=== PATIENT | male | born 1950 | race Caucasian/White ===

== ENCOUNTER 2016-09-18 15:32 | Inpatient (IN) | payer MEDICARE, OTHER ==
[~2016-09-18] VITALS: Ht 177.8 cm; Wt 87.3 kg
[~2016-09-18 15:32] MED LIST: CELE200C PO; CIPR500T94 PO; CRESTOR20 MG PO; FISH12002 PO; GABA-585 PO; HYDR-2666 PO; HYDR1TAB10 PO; IBUP800T PO; METO50TA10 PO; OMEP40CA5 PO; ONDA8TAB12 PO; PSYL0.5215 PO; TAMS0.4C97 PO; TELM1TAB PO; celebrex PO; crestor PO; ibuprofen PO; metoprolol PO; micardis
[2016-09-18 16:12] VITALS: BP 120/77
[2016-09-18] MEDS ORDERED: VANCOMYCIN PER PHARMACY MC PRN (16:30)
[2016-09-18] MEDS ORDERED: VANCOMYCIN 2 GM in IV NORMAL SALINE 500ML 500 ML IV ONE (16:45)
[2016-09-18] MEDS ORDERED: IOHEXOL 300 MG/ML 75 ML VIAL. IV ONE (17:00)
[2016-09-18] MEDS ORDERED: PIPERACILLIN/TAZOBACTAM 4.5 GM in IV NORMAL SALINE 50ML 50 ML IV SCH (17:00)
[2016-09-18] MEDS ORDERED: IOHEXOL 240 MG/ML 50ML VIAL. PO ONE (17:00)
[2016-09-18] MEDS ORDERED: CONTRAST GIVEN MC PRN (17:15)
[2016-09-18 17:21] LABS: BASO % 0 % (0-3); EOS # 0.3 x10^3/uL (0.0-0.7); EOS % 2 % (0-3); HEMOGLOBIN 12.4 g/dL (13.0-17.5); LYMPH # 1.7 x10^3/uL (1.0-4.8); LYMPH % 12 % (24-48); MEAN CORPUSCULAR HEMOGLOBIN 30 pg (25-35); MEAN CORPUSCULAR HGB CONC 34 g/dL (31-37); MEAN CORPUSCULAR VOLUME 88 fL (79-100); MONO # 1.2 x10^3/uL (0.0-1.1); MONO % 9 % (0-9); NEUT # 10.8 x10^3uL (1.8-7.7); NEUT % 77 % (31-73); PLATELET COUNT 185 x10^3/uL (140-400); RED BLOOD COUNT 4.18 x10^6/uL (4.30-5.70); RED CELL DISTRIBUTION WIDTH 14.2 % (11.5-14.5); WHITE BLOOD COUNT 13.9 x10^3/uL (4.0-11.0)
[2016-09-18 17:23] LABS: ALBUMIN 2.9 g/dL (3.4-5.0); ALBUMIN/GLOBULIN RATIO 0.8 (1.0-1.7); CALCIUM 8.9 mg/dL (8.5-10.1); CREATININE 0.9 mg/dL (0.7-1.3); GFR 84.4; POTASSIUM 3.5 mmol/L (3.5-5.1); TOTAL BILIRUBIN 1.8 mg/dL (0.2-1.0); TOTAL PROTEIN 6.5 g/dL (6.4-8.2)
[2016-09-18 17:24] LABS: AMYLASE 50 U/L (25-115); CREATINE KINASE 55 U/L (39-308); LIPASE 174 U/L (73-393)
[2016-09-18] MEDS: MORPHINE SULFATE 4 MG/ML DISP.SYRIN. IV PRN (17:56)
[2016-09-18] MEDS: IV NORMAL SALINE 1,000ML 1,000 ML IV SCH (18:00)
--- NOTE | 2016-09-18 18:45 | RAD ---
PROCEDURE Two-view chest. HISTORY Chest pain today. COMPARISON AP chest May 10, 2016. FINDINGS Cardiomediastinal silhouette is normal. There is mild medial right lower lobe airspace disease. No pleural effusion or pneumothorax. Bones unremarkable. IMPRESSION Mild right lower lobe atelectasis or scarring or infiltrate. Electronically signed by: Frantz Thompson MD (Sep 18, 2016 18:43:56)
--- NOTE | 2016-09-18 19:01 | EKG ---
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
--- NOTE | 2016-09-18 20:04 | RAD ---
PROCEDURE CT chest abdomen and pelvis with contrast. HISTORY Chest pain, cough, congestion, abdominal pain. History of kidney stones and pancreatitis. TECHNIQUE Helical CT imaging of the chest abdomen and pelvis is performed after oral contrast and 75 cc Omnipaque 300 IV contrast. PQRS: One or more the following individualized dose reduction techniques were utilized for the study: 1. Automated exposure control. 2. Adjustment of the mA and/or kV according to patient size. 3. Use of iterative reconstruction technique. COMPARISON CT abdomen pelvis with contrast May 10, 2016. FINDINGS There is no adenopathy in the chest. The great vessels are normal caliber. There is 3 vessel coronary artery disease. Cardiac size normal, no pericardial effusion. The central airways are patent. There is moderate dependent atelectasis bilaterally. No pleural effusion. Calcified granuloma left lower lobe. There is moderate inflammation surrounding the entire pancreas. No air in the pancreas bed is seen to suggest necrosis. Pancreas head is heterogeneous. An organized peripancreatic fluid collection is not identified. Minimal intrahepatic duct prominence. Extrahepatic duct is not dilated. Tiny cyst or hemangioma in segment 6 is stable. Liver otherwise homogeneous. Gallbladder, spleen, adrenal glands, and abdominal aortic caliber normal. There are bilateral nonobstructing renal calculi. Small left renal cyst. Bilateral perinephric stranding. Kidneys enhance symmetrically. No hydronephrosis. Stomach unremarkable. No dilated small bowel. Descending colon diverticulosis. The appendix is normal scattered stool in the colon. No colon wall thickening is identified. There is moderate pelvic free fluid. There is no abdominal adenopathy. Urinary bladder is normal. There are multiple coarse calcifications in the prostate. Prostate size upper limits of normal. Prostate mildly protrudes into the base of the bladder. Small fat containing left inguinal hernia. The no compression fracture in the thoracolumbar spine. IMPRESSION 1. Moderate acute pancreatitis. No obvious pancreas necrosis. No pancreatic pseudocyst. 2. Moderate pelvic free fluid. 3. Moderate dependent atelectasis in the lungs bilaterally. 4. Distal colon diverticulosis without evidence of diverticulitis. 5. Prostate size upper limits of normal. Electronically signed by: Frantz Thompson MD (Sep 18, 2016 20:02:20)
[2016-09-18 20:39] VITALS: BP 109/71
[2016-09-18] MEDS ORDERED: GABAPENTIN 100 MG CAPSULE. PO SCH (21:00)
[2016-09-18 21:29] LABS: BILIRUBIN,URINE NEG (NEG); CLARITY,URINE HAZY; COLOR,URINE AMBER; GLUCOSE,URINE NEG (NEG); NITRITE,URINE NEG (NEG); UROBILINOGEN,URINE 4 mg/dL (0.2 mg/dL)
[2016-09-18 21:30] LABS: BACTERIA,URINE 0 /HPF (0-FEW); RBC,URINE 0 /HPF (0-2); SQUAMOUS EPITHELIAL CELL,UR FEW /LPF
[2016-09-18] MEDS: CEFTRIAXONE SODIUM 1 GM in IV NORMAL SALINE 50ML 50 ML IV SCH (22:05)
[2016-09-19 04:19] LABS: BASO # 0.1 x10^3/uL (0.0-0.2); BASO % 1 % (0-3); EOS # 0.3 x10^3/uL (0.0-0.7); EOS % 3 % (0-3); HEMATOCRIT 34.6 % (39.0-53.0); HEMOGLOBIN 11.5 g/dL (13.0-17.5); LYMPH # 1.4 x10^3/uL (1.0-4.8); LYMPH % 10 % (24-48); MEAN CORPUSCULAR HEMOGLOBIN 29 pg (25-35); MEAN CORPUSCULAR HGB CONC 33 g/dL (31-37); MEAN CORPUSCULAR VOLUME 88 fL (79-100); MONO # 1.2 x10^3/uL (0.0-1.1); MONO % 9 % (0-9); NEUT # 10.8 x10^3uL (1.8-7.7); NEUT % 78 % (31-73); PLATELET COUNT 177 x10^3/uL (140-400); RED BLOOD COUNT 3.94 x10^6/uL (4.30-5.70); RED CELL DISTRIBUTION WIDTH 14.1 % (11.5-14.5); WHITE BLOOD COUNT 13.8 x10^3/uL (4.0-11.0)
[2016-09-19 04:22] LABS: CALCIUM 8.5 mg/dL (8.5-10.1); CREATININE 0.9 mg/dL (0.7-1.3); GFR 84.4; POTASSIUM 3.5 mmol/L (3.5-5.1)
[2016-09-19] MEDS: IV NORMAL SALINE 1,000ML 1,000 ML IV SCH (05:00)
[2016-09-19 05:27] VITALS: BP 117/74
[2016-09-19] MEDS ORDERED: VANCOMYCIN 1.5 GM in IV NORMAL SALINE 500ML 500 ML IV SCH (06:00)
[2016-09-19] MEDS: MORPHINE SULFATE 4 MG/ML DISP.SYRIN. IV PRN ×2 (07:51→15:15)
[2016-09-19] MEDS ORDERED: CELECOXIB 200 MG CAPSULE PO SCH (09:00)
[2016-09-19] MEDS ORDERED: [UNRECOGNIZED DRUG - OTHER] PO SCH (09:00)
[2016-09-19] MEDS: PANTOPRAZOLE 40 MG TABLET. PO SCH (09:13)
[2016-09-19] MEDS: METOPROLOL SUCC 24HR ER 50 MG TAB.ER.24H. PO SCH (09:13)
[2016-09-19] MEDS: LOSARTAN 50 MG TABLET. PO SCH (09:13)
[2016-09-19] MEDS: HYDROCHLOROTHIAZIDE 25 MG TABLET PO SCH (09:13)
[2016-09-19] MEDS: HYDROCODONE/APAP 5/325MG TABLET. PO PRN ×2 (09:15→22:48)
[2016-09-19] MEDS: AA 3%/ELECTROLYTE-TPN SOLN/GLY 1,000 ML IV SCH (11:33)
[2016-09-19 11:42] VITALS: BP 103/65
--- NOTE | 2016-09-19 13:07 | RAD ---
Ultrasound bilateral lower extremity Indication: Positive d-dimer. Technique: Multiple real-time grayscale images were obtained over the bilateral lower extremities with use of color Doppler imaging and spectral analysis. Static images were submitted for interpretation. Findings: There is no evidence for deep venous thrombosis. There is normal color fill-in on Doppler images. There is also normal response to compression and augmentation of the deep venous system. Impression: No evidence for deep venous thrombosis.
[2016-09-19 15:51] VITALS: BP 129/77
[2016-09-19 19:13] VITALS: BP 104/65
--- NOTE | 2016-09-19 19:57 | PN ---
DATE: 09/19/2016 SUBJECTIVE: The patient is a gentleman who suffered acute pancreatitis when he was on [place] about a week ago. He came back to the [facility]. His lipase was over 50,000 when he was in ____ within range. However, the patient is still in quite a bit of pain. A CT scan still shows quite a bit of swelling around the pancreas as well as an elevated white count, hemoglobin dropping. The patient is unable to eat for at least a week we put a PICC line and give him some TPN. Running low-grade temperature of 100 degrees, pulse 90-100, respiratory rate 20. PHYSICAL EXAMINATION: VITAL SIGNS: Blood pressure 120/70, respiratory rate 20, otherwise. LUNGS: Clear. CARDIOVASCULAR: Stable. ABDOMEN: Soft, diffuse tenderness, but no rebounding, slight guarding. Positive bowel sounds, no hepatosplenomegaly. NEUROLOGIC: Intact. Patient is alert and oriented in baseline mental status perfect. LABORATORY DATA: Positive D-dimer, but CTA was negative for clot. We will use SCD on his legs. Continue to monitor his white count, electrolytes, and ____ nutritional supplementation. IMPRESSION: Pancreatitis anemia of chronic disease, leukocytosis secondary to pancreatitis, pneumonia of unspecified etiology. JOSE R LEWIS MD DR: SHOLA/phyllis JOB#: [id number] / [id number]
[2016-09-19] MEDS: CEFTRIAXONE SODIUM 1 GM in IV NORMAL SALINE 50ML 50 ML IV SCH (21:55)
[2016-09-20] MEDS: AA 3%/ELECTROLYTE-TPN SOLN/GLY 1,000 ML IV SCH ×3 (01:58→20:23)
[2016-09-20 05:13] VITALS: BP 106/65
[2016-09-20 06:52] LABS: BASO # 0.1 x10^3/uL (0.0-0.2); BASO % 1 % (0-3); EOS # 0.2 x10^3/uL (0.0-0.7); EOS % 2 % (0-3); HEMATOCRIT 35.3 % (39.0-53.0); HEMOGLOBIN 11.6 g/dL (13.0-17.5); LYMPH # 1.3 x10^3/uL (1.0-4.8); LYMPH % 10 % (24-48); MEAN CORPUSCULAR HEMOGLOBIN 29 pg (25-35); MEAN CORPUSCULAR HGB CONC 33 g/dL (31-37); MEAN CORPUSCULAR VOLUME 89 fL (79-100); MONO # 1.1 x10^3/uL (0.0-1.1); MONO % 8 % (0-9); NEUT # 11.1 x10^3uL (1.8-7.7); NEUT % 80 % (31-73); PLATELET COUNT 186 x10^3/uL (140-400); RED BLOOD COUNT 3.96 x10^6/uL (4.30-5.70); RED CELL DISTRIBUTION WIDTH 14.5 % (11.5-14.5); WHITE BLOOD COUNT 13.9 x10^3/uL (4.0-11.0)
[2016-09-20 06:59] LABS: CREATININE 0.9 mg/dL (0.7-1.3); GFR 84.2; POTASSIUM 4.1 mmol/L (3.5-5.1)
[2016-09-20 07:09] LABS: VANC TR 1.9 mcg/mL (10.0-20.0)
[2016-09-20] MEDS: LOSARTAN 50 MG TABLET. PO SCH (08:52)
[2016-09-20] MEDS: HYDROCODONE/APAP 5/325MG TABLET. PO PRN ×3 (08:52→20:22)
[2016-09-20] MEDS: HYDROCHLOROTHIAZIDE 25 MG TABLET PO SCH (08:52)
[2016-09-20] MEDS: METOPROLOL SUCC 24HR ER 50 MG TAB.ER.24H. PO SCH (08:52)
[2016-09-20] MEDS: PANTOPRAZOLE 40 MG TABLET. PO SCH (08:53)
[2016-09-20] MEDS ORDERED: TPN PER PHARMACY MC PRN (09:45)
[2016-09-20 11:13] VITALS: BP 109/74
[2016-09-20] MEDS: ENOXAPARIN 40 MG/0.4 ML DISP.SYRIN. SQ SCH (11:57)
[2016-09-20 16:06] VITALS: BP 115/70
[2016-09-20 19:50] VITALS: BP 111/67
[2016-09-20] MEDS ORDERED: TOTAL PARENTERAL NUTRITION IV SCH ×10 (20:00)
[2016-09-20] MEDS ORDERED: AMINO ACIDS IV SCH ×10 (20:00)
[2016-09-20] MEDS ORDERED: [UNRECOGNIZED DRUG - OTHER] IV SCH ×10 (20:00)
[2016-09-20] MEDS: CEFTRIAXONE SODIUM 1 GM in IV NORMAL SALINE 50ML 50 ML IV SCH (20:22)
--- NOTE | 2016-09-20 22:26 | PN ---
DATE: SUBJECTIVE: The patient in with pancreatitis that has been going on for a week now, trying to get PICC line and TPN started on him. The patient's CT scan shows a significant amount of fluid around the pancreas, moderate inflammation surrounding the entire pancreas, no free air noted, no evidences of necrosis at this time ____ not identified and some atelectases in the lungs were noted. He has bilateral kidney stones. Otherwise, he is feeling a little better today. OBJECTIVE: VITAL SIGNS: Blood pressure 110/70, respiratory rate 20, pulse 80, temperature is still elevated at 100 degrees and pulse ox at 94. GENERAL: He continues on Rocephin and Levaquin, may switch him over, however. Otherwise, alert and oriented, birthday today. LUNGS: Diminished, but clear throughout. CARDIOVASCULAR: Regular sinus rhythm. ABDOMEN: Soft, diffuse tenderness in the epigastric area, slight guarding but no rebounding, positive bowel sounds, had a bowel movement. EXTREMITIES: No clubbing, cyanosis or edema. NEUROLOGIC: The patient was alert and oriented x 3. Speech fluent, spontaneous, appropriate, very pleasant gentleman in any case. IMPRESSION: Pancreatitis, unknown etiology at this time, has a sister with the same problem; pneumonia of unspecified etiology, anemia of chronic disease. We will start him on TPN and make further adjustment there. PLAN: Hopefully, get him transferred for ERCP. JOSE R LEWIS MD DR: SHOLA/phyllis JOB#: [id number] / [id number]
[2016-09-20 22:40] VITALS: BP 104/67
[2016-09-21 05:34] VITALS: BP 117/68
[2016-09-21 06:33] LABS: BASO % 0 % (0-3); EOS # 0.3 x10^3/uL (0.0-0.7); EOS % 2 % (0-3); HEMATOCRIT 33.1 % (39.0-53.0); HEMOGLOBIN 11.1 g/dL (13.0-17.5); LYMPH # 1.2 x10^3/uL (1.0-4.8); LYMPH % 9 % (24-48); MEAN CORPUSCULAR HEMOGLOBIN 29 pg (25-35); MEAN CORPUSCULAR HGB CONC 34 g/dL (31-37); MEAN CORPUSCULAR VOLUME 88 fL (79-100); MONO # 1.2 x10^3/uL (0.0-1.1); MONO % 9 % (0-9); NEUT # 10.8 x10^3uL (1.8-7.7); NEUT % 80 % (31-73); PLATELET COUNT 184 x10^3/uL (140-400); RED BLOOD COUNT 3.78 x10^6/uL (4.30-5.70); RED CELL DISTRIBUTION WIDTH 13.9 % (11.5-14.5); WHITE BLOOD COUNT 13.5 x10^3/uL (4.0-11.0)
[2016-09-21] MEDS: HYDROCHLOROTHIAZIDE 25 MG TABLET PO SCH (07:48)
[2016-09-21] MEDS: HYDROCODONE/APAP 5/325MG TABLET. PO PRN ×4 (07:48→22:01)
[2016-09-21] MEDS: LOSARTAN 50 MG TABLET. PO SCH (07:49)
[2016-09-21] MEDS: PANTOPRAZOLE 40 MG TABLET. PO SCH (07:49)
[2016-09-21] MEDS: METOPROLOL SUCC 24HR ER 50 MG TAB.ER.24H. PO SCH (07:49)
[2016-09-21] MEDS: ENOXAPARIN 40 MG/0.4 ML DISP.SYRIN. SQ SCH (07:50)
[2016-09-21] MEDS: LIPASE/PROTEAS/AMYLAS 10/34/55 CAPSULE.DR. PO SCH ×2 (11:49→17:17)
[2016-09-21 16:26] VITALS: BP 106/70
[2016-09-21 20:14] VITALS: BP 104/67
[2016-09-21] MEDS: CEFTRIAXONE SODIUM 1 GM in IV NORMAL SALINE 50ML 50 ML IV SCH (21:55)
[2016-09-21 22:26] VITALS: BP 102/64
[2016-09-22 05:08] VITALS: BP 110/70
[2016-09-22] MEDS: PANTOPRAZOLE 40 MG TABLET. PO SCH (07:50)
[2016-09-22] MEDS: HYDROCODONE/APAP 5/325MG TABLET. PO PRN (07:52)
[2016-09-22] MEDS: LIPASE/PROTEAS/AMYLAS 10/34/55 CAPSULE.DR. PO SCH (08:18)
[2016-09-22] MEDS: METOPROLOL SUCC 24HR ER 50 MG TAB.ER.24H. PO SCH (08:18)
[2016-09-22 08:19] VITALS: BP 110/70
[2016-09-22] MEDS: HYDROCHLOROTHIAZIDE 25 MG TABLET PO SCH (08:19)
[2016-09-22] MEDS: LOSARTAN 50 MG TABLET. PO SCH (08:19)
[2016-09-22] MEDS: ENOXAPARIN 40 MG/0.4 ML DISP.SYRIN. SQ SCH (08:21)
[2016-09-22] MEDS ORDERED: LEVO500T38 PO (10:40)
[2016-09-22] MEDS ORDERED: LIPA1CAP12 PO (10:40)
--- NOTE | 2016-09-22 11:22 | DS ---
DATE OF DISCHARGE: 09/18/2016 HOSPITAL COURSE: The patient came in diagnosed with pancreatitis came in here. He still had CT scan performed showed massive fluid collection around the pancreas, but no signs of necrosis. His hemoglobin remained on the low side and as a result his hemoglobin remained ____ white count 13,000. His chemistries are basically unremarkable. He did have a low prealbumin because he has not been eating. He was placed on TPN treatments as well. D-dimer was elevated with negative for clot. He did have a pneumonic process. He was treated for pneumonia as well. He made excellent progress and will be transferred down to as an outpatient for GI clinic ERCP. IMPRESSION: Therefore, acute pancreatitis, pneumonia of unspecified etiology, severe protein malnutrition, anemia of chronic disease, and leukocytosis secondary to the pancreatitis. The patient was given special diet. See MRAD and have him return to clinic for followup as indicated and then also . JOSE R LEWIS MD DR: SHOLA/phyllis JOB#: [id number] / [id number]
[2016-09-22] MEDS ORDERED: LEVOFLOXACIN 750 MG TABLET PO SCH (17:00)
== END 2016-09-22 11:34 | disposition home or self-care (01) | DRG 871 ==
LOC: CT 15:32 → 1 SOUTH 15:59
PROVIDERS: ADMIT Family Medicine; ATTEND Family Medicine
DX: A41.9 Sepsis, unspecified organism (principal); K85.90 Acute pancreatitis without necrosis or infection, unspecified; J18.9 Pneumonia, unspecified organism; E43 Unspecified severe protein-calorie malnutrition; D72.829 Elevated white blood cell count, unspecified; R31.0 Gross hematuria; D63.8 Anemia in other chronic diseases classified elsewhere; Z87.442 Personal history of urinary calculi; Z68.27 Body mass index [BMI] 27.0-27.9, adult
CPT/HCPCS: 36415; 36569; 71020; 71260; 74177; 80048; 80053; 80061; 80202; 81001; 82150; 82550; 82977; 83605; 83690; 84134; 84484; 85027; 85379; 93005; 93970; J0610; J0696; J1650; J1956; J2270; J3370; J3475; J3490; J7040; Q9966; Q9967; J7030

== ENCOUNTER 2016-11-11 22:52 | Emergency (ER) | payer MEDICARE, OTHER ==
[~2016-11-11] VITALS: Ht 177.8 cm; Wt 90.0 kg
[~2016-11-11 22:52] MED LIST changes: -HYDR-2666 PO; +HYDR-2758 PO; -IBUP800T PO; +IBUP800T19 PO; +LEVO500T59 PO; +LIPA1CAP12 PO
[2016-11-11] MEDS ORDERED: IV NORMAL SALINE 1,000ML 1,000 ML IV SCH (23:07)
[2016-11-11] MEDS ORDERED: 0.9 % SODIUM CHLORIDE 10 ML DISP.SYRIN. IV PRN (23:15)
[2016-11-11] MEDS ORDERED: HYDROmorphone PF 1 MG/ML DISP.SYRIN IV/SQ PRN (23:15)
--- NOTE | 2016-11-11 23:18 | PHYS DOC ---
Past History Past Medical History: GERD, High Cholesterol, Hypertension, Kidney Stones Past Surgical History: Other Smoking: Non-smoker Alcohol Use: Occasionally Drug Use: None Adult General Chief Complaint Chief Complaint: , abdominal pain and nausea and vomiting [facility] HPI This is a pleasant 66-year-old male with a history of pancreatitis from unknown etiology, hypertension, hyperlipidemia who presents with sudden onset of abdominal pain about 2 hours prior to arrival with nausea and vomiting nonbilious nonbloody in nature and he says the abdominal pain began at acutely after eating some ice cream described as sharp and stabbing in the right upper quadrant with radiation to the right flank. This is not changed with position vomiting and nausea do not improve with vomiting. He has been diaphoretic with waves of pain. He denies any shortness of breath, fevers, chills, sick contacts or recent raw food consumption. He does not handle poultry or amphetamines. Denies any recent travel outside the country denies recent trauma. This feels very reminiscent of his prior pancreatic attacks. He's been hospitalized twice since September when these to contacts began. He is no longer blood pressure medications or hyperlipidemia agents. Review of Systems Review of Systems Constitutional: Denies fever or chills [] Eyes: Denies change in visual acuity, redness, or eye pain [] HENT: Denies nasal congestion or sore throat [] Respiratory: Denies cough or shortness of breath [] Cardiovascular: No additional information not addressed in HPI [] GI: This patient does complain of abdominal pain with nausea and vomiting nonbilious nonbloody no diarrhea : Denies dysuria or hematuria [] Musculoskeletal: Complains of a back pain radiating from the abdomen epigastric region across the flank. Integument: Denies rash or skin lesions [] Neurologic: Denies headache, focal weakness or sensory changes [] Endocrine: Denies polyuria or polydipsia [] Allergies Allergies Allergies Coded Allergies Type Severity Reaction Last Updated Verified No Known Drug Allergies 08/08/14 No Physical Exam Physical Exam Constitutional: Well developed, well nourished, no acute distress, non-toxic appearance. [] HENT: Normocephalic, atraumatic, bilateral external ears normal, dry mucous membranes, no oral exudates, nose normal. [] Eyes: PERRLA, EOMI, conjunctiva normal, no discharge. [] Neck: Normal range of motion, no tenderness, supple, no stridor. [] Cardiovascular:Heart rate regular rhythm, no murmur [] Lungs & Thorax: Bilateral breath sounds clear to auscultation [] Abdomen patient has increased bowel sounds although the abdomen is soft there is tenderness to the right upper quadrant no obvious rash no obvious trauma no rebound guarding or organomegaly. Skin: Warm, dry, no erythema, no rash. [] Back: No tenderness, no CVA tenderness. [] Extremities: No tenderness, no cyanosis, no clubbing, ROM intact, no edema. [] Neurologic: Alert and oriented X 3, normal motor function, normal sensory function, no focal deficits noted. [] Psychologic: Affect normal, judgement normal, mood normal. [] EKG EKG EKG timed 11:07 PM 11/11/[address] Em demonstrates normal sinus rhythm with a heart rate of 70 normal MO interval 142 QRS normal 84 QTc normal 426. Demonstrates no ST segment or T-wave inversion T-wave hyperacuteness or elevation consistent with an acute coronary syndrome. Otherwise normal-looking EKG [] Radiology/Procedures Radiology/Procedures [] [address] [address] IMAGING REPORT Signed PATIENT: KIRSTEN LEVY ACCOUNT: [id number] : 1950 LOCATION: ER AGE: 66 SEX: M EXAM STATUS: REG ER ORD. PHYSICIAN: KYLE EM MD REASON: diffuse epigastric ab pain PROCEDURE: CT ABD PELV W/ IV CONTRST ONLY CT abdomen and pelvis with contrast: Reason for examination: Diffuse epigastric abdominal pain with nausea and vomiting tonight. History of kidney stones and pancreatitis. Comparison is made to previous study dated 05/10/2016. Helical images were obtained through the abdomen and pelvis with intravenous administration of 75 cc Omnipaque 300. Reconstruction was performed in sagittal and coronal planes. Exposure: One or more of the following individualized dose reduction techniques were utilized for this examination: 1. Automated exposure control 2. Adjustment of the mA and/or kV according to patient size 3. Use of iterative reconstruction technique. The lung bases are clear. The heart size is normal with no pericardial effusion evident. The liver shows no focal lesions but there is suggestion of some very mild intrahepatic biliary dilatation. The gallbladder is distended at 11 cm and there is some calcification in the posterior wall which may reflect a developing porcelain gallbladder. However this could represent layering of multiple small gallstones. There is no apparent dilatation of the common bile duct. No abnormality seen at the pancreas, adrenal glands or spleen. The abdominal aorta and inferior vena cava show no abnormalities. No abnormalities seen at the appendix. The intestinal tract shows no abnormally dilated loops of bowel or thickened bowel duncan. There is no evidence of diverticulosis or diverticulitis. The kidneys bilaterally show presence of small hypodense lesions consistent with small cysts. There are also nonobstructing renal calculi present. There is no evidence of hydronephrosis or obstructive uropathy. No abnormality seen at the bladder. The prostate gland is enlarged and contains calcifications. Seminal vesicles are symmetric. IMPRESSION: Distended gallbladder measuring 11 cm in greatest dimension with some calcification posteriorly which appears to be in the gallbladder wall. Cannot exclude developing porcelain gallbladder. This could reflect small gallstones. Mild intrahepatic biliary dilatation. Small renal cysts bilaterally. Bilateral nonobstructing renal calculi. Enlarged prostate gland with calcifications. Electronically signed by: Kelley Truong MD (11/12/2016 12:32 AM) DICTATED AND SIGNED BY: KELLEY TRUONG MD DATE: 11/12/16 0014 CC: KYLE EM MD; JOSE R LEWIS MD ~ Course & Med Decision Making Course & Med Decision Making Pertinent Labs and Imaging studies reviewed. (See chart for details) Patient's history was reviewed again with at the bedside it was discovered that patient recently eaten out at [employer] with their grandchild today prior to this event of nausea and vomiting occurring. At this point vital signs, nursing notes, history, physical laboratory work and CAT scan reviewed. Patient tells me that their symptoms given during CC are improved. We reviewed labs and radiology reports with patient and any family at bedside. Time is now 12:02 AM pending CAT scan at this time patient's nausea and vomiting have improved with IV fluids and Zofran. Discussed negative lipase family bedside. Patient tells me that their symptoms given during CC are improved. We reviewed labs and radiology reports with patient and any family at bedside. Is now 1:[address] scan reveals distended gallbladder with beginnings of calcifications of the gall bladder wall consistent with the development of a early portion gallbladder patient orally has follow-up with a general surgeon and GI this week. This point there is no evidence of cholelithiasis or cholecystitis. Patient's urine is clear patient is negative troponin doubt acute coronary event causing his abdominal pain and nausea and vomiting. Patient is not dehydrated. I will provide pain medications, antinausea medications, GI and general surgery follow- up for continued evaluation of patient's issue with pancreatitis. 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 [] Dragon Disclaimer Dragon Disclaimer This chart was dictated in whole or in part using Voice Recognition software in a busy, high-work load, and often noisy Emergency Department environment. It may contain unintended and wholly unrecognized errors or omissions. Departure Departure: Impression: Primary Impression: Upper abdominal pain Additional Impressions: Cholelithiasis Porcelain gallbladder Nausea and vomiting Referrals: JOSE R LEWIS MD (PCP) Patient Instructions: Abdominal Pain, Cholelithiasis, Nausea and Vomiting Additional Instructions: With symptomatic cholelithiasis or a porcelain gallbladder I would recommend early GI/general surgery referral for elective cholecystectomy. Please return for any new or increasing symptoms like increasing abdominal pain, fever greater than 102.2 yellowing of your skin or if you have any questions or concerns. I would also avoid fatty foods and only advance her diet as you can tolerate when she would tolerate oral fluids. Please return for any new or increasing symptoms or if you have any questions or concerns. Scripts Ondansetron (ZOFRAN ODT) 8 Mg Tab.rapdis 4 MG PO PRN 3-4XDAILY Y for NAUSEA for 7 Days Prov: KYLE EM MD 11/12/16 Hydrocodone Bit/Acetaminophen (HYDROCODONE-APAP 5-325 ) 1 Each Tablet 1 TAB PO PRN Q6HRS Y for PAIN for 7 Days, #10 TAB 0 Refills Prov: KYLE EM MD 11/12/16 Problem Qualifiers KYLE EM MD Nov 11, 2016 23:18
[2016-11-11 23:22] LABS: BASO # 0.1 x10^3/uL (0.0-0.2); BASO % 1 % (0-3); EOS # 0.4 x10^3/uL (0.0-0.7); EOS % 6 % (0-3); HEMATOCRIT 41.8 % (39.0-53.0); HEMOGLOBIN 14.1 g/dL (13.0-17.5); LYMPH # 2.5 x10^3/uL (1.0-4.8); LYMPH % 34 % (24-48); MEAN CORPUSCULAR HEMOGLOBIN 30 pg (25-35); MEAN CORPUSCULAR HGB CONC 34 g/dL (31-37); MEAN CORPUSCULAR VOLUME 89 fL (79-100); MONO # 0.6 x10^3/uL (0.0-1.1); MONO % 9 % (0-9); NEUT # 3.6 x10^3uL (1.8-7.7); NEUT % 50 % (31-73); PLATELET COUNT 199 x10^3/uL (140-400); RED BLOOD COUNT 4.71 x10^6/uL (4.30-5.70); RED CELL DISTRIBUTION WIDTH 15.3 % (11.5-14.5); WHITE BLOOD COUNT 7.3 x10^3/uL (4.0-11.0)
[2016-11-11] MEDS ORDERED: ONDANSETRON PF 4 MG/2 ML VIAL. IV ONE (23:30)
[2016-11-11] MEDS ORDERED: PANTOPRAZOLE IV PUSH 40 MG VIAL. IVP ONE (23:30)
[2016-11-11 23:40] LABS: ALBUMIN 3.5 g/dL (3.4-5.0); ALBUMIN/GLOBULIN RATIO 1.1 (1.0-1.7); CALCIUM 8.8 mg/dL (8.5-10.1); GFR 74.5; POTASSIUM 3.9 mmol/L (3.5-5.1); TOTAL BILIRUBIN 1.2 mg/dL (0.2-1.0); TOTAL PROTEIN 6.6 g/dL (6.4-8.2)
[2016-11-11] MEDS ORDERED: CONTRAST GIVEN MC PRN (23:45)
[2016-11-12] MEDS ORDERED: IOHEXOL 300 MG/ML 75 ML VIAL. IV ONE
[2016-11-12 00:22] LABS: BILIRUBIN,URINE NEG (NEG); CLARITY,URINE CLEAR; COLOR,URINE YELLOW; GLUCOSE,URINE NEG (NEG); NITRITE,URINE NEG (NEG); UROBILINOGEN,URINE 1 mg/dL (0.2 mg/dL)
[2016-11-12 00:23] LABS: BACTERIA,URINE 0 /HPF (0-FEW); RBC,URINE OCC /HPF (0-2); WBC,URINE OCC /HPF (0-4)
--- NOTE | 2016-11-12 00:26 | EKG ---
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
--- NOTE | 2016-11-12 00:36 | RAD ---
CT abdomen and pelvis with contrast: Reason for examination: Diffuse epigastric abdominal pain with nausea and vomiting tonight. History of kidney stones and pancreatitis. Comparison is made to previous study dated 05/10/2016. Helical images were obtained through the abdomen and pelvis with intravenous administration of 75 cc Omnipaque 300. Reconstruction was performed in sagittal and coronal planes. Exposure: One or more of the following individualized dose reduction techniques were utilized for this examination: 1. Automated exposure control 2. Adjustment of the mA and/or kV according to patient size 3. Use of iterative reconstruction technique. The lung bases are clear. The heart size is normal with no pericardial effusion evident. The liver shows no focal lesions but there is suggestion of some very mild intrahepatic biliary dilatation. The gallbladder is distended at 11 cm and there is some calcification in the posterior wall which may reflect a developing porcelain gallbladder. However this could represent layering of multiple small gallstones. There is no apparent dilatation of the common bile duct. No abnormality seen at the pancreas, adrenal glands or spleen. The abdominal aorta and inferior vena cava show no abnormalities. No abnormalities seen at the appendix. The intestinal tract shows no abnormally dilated loops of bowel or thickened bowel duncan. There is no evidence of diverticulosis or diverticulitis. The kidneys bilaterally show presence of small hypodense lesions consistent with small cysts. There are also nonobstructing renal calculi present. There is no evidence of hydronephrosis or obstructive uropathy. No abnormality seen at the bladder. The prostate gland is enlarged and contains calcifications. Seminal vesicles are symmetric. IMPRESSION: Distended gallbladder measuring 11 cm in greatest dimension with some calcification posteriorly which appears to be in the gallbladder wall. Cannot exclude developing porcelain gallbladder. This could reflect small gallstones. Mild intrahepatic biliary dilatation. Small renal cysts bilaterally. Bilateral nonobstructing renal calculi. Enlarged prostate gland with calcifications. Electronically signed by: Zari Hall MD (11/12/2016 12:32 AM)
[2016-11-12 01:04] VITALS: BP 133/87
[2016-11-12] MEDS ORDERED: HYDR-2758 PO (01:10)
[2016-11-12] MEDS ORDERED: ONDA8TAB12 PO (01:10)
== END 2016-11-12 01:20 | disposition home or self-care (01) ==
LOC: ER 22:52
DX: K80.20 Calculus of gallbladder without cholecystitis without obstruction (principal); K82.8 Other specified diseases of gallbladder; K21.9 Gastro-esophageal reflux disease without esophagitis; E78.00 Pure hypercholesterolemia, unspecified; I10 Essential (primary) hypertension; Z87.442 Personal history of urinary calculi
CPT/HCPCS: 36415; 74177; 80053; 81001; 82553; 83690; 84484; 85027; 93005; 96361; 96374; 96375; 99285; C9113; J1170; J2405; Q9967; J7030

== ENCOUNTER → 2017-07-10 | Outpatient (CLI) | payer MEDICARE, OTHER ==
[~2017-07-10] MED LIST changes: -METO50TA10 PO; +METO50TA29 PO
[2017-07-10 13:57] LABS: BASO # 0.1 x10^3/uL (0.0-0.2); BASO % 1 % (0-3); EOS # 0.4 x10^3/uL (0.0-0.7); EOS % 2 % (0-3); HEMATOCRIT 39.4 % (39.0-53.0); LYMPH # 1.6 x10^3/uL (1.0-4.8); LYMPH % 10 % (24-48); MEAN CORPUSCULAR HEMOGLOBIN 29 pg (25-35); MEAN CORPUSCULAR HGB CONC 33 g/dL (31-37); MEAN CORPUSCULAR VOLUME 89 fL (79-100); MONO # 0.9 x10^3/uL (0.0-1.1); MONO % 6 % (0-9); NEUT # 12.8 x10^3uL (1.8-7.7); NEUT % 81 % (31-73); PLATELET COUNT 353 x10^3/uL (140-400); RED BLOOD COUNT 4.41 x10^6/uL (4.30-5.70); RED CELL DISTRIBUTION WIDTH 14.1 % (11.5-14.5); WHITE BLOOD COUNT 15.7 x10^3/uL (4.0-11.0)
[2017-07-10 14:01] LABS: C REACTIVE PROTEIN 106.2 mg/L (0-3.3); CALCIUM 8.2 mg/dL (8.5-10.1); CREATININE 0.9 mg/dL (0.7-1.3); GFR 84.2; POTASSIUM 3.6 mmol/L (3.5-5.1)
[2017-07-10 14:24] LABS: % BANDS 2 % (0-9); % BASOS 2 % (0-3); % EOS 1 % (0-5); % LYMPHS 5 % (24-48); % MONOS 3 % (0-10); % SEGS 87 % (35-66); PLATELET CLUMP PRESENT; PLT ESTIMATE INCREASED (ADEQUATE)
[2017-07-10 14:25] LABS: POLYCHROMASIA SLIGHT
--- NOTE | 2017-07-10 14:35 | RAD ---
Indication: Drainage from Whipple procedure incision site. No erythema. Technique: Grayscale and color Doppler ultrasound images of the incision site in the intra-abdominal wall. Comparison: None Findings: In the region of drainage there is a small hypoechoic area without significant vascularity with a linear tract extending in to the inner abdomen. The hypoechoic area approximately measures 1.3 x 1.8 x 0.9 cm. Impression: Small hypoechoic area in the region of the incision as described above. This likely represents postsurgical seroma. No significant vascularity in this region to suggest abscess. Alternatively, pancreatic leak not ruled out. Correlate with chemistry of the draining fluid. If needed, CT abdomen with IV contrast may be obtained for better evaluation.
[2017-07-10 14:43] LABS: SEDIMENTATION RATE 39 (0-15)
== END | disposition home or self-care (01) ==
LOC: RAD 12:24
PROVIDERS: ATTEND Family Medicine
DX: L03.311 Cellulitis of abdominal wall (principal)
CPT/HCPCS: 36415; 76705; 80048; 85007; 85025; 85651; 86140

== ENCOUNTER 2017-08-01 16:01 | Emergency (ER) | payer MEDICARE, OTHER ==
[~2017-08-01] VITALS: Ht 177.8 cm; Wt 90.0 kg
[2017-08-01 16:48] LABS: BASO # 0.2 x10^3/uL (0.0-0.2); BASO % 1 % (0-3); EOS # 0.1 x10^3/uL (0.0-0.7); EOS % 1 % (0-3); HEMATOCRIT 40.4 % (39.0-53.0); HEMOGLOBIN 13.5 g/dL (13.0-17.5); LYMPH # 1.5 x10^3/uL (1.0-4.8); LYMPH % 9 % (24-48); MEAN CORPUSCULAR HEMOGLOBIN 29 pg (25-35); MEAN CORPUSCULAR HGB CONC 34 g/dL (31-37); MEAN CORPUSCULAR VOLUME 86 fL (79-100); MONO % 6 % (0-9); NEUT # 13.9 x10^3uL (1.8-7.7); NEUT % 84 % (31-73); PLATELET COUNT 449 x10^3/uL (140-400); RED BLOOD COUNT 4.72 x10^6/uL (4.30-5.70); RED CELL DISTRIBUTION WIDTH 14.1 % (11.5-14.5); WHITE BLOOD COUNT 16.7 x10^3/uL (4.0-11.0)
[2017-08-01 16:50] LABS: ALBUMIN 2.6 g/dL (3.4-5.0); ALBUMIN/GLOBULIN RATIO 0.7 (1.0-1.7); CALCIUM 9.1 mg/dL (8.5-10.1); CREATININE 0.9 mg/dL (0.7-1.3); GFR 84.2; TOTAL BILIRUBIN 1.1 mg/dL (0.2-1.0); TOTAL PROTEIN 6.2 g/dL (6.4-8.2)
--- NOTE | 2017-08-01 16:56 | PHYS DOC ---
Past History Past Medical History: GERD, High Cholesterol, Hypertension, Kidney Stones, Pancreatitis Past Surgical History: Other Smoking: Non-smoker Alcohol Use: Occasionally Drug Use: None Adult General Chief Complaint Chief Complaint: ABDOMINAL PAIN HPI HPI 66-year-old female patient with history of for Whipple procedure weeks ago at [facility] that he had uneventful post op time and usually takes one pill of oxycodone a day. Patient states he had a bowel movement every day but for the last 2 days he did not have any bowel movement and this morning to try to have a bowel movement with having some blood on toilet paper without having bowel movements. Patient complaining of sudden onset of lower abdominal pain as a constant aching pain without radiation episodes of sharp pain. Patient states he felt nauseous with episodes of sharp pain and rated his pain 10 over 10 with sharp pain and 7/10 at arrival to ER. Patient states he did not have flatus this afternoon. He denies fever and chills, urinary symptom, sick contact, chest pain and shortness of breath. Review of Systems Review of Systems Constitutional: Denies fever or chills [] Eyes: Denies change in visual acuity, redness, or eye pain [] HENT: Denies nasal congestion or sore throat [] Respiratory: Denies cough or shortness of breath [] Cardiovascular: No additional information not addressed in HPI [] GI: Reports abdominal pain, nausea, constipation, denies vomiting, bloody stools or diarrhea [] : Denies dysuria or hematuria [] Musculoskeletal: Denies back pain or joint pain [] Integument: Denies rash or skin lesions [] Neurologic: Denies headache, focal weakness or sensory changes [] Endocrine: Denies polyuria or polydipsia [] All other systems were reviewed and found to be within normal limits, except as documented in this note. Allergies Allergies Allergies Coded Allergies Type Severity Reaction Last Updated Verified No Known Drug Allergies 08/08/14 No Physical Exam Physical Exam Constitutional: Well developed, well nourished, mild distress, non-toxic appearance. [] HENT: Normocephalic, atraumatic, bilateral external ears normal, oropharynx moist, no oral exudates, nose normal. [] Eyes: PERRLA, EOMI, conjunctiva normal, no discharge. [] Neck: Normal range of motion, no tenderness, supple, no stridor. [] Cardiovascular:Heart rate regular rhythm, no murmur [] Lungs & Thorax: Bilateral breath sounds clear to auscultation [] Abdomen: Bowel sounds normal, soft, no tenderness, no masses, no pulsatile masses clean surgical scar, rectal exam in present of senior online marketing manager showed fecal impaction. [] Skin: Warm, dry, no erythema, no rash. [] Back: No tenderness, no CVA tenderness. [] Extremities: No tenderness, no cyanosis, no clubbing, ROM intact, no edema. [] Neurologic: Alert and oriented X 3, normal motor function, normal sensory function, no focal deficits noted. [] Psychologic: Affect normal, judgement normal, mood normal. [] EKG EKG [] Radiology/Procedures Radiology/Procedures [] Course & Med Decision Making Course & Med Decision Making Pertinent Labs and Imaging studies are pending (see chart for details) Evaluation of patient in ER showed 66-year-old male patient with history of Whipple procedure 5 weeks ago and complaining of abdominal pain and constipation. Patient had fecal impaction rectal exam. CT of abdomen and pelvis is pending. Patient care transferred to Dr. Chery at 1800. [] Patient signed out to me at 1800 shift change, current vital signs are stable he 's complaining of mild rectal discomfort status post disimpaction. Patient is status post Whipple procedure June 29 at , states that he's been seeing his heart rate care physician and some wound drainage was positive for MRSA he finished Bactrim course a few days ago. PATIENT: KIRSTEN LEVY ACCOUNT: [id number] : 1950 LOCATION: ER AGE: 66 SEX: M EXAM STATUS: REG ER ORD. PHYSICIAN: JENNIFER JIMENEZ MD REASON: abdominal pain PROCEDURE: CT ABD PELV W/ORAL&IV CONTRAST CT abdomen and pelvis with contrast TECHNIQUE: Helical CT imaging of the abdomen and pelvis with 75 mL Omnipaque 300 intravenous contrast. 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 COMPARISON: CT abdomen and pelvis November 12, 2016 Abdomen findings: 3 mm right middle lobe pulmonary nodule is stable. Recent postoperative changes of Whipple procedure with pancreas head resection, duodenal bulb resection, gastric antrectomy, cholecystectomy with gastroenteric anastomosis and biliary enteric anastomosis. There is pneumobilia suggesting bile duct patency. Anterior of the biliary enteric anastomosis lung the undersurface of the left hepatic lobe and lefty hepatis there is an irregular contained 8 x 3 cm fluid collection with surrounding edema suspicious for abscess leads of towards the abdominal wall skin incision, this appears to be outside the confines of bowel. No extravasation of oral contrast. There is mild edema of the pancreas tail. Nephrolithiasis. Tiny renal hypodensities probably cysts too small to characterize. Subcentimeter liver cyst right hepatic lobe is stable. No bowel obstruction. 15 mm round soft tissue nodule or lymph node adjacent of the descending limb from the biliary enteric anastomosis on axial image 40. Moderate volume of stool. Lung bases and bones are unremarkable. Pelvis findings: Rectal fecal impaction with large rectal stool mass. Bladder, prostate and bones are unremarkable. No fluid or adenopathy. IMPRESSION: 1. Recent postoperative changes of Whipple procedure. There is a 8 x 3 cm contained air and fluid collection with surrounding edema adjacent of the biliary enteric anastomosis at the anterior lefty hepatis leading anteriorly to the abdominal wall incision concerning for abscess. 2. 15 mm soft tissue nodule which could represent adenopathy of the upper abdomen as described above. 3. Edema of the tail the pancreas likely pancreatitis. 4. Nephrolithiasis. 5. Rectal fecal impaction. Exposure: One or more of the following individualized dose reduction techniques were utilized for this examination: 1. Automated exposure control 2. Adjustment of the mA and/or kV according to patient size 3. Use of iterative reconstruction technique Electronically signed by: Romel Seay MD (08/01/2017 6:51 PM) [facility] DICTATED AND SIGNED BY: ROMEL SEAY MD DATE: 08/01/17 1844 CC: JOSE R LEWIS MD; JENNIFER JIMENEZ MD ~ Lactic acid and blood cultures ordered to current studies, normal saline 1 L IV bolus and vancomycin given. 1920: Report given to Jenise with transfer team and she will call back. 2004: Patient was accepted to a Med[facility] bed at Dr. Harris is accepting. Impressions: Postoperative abscess Pancreatitis Fecal impaction Dragon Disclaimer Dragon Disclaimer This electronic medical record was generated, in whole or in part, using a voice recognition dictation system. Departure Time of Disposition: 20:09 Disposition: 02 [facility] Condition: GOOD Referrals: JOSE R LEWIS MD (PCP) Departure Departure: Impression: Primary Impression: Generalized abdominal pain [facility] Condition: GOOD Referrals: JOSE R LEWIS MD (PCP) JNENIFER JIMNEEZ MD Aug 01, 2017 16:56 PARADISE CHERY DO Aug 01, 2017 18:58
[2017-08-01] MEDS ORDERED: IOHEXOL 240 MG/ML 50ML VIAL. PO ONE (17:00)
[2017-08-01] MEDS ORDERED: IOHEXOL 300 MG/ML 75 ML VIAL. IV ONE (17:00)
--- NOTE | 2017-08-01 18:54 | RAD ---
CT abdomen and pelvis with contrast TECHNIQUE: Helical CT imaging of the abdomen and pelvis with 75 mL Omnipaque 300 intravenous contrast. 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 COMPARISON: CT abdomen and pelvis November 12, 2016 Abdomen findings: 3 mm right middle lobe pulmonary nodule is stable. Recent postoperative changes of Whipple procedure with pancreas head resection, duodenal bulb resection, gastric antrectomy, cholecystectomy with gastroenteric anastomosis and biliary enteric anastomosis. There is pneumobilia suggesting bile duct patency. Anterior of the biliary enteric anastomosis lung the undersurface of the left hepatic lobe and lefty hepatis there is an irregular contained 8 x 3 cm fluid collection with surrounding edema suspicious for abscess leads of towards the abdominal wall skin incision, this appears to be outside the confines of bowel. No extravasation of oral contrast. There is mild edema of the pancreas tail. Nephrolithiasis. Tiny renal hypodensities probably cysts too small to characterize. Subcentimeter liver cyst right hepatic lobe is stable. No bowel obstruction. 15 mm round soft tissue nodule or lymph node adjacent of the descending limb from the biliary enteric anastomosis on axial image 40. Moderate volume of stool. Lung bases and bones are unremarkable. Pelvis findings: Rectal fecal impaction with large rectal stool mass. Bladder, prostate and bones are unremarkable. No fluid or adenopathy. IMPRESSION: 1. Recent postoperative changes of Whipple procedure. There is a 8 x 3 cm contained air and fluid collection with surrounding edema adjacent of the biliary enteric anastomosis at the anterior lefty hepatis leading anteriorly to the abdominal wall incision concerning for abscess. 2. 15 mm soft tissue nodule which could represent adenopathy of the upper abdomen as described above. 3. Edema of the tail the pancreas likely pancreatitis. 4. Nephrolithiasis. 5. Rectal fecal impaction. Exposure: One or more of the following individualized dose reduction techniques were utilized for this examination: 1. Automated exposure control 2. Adjustment of the mA and/or kV according to patient size 3. Use of iterative reconstruction technique Electronically signed by: Matthew Seay MD (08/01/2017 6:51 PM) [facility]
[2017-08-01] MEDS ORDERED: IV NORMAL SALINE 1,000ML 1,000 ML IV SCH (19:13)
[2017-08-01] MEDS ORDERED: VANCOMYCIN PER PHARMACY MC PRN (19:15)
[2017-08-01] MEDS ORDERED: VANCOMYCIN 2 GM in IV NORMAL SALINE 500ML 500 ML IV ONE (19:45)
[2017-08-01] MEDS ORDERED: VANCOMYCIN 1 GM VIAL. ONE (19:46)
[2017-08-01] MEDS ORDERED: IV NORMAL SALINE 500ML 500 ML ONE (19:46)
[2017-08-01 20:12] VITALS: BP 123/78
[2017-08-01 20:28] LABS: BACTERIA,URINE 0 /HPF (0-FEW); BILIRUBIN,URINE NEG (NEG); CLARITY,URINE CLEAR; COLOR,URINE AMBER; GLUCOSE,URINE NEG (NEG); NITRITE,URINE NEG (NEG); RBC,URINE OCC /HPF (0-2); SQUAMOUS EPITHELIAL CELL,UR FEW /LPF; UROBILINOGEN,URINE 1 mg/dL (0.2 mg/dL)
[2017-08-01 20:39] LABS: % BANDS 3 % (0-9); % BASOS 1 % (0-3); % LYMPHS 4 % (24-48); % MONOS 5 % (0-10); % SEGS 80 % (35-66)
[2017-08-01 20:45] LABS: PLT ESTIMATE INCREASED (ADEQUATE)
[2017-08-01 20:50] LABS: STOMATOCYTES PRESENT
[2017-08-01 20:51] LABS: % ATYL 7 % (0-0)
== END 2017-08-01 20:47 | disposition short-term general hospital (02) ==
LOC: ER 16:01
DX: T81.4XXA Infection following a procedure, initial encounter (principal); L02.818 Cutaneous abscess of other sites; K56.41 Fecal impaction; K85.90 Acute pancreatitis without necrosis or infection, unspecified; R10.84 Generalized abdominal pain; E78.00 Pure hypercholesterolemia, unspecified; I10 Essential (primary) hypertension; K21.9 Gastro-esophageal reflux disease without esophagitis; Z87.442 Personal history of urinary calculi; Z90.411 Acquired partial absence of pancreas; Z98.890 Other specified postprocedural states
CPT/HCPCS: 36415; 74177; 80053; 81001; 83690; 84484; 85007; 85025; 96365; 99285; J3370; J7040; Q9966; Q9967; J7030

== ENCOUNTER 2017-09-04 16:47 | Inpatient (IN) | payer MEDICARE, OTHER ==
[~2017-09-04] VITALS: Ht 180.3 cm; Wt 76.3 kg
[2017-09-04] MEDS ORDERED: IV NORMAL SALINE 1,000ML 1,000 ML IV SCH (16:57)
[2017-09-04 17:23] LABS: BASO % 1 % (0-3); EOS # 0.4 x10^3/uL (0.0-0.7); EOS % 7 % (0-3); HEMATOCRIT 38.7 % (39.0-53.0); HEMOGLOBIN 12.8 g/dL (13.0-17.5); LYMPH # 0.7 x10^3/uL (1.0-4.8); LYMPH % 12 % (24-48); MEAN CORPUSCULAR HEMOGLOBIN 28 pg (25-35); MEAN CORPUSCULAR HGB CONC 33 g/dL (31-37); MEAN CORPUSCULAR VOLUME 86 fL (79-100); MONO # 0.1 x10^3/uL (0.0-1.1); MONO % 2 % (0-9); NEUT # 4.7 x10^3uL (1.8-7.7); NEUT % 79 % (31-73); PLATELET COUNT 245 x10^3/uL (140-400); RED BLOOD COUNT 4.49 x10^6/uL (4.30-5.70); RED CELL DISTRIBUTION WIDTH 18.2 % (11.5-14.5); WHITE BLOOD COUNT 5.9 x10^3/uL (4.0-11.0)
[2017-09-04 17:36] LABS: ALBUMIN 2.7 g/dL (3.4-5.0); ALBUMIN/GLOBULIN RATIO 0.7 (1.0-1.7); CALCIUM 9.4 mg/dL (8.5-10.1); CREATININE 1.1 mg/dL (0.7-1.3); GFR 66.8; POTASSIUM 3.9 mmol/L (3.5-5.1); TOTAL BILIRUBIN 0.7 mg/dL (0.2-1.0); TOTAL PROTEIN 6.5 g/dL (6.4-8.2)
--- NOTE | 2017-09-04 18:03 | PHYS DOC ---
Past History Past Medical History: GERD, High Cholesterol, Hypertension, Kidney Stones, Pancreatitis Past Surgical History: Other Smoking: Non-smoker Alcohol Use: Occasionally Drug Use: None Adult General Chief Complaint Chief Complaint: FEVER HPI HPI Patient is a 66-year-old male brought from home by EMS with the complaint of not feeling well. The patient had a shaking chill and is weak. The patient states that he had a Whipple procedure in June. This was done at . In July, he had an abdominal drain placed because of infection. He had it for about a month. It was removed he thinks August 01. Patient has had a very dry mouth but no nausea or vomiting. One of the medications they put him on makes his mouth dry. Review of Systems Review of Systems Constitutional: As in history of present illness HENT: Dry mouth Respiratory: Denies cough Cardiovascular: He has had some chest discomfort intermittently GI: States he has been vomiting some sinus drainage mucus about twice a day but not persistent nausea and vomiting Musculoskeletal: Denies back pain or joint pain [] Neurologic: Denies headache Current Medications Current Medications Current Medications Medications (Trade) Dose Ordered Sig/Omega Start Time Stop Time Status Last Admin Dose Admin Sodium Chloride 1,000 ml @ 1,000 mls/hr Q1H 09/04/17 16:57 09/04/17 17:56 09/04/17 17:25 1,000 MLS/HR Allergies Allergies Allergies Coded Allergies Type Severity Reaction Last Updated Verified No Known Drug Allergies 08/08/14 No Physical Exam Physical Exam Constitutional: Well developed, well nourished, alert, mentating normally, warm and dry. Monitor with sinus tachycardia in the 130s. HENT: Normocephalic, atraumatic, bilateral external ears normal, nose normal. [ ] Eyes: conjunctiva normal, no discharge. [] Neck: Normal range of motion, no stridor. [] Cardiovascular:Heart rate regular rhythm, no murmur , tachycardia Lungs & Thorax: Bilateral breath sounds clear to auscultation [] Abdomen: Bowel sounds normal, soft, upper abdominal scar is well-healed except for one small area to the right of the midline where the drain had been which also looks good but is not completely closed. The abdomen is soft and essentially nontender to palpation. No rebound or guarding. Some fullness to palpation just below the scar in the midline, question whether new or old. Skin: Warm, dry, no erythema, no rash. [] Extremities: No tenderness, no cyanosis, no clubbing, ROM intact, no edema. [] Neurologic: Alert and oriented X 3, normal motor function, no focal deficits noted. [] Current Patient Data Lab Results Laboratory Tests Test 09/04/17 17:00 White Blood Count 5.9 x10^3/uL (4.0-11.0) Red Blood Count 4.49 x10^6/uL (4.30-5.70) Hemoglobin 12.8 g/dL (13.0-17.5) L Hematocrit 38.7 % (39.0-53.0) L Mean Corpuscular Volume 86 fL (79-100) Mean Corpuscular Hemoglobin 28 pg (25-35) Mean Corpuscular Hemoglobin Concent 33 g/dL (31-37) Red Cell Distribution Width 18.2 % (11.5-14.5) H Platelet Count 245 x10^3/uL (140-400) Neutrophils (%) (Auto) 79 % (31-73) H Lymphocytes (%) (Auto) 12 % (24-48) L Monocytes (%) (Auto) 2 % (0-9) Eosinophils (%) (Auto) 7 % (0-3) H Basophils (%) (Auto) 1 % (0-3) Neutrophils # (Auto) 4.7 x10^3uL (1.8-7.7) Lymphocytes # (Auto) 0.7 x10^3/uL (1.0-4.8) L Monocytes # (Auto) 0.1 x10^3/uL (0.0-1.1) Eosinophils # (Auto) 0.4 x10^3/uL (0.0-0.7) Basophils # (Auto) 0.0 x10^3/uL (0.0-0.2) Prothrombin Time 12.1 SEC (9.4-11.4) H Prothrombin Time INR 1.2 (0.9-1.1) H PTT 25 SEC (23-33) Sodium Level 144 mmol/L (136-145) Potassium Level 3.9 mmol/L (3.5-5.1) Chloride Level 106 mmol/L (98-107) Carbon Dioxide Level 20 mmol/L (21-32) L Anion Gap 18 (6-14) H Blood Urea Nitrogen 19 mg/dL (8-26) Creatinine 1.1 mg/dL (0.7-1.3) Estimated GFR (Cockcroft-Gault) 66.8 BUN/Creatinine Ratio 17 (6-20) Glucose Level 78 mg/dL (70-99) Calcium Level 9.4 mg/dL (8.5-10.1) Total Bilirubin 0.7 mg/dL (0.2-1.0) Aspartate Amino Transferase (AST) 57 U/L (15-37) H Alanine Aminotransferase (ALT) 67 U/L (16-63) H Alkaline Phosphatase 277 U/L (46-116) H Total Protein 6.5 g/dL (6.4-8.2) Albumin 2.7 g/dL (3.4-5.0) L Albumin/Globulin Ratio 0.7 (1.0-1.7) L EKG EKG 12-lead EKG read by me. Sinus tachycardia. Heart rate 132. There are no acute ST or T wave changes indicative of ischemia or infarction. No STEMI. 1643[] Radiology/Procedures Radiology/Procedures One view portable chest x-ray read by me. Heart size is normal. Lung tovar are clear. No infiltrate. Question possibility of free air versus intestinal air just under the diaphragm.[] Course & Med Decision Making Course & Med Decision Making Pertinent Labs and Imaging studies reviewed. (See chart for details) 66-year-old male who is status post Whipple procedure in June, abdominal infection requiring a drain in July, presents with a shaking chill, then spiked a fever. He is alert and does not appear toxic but I'm very concerned about his history with his fever and chill. No pneumonia on chest x-ray. We will scan his abdomen to look for source, also checking the question of possible although unlikely appearance of free air on his chest x-ray. He has significant sinus tachycardia so we will give him a liter of IV fluids. I''ll check the patient out to Dr. Ricketts at change of shift with his CT scan pending. Recheck of the patient, he is resting comfortably, visiting with his , nontoxic in appearance. He has had 1 L and his heart rate is still 121, we will start some more fluids. I talked to the patient and his about possible need for transfer to if an intra-abdominal source is found for his fever. [] Dragon Disclaimer Dragon Disclaimer This electronic medical record was generated, in whole or in part, using a voice recognition dictation system. Departure Departure: Referrals: OJSE R LEWIS MD (PCP) KYA JIANG MD Sep 04, 2017 18:03
[2017-09-04] MEDS ORDERED: IV NORMAL SALINE 1,000ML 1,000 ML IV ONE ×2 (18:45→20:15)
--- NOTE | 2017-09-04 18:48 | RAD ---
CT scan of the abdomen and pelvis without contrast September 04, 2017 CLINICAL HISTORY: Post Whipple in June of this year. Abdominal pain and fever for 2 days. TECHNIQUE: Unenhanced, contiguous, 3 mm axial sections were obtained through the abdomen and pelvis. One or more of the following individualized dose reduction techniques were utilized for this study: 1. Automated exposure control. 2. Adjustment of the mA and/or kV according to patient size. 3. Use of iterative reconstruction technique. FINDINGS: Comparison study is dated 08/01/2017. The absence of oral and intravenous contrast limits the study for the detection of solid organ and bowel pathology. Images through the lung bases demonstrate minimal dependent subsegmental atelectasis bilaterally. Air is seen within the intrahepatic biliary ducts, unchanged. No focal abnormality of the liver is noted. The spleen, remaining portions of pancreas, and adrenal glands are within normal limits. Bilateral nonobstructing renal calculi are seen. These measure 2 to 5 mm in size. A 1 cm low-attenuation lesion is seen involving the midpole left kidney. This likely represents a cyst. Surgical changes are seen consistent with the patient's history of a Whipple procedure. Surgical clips are seen within the gallbladder fossa consistent with a cholecystectomy. Extraluminal collections of air are seen near the lefty hepatis extending superiorly to the anterior abdominal wall. This was felt to represent an abscess on the previous examination. It has decreased in size significantly on this study measuring 5.6 x 2.7 cm in AP and transverse dimensions. On the previous examination it measured 8.7 x 5.1 cm in size. No new fluid collection is seen. The abdominal aorta tapers normally. Mild atherosclerotic calcification abdominal aorta is seen. Air and stool seen throughout the colon. There is no evidence of bowel obstruction. The appendix is within normal limits. Images through the pelvis demonstrate the urinary bladder distended with urine. The prostate gland is enlarged likely related to BPH. A 3 mm calcification is seen in the posterior aspect of the urinary bladder consistent with a bladder calculus. The osseous structures are unchanged. IMPRESSION: Interval decrease in size of the extraluminal collections of air within the lefty hepatis as outlined above. No acute abnormality is seen. Electronically signed by: Teddy Quesada MD (09/04/2017 6:45 PM) [facility]
--- NOTE | 2017-09-04 19:07 | EKG ---
[address] [address] Test Date: 2017-09-04 Test Time: 16:43:44 Pat Name: KIRSTEN LEVY Department: Room: Gender: M Certified Retinal Angiographer: : 1950 Requested By: KYA JIANG Order Number: [id number] Reading MD: Measurements Intervals [place] Rate: 132 P: -103 AR: 82 QRS: 66 QRSD: 76 T: 66 QT: 344 QTc: 513 Interpretive Statements SUPRAVENTRICULAR TACHYCARDIA QRS(T) CONTOUR ABNORMALITY CONSIDER INFERIOR MYOCARDIAL DAMAGE POSSIBLY ABNORMAL ECG RI6.01 No previous ECG available for comparison
[2017-09-04] MEDS ORDERED: ONDANSETRON PF 4 MG/2 ML VIAL. IV ONE (19:15)
[2017-09-04 19:26] LABS: CLARITY,URINE HAZY; COLOR,URINE AMBER
[2017-09-04 19:27] LABS: BACTERIA,URINE 0 /HPF (0-FEW); BILIRUBIN,URINE NEG (NEG); GLUCOSE,URINE NEG (NEG); HYALINE CASTS, URINE MOD /HPF; NITRITE,URINE NEG (NEG); RBC,URINE 0 /HPF (0-2); SQUAMOUS EPITHELIAL CELL,UR OCC /LPF; UROBILINOGEN,URINE 0.2 mg/dL (0.2 mg/dL)
[2017-09-04] MEDS ORDERED: ACETAMINOPHEN 500 MG TABLET PO ONE (19:45)
[2017-09-04] MEDS ORDERED: PIPERACILLIN/TAZOBACTAM 4.5 GM in IV NORMAL SALINE 50ML 50 ML IV ONE (20:15)
[2017-09-04] MEDS ORDERED: ONDANSETRON PF 4 MG/2 ML VIAL. IV PRN (20:30)
[2017-09-04] MEDS ORDERED: VANCOMYCIN 2 GM in IV NORMAL SALINE 500ML 500 ML IV ONE (20:30)
[2017-09-04] MEDS ORDERED: VANCOMYCIN PER PHARMACY MC PRN (20:30)
[2017-09-04] MEDS ORDERED: MORPHINE SULFATE 2 MG/ML DISP.SYRIN. IV PRN (20:30)
[2017-09-04] MEDS ORDERED: VANCOMYCIN 1 GM VIAL. ONE (21:25)
[2017-09-04 21:30] VITALS: BP 90/67
[2017-09-04] MEDS: IV NORMAL SALINE 1,000ML 1,000 ML IV SCH (21:36)
[2017-09-05 00:16] VITALS: BP 116/67
[2017-09-05 03:08] VITALS: BP 142/76
[2017-09-05] MEDS ORDERED: PIPERACILLIN/TAZOBACTAM 4.5 GM in IV NORMAL SALINE 100ML 100 ML IV SCH (06:00)
[2017-09-05] MEDS: IV NORMAL SALINE 1,000ML 1,000 ML IV SCH ×2 (06:21→12:19)
[2017-09-05 06:30] LABS: ALBUMIN/GLOBULIN RATIO 0.7 (1.0-1.7); CALCIUM 8.1 mg/dL (8.5-10.1); CREATININE 0.8 mg/dL (0.7-1.3); GFR 96.4; POTASSIUM 3.9 mmol/L (3.5-5.1); TOTAL BILIRUBIN 1.1 mg/dL (0.2-1.0)
[2017-09-05 06:31] LABS: BASO % 1 % (0-3); EOS # 0.2 x10^3/uL (0.0-0.7); EOS % 3 % (0-3); HEMATOCRIT 33.2 % (39.0-53.0); HEMOGLOBIN 11.1 g/dL (13.0-17.5); LYMPH # 0.6 x10^3/uL (1.0-4.8); LYMPH % 8 % (24-48); MEAN CORPUSCULAR HEMOGLOBIN 29 pg (25-35); MEAN CORPUSCULAR HGB CONC 34 g/dL (31-37); MEAN CORPUSCULAR VOLUME 86 fL (79-100); MONO # 0.5 x10^3/uL (0.0-1.1); MONO % 7 % (0-9); NEUT # 6.1 x10^3uL (1.8-7.7); NEUT % 82 % (31-73); PLATELET COUNT 191 x10^3/uL (140-400); RED BLOOD COUNT 3.86 x10^6/uL (4.30-5.70); RED CELL DISTRIBUTION WIDTH 17.6 % (11.5-14.5); WHITE BLOOD COUNT 7.5 x10^3/uL (4.0-11.0)
[2017-09-05] MEDS ORDERED: CELE100C PO (07:07)
[2017-09-05] MEDS ORDERED: PIPERACILLIN/TAZOBACTAM 4.5 GM in IV NORMAL SALINE 50ML 50 ML IV SCH (07:15)
[2017-09-05] MEDS ORDERED: GLYC1TAB PO (07:53)
[2017-09-05] MEDS ORDERED: METO5TAB PO (07:53)
[2017-09-05 07:54] VITALS: BP 155/80
[2017-09-05] MEDS: LACTOBACILLUS RHAMNOSUS GG 1 CAPSULE. PO SCH ×2 (08:57→21:03)
[2017-09-05] MEDS: METOCLOPRAMIDE 5 MG TABLET PO SCH (08:57)
[2017-09-05] MEDS: GLYCOPYRROLATE 1 MG TABLET PO SCH ×3 (08:57→16:54)
[2017-09-05] MEDS ORDERED: CELECOXIB 100 MG CAPSULE PO SCH (09:00)
--- NOTE | 2017-09-05 09:20 | RAD ---
AP portable chest radiograph 09/04/2017 Clinical History: Fever with shortness of breath. An AP portable erect digital radiograph of the chest was obtained. Comparison study is dated 09/18/2016. A right arm PICC has been placed. The tip of this catheter extends to overlie the superior vena cava. The cardiac silhouette is normal in size. The thoracic aorta is mildly tortuous. No acute pulmonary infiltrate is seen. No pleural effusion or pneumothorax is noted. Degenerative changes are seen involving the thoracic spine and both shoulders. Impression: No acute pulmonary infiltrate is seen.
[2017-09-05] MEDS: VANCOMYCIN 1 GM in IV NORMAL SALINE 250ML 250 ML IV SCH ×2 (10:02→21:03)
[2017-09-05 11:34] VITALS: BP 124/84
[2017-09-05] MEDS: PIPERACILLIN/TAZOBACTAM 3.375 GM in IV NORMAL SALINE 50ML 50 ML IV SCH ×2 (11:58→17:56)
--- NOTE | 2017-09-05 15:37 | HP ---
ADMIT DATE: 09/04/2017 HISTORY OF PRESENT ILLNESS: The patient had a Whipple procedure done down at . He has been doing reasonably well except for the developed last 24 hours began to have extreme fever, shaking chills. Temperature of 101, pulse over 100 degrees, became septic, came in through the Emergency Room, has a PICC line in place. He did have an abdominal drain that was left in because of infection and had been taken out. There were no signs of problem there. The patient otherwise was admitted for further evaluation of sepsis. He also has problems with gagging and throwing up. He says usually in the middle of the night after he tries to eat certain things, things come right up along with a lot of mucus. As a result of this, admitted for IV fluids, IV antibiotic therapy. Further evaluation as indicated. PAST MEDICAL HISTORY: Tinnitus, peripheral neuropathy, cardiac disorders, hypercholesterolemia, pancreatitis, Whipple procedure for a possible pancreatic cancer, gastroesophageal reflux, genitourinary kidney stones, lithotripsy, severe back pain. IMMUNIZATIONS: Influenza and pneumococcal vaccinations are up-to-date. ALLERGIES: He has no known drug allergies. FAMILY HISTORY: Positive for skin cancer in a sister and father. Cardiovascular disease in the father and sister and cancer in the mother and sister. HOME MEDICATIONS: Include that of Celebrex 200 mg daily, Reglan 5 mg a.c. and at bedtime, Robinul 1 mg t.i.d. with meals. SOCIAL HISTORY: No smoking, alcohol or drug use. REVIEW OF SYSTEMS: The patient denies any recent weight loss, weight gain, change in bowel habits. He says he has a good bowel movement except for his nausea, vomiting. Denies chest pain, shortness of breath. Does have fever and chills. PHYSICAL EXAMINATION: GENERAL: He is a very pleasant gentleman. VITAL SIGNS: Blood pressure 110/70, respiratory rate 20, pulse 110, temperature 100.1, pulse of as high as 120. Blood pressure dropped down to 90/67. The patient is alert and oriented. HEENT: Head was atraumatic, normocephalic. Eyes: PERRLA without jaundice. Mouth and throat were normal. NECK: Supple, with thyromegaly. LUNGS: Diminished throughout, poor movement of air, but clear. CARDIOVASCULAR: Regular sinus rhythm. ABDOMEN: Soft, diffuse tenderness, but no rebound or guarding. Positive bowel sounds. Wounds seem to be healing well. He has a PICC line in his right upper arm. Positive bowel sounds, no hepatosplenomegaly. No clubbing, cyanosis or edema. NEUROLOGIC: The patient was alert and oriented x 3. Speech fluent, spontaneous, appropriate. Cranial nerves 2-12 grossly intact. LABORATORY DATA: His white count was basically unremarkable. Sed rate was 24. The patient's BUN and creatinine normal. Lactic acid 5.4, AST 74, ALT 82, total bilirubin elevated, alkaline phosphatase of 291. The patient's urine and coags were basically unremarkable. The patient's chest x-ray was unremarkable. The CT pelvis demonstrated a possible abscess 5.6 x 2.7 cm along the gallbladder fossa. In any case, the patient was admitted with IV antibiotic: IMPRESSION: Sepsis, possible abscess post-Whipple procedure in June of this year, history of pancreatic cancer. The patient continued to be monitored carefully and make further evaluation, IV vancomycin and piperacillin. He will have a nuclear scan scheduled to rule out any possible abscess as well as some type of an upper GI study to look for any type of blockages causing him to vomit up his food as indicated. JOSE R LEWIS MD DR: SHOLA/phyllis JOB#: [id number] / [id number]
[2017-09-05 18:44] VITALS: BP 137/90
[2017-09-05 22:14] VITALS: BP 132/88
[2017-09-05] MEDS ORDERED: MORPHINE SULFATE 2 MG/ML DISP.SYRIN. IV PRN (22:30)
[2017-09-05] MEDS: MORPHINE SULFATE 4 MG/ML DISP.SYRIN. IV PRN (22:55)
[2017-09-05] MEDS: ONDANSETRON PF 4 MG/2 ML VIAL. IV PRN (22:56)
[2017-09-06] MEDS: PIPERACILLIN/TAZOBACTAM 3.375 GM in IV NORMAL SALINE 50ML 50 ML IV SCH ×4 (00:15→17:06)
[2017-09-06] MEDS ORDERED: PANTOPRAZOLE 40 MG TABLET. PO ONE (07:27)
[2017-09-06] MEDS: METOCLOPRAMIDE 5 MG TABLET PO SCH (07:35)
[2017-09-06] MEDS: GLYCOPYRROLATE 1 MG TABLET PO SCH ×3 (07:36→17:06)
[2017-09-06] MEDS: LACTOBACILLUS RHAMNOSUS GG 1 CAPSULE. PO SCH ×2 (07:36→21:11)
[2017-09-06 08:00] VITALS: BP 134/86
[2017-09-06] MEDS ORDERED: PANTOPRAZOLE 40 MG TABLET. PO SCH (09:00)
[2017-09-06 09:50] LABS: VANC TR 10.3 mcg/mL (10.0-20.0)
[2017-09-06] MEDS: PANTOPRAZOLE 40 MG TABLET. PO SCH (10:00)
[2017-09-06] MEDS: VANCOMYCIN 1 GM in IV NORMAL SALINE 250ML 250 ML IV SCH ×2 (10:12→21:14)
[2017-09-06] MEDS: VANCOMYCIN PER PHARMACY MC PRN (10:25)
--- NOTE | 2017-09-06 14:02 | RAD ---
Upper GI with small bowel follow-through HISTORY: Abdominal pain, previous Whipple in June 2017 COMPARISON: There is no previous similar exam, correlation made September 04, 2017 CT abdomen pelvis exam FINDINGS: Upper GI and small bowel follow-through examination was performed. Caliber of the esophagus is within normal limits, no episodes of reflux demonstrated during exam. No hiatal hernia was identified. There were some tertiary contractions noted of the esophagus although adequate propulsive contractility. There has been gastrojejunostomy, no leak identified in this region. There was some contrast opacification of the common hepatic duct at site of hepaticojejunostomy, some opacification of other biliary ducts. Contrast was seen in the colon at about 145 minutes, no evidence of obstruction. Fluoroscopy time: 2.5 minutes, 68 images IMPRESSION: 1. There is no evidence of obstruction. There was some contrast opacification of the common hepatic duct at site of hepaticojejunostomy. Electronically signed by: Paco Tellez MD (09/06/2017 1:59 PM) [id number]
[2017-09-06 15:00] VITALS: BP 140/73
[2017-09-06] MEDS: MORPHINE SULFATE 4 MG/ML DISP.SYRIN. IV PRN (17:36)
[2017-09-06 21:00] VITALS: BP 147/96
[2017-09-06 23:36] VITALS: BP 125/79
[2017-09-07] MEDS: PIPERACILLIN/TAZOBACTAM 3.375 GM in IV NORMAL SALINE 50ML 50 ML IV SCH ×5 (00:14→23:12)
[2017-09-07 05:43] VITALS: BP 132/81
[2017-09-07 07:06] LABS: ALBUMIN 1.9 g/dL (3.4-5.0); DIRECT BILIRUBIN 0.3 mg/dL (0.0-0.2); TOTAL BILIRUBIN 0.7 mg/dL (0.2-1.0); TOTAL PROTEIN 5.1 g/dL (6.4-8.2)
[2017-09-07] MEDS: PANTOPRAZOLE 40 MG TABLET. PO SCH (07:40)
[2017-09-07] MEDS: GLYCOPYRROLATE 1 MG TABLET PO SCH ×3 (08:00→16:55)
[2017-09-07] MEDS: LACTOBACILLUS RHAMNOSUS GG 1 CAPSULE. PO SCH ×2 (08:19→20:21)
[2017-09-07 08:25] LABS: CALCIUM 8.9 mg/dL (8.5-10.1); CREATININE 0.7 mg/dL (0.7-1.3); GFR 112.5; POTASSIUM 3.6 mmol/L (3.5-5.1)
[2017-09-07] MEDS: METOCLOPRAMIDE 5 MG TABLET PO SCH (09:04)
[2017-09-07] MEDS: SENNOSIDES/DOCUSATE 8.6/50MG TABLET. PO SCH (09:04)
[2017-09-07] MEDS: VANCOMYCIN 1 GM in IV NORMAL SALINE 250ML 250 ML IV SCH ×2 (10:00→21:08)
[2017-09-07 10:34] VITALS: BP 149/96
[2017-09-07 15:00] VITALS: BP 138/71
--- NOTE | 2017-09-07 19:29 | PN ---
DATE: 09/06/2017 LOCATION: ICU bed 1. SUBJECTIVE: A 66-year-old gentleman with sepsis. The patient came in with having fever, chills, rigors, ____ nausea, and vomiting. One positive blood culture came back positive for gram-negative organism. Enterococcus has been found out of a wound that he has had before. PICC line cultures are still pending. His temperature initially had been upwards of 103.1 rectally with a pulse of 130. He is on IV vancomycin and piperacillin. PHYSICAL EXAMINATION: VITAL SIGNS: Blood pressures down to 125/80, respiratory rate 20, pulse 70, he is presently afebrile and room air, doing well. Otherwise, the patient is alert and oriented. LUNGS: Diminished, but clear. CARDIOVASCULAR: Stable. ABDOMEN: Soft, diffuse tenderness primarily in the right mid quadrant area, seems to be some tenderness and swelling. The patient continues to have a nuclear scan to look for possible abscess formation to be performed. The patient has been having bowel movements. He has been having problems with nausea and vomiting. Otherwise, the patient is doing somewhat better, but still need to find source of his infection and will continue to be monitored accordingly here in the ICU. Continue on IV antibiotic therapy. IMPRESSION: Sepsis, nausea, vomiting, possible abscess, gram-negative organism found in the blood cultures. Continue on IV antibiotic therapy and await results of the nuclear white blood cell scan to be performed in the morning. JOSE R LEWIS MD DR: SHOLA/phyllis JOB#: [id number] / [id number]
[2017-09-07 20:24] VITALS: BP 146/93
[2017-09-07] MEDS: IV NORMAL SALINE 1,000ML 1,000 ML IV SCH (21:07)
--- NOTE | 2017-09-07 23:00 | PN ---
DATE: 09/07/2017 LOCATION: ICU bed #1. SUBJECTIVE: A 66-year-old gentleman who had undergone Whipple procedure at in June, came in with sepsis, finally got culture reports from a drainage of an abscess that he had done out at last resulted on 08/06/2017 did show both Carolyn growth as well as enterococcus. He is being covered by vancomycin, may need to put him on fluconazole for the yeast. In any case, the patient is feeling somewhat better. He says he is able to swallow better. Otherwise, seems to be doing a little bit better overall. PHYSICAL EXAMINATION: VITAL SIGNS: Remain basically stable; blood pressure 130/70, respiratory rate 16, pulse 60, afebrile. GENERAL: The patient is alert and oriented. LUNGS: Diminished, but clear. CARDIOVASCULAR: Stable. ABDOMEN: Soft, diffuse tenderness in the epigastric area. The patient had upper GI yesterday, which did not show any evidence of obstruction, some mild tertiary contractions of the esophagus although adequate propulsion and contractibility was noted. In any case, the patient seems to be resting fairly comfortably, making fairly good progress overall. We will continue on IV antibiotic therapy. IMPRESSION: Sepsis, abscess intra-abdominal, enterococcus. PLAN: We will go ahead and continue with IV antibiotic therapy and continue with possible coverage for yeast infection as well. JOSE R LEWIS MD DR: SHOLA/phyllis JOB#: [id number] / [id number]
[2017-09-07] MEDS: ONDANSETRON PF 4 MG/2 ML VIAL. IV PRN (23:12)
[2017-09-07] MEDS: MORPHINE SULFATE 4 MG/ML DISP.SYRIN. IV PRN (23:13)
[2017-09-07 23:28] VITALS: BP 149/96
[2017-09-08] MEDS: PIPERACILLIN/TAZOBACTAM 3.375 GM in IV NORMAL SALINE 50ML 50 ML IV SCH (05:51)
[2017-09-08] MEDS: PANTOPRAZOLE 40 MG TABLET. PO SCH (05:51)
[2017-09-08 06:01] VITALS: BP 153/94
[2017-09-08] MEDS: SENNOSIDES/DOCUSATE 8.6/50MG TABLET. PO SCH (08:01)
[2017-09-08] MEDS: LACTOBACILLUS RHAMNOSUS GG 1 CAPSULE. PO SCH (08:01)
[2017-09-08] MEDS: METOCLOPRAMIDE 5 MG TABLET PO SCH (08:01)
[2017-09-08] MEDS: GLYCOPYRROLATE 1 MG TABLET PO SCH ×3 (08:01→17:31)
[2017-09-08] MEDS: IV NORMAL SALINE 1,000ML 1,000 ML IV SCH (08:04)
[2017-09-08 09:18] LABS: BASO # 0.1 x10^3/uL (0.0-0.2); BASO % 1 % (0-3); EOS # 0.6 x10^3/uL (0.0-0.7); EOS % 7 % (0-3); HEMATOCRIT 35.6 % (39.0-53.0); LYMPH # 1.4 x10^3/uL (1.0-4.8); LYMPH % 17 % (24-48); MEAN CORPUSCULAR HEMOGLOBIN 29 pg (25-35); MEAN CORPUSCULAR HGB CONC 34 g/dL (31-37); MEAN CORPUSCULAR VOLUME 86 fL (79-100); MONO # 0.5 x10^3/uL (0.0-1.1); MONO % 6 % (0-9); NEUT # 5.7 x10^3uL (1.8-7.7); NEUT % 68 % (31-73); PLATELET COUNT 245 x10^3/uL (140-400); RED BLOOD COUNT 4.17 x10^6/uL (4.30-5.70); RED CELL DISTRIBUTION WIDTH 17.9 % (11.5-14.5); WHITE BLOOD COUNT 8.3 x10^3/uL (4.0-11.0)
[2017-09-08 09:27] LABS: ALBUMIN 2.2 g/dL (3.4-5.0); ALBUMIN/GLOBULIN RATIO 0.6 (1.0-1.7); CALCIUM 9.1 mg/dL (8.5-10.1); CREATININE 0.8 mg/dL (0.7-1.3); GFR 96.4; POTASSIUM 3.6 mmol/L (3.5-5.1); TOTAL BILIRUBIN 0.8 mg/dL (0.2-1.0); TOTAL PROTEIN 5.8 g/dL (6.4-8.2)
[2017-09-08 09:28] LABS: VANC TR 12.4 mcg/mL (10.0-20.0)
[2017-09-08] MEDS: VANCOMYCIN 1 GM in IV NORMAL SALINE 250ML 250 ML IV SCH (10:01)
[2017-09-08] MEDS ORDERED: FLUCONAZOLE 200MG/100ML PREMIX 100 ML IV SCH ×2 (10:15→13:00)
[2017-09-08] MEDS: VANCOMYCIN PER PHARMACY MC PRN (10:20)
[2017-09-08 10:39] VITALS: BP 130/92
[2017-09-08 11:33] LABS: CALCIUM 8.9 mg/dL (8.5-10.1); CREATININE 0.7 mg/dL (0.7-1.3); GFR 112.5; POTASSIUM 3.6 mmol/L (3.5-5.1)
--- NOTE | 2017-09-08 11:33 | RAD ---
Indium labeled White blood cell scan, 09/08/2017: History: Sepsis, fever of unknown origin 660 uCi of indium-111 was utilized in White blood cell labeling. Whole-body images were obtained at 24 hours. No abnormal activity is seen in the chest, abdomen or pelvis. There is a small focus of increased activity seen at the left knee. No other abnormality is evident. IMPRESSION: 1. No abnormal chest, abdomen or pelvic activity is seen to suggest abscess. 2. Tiny focus of increased activity at the left knee of uncertain significance. Clinical and possibly radiographic correlation is suggested.
[2017-09-08] MEDS: ONDANSETRON PF 4 MG/2 ML VIAL. IV PRN ×2 (11:58→17:12)
[2017-09-08 15:41] VITALS: BP 139/96
[2017-09-08] MEDS: MORPHINE SULFATE 4 MG/ML DISP.SYRIN. IV PRN (17:12)
--- NOTE | 2017-09-08 18:24 | PN ---
DATE: SUBJECTIVE: The patient resting fairly comfortably, making fairly good progress overall. The patient is still having some chills late at night. OBJECTIVE: VITAL SIGNS: Blood pressure 130/92, respiration 18, pulse 76, afebrile. GENERAL: The patient is alert and oriented. LUNGS: Diminished, but clear. CARDIOVASCULAR: Stable. ABDOMEN: Soft, diffuse tenderness primarily in the right mid quadrant area. The patient's nuclear medicine scan still pending, although blood cultures finally came back and noted he had Klebsiella oxytoca isolated from his blood. The patient has been adjusted on his IV antibiotic therapy, Rocephin 2 grams IV every day, along with fluconazole for possible yeast infection and the vancomycin to cover for enterococcus. Otherwise, please call in to [facility], have ____ back from them along the ID, Dr. Corona, and make further evaluation once those discussions have been made. Otherwise, he seems to be resting fairly comfortably. We will continue with IV antibiotic therapy. IMPRESSION: Sepsis, probable intraabdominal abscess, bacteremia sepsis. PLAN: Continue with IV antibiotic. JOSE R LEWIS MD DR: SHOLA/phyllis JOB#: [id number] / [id number]
== END 2017-09-08 18:52 | disposition short-term general hospital (02) | DRG 871 ==
LOC: ER 16:47 → ICU 20:55 → 1 SOUTH 09-08 17:21
PROVIDERS: ADMIT Family Medicine; ATTEND Family Medicine
DX: A41.9 Sepsis, unspecified organism (principal); K65.1 Peritoneal abscess; B37.89 Other sites of candidiasis; E78.00 Pure hypercholesterolemia, unspecified; K21.9 Gastro-esophageal reflux disease without esophagitis; G62.9 Polyneuropathy, unspecified; B95.2 Enterococcus as the cause of diseases classified elsewhere; I10 Essential (primary) hypertension; Z80.8 Family history of malignant neoplasm of other organs or systems; Z82.49 Family history of ischemic heart disease and other diseases of the circulatory system; Z85.07 Personal history of malignant neoplasm of pancreas; Z87.442 Personal history of urinary calculi; Z79.899 Other long term (current) drug therapy
CPT/HCPCS: 36415; 71045; 74176; 74245; 78806; 80048; 80053; 80076; 80202; 81001; 82150; 82550; 83605; 83690; 84484; 85025; 85610; 85651; 85730; 86140; 87040; 87205; 87641; 93005; 96360; 96361; 96374; A9570; J0696; J1450; J2270; J2405; J2543; J3370; J7040; J7050; J8597; 99285-25; J7030

== ENCOUNTER 2017-10-24 16:45 | Inpatient (IN) | payer MEDICARE, OTHER ==
[~2017-10-24] VITALS: Ht 177.8 cm; Wt 68.5 kg
[~2017-10-24 16:45] MED LIST changes: +CELE100C PO; +GLYC1TAB PO; +METO5TAB PO
--- NOTE | 2017-10-24 17:08 | PHYS DOC ---
Past History Past Medical History: GERD, High Cholesterol, Kidney Stones, Pancreatitis, Other Past Surgical History: Other Additional Past Surgical Histo: Whipple surgery Smoking: Non-smoker Alcohol Use: None Drug Use: None Adult General Chief Complaint Chief Complaint: SHORTNESS OF BREATH [place] [employer] HPI 67-year-old male patient with history of reports surgery in generally 2018 complaining of sudden onset of bilateral rib cage and chest pain since yesterday as a constant pain with episodes of sharp intermittent pain around his rib cage with marked cough and shortness of breath and anorexia. Patient denies fever and chills, abdominal pain, nausea and vomiting, diarrhea and constipation, urinary symptom. Patient states he had infection of incisional area and was on Zosyn and then amoxicillin for 3 months and last dose of amoxicillin was taking last night. Patient had a routine visit with his physician 3 days ago. Review of Systems Review of Systems Constitutional: Denies fever or chills [] Eyes: Denies change in visual acuity, redness, or eye pain [] HENT: Denies nasal congestion or sore throat [] Respiratory: Reports cough and shortness of breath Cardiovascular: No additional information not addressed in HPI [] GI: Denies abdominal pain, nausea, vomiting, bloody stools or diarrhea [] : Denies dysuria or hematuria [] Musculoskeletal: Denies back pain or joint pain [] Integument: Denies rash or skin lesions [] Neurologic: Denies headache, focal weakness or sensory changes [] Endocrine: Denies polyuria or polydipsia [] All other systems were reviewed and found to be within normal limits, except as documented in this note. Family History Family History Noncontributory Current Medications Current Medications See nursing for home meds Allergies Allergies Allergies Coded Allergies Type Severity Reaction Last Updated Verified No Known Drug Allergies 08/08/14 No Physical Exam Physical Exam Constitutional: , mild distress, non-toxic appearance. [] HENT: Normocephalic, atraumatic, oropharynx dry, no oral exudates, nose normal. [] Eyes: PERRLA, EOMI, conjunctiva normal, no discharge. [] Neck: Normal range of motion, no tenderness, supple, no stridor. [] Cardiovascular:Heart rate regular rhythm, no murmur [] Lungs & Thorax: Bilateral breath sounds equal at apexes with a few scattered wheezes on auscultation []some chest wall tenderness with deep cough. Abdomen: Bowel sounds normal, soft, no tenderness, no masses, no pulsatile masses. [] Recent abdomen surgery incision line appears to be stable. Skin: Warm, dry, no erythema, no rash. [] Back: No tenderness, no CVA tenderness. [] Extremities: No tenderness, no cyanosis, no clubbing, ROM intact, no edema. [] No cording appreciated in legs Neurologic: Alert and oriented X 3, normal motor function, normal sensory function, no focal deficits noted. [] Psychologic: Affect normal, judgement normal, mood normal. [] EKG EKG EKG interpreted by me. EKG at 1734 showed normal sinus rhythm at rate of 76, no specific EKG abnormalities[] Radiology/Procedures Radiology/Procedures My interpretation of chest x-ray shows no acute cardiopulmonary findings. Has findings of a old fracture eighth rib area. Angio CT of chest shows no large pulmonary embolism. No significant pulmonary findings. Does have findings of previous Whipple procedure. See formal report when available[] Impressions: 1. Chest pain 2. Elevated d-dimer 3. Nutrition-albumin 3.0 4. Elevated lipase 5. Urinary tract infection 6. Recent pancreatic surgery for pancreatic mass 7. History of GERD and reflux 8. Suspect cough secondary to aspiration and reactive airway Course & Med Decision Making Course & Med Decision Making Pertinent Labs and Imaging studies are pending. Patient care transferred to Dr. Smiley at [address]. See Dr. Jimenez report for details. Discussed presentation, testing and treatment plan with Dr. Lewis- Will admit for observation, further evaluation and ultrasound. Dragon Disclaimer Dragon Disclaimer This electronic medical record was generated, in whole or in part, using a voice recognition dictation system. Departure Departure: Referrals: JOSE R LEWIS MD (PCP) JENNIFER JIMENEZ MD October 24, 2017 17:08 MARIA A SMILEY MD October 24, 2017 18:03
[2017-10-24 17:25] LABS: BASO # 0.1 x10^3/uL (0.0-0.2); BASO % 1 % (0-3); EOS # 0.4 x10^3/uL (0.0-0.7); EOS % 4 % (0-3); HEMATOCRIT 42.5 % (39.0-53.0); LYMPH # 1.6 x10^3/uL (1.0-4.8); LYMPH % 17 % (24-48); MEAN CORPUSCULAR HEMOGLOBIN 28 pg (25-35); MEAN CORPUSCULAR HGB CONC 33 g/dL (31-37); MEAN CORPUSCULAR VOLUME 86 fL (79-100); MONO # 0.7 x10^3/uL (0.0-1.1); MONO % 7 % (0-9); NEUT # 7.1 x10^3uL (1.8-7.7); NEUT % 71 % (31-73); PLATELET COUNT 291 x10^3/uL (140-400); RED BLOOD COUNT 4.94 x10^6/uL (4.30-5.70); RED CELL DISTRIBUTION WIDTH 17.2 % (11.5-14.5)
--- NOTE | 2017-10-24 17:41 | EKG ---
[address] [address] Test Date: 2017-10-24 Test Time: 17:34:36 Pat Name: KIRSTEN LEVY Department: Room: Gender: M [employer]: : 1950 Requested By: JENNIFER JIMENEZ Order Number: [id number] Reading MD: Measurements Intervals [place] Rate: 76 P: 50 CA: 136 QRS: 56 QRSD: 84 T: 48 QT: 384 QTc: 436 Interpretive Statements SINUS RHYTHM NO SPECIFIC ECG ABNORMALITIES RI6.01 Compared to ECG 09/04/2017 16:43:44 Sinus tachycardia no longer present
[2017-10-24] MEDS ORDERED: IV NORMAL SALINE 1,000ML 1,000 ML IV ONE (17:45)
[2017-10-24 17:47] LABS: BILIRUBIN,URINE NEG (NEG); CLARITY,URINE CLEAR; COLOR,URINE YELLOW; GLUCOSE,URINE NEG (NEG); NITRITE,URINE NEG (NEG); UROBILINOGEN,URINE 1 mg/dL (0.2 mg/dL)
[2017-10-24 17:48] LABS: BACTERIA,URINE 0 /HPF (0-FEW); SQUAMOUS EPITHELIAL CELL,UR FEW /LPF
[2017-10-24 17:50] LABS: ALBUMIN/GLOBULIN RATIO 0.8 (1.0-1.7); CALCIUM 9.7 mg/dL (8.5-10.1); CREATININE 0.8 mg/dL (0.7-1.3); GFR 96.1; MAGNESIUM 1.5 mg/dL (1.8-2.4); POTASSIUM 4.1 mmol/L (3.5-5.1); TOTAL BILIRUBIN 0.6 mg/dL (0.2-1.0); TOTAL PROTEIN 6.9 g/dL (6.4-8.2)
[2017-10-24] MEDS ORDERED: IOHEXOL 300 MG/ML 75 ML VIAL. IV ONE (18:15)
[2017-10-24] MEDS ORDERED: CONTRAST GIVEN MC PRN (18:30)
[2017-10-24] MEDS ORDERED: MORPHINE SULFATE 10 MG/ML SYRINGE. SQ ONE (18:45)
--- NOTE | 2017-10-24 18:51 | RAD ---
CT ANGIOGRAPHY CHEST dated 10/24/2017 6:27 PM Indication:painful respiration, shallow breathing only, pain in bilateral pectoral regions of the chest, cough
gave Omni 300 75ml IV - tolerated well
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 Technique: Following injection of 75 mL of Omnipaque 300 IV, images were obtained through the chest. 3-D MIP reconstructed images were performed. One or more of the following individualized dose reduction techniques were utilized for this examination: 1. Automated exposure control 2. Adjustment of the mA and/or kV according to patient size 3. Use of iterative reconstruction technique Findings: There is good opacification of pulmonary arteries. They show no filling defects to suggest pulmonary emboli. There is a coronary artery calcification. No mediastinal or hilar adenopathy is seen. The ascending aorta is at upper limits of normal in size measuring about 3.9 cm AP. The aorta is otherwise unremarkable. There is a 4 mm noncalcified pulmonary nodule in the right middle lobe. This is not considered clinically significant by the most recent Fleischner criteria. The lungs are free of infiltrates. No pneumothorax or pleural effusions are seen. No pericardial effusion is identified. There is air within the bile ducts which is not unusual this patient with previous Whipple procedure. The intrahepatic bile ducts are mildly dilated. Visualized portions of the upper abdomen are otherwise unremarkable. IMPRESSION: Unremarkable CT of the chest embolism protocol. Electronically signed by: Jenise Flores MD (10/24/2017 6:47 PM) [facility]
[2017-10-24] MEDS ORDERED: ALBUTEROL SULFATE 8GM INHALER. INH ONE (19:15)
[2017-10-24] MEDS ORDERED: ENOXAPARIN ** NOTE DOSE ** SYRINGE SQ ONE (19:15)
[2017-10-24] MEDS ORDERED: predniSONE 10 MG TABLET PO ONE (19:15)
[2017-10-24] MEDS ORDERED: IV NORMAL SALINE 50ML 50 ML ONE (19:31)
[2017-10-24] MEDS ORDERED: cefTRIAXone SODIUM 1 GM VIAL IV ONE (19:32)
[2017-10-24] MEDS ORDERED: ONDANSETRON PF 4 MG/2 ML VIAL. IV PRN (20:15)
--- NOTE | 2017-10-24 20:15 | RAD ---
Chest 2 views CLINICAL HISTORY: Chest pain bilateral. Comparison is made to the examination of 09/04/2017. The lungs are clear. Heart size and pulmonary vasculature are normal. No pneumothorax or pleural effusions are seen. There is an old healed fracture of the right eighth rib posteriorly that was seen on the prior study. The mediastinum and german are unremarkable. IMPRESSION: No acute process is identified in the chest. Electronically signed by: Jenise Flores MD (10/24/2017 8:12 PM) [facility]
[2017-10-24] MEDS: IPRATRPIUM/ALBUTEROL 0.5/2.5MG 3 ML NEBU. NEB SCH (21:00)
[2017-10-24] MEDS: FAMOTIDINE 20 MG TABLET PO SCH (21:00)
[2017-10-24] MEDS ORDERED: ZOLPIDEM 5 MG TABLET. PO PRN (22:15)
[2017-10-24 22:47] VITALS: BP 131/84
[2017-10-24] MEDS ORDERED: FLUT9.9S NS (23:28)
[2017-10-24] MEDS ORDERED: CETI10TA22 PO (23:29)
[2017-10-24] MEDS ORDERED: DOCU-109 PO (23:29)
[2017-10-25 03:59] VITALS: BP 132/85
[2017-10-25] MEDS: IPRATRPIUM/ALBUTEROL 0.5/2.5MG 3 ML NEBU. NEB SCH ×3 (05:06→21:00)
[2017-10-25 06:27] VITALS: BP 128/79
[2017-10-25 06:59] LABS: BASO % 0 % (0-3); EOS % 0 % (0-3); HEMATOCRIT 37.5 % (39.0-53.0); HEMOGLOBIN 12.7 g/dL (13.0-17.5); LYMPH # 0.8 x10^3/uL (1.0-4.8); LYMPH % 14 % (24-48); MEAN CORPUSCULAR HEMOGLOBIN 29 pg (25-35); MEAN CORPUSCULAR HGB CONC 34 g/dL (31-37); MEAN CORPUSCULAR VOLUME 85 fL (79-100); MONO # 0.2 x10^3/uL (0.0-1.1); MONO % 4 % (0-9); NEUT # 4.8 x10^3uL (1.8-7.7); NEUT % 82 % (31-73); PLATELET COUNT 238 x10^3/uL (140-400); RED BLOOD COUNT 4.41 x10^6/uL (4.30-5.70); WHITE BLOOD COUNT 5.9 x10^3/uL (4.0-11.0)
[2017-10-25 07:09] LABS: CALCIUM 9.4 mg/dL (8.5-10.1); CREATININE 0.7 mg/dL (0.7-1.3); GFR 112.1; POTASSIUM 4.7 mmol/L (3.5-5.1)
[2017-10-25] MEDS ORDERED: GLYCOPYRROLATE 1 MG TABLET PO SCH (08:00)
[2017-10-25] MEDS: PANTOPRAZOLE 40 MG TABLET. PO SCH (08:03)
[2017-10-25] MEDS ORDERED: HYDROcodone/APAP 5/325MG 1 TAB TABLET PO PRN (08:30)
[2017-10-25] MEDS: METOCLOPRAMIDE 5 MG TABLET PO SCH (09:10)
[2017-10-25] MEDS: FAMOTIDINE 20 MG TABLET PO SCH ×2 (09:10→20:27)
[2017-10-25] MEDS: HYDROcodone/APAP 5/325MG 1 TAB TABLET PO PRN ×2 (09:10→20:28)
[2017-10-25] MEDS: ENOXAPARIN ** NOTE DOSE ** SYRINGE SQ SCH ×2 (09:11→20:25)
[2017-10-25 10:41] VITALS: BP 117/80
--- NOTE | 2017-10-25 14:45 | RAD ---
Bilateral lower extremity venous Doppler ultrasound History: Elevated d-dimer, cough. Comparison: None. Procedure: Color Doppler, spectral Doppler, and grayscale images are obtained with and without compression in the area of the common femoral vein, superficial femoral vein - femoral vein junction, main femoral vein (superficial femoral vein) and popliteal vein. Veins of the proximal calf are also imaged. Findings: One of the right peroneal veins in the mid calf demonstrates occlusive deep venous thrombosis, age indeterminate, possibly acute. Remainder of the right lower extremity is without evidence of deep venous thrombosis. There is no evidence of left lower extremity deep venous thrombosis. Impression: 1. 1 of the right peroneal veins demonstrate small amount of occlusive deep venous thrombosis. 2. No evidence of left lower extremity deep venous thrombosis.
[2017-10-25 15:00] VITALS: BP 119/74
--- NOTE | 2017-10-25 15:12 | RAD ---
Nuclear medicine whole body bone scan History: Rib pain, pancreatic cancer. Comparison: CT angiogram chest 10/24/2017. Technique: Examination performed after intravenous administration of 25 mCi Technetium 99m MDP. Planar images of the whole body were obtained in the anterior and posterior projections. Findings: There are symmetric bilateral foci of increased activity thought to involve the bilateral anterior sixth ribs. Linear foci of activity can be seen involving the posterior right eighth through 10th ribs which correspond to known rib fractures. There is no evidence of osteoblastic metastases. Impression: 1. There are foci of activity involving the right posterior eighth through 10th ribs which have a linear orientation and compatible with fractures occurring within the last year. 2. Bilateral anterior sixth ribs demonstrate symmetric activity at the costochondral junction. Findings could represent changes of bilateral anterior rib fractures versus symmetric bilateral costochondral calcification.
[2017-10-25] MEDS: DOCUSATE SODIUM 100 MG CAPSULE PO SCH ×3 (15:47→20:29)
[2017-10-25] MEDS: LACTOBACILLUS RHAMNOSUS GG 1 CAPSULE. PO SCH ×2 (15:47→20:27)
[2017-10-25 18:57] VITALS: BP 127/89
[2017-10-25] MEDS ORDERED: cefTRIAXone IV Push 1 GM VIAL. IVP SCH (20:00)
--- NOTE | 2017-10-25 21:42 | HP ---
ADMIT DATE: HISTORY OF PRESENT ILLNESS: The patient is a 67-year-old male with history of pancreatic cancer, came in through the Emergency Room with severe pain on either side of his ribcage. The patient also notes a constant pain, sharp, intermittent, marked worse with coughing or taking a deep breath. The patient otherwise denied abdominal pain per se, although his lipase was elevated consistent with a possible pancreatitis as well. He has been on Zosyn and amoxicillin for 3 months for an incisional infection. He was admitted for further evaluation and treatment thereof for his pancreatitis as well as rib fractures. PAST MEDICAL HISTORY: GERD, hypercholesterolemia, kidney stone, pancreatitis, pancreatic cancer, gastroesophageal reflux, kidney stones, lithotripsy, influenza pneumococcal vaccinations are up-to-date. The patient also has neuropathy. PAST SURGICAL HISTORY: He has had a Whipple procedure. FAMILY HISTORY: Neoplasm of the skin in sister. Father with heart disease. Sister with heart disease. Mother with some form of cancer as well as a sister. ALLERGIES: No known allergies. MEDICATIONS: Zyrtec 10, Celebrex 100, Colace and Flonase nasal spray, Prilosec 40 and metoclopramide. REVIEW OF SYSTEMS: The patient otherwise denies any headaches, visual changes. Does have shortness breath, severe chest pain in the ribs. Denies abdominal pain except for some pain in the epigastric area where he has been treated for infection. Denies any problem with his bowels or bladder. Neurologically stable. The patient has no known drug allergies. PHYSICAL EXAMINATION: GENERAL: The patient otherwise on exam pleasant white male, moderate amount of distress. VITAL SIGNS: Blood pressure 130/80, respiratory rate 20, pulse 70, afebrile. HEENT: The patient's head was atraumatic, normocephalic. Eyes: PERRLA without jaundice. The mouth and throat were normal. NECK: Supple, without thyromegaly. LUNGS: Diminished throughout, clear. CARDIOVASCULAR: Regular sinus rhythm, S1, S2, without murmur, rub, thrill, or extra heart sound. ABDOMEN: Definitely tender in the epigastric to right upper quadrant area. The patient also noted marked tenderness to his ribs as noted. The patient continued to be monitored carefully on that. EXTREMITIES: No clubbing, cyanosis, nor edema. NEUROLOGIC: The patient was alert and oriented x 3. Speech fluent. Cranial nerves 2-12 are grossly intact. LABORATORY DATA: Observed. IMPRESSION: Multiple rib fractures, deep vein thrombosis, pancreatitis. RECOMMENDATIONS: Continue with present drug regimen, pain management ____. JOSE R LEWIS MD DR: SHOLA/phyllis JOB#: [id number] / [id number]
[2017-10-25 23:13] VITALS: BP_SYST 111; BP_SYST 117; BP_DIAS 70; BP_DIAS 76
[2017-10-26] MEDS: IPRATRPIUM/ALBUTEROL 0.5/2.5MG 3 ML NEBU. NEB SCH (05:44)
[2017-10-26 06:08] VITALS: BP 120/81
--- NOTE | 2017-10-26 06:56 | PN ---
DATE: A 67-year-old gentleman in with severe rib pain, shortness of breath, and apparently has multiple rib fractures through the ribs, more importantly discovered a clot in his leg, and as a result of this, the patient was placed on high doses of Lovenox. We will switch him over to oral anticoagulants and make further evaluation on him as indicated. JOSE R LEWIS MD DR: SHOLA/phyllis JOB#: [id number] / [id number]
[2017-10-26] MEDS: DOCUSATE SODIUM 100 MG CAPSULE PO SCH ×2 (08:19→08:25)
[2017-10-26] MEDS: ENOXAPARIN ** NOTE DOSE ** SYRINGE SQ SCH (08:24)
[2017-10-26] MEDS: METOCLOPRAMIDE 5 MG TABLET PO SCH (08:25)
[2017-10-26] MEDS: PANTOPRAZOLE 40 MG TABLET. PO SCH (08:25)
[2017-10-26] MEDS: FAMOTIDINE 20 MG TABLET PO SCH (08:25)
[2017-10-26] MEDS: LACTOBACILLUS RHAMNOSUS GG 1 CAPSULE. PO SCH (08:25)
[2017-10-26] MEDS ORDERED: FLUTICASONE 50MCG/NASAL SPRAY 16GM BOTTLE. NS SCH (09:00)
--- NOTE | 2017-10-26 10:02 | DS ---
DATE OF DISCHARGE: 10/26/2017 HOSPITAL COURSE: The patient is a 67-year-old gentleman with a history of pancreatic cancer. He has had a Whipple procedure. The patient was having severe pain to his thoracic area and difficulty in breathing. The patient in turn was found to have a clot in his left lower leg and his lipase was elevated. The patient made good progress during the rest of his hospitalization. The clot was noted in the right peroneal veins, which did have some occlusive nature to it. He was placed immediately on heparin and he will be also placed on Xarelto as an outpatient. He will be following up with his oncologist here in the next few days, told to take all his information with him. Bone scan showed probable rib fractures in the right ____ rib as well as possible activity in the sixth rib as well. In any case, no cancer was noted there. The patient made excellent progress during the rest of his hospitalization. IMPRESSION: Deep venous thromboses of the right leg, dyspnea, pancreatic cancer, multiple rib fractures, pancreatitis. The patient continues to be monitored carefully on that and also he had moderate protein malnutrition. PLAN: The patient will continue to be monitored. See MRAD. Decreased activity. Follow up with his oncologist. JOSE R LEWIS MD DR: SHOLA/phyllis JOB#: [id number] / [id number]
[2017-10-26] MEDS ORDERED: ZOLP5TAB PO (10:19)
[2017-10-26] MEDS ORDERED: RIVA15TA PO (10:19)
[2017-10-26] MEDS ORDERED: HYDR-2758 PO (10:19)
[2017-10-26] MEDS ORDERED: IPRA3AMP NEB (10:19)
[2017-10-26] MEDS ORDERED: RIVAROXABAN 15 MG TABLET. PO SCH (17:00)
== END 2017-10-26 11:10 | disposition home or self-care (01) | DRG 183 ==
LOC: ER 16:45 → 1 SOUTH 20:40
PROVIDERS: ADMIT Family Medicine; ATTEND Family Medicine
DX: S22.41XA Multiple fractures of ribs, right side, initial encounter for closed fracture (principal); K85.90 Acute pancreatitis without necrosis or infection, unspecified; E44.0 Moderate protein-calorie malnutrition; C25.9 Malignant neoplasm of pancreas, unspecified; I82.491 Acute embolism and thrombosis of other specified deep vein of right lower extremity; G62.9 Polyneuropathy, unspecified; K21.9 Gastro-esophageal reflux disease without esophagitis; N39.0 Urinary tract infection, site not specified; E78.00 Pure hypercholesterolemia, unspecified; X58.XXXA Exposure to other specified factors, initial encounter; Y93.89 Activity, other specified; Y92.89 Other specified places as the place of occurrence of the external cause; Y99.8 Other external cause status; Z82.49 Family history of ischemic heart disease and other diseases of the circulatory system; Z87.442 Personal history of urinary calculi; Z79.899 Other long term (current) drug therapy; Z68.21 Body mass index [BMI] 21.0-21.9, adult
CPT/HCPCS: 36415; 71046; 71275; 78306; 80048; 80053; 81001; 82553; 83605; 83690; 83735; 83880; 84484; 85025; 85379; 85610; 87040; 87086; 93005; 93970; 96361; 96365; 96372; 96374; 96375; A9503; J0696; J1650; J2270; J3010; J7512; J7620; J8597; Q9967; 99285-25; J7030

== ENCOUNTER 2017-10-30 17:52 | Inpatient (IN) | payer MEDICARE, OTHER ==
[~2017-10-30] VITALS: Ht 177.8 cm; Wt 66.9 kg
[~2017-10-30 17:52] MED LIST changes: +CETI10TA22 PO; +DOCU-109 PO; +FLUT9.9S NS; +IPRA3AMP NEB; +RIVA15TA PO; +ZOLP5TAB PO
--- NOTE | 2017-10-30 17:59 | ED.ADGEN ---
Past History Past Medical History: DVT, GERD, High Cholesterol, Kidney Stones, Pancreatitis , Other Past Surgical History: Other Additional Past Surgical Histo: Whipple surgery Smoking: Non-smoker Alcohol Use: None Drug Use: None Adult General Chief Complaint Chief Complaint ".. I am vomiting again... I had that pancreatic surgery.. and a DVT.. but I did not handle the food well today..." HPI HPI Patient is a 67 year old male who presents with above hx and complaints of epigastric pain, nausea vomiting and malaise. Patient vomited up his afternoon meal. Patient localizes pain in area of epigastric. Patient has been passing gas and stool. Patient recently admitted for pancreatitis and DVT 10/24. Pt. this under went procedure on 06/29/2017 for pancreatic mass and pancreatitis. A abdomen suture line is healing well except for one small drainage area. Patient normally follows with Dr. Morel. No ill contacts. No recent travel. No history of bad food intake. Review of Systems Review of Systems Constitutional: Denies fever or chills [] Eyes: Denies change in visual acuity, redness, or eye pain [] HENT: Denies nasal congestion or sore throat [] Respiratory: Denies cough or shortness of breath [] Cardiovascular: No additional information not addressed in HPI [] GI: Complaints of abdominal pain, nausea, vomiting,. Denies bloody stools or diarrhea [] : Denies dysuria or hematuria [] Musculoskeletal: Denies back pain or joint pain [] Integument: Denies rash or skin lesions [] Neurologic: Denies headache, focal weakness or sensory changes [] Endocrine: Denies polyuria or polydipsia [] All other systems were reviewed and found to be within normal limits, except as documented in this note. Family History Family History Noncontributory Current Medications Current Medications Current Medications Medications (Trade) Dose Ordered Sig/Omega Start Time Stop Time Status Last Admin Dose Admin Acetaminophen/ Hydrocodone Bitart (Lortab 5/325) 1 tab PRN Q6HRS PRN 10/30/17 20:45 10/31/17 05:42 1 TAB Ceftriaxone Sodium 1 gm/ Sodium Chloride 50 ml @ 100 mls/hr 1X ONCE 10/30/17 18:45 10/30/17 19:14 DC 10/30/17 20:32 100 MLS/HR Ceftriaxone Sodium (Rocephin) 1 gm STK-MED ONCE 10/30/17 19:07 10/30/17 19:08 DC Famotidine (Pepcid Vial) 20 mg 1X ONCE 10/30/17 18:15 10/30/17 18:16 DC 10/30/17 18:51 20 MG Lactated Ringer's 1,000 ml @ 1,000 mls/hr Q1H 10/30/17 18:04 10/30/17 19:03 DC 10/30/17 18:17 1,000 MLS/HR Metronidazole 100 ml @ 100 mls/hr 1X ONCE 10/30/17 18:45 10/30/17 19:44 DC 10/30/17 19:09 100 MLS/HR Morphine Sulfate (Morphine 10mg Syringe) 10 mg 1X ONCE 10/30/17 18:15 10/30/17 18:16 DC 10/30/17 18:52 10 MG Ondansetron HCl (Zofran Odt) 8 mg QIDPRN PRN 10/30/17 18:45 10/30/17 18:48 8 MG Ondansetron HCl (Zofran) 8 mg 1X ONCE 10/30/17 18:15 10/30/17 18:37 DC Sodium Chloride 50 ml @ As Directed STK-MED ONCE 10/30/17 19:07 10/30/17 19:08 DC Zolpidem Tartrate (Ambien) 5 mg PRN QHS PRN 10/30/17 19:45 10/30/17 21:21 5 MG Allergies Allergies Allergies Coded Allergies Type Severity Reaction Last Updated Verified No Known Drug Allergies 10/24/17 No Physical Exam Physical Exam Constitutional: Moderately acute distress, non-toxic appearance. [] HENT: Normocephalic, atraumatic, bilateral external ears normal, oropharynx moist, no oral exudates, nose normal. [] Eyes: PERRLA, EOMI, conjunctiva normal, no discharge. [] Neck: Normal range of motion, no tenderness, supple, no stridor. [] Cardiovascular:Heart rate regular rhythm, no murmur [] Lungs & Thorax: Bilateral breath sounds clear to auscultation [] Abdomen: Bowel sounds decreased, soft, epigastric tenderness, no masses, no pulsatile masses. []Declines rectal exam this time. Suture line healing well. Skin: Warm, dry, no erythema, no rash. [] Back: No tenderness, no CVA tenderness. [] Extremities: No tenderness, no cyanosis, no clubbing, ROM intact, no edema. [] Neurologic: Alert and oriented X 3, normal motor function, normal sensory function, no focal deficits noted. [] Psychologic: Affect anxious, judgement normal, mood normal. [] Current Patient Data Vital Signs Vital Signs Date Time Temp Pulse Resp B/P (MAP) Pulse Ox O2 Delivery O2 Flow Rate FiO2 10/30/17 20:50 99.1 92 18 120/85 (97) 96 Room Air Lab Results Laboratory Tests Test 10/30/17 18:00 White Blood Count 10.1 x10^3/uL (4.0-11.0) # Red Blood Count 4.84 x10^6/uL (4.30-5.70) Hemoglobin 14.0 g/dL (13.0-17.5) Hematocrit 41.6 % (39.0-53.0) Mean Corpuscular Volume 86 fL (79-100) Mean Corpuscular Hemoglobin 29 pg (25-35) Mean Corpuscular Hemoglobin Concent 34 g/dL (31-37) Red Cell Distribution Width 16.4 % (11.5-14.5) H Platelet Count 298 x10^3/uL (140-400) Neutrophils (%) (Auto) 70 % (31-73) Lymphocytes (%) (Auto) 18 % (24-48) L Monocytes (%) (Auto) 6 % (0-9) Eosinophils (%) (Auto) 4 % (0-3) H Basophils (%) (Auto) 1 % (0-3) Neutrophils # (Auto) 7.0 x10^3uL (1.8-7.7) Lymphocytes # (Auto) 1.9 x10^3/uL (1.0-4.8) Monocytes # (Auto) 0.6 x10^3/uL (0.0-1.1) Eosinophils # (Auto) 0.4 x10^3/uL (0.0-0.7) Basophils # (Auto) 0.1 x10^3/uL (0.0-0.2) Prothrombin Time 14.4 SEC (9.4-11.4) H Prothrombin Time INR 1.4 (0.9-1.1) H PTT 34 SEC (23-33) H Urine Collection Type Unknown Urine Color Yellow Urine Clarity Clear Urine pH 5.5 Urine Specific [place] 1.020 Urine Protein Neg (NEG-TRACE) Urine Glucose (UA) Neg mg/dL (NEG) Urine Ketones (Stick) Trace mg/dL (NEG) Urine Blood Large (NEG) Urine Nitrite Neg (NEG) Urine Bilirubin Neg (NEG) Urine Urobilinogen Dipstick 1 mg/dL (0.2 mg/dL) Urine Leukocyte Esterase Trace (NEG) Urine RBC 11-20 /HPF (0-2) Urine WBC 5-10 /HPF (0-4) Urine Squamous Epithelial Cells Occ /LPF Urine Bacteria 0 /HPF (0-FEW) Urine Mucus Slight /LPF Sodium Level 144 mmol/L (136-145) Potassium Level 4.5 mmol/L (3.5-5.1) Chloride Level 104 mmol/L (98-107) Carbon Dioxide Level 32 mmol/L (21-32) Anion Gap 8 (6-14) Blood Urea Nitrogen 20 mg/dL (8-26) Creatinine 0.7 mg/dL (0.7-1.3) Estimated GFR (Cockcroft-Gault) 112.1 Glucose Level 107 mg/dL (70-99) H Calcium Level 9.3 mg/dL (8.5-10.1) Total Bilirubin 0.4 mg/dL (0.2-1.0) Direct Bilirubin 0.1 mg/dL (0.0-0.2) Aspartate Amino Transferase (AST) 90 U/L (15-37) H Alanine Aminotransferase (ALT) 69 U/L (16-63) H Alkaline Phosphatase 439 U/L (46-116) H Creatine Kinase 27 U/L (39-308) L Creatine Kinase MB (Mass) < 0.5 ng/mL (0.0-3.6) Creatine Kinase MB Relative Index 1.9 % (0-4) Troponin I Quantitative < 0.017 ng/mL (0-0.055) Total Protein 6.3 g/dL (6.4-8.2) L Albumin 2.9 g/dL (3.4-5.0) L Amylase Level 163 U/L (25-115) H Lipase 3348 U/L (73-393) H EKG EKG My interpretation EKG shows a sinus tachycardia heart beats per minute. No findings acute STEMI of contralateral changes.[] Radiology/Procedures Radiology/Procedures I interpretation of abdomen film shows no acute cardiopulmonary findings. No free air under the diaphragm. Clips from previous surgery. Has had increased stool volume consistent with constipation. Nonobstructive bowel gas pattern.[] Course & Med Decision Making Course & Med Decision Making Pertinent Labs and Imaging studies reviewed. (See chart for details) Stress presentation, testing and treatment plan with Dr. Morel. Will admit for further evaluation and treatment. [] Final Impression Final Impression 1. Nausea and vomiting[] 2. Abdomen Pain 3. Ileus- partial 4. Elevated-LFT- AST90, ALT69, Alk. Phos 439 5. Malnutrition - Alb. 2.9 6. Pancreatitis- Lipase 2962-patient from last visit 7. Anemia 8. Hx. DVT- Rt. calf- Admit- 10/24- 9. Hx. Post Whipple 06/29/17 Rocky Disclaimer Dragaddy Disclaimer This electronic medical record was generated, in whole or in part, using a voice recognition dictation system. MARIA A CUBA MD October 30, 2017 17:59
[2017-10-30] MEDS ORDERED: IV RINGERS SOLUTION,LACTATED 1,000 ML IV SCH (18:04)
[2017-10-30] MEDS ORDERED: ONDANSETRON PF 4 MG/2 ML VIAL. IV ONE (18:15)
[2017-10-30] MEDS ORDERED: FAMOTIDINE 20 MG/2 ML VIAL IVP ONE (18:15)
[2017-10-30] MEDS ORDERED: MORPHINE SULFATE 10 MG/ML SYRINGE. SQ ONE (18:15)
[2017-10-30 18:26] LABS: BASO # 0.1 x10^3/uL (0.0-0.2); BASO % 1 % (0-3); EOS # 0.4 x10^3/uL (0.0-0.7); EOS % 4 % (0-3); HEMATOCRIT 41.6 % (39.0-53.0); LYMPH # 1.9 x10^3/uL (1.0-4.8); LYMPH % 18 % (24-48); MEAN CORPUSCULAR HEMOGLOBIN 29 pg (25-35); MEAN CORPUSCULAR HGB CONC 34 g/dL (31-37); MEAN CORPUSCULAR VOLUME 86 fL (79-100); MONO # 0.6 x10^3/uL (0.0-1.1); MONO % 6 % (0-9); NEUT % 70 % (31-73); PLATELET COUNT 298 x10^3/uL (140-400); RED BLOOD COUNT 4.84 x10^6/uL (4.30-5.70); RED CELL DISTRIBUTION WIDTH 16.4 % (11.5-14.5); WHITE BLOOD COUNT 10.1 x10^3/uL (4.0-11.0)
--- NOTE | 2017-10-30 18:26 | EKG ---
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
[2017-10-30 18:32] LABS: BACTERIA,URINE 0 /HPF (0-FEW); BILIRUBIN,URINE NEG (NEG); CLARITY,URINE CLEAR; COLOR,URINE YELLOW; GLUCOSE,URINE NEG (NEG); NITRITE,URINE NEG (NEG); SQUAMOUS EPITHELIAL CELL,UR OCC /LPF; UROBILINOGEN,URINE 1 mg/dL (0.2 mg/dL)
[2017-10-30] MEDS ORDERED: ONDANSETRON ODT 4 MG TAB.RAPDIS PO PRN (18:45)
[2017-10-30] MEDS ORDERED: ONDANSETRON ODT 4 MG TAB.RAPDIS PO ONE (18:45)
[2017-10-30 18:48] LABS: ALBUMIN 2.9 g/dL (3.4-5.0); ALK PHOS 439 U/L (46-116); ALT (SGPT) 69 U/L (16-63); AMYLASE 163 U/L (25-115); ANION GAP 8 (6-14); AST (SGOT) 90 U/L (15-37); BLOOD UREA NITROGEN 20 mg/dL (8-26); CALCIUM 9.3 mg/dL (8.5-10.1); CARBON DIOXIDE 32 mmol/L (21-32); CHLORIDE 104 mmol/L (98-107); CREATININE 0.7 mg/dL (0.7-1.3); DIRECT BILIRUBIN 0.1 mg/dL (0.0-0.2); GFR 112.1; GLUCOSE 107 mg/dL (70-99); POTASSIUM 4.5 mmol/L (3.5-5.1); SODIUM 144 mmol/L (136-145); TOTAL BILIRUBIN 0.4 mg/dL (0.2-1.0); TOTAL PROTEIN 6.3 g/dL (6.4-8.2)
[2017-10-30] MEDS ORDERED: IV NORMAL SALINE 50ML 50 ML ONE (19:07)
[2017-10-30] MEDS ORDERED: cefTRIAXone SODIUM 1 GM VIAL IV ONE (19:07)
[2017-10-30 19:33] LABS: LIPASE 3348 U/L (73-393)
[2017-10-30 20:50] VITALS: BP 120/85
[2017-10-30] MEDS ORDERED: ANTI-COAG MONITOR BY PHARMACY. MC PRN (21:00)
[2017-10-30] MEDS: FAMOTIDINE 20 MG/2 ML VIAL IVP SCH (21:20)
[2017-10-30] MEDS: METOCLOPRAMIDE 5 MG TABLET PO SCH (21:20)
[2017-10-30] MEDS: ZOLPIDEM 5 MG TABLET. PO PRN (21:21)
[2017-10-30] MEDS: LACTOBACILLUS RHAMNOSUS GG 1 CAPSULE. PO SCH (21:21)
[2017-10-30] MEDS: DOCUSATE SODIUM 100 MG CAPSULE PO SCH (21:21)
[2017-10-30] MEDS: HYDROcodone/APAP 5/325MG 1 TAB TABLET PO PRN (21:27)
[2017-10-30] MEDS: IPRATRPIUM/ALBUTEROL 0.5/2.5MG 3 ML NEBU. NEB SCH (21:51)
[2017-10-31 00:05] VITALS: BP 120/74
[2017-10-31] MEDS ORDERED: METO10TA PO (00:51)
[2017-10-31 05:40] VITALS: BP 118/76
[2017-10-31] MEDS: HYDROcodone/APAP 5/325MG 1 TAB TABLET PO PRN ×2 (05:42→19:14)
[2017-10-31 07:38] LABS: BASO # 0.1 x10^3/uL (0.0-0.2); BASO % 1 % (0-3); EOS # 0.3 x10^3/uL (0.0-0.7); EOS % 4 % (0-3); HEMOGLOBIN 12.3 g/dL (13.0-17.5); LYMPH # 1.2 x10^3/uL (1.0-4.8); LYMPH % 15 % (24-48); MEAN CORPUSCULAR HEMOGLOBIN 29 pg (25-35); MEAN CORPUSCULAR HGB CONC 33 g/dL (31-37); MEAN CORPUSCULAR VOLUME 86 fL (79-100); MONO # 0.7 x10^3/uL (0.0-1.1); MONO % 9 % (0-9); NEUT # 5.8 x10^3uL (1.8-7.7); NEUT % 72 % (31-73); PLATELET COUNT 231 x10^3/uL (140-400); RED BLOOD COUNT 4.32 x10^6/uL (4.30-5.70); WHITE BLOOD COUNT 8.1 x10^3/uL (4.0-11.0)
[2017-10-31 07:49] LABS: CALCIUM 8.9 mg/dL (8.5-10.1); CREATININE 0.8 mg/dL (0.7-1.3); GFR 96.1; POTASSIUM 4.5 mmol/L (3.5-5.1)
[2017-10-31] MEDS: IPRATRPIUM/ALBUTEROL 0.5/2.5MG 3 ML NEBU. NEB SCH ×2 (08:00→21:09)
[2017-10-31] MEDS: METOCLOPRAMIDE 5 MG TABLET PO SCH ×4 (08:09→20:10)
[2017-10-31] MEDS: RIVAROXABAN 15 MG TABLET. PO SCH ×2 (08:09→16:41)
[2017-10-31] MEDS: PANTOPRAZOLE 40 MG TABLET. PO SCH (08:09)
[2017-10-31] MEDS: CETIRIZINE HCL 10 MG TABLET PO SCH (08:10)
[2017-10-31] MEDS: DOCUSATE SODIUM 100 MG CAPSULE PO SCH ×2 (08:10→20:10)
[2017-10-31] MEDS: LACTOBACILLUS RHAMNOSUS GG 1 CAPSULE. PO SCH ×2 (08:10→20:10)
[2017-10-31] MEDS: FAMOTIDINE 20 MG/2 ML VIAL IVP SCH ×2 (08:12→20:11)
[2017-10-31] MEDS: FLUTICASONE 50MCG/NASAL SPRAY 16GM BOTTLE. NS SCH (09:00)
--- NOTE | 2017-10-31 09:30 | RAD ---
ACUTE ABDOMEN SERIES History: Abdominal pain, previous Whipple procedure, nausea and vomiting Comparison: October 24, 2017 chest radiographs and September 04, 2017 CT abdomen pelvis exam Findings: 2 AP views of the chest, single upright view of the abdomen, 2 supine views of the abdomen are submitted. There is no infiltrate, pleural fluid, pneumothorax. No free air is identified. There is scattered gas in the large and small bowel, overall nonobstructive bowel gas pattern. There is retained stool greater of the right colon. There are surgical clips in the upper quadrants of the abdomen. There is pneumobilia which was seen on previous CT. There are bilateral renal calculi as seen on CT. Impression: 1. There is a nonobstructive bowel gas pattern, some retained stool in the colon. There are bilateral renal calculi, also pneumobilia seen on previous CT. Electronically signed by: Paco Tellez MD (10/31/2017 9:26 AM) [facility]
[2017-10-31 11:32] VITALS: BP 119/81
[2017-10-31] MEDS: LIPASE/PROTEAS/AMYLAS 10/34/55 CAPSULE.DR. PO SCH ×2 (13:12→16:42)
[2017-10-31 15:16] VITALS: BP 114/78
--- NOTE | 2017-10-31 15:48 | HP ---
ADMIT DATE: 10/30/2017 HISTORY OF PRESENT ILLNESS: A 67-year-old gentleman in usual state of health, has a history of pancreatic cancer, apparently was preparing some food and bent over and fell to the floor with severe pain, came in through the Emergency Room, found to be having acute pancreatitis. He denies drinking or any alcohol ingestion. The patient has a recurrence of these periodically from his Whipple procedure. PAST MEDICAL HISTORY: DVT, GERD, hypercholesterolemia, kidney stones, pancreatitis, pancreatic cancer surgery, Whipple procedure, neuropathy, chronic anticoagulation with Xarelto, DVT of the right calf 10/24/2017, rib fractures, Whipple procedure on 06/24 for benign pancreatic tumor, GERD, lithotripsy, arthritis, bulging disk. Influenza and pneumococcal vaccinations are up-to-date. FAMILY HISTORY: Skin cancer for the sister, cardiovascular disease for father and sister and cancer in the mother and sister. ALLERGIES: No known drug allergies. MEDICATIONS: Zyrtec, DuoNeb, Xarelto 15 b.i.d., hydrocodone, Ambien 5, fluticasone propionate, docusate sodium, omeprazole 40, metoclopramide 10 mg a.c. and at bedtime. SOCIAL HISTORY: No smoking, alcohol or drug use. REVIEW OF SYSTEMS: The patient denies any headache, vision change, blurred vision, double vision. Denies chest pain, shortness breath. Denies any melena, hematochezia, or hematemesis. NEUROLOGIC: The patient is alert and oriented x 3. PHYSICAL EXAMINATION: GENERAL: A pleasant white male in no apparent distress. VITAL SIGNS: Blood pressure 120/80, respirations 18, pulse 85, afebrile. HEENT: The patient's head was atraumatic, normocephalic. Eyes: PERRLA without jaundice. Mouth and Throat: Normal. NECK: Supple. LUNGS: Clear. CARDIOVASCULAR: Regular sinus rhythm, S1, S2, without murmur, rub, thrill. ABDOMEN: Soft. Diffuse tenderness in the epigastric area, but no rebounding or guarding. Positive bowel sounds, no hepatosplenomegaly was noted. EXTREMITIES: No clubbing, cyanosis, or edema. NEUROLOGIC: The patient was alert and oriented x 3. LABORATORY DATA: The patient's white count 10, hemoglobin 14 and 41. Labs basically normal except for elevated liver enzymes. AST, ALT, alkaline phos 90, 69, 439 respectively. Lipase of 3000 or greater. So the patient will be monitored carefully, did have 11-20 reds and 5-10 whites in the urine. He is on some antibiotic for that. We will continue to monitor the patient accordingly, make further evaluation on him as indicated. JOSE R LEWIS MD DR: SHOLA/phyllis JOB#: [id number] / [id number]
[2017-10-31 19:42] VITALS: BP 119/84
[2017-10-31] MEDS ORDERED: cefTRIAXone IV Push 1 GM VIAL. IVP SCH (20:00)
[2017-10-31] MEDS: ZOLPIDEM 5 MG TABLET. PO PRN (21:45)
[2017-11-01 05:58] VITALS: BP 121/80
[2017-11-01] MEDS: PANTOPRAZOLE 40 MG TABLET. PO SCH (07:51)
[2017-11-01] MEDS: METOCLOPRAMIDE 5 MG TABLET PO SCH ×2 (07:51→11:36)
[2017-11-01] MEDS: IPRATRPIUM/ALBUTEROL 0.5/2.5MG 3 ML NEBU. NEB SCH ×2 (08:00→09:22)
[2017-11-01] MEDS ORDERED: SENNOSIDES 8.6 MG TABLET PO PRN (08:15)
[2017-11-01] MEDS: LACTOBACILLUS RHAMNOSUS GG 1 CAPSULE. PO SCH (08:22)
[2017-11-01] MEDS: DOCUSATE SODIUM 100 MG CAPSULE PO SCH (08:22)
[2017-11-01] MEDS: CETIRIZINE HCL 10 MG TABLET PO SCH (08:22)
[2017-11-01] MEDS: RIVAROXABAN 15 MG TABLET. PO SCH (08:22)
[2017-11-01] MEDS: LIPASE/PROTEAS/AMYLAS 10/34/55 CAPSULE.DR. PO SCH ×2 (08:22→11:36)
[2017-11-01] MEDS: FAMOTIDINE 20 MG/2 ML VIAL IVP SCH (08:22)
[2017-11-01] MEDS: FLUTICASONE 50MCG/NASAL SPRAY 16GM BOTTLE. NS SCH (08:24)
[2017-11-01] MEDS ORDERED: LIPA1CAP12 PO (11:25)
[2017-11-01 11:52] VITALS: BP 127/88
--- NOTE | 2017-11-02 | DS ---
DATE OF DISCHARGE: 11/01/2017 HOSPITAL COURSE: The patient is a 67-year-old gentleman with previous surgery on his pancreas for nonmalignant tumor, apparently was cooking and had severe abdominal pain, came in with elevated amylase and lipase consistent with pancreatitis. The patient also had some air in his bile tract. In any case, the vital signs look good, his labs look good except for ____ amylase, lipase and liver enzymes were markedly elevated. He is followed up at for his other problems. Culture on the urine was pending and showed no growth. The patient made good progress with just n.p.o. and rest of his bowel and fluids and make further evaluation as an outpatient. IMPRESSION: Acute on top of chronic pancreatitis, post-surgery for nonmalignant pancreatic tumor, oqyz-jr-[id number] protein malnutrition, elevated liver enzymes. PLAN: Continue to monitor as an outpatient. He will follow up with his doctors down there at . JOSE R LEWIS MD DR: SHOLA/phyllis JOB#: [id number] / [id number]
== END 2017-11-01 13:05 | disposition home or self-care (01) | DRG 871 ==
LOC: ER 17:52 → 1 SOUTH 20:50
PROVIDERS: ADMIT Family Medicine; ATTEND Family Medicine
DX: A41.9 Sepsis, unspecified organism (principal); K85.90 Acute pancreatitis without necrosis or infection, unspecified; E44.0 Moderate protein-calorie malnutrition; K56.7 Ileus, unspecified; K86.1 Other chronic pancreatitis; G62.9 Polyneuropathy, unspecified; E78.00 Pure hypercholesterolemia, unspecified; K21.9 Gastro-esophageal reflux disease without esophagitis; M19.90 Unspecified osteoarthritis, unspecified site; D64.9 Anemia, unspecified; Z68.21 Body mass index [BMI] 21.0-21.9, adult; Z79.01 Long term (current) use of anticoagulants; Z79.899 Other long term (current) drug therapy; Z80.8 Family history of malignant neoplasm of other organs or systems; Z82.49 Family history of ischemic heart disease and other diseases of the circulatory system; Z85.07 Personal history of malignant neoplasm of pancreas; Z86.718 Personal history of other venous thrombosis and embolism; Z87.442 Personal history of urinary calculi
CPT/HCPCS: 36415; 74022; 80048; 80076; 81001; 82150; 82553; 83690; 84484; 85025; 85610; 85730; 87040; 93005; 94640; 96361; 96365; 96372; 96375; J0696; J2270; J3490; J7120; J7620; J8597; Q0162; S0028; 99285-25

== ENCOUNTER → 2017-11-11 | Outpatient (CLI) | payer MEDICARE, OTHER ==
[2017-11-01 11:52] VITALS: BP 127/88
[~2017-11-11] MED LIST changes: +CALC625T20 PO; +IOHEXOL 300 MG/ML 75 ML VIAL. IV ONE; +LEVO750T31 PO; +METO10TA PO; +METR500T8 PO; +MULT1TAB52 PO; +OXYC-323 PO
[2017-11-11 14:08] LABS: CALCIUM 8.9 mg/dL (8.5-10.1); CREATININE 0.7 mg/dL (0.7-1.3); GFR 112.1; POTASSIUM 3.7 mmol/L (3.5-5.1)
--- NOTE | 2017-11-11 14:38 | RAD ---
CTA of the abdomen and pelvis with contrast, 11/11/2017: HISTORY: Abdominal pain and weight loss after Whipple surgery Multidetector CT imaging was performed following an IV bolus injection of iodinated contrast material. Multiplanar reconstructions were produced including 3-D MIP images. There are mild scattered calcific plaques in the abdominal aorta without evidence of aneurysm. The celiac artery is widely patent. There is only minimal calcific plaquing at the superior mesenteric arterial origin without significant luminal narrowing. There is mild calcific plaquing at the right renal artery origin with only mild associated luminal narrowing. The left renal artery is widely patent. There is minimal calcific plaquing at the inferior mesenteric arterial origin without significant narrowing. There are scattered plaques in the iliac iliac and common femoral arteries bilaterally without evidence of high-grade stenosis. Incidental CT findings include the presence of pneumobilia, presumably on a postoperative basis. There is mild dilatation of the pancreatic duct in the pancreatic body and tail. Scattered colonic diverticula are present. There are small collections of fluid and extraluminal appearing gas bubbles in the anterior abdomen at the midline along the inferior aspect of the transverse colon. Some of this fluid was present on the 09/04/2017 study, however, extraluminal air bubbles appear new. The appearance raises the possibility of a chronic fistula or diverticulitis. IMPRESSION: 1. Mild scattered aortic atherosclerosis. 2. Mild narrowing at the right renal artery and inferior mesenteric arterial origins. 3. Widely patent superior mesenteric and celiac arteries. 4. Persistent abnormal fluid collection with new extraluminal gas collections along the inferior margin of the transverse colon raising the possibility of diverticulitis or chronic fistula. Correlation with the patient's precise surgical history is suggested. CT scanning of the abdomen and pelvis with oral and IV contrast would best delineate this process, if clinically indicated. Electronically signed by: Lico Busby MD (11/11/2017 2:34 PM) [facility]
[2017-11-11 15:05] LABS: BASO # 0.1 x10^3/uL (0.0-0.2); BASO % 1 % (0-3); EOS # 0.4 x10^3/uL (0.0-0.7); EOS % 4 % (0-3); HEMATOCRIT 40.2 % (39.0-53.0); HEMOGLOBIN 13.4 g/dL (13.0-17.5); LYMPH # 1.4 x10^3/uL (1.0-4.8); LYMPH % 16 % (24-48); MEAN CORPUSCULAR HEMOGLOBIN 29 pg (25-35); MEAN CORPUSCULAR HGB CONC 33 g/dL (31-37); MEAN CORPUSCULAR VOLUME 86 fL (79-100); MONO # 0.5 x10^3/uL (0.0-1.1); MONO % 6 % (0-9); NEUT # 6.3 x10^3uL (1.8-7.7); NEUT % 72 % (31-73); PLATELET COUNT 420 x10^3/uL (140-400); RED BLOOD COUNT 4.69 x10^6/uL (4.30-5.70); WHITE BLOOD COUNT 8.7 x10^3/uL (4.0-11.0)
[2017-11-13 07:12] LABS: CEA 1.4 ng/mL (0.0-4.7)
== END | disposition home or self-care (01) ==
LOC: CT 12:15
PROVIDERS: ATTEND Family Medicine
DX: N30.01 Acute cystitis with hematuria (principal); K85.10 Biliary acute pancreatitis without necrosis or infection; C25.3 Malignant neoplasm of pancreatic duct; I70.0 Atherosclerosis of aorta; K21.9 Gastro-esophageal reflux disease without esophagitis; E78.00 Pure hypercholesterolemia, unspecified; Z79.01 Long term (current) use of anticoagulants; Z98.890 Other specified postprocedural states
CPT/HCPCS: 36415; 74174; 80048; 82150; 82378; 83690; 85025; 85610; 86301; Q9967

== ENCOUNTER 2017-11-12 15:16 | Inpatient (IN) | payer MEDICARE, OTHER ==
[~2017-11-12] VITALS: Ht 177.8 cm; Wt 65.6 kg
[~2017-11-12 15:16] MED LIST changes: -CALC625T20 PO; -IOHEXOL 300 MG/ML 75 ML VIAL. IV ONE; -LEVO750T31 PO; -METR500T8 PO; -MULT1TAB52 PO; -OXYC-323 PO
[2017-11-12 15:47] VITALS: BP 124/82
[2017-11-12 17:58] LABS: BASO # 0.1 x10^3/uL (0.0-0.2); BASO % 1 % (0-3); EOS # 0.3 x10^3/uL (0.0-0.7); EOS % 4 % (0-3); HEMATOCRIT 36.1 % (39.0-53.0); HEMOGLOBIN 12.2 g/dL (13.0-17.5); LYMPH # 1.5 x10^3/uL (1.0-4.8); LYMPH % 17 % (24-48); MEAN CORPUSCULAR HEMOGLOBIN 29 pg (25-35); MEAN CORPUSCULAR HGB CONC 34 g/dL (31-37); MEAN CORPUSCULAR VOLUME 85 fL (79-100); MONO # 0.7 x10^3/uL (0.0-1.1); MONO % 8 % (0-9); NEUT # 6.1 x10^3uL (1.8-7.7); NEUT % 70 % (31-73); PLATELET COUNT 366 x10^3/uL (140-400); RED BLOOD COUNT 4.25 x10^6/uL (4.30-5.70); RED CELL DISTRIBUTION WIDTH 14.6 % (11.5-14.5); WHITE BLOOD COUNT 8.8 x10^3/uL (4.0-11.0)
[2017-11-12 17:59] LABS: BILIRUBIN,URINE SMALL (NEG); CLARITY,URINE CLOUDY; COLOR,URINE AMBER; GLUCOSE,URINE NEG (NEG)
[2017-11-12 18:00] LABS: BACTERIA,URINE FEW /HPF (0-FEW); NITRITE,URINE NEG (NEG); RBC,URINE >40 /HPF (0-2); SQUAMOUS EPITHELIAL CELL,UR OCC /LPF; UROBILINOGEN,URINE 0.2 mg/dL (0.2 mg/dL)
[2017-11-12] MEDS ORDERED: HYDROcodone/APAP 5/325MG 1 TAB TABLET PO PRN (18:00)
--- NOTE | 2017-11-12 18:00 | NUR ---
NSG NOTE; ADMISSION DIRECT ADMIT TO ROOM 117 AT 1540 VIA AMB ACCOMP BY . PT HAD SEEN DR LEWIS YESTERDAY 11/11/17 FOR CONTINUED ABD PAIN.LABS WERE DRAWN AND A CT WAS TAKEN. PT STATES DR LEWIS CALLED TODAY AFTER SEEING THE RESULTS AND ASKED THE PT TO COME HERE FOR ADMISSION
[2017-11-12 18:05] LABS: ALBUMIN 2.5 g/dL (3.4-5.0); ALBUMIN/GLOBULIN RATIO 0.7 (1.0-1.7); CALCIUM 8.7 mg/dL (8.5-10.1); CREATININE 0.7 mg/dL (0.7-1.3); GFR 112.1; POTASSIUM 3.8 mmol/L (3.5-5.1); TOTAL BILIRUBIN 0.6 mg/dL (0.2-1.0); TOTAL PROTEIN 6.1 g/dL (6.4-8.2)
[2017-11-12 19:25] VITALS: BP 116/77
[2017-11-12] MEDS ORDERED: CALC625T20 PO (19:30)
[2017-11-12] MEDS ORDERED: OXYC-323 PO (19:30)
[2017-11-12] MEDS ORDERED: MULT1TAB52 PO (19:30)
[2017-11-12] MEDS ORDERED: oxyCODONE/APAP 5/325 1 TAB TABLET PO PRN ×2 (19:45)
[2017-11-12] MEDS ORDERED: IPRATRPIUM/ALBUTEROL 0.5/2.5MG 3 ML NEBU. NEB SCH (20:00)
[2017-11-12] MEDS: ZOLPIDEM 5 MG TABLET. PO PRN (21:32)
[2017-11-12] MEDS: METOCLOPRAMIDE 10 MG TABLET PO SCH (21:32)
[2017-11-12] MEDS: DOCUSATE SODIUM 100 MG CAPSULE PO SCH (21:32)
[2017-11-12] MEDS: LACTOBACILLUS RHAMNOSUS GG 1 CAPSULE. PO SCH (21:32)
[2017-11-12 22:55] VITALS: BP 103/64
[2017-11-13 06:05] VITALS: BP 116/76
[2017-11-13 07:20] LABS: BASO # 0.1 x10^3/uL (0.0-0.2); BASO % 1 % (0-3); EOS # 0.4 x10^3/uL (0.0-0.7); EOS % 6 % (0-3); HEMATOCRIT 34.2 % (39.0-53.0); HEMOGLOBIN 11.4 g/dL (13.0-17.5); LYMPH # 1.4 x10^3/uL (1.0-4.8); LYMPH % 20 % (24-48); MEAN CORPUSCULAR HEMOGLOBIN 28 pg (25-35); MEAN CORPUSCULAR HGB CONC 33 g/dL (31-37); MEAN CORPUSCULAR VOLUME 85 fL (79-100); MONO # 0.7 x10^3/uL (0.0-1.1); MONO % 10 % (0-9); NEUT # 4.4 x10^3uL (1.8-7.7); NEUT % 63 % (31-73); PLATELET COUNT 314 x10^3/uL (140-400); RED BLOOD COUNT 4.01 x10^6/uL (4.30-5.70); RED CELL DISTRIBUTION WIDTH 14.6 % (11.5-14.5)
[2017-11-13 07:26] LABS: CALCIUM 8.7 mg/dL (8.5-10.1); CREATININE 0.5 mg/dL (0.7-1.3); GFR 165.4; POTASSIUM 3.5 mmol/L (3.5-5.1)
[2017-11-13] MEDS: CALCIUM POLYCARBOPHIL 625 MG TABLET PO SCH (08:43)
[2017-11-13] MEDS: DOCUSATE SODIUM 100 MG CAPSULE PO SCH ×2 (08:43→20:22)
[2017-11-13] MEDS: RIVAROXABAN 15 MG TABLET. PO SCH ×2 (08:43→17:08)
[2017-11-13] MEDS: LACTOBACILLUS RHAMNOSUS GG 1 CAPSULE. PO SCH ×2 (08:44→20:22)
[2017-11-13] MEDS: MULTIVITAMIN with MINERAL TABLET. PO SCH (08:44)
[2017-11-13] MEDS: FLUTICASONE 50MCG/NASAL SPRAY 16GM BOTTLE. NS SCH (08:44)
[2017-11-13] MEDS: PANTOPRAZOLE 40 MG TABLET. PO SCH (08:44)
[2017-11-13] MEDS: LIPASE/PROTEAS/AMYLAS 10/34/55 CAPSULE.DR. PO SCH ×3 (08:44→17:08)
[2017-11-13] MEDS: METOCLOPRAMIDE 10 MG TABLET PO SCH ×4 (08:44→20:22)
[2017-11-13] MEDS: CETIRIZINE HCL 10 MG TABLET PO SCH (08:47)
[2017-11-13 11:30] VITALS: BP 102/71
[2017-11-13 15:00] VITALS: BP 93/57
[2017-11-13 19:30] VITALS: BP 126/81
--- NOTE | 2017-11-13 20:21 | PN ---
DATE: 11/13/2017 HISTORY OF PRESENT ILLNESS: A 67-year-old male in with diverticulitis and fistula. I called down to [facility], they said to keep him here and that they would him as an outpatient, but again, his diverticulitis cleared up, the patient is still having a lot of abdominal pain, still having a lot of drainage from the fistula with eats and drinks comes out. The patient also was noted to have a low albumin of 2.5. The patient otherwise seems to be resting fairly comfortably. He still is having a great deal of red blood cells and hematuria from what unknown source, probably needs a cystoscopy. PHYSICAL EXAMINATION: VITAL SIGNS: Blood pressure 102/70, respiratory rate 18, pulse 92, afebrile. LUNGS: Clear. CARDIOVASCULAR: Stable. ABDOMEN: Soft, diffuse tenderness primarily in that epigastric area with some swelling noted to that area as well. IMPRESSION: Therefore, diverticulitis, fistula from previous Whipple procedure and hematuria, weight loss, btflxidl-kj-qizcpo protein malnutrition. Continue to monitor the patient accordingly. Continue with IV antibiotic therapy. JOSE R LEWIS MD DR: SHOLA/phyllis JOB#: [id number] / [id number]
[2017-11-13] MEDS: ZOLPIDEM 5 MG TABLET. PO PRN (20:22)
[2017-11-13 22:35] VITALS: BP 115/71
[2017-11-14 05:37] VITALS: BP 126/79
[2017-11-14 06:05] VITALS: BP 126/79
[2017-11-14] MEDS: LIPASE/PROTEAS/AMYLAS 10/34/55 CAPSULE.DR. PO SCH ×2 (08:20→12:37)
[2017-11-14] MEDS: CALCIUM POLYCARBOPHIL 625 MG TABLET PO SCH (08:20)
[2017-11-14] MEDS: RIVAROXABAN 15 MG TABLET. PO SCH (08:25)
[2017-11-14] MEDS: CETIRIZINE HCL 10 MG TABLET PO SCH (08:27)
[2017-11-14] MEDS: PANTOPRAZOLE 40 MG TABLET. PO SCH (08:27)
[2017-11-14] MEDS: LACTOBACILLUS RHAMNOSUS GG 1 CAPSULE. PO SCH (08:27)
[2017-11-14] MEDS: METOCLOPRAMIDE 10 MG TABLET PO SCH ×2 (08:27→12:37)
[2017-11-14] MEDS: DOCUSATE SODIUM 100 MG CAPSULE PO SCH (08:27)
[2017-11-14] MEDS: FLUTICASONE 50MCG/NASAL SPRAY 16GM BOTTLE. NS SCH (08:28)
[2017-11-14] MEDS: MULTIVITAMIN with MINERAL TABLET. PO SCH (08:28)
[2017-11-14 12:28] VITALS: BP 121/64
[2017-11-14] MEDS ORDERED: metroNIDAZOLE 500 MG TABLET PO SCH (14:00)
[2017-11-14 15:32] VITALS: BP 112/78
[2017-11-14] MEDS ORDERED: LEVO750T31 PO (15:34)
[2017-11-14] MEDS ORDERED: METR500T8 PO (15:34)
--- NOTE | 2017-11-14 16:22 | NUR ---
Discharge: Patient is discharging and agrees to discharge plan. IV out telle off. Perceptions called into [place]: Levofloxacin, Flagyl. Patient ambulated to front door with staff and accompanied by .
[2017-11-14] MEDS ORDERED: levoFLOXacin 750 MG TABLET PO SCH (18:00)
--- NOTE | 2017-11-15 08:32 | PN ---
DATE: 11/14/2017 SUBJECTIVE: A 67-year-old gentleman in with possible diverticulitis as well as that of fistula. The patient otherwise says he is feeling somewhat better. The mass in his abdomen seems to be a little bit smaller and imaging rechecking that in context of the clinical presentation. There was a fluid collection in that area. In any case, the patient says it is getting smaller. His IV antibiotics are working. His white count was never really elevated to speak up. Cultures are pending on the drainage. He still continued to have greater than 40 red blood cells per high powered field, which has not been explained by CT angio. In any case, he is making good progress overall. He is afebrile. He has been through the whole situation. OBJECTIVE: VITAL SIGNS: Blood pressure 130/80, respiratory rate 18, pulse 85, afebrile, oxygen saturation 97%. LUNGS: Clear. CARDIOVASCULAR: Regular sinus rhythm. ABDOMEN: Soft, diffuse tenderness. The mass in the epigastric area seems to have contracted down to about over 3.5 cm where it was probably 5 or 6, so still receiving IV antibiotic therapy and will continue to be monitored carefully and make further evaluation on him as indicated. IMPRESSION: Diverticulitis, chronic fistula of the transverse colon, nuhl-wx-euemzqan protein malnutrition, weight loss, anorexia. PLAN: We will continue to monitor him carefully and continue with IV antibiotic therapy. Possible discharge home today as the patient has requested for such and may continue on IV or oral antibiotics as an outpatient. JOSE R LEWIS MD DR: SHOLA/phyllis JOB#: [id number] / [id number]
--- NOTE | 2017-11-15 20:49 | DS ---
DATE OF DISCHARGE: 11/14/2017 HOSPITAL COURSE: A 67-year-old gentleman, who was admitted on 11/14/2017. The patient came in with severe abdominal pain. His CT scan showed combination of a fistula, which he is known to have as well as diverticulitis with a pus pocket of some sort in his abdomen as noted by the CT scan. The patient's drainage was obtained. There was no growth from it, although he had been on antibiotics prior to that. His blood cultures and urine cultures were negative, although he has been placed on Levaquin and Flagyl with good response there. The patient still continues to have marked hematuria of unknown etiology. CT scan did not notice that he probably needs to be seen by Urology on that. His white count was basically stable and outside of the CAT scan showing the diverticulitis, everything else remained basically stable. He made excellent progress during the rest of his hospitalization. He was discharged home. He will be followed up with his oncologist down there at , Wednesday that is 2 days from his discharge date. See MRAD antibiotics. Continue to monitor. My number given to him in case he needs to call. IMPRESSION: Diverticulitis, fistula between the colon and the outside area. ktlwdlfb-gk-gtaesi protein malnutrition, non-carcinogenic tumor of the head of the pancreas post-Whipple procedure, hematuria needs to be worked up further with Urology. The patient will be discharged home. See MRAD and regular diet as tolerated. Decreased activity. JOSE R LEWIS MD DR: SHOLA/phyllis JOB#: [id number] / [id number]
== END 2017-11-14 16:15 | disposition home or self-care (01) | DRG 393 ==
LOC: 1 SOUTH 15:16
PROVIDERS: ADMIT Family Medicine; ATTEND Family Medicine
DX: K63.2 Fistula of intestine (principal); E43 Unspecified severe protein-calorie malnutrition; K57.32 Diverticulitis of large intestine without perforation or abscess without bleeding; R31.9 Hematuria, unspecified; Z68.20 Body mass index [BMI] 20.0-20.9, adult; Z90.411 Acquired partial absence of pancreas
CPT/HCPCS: 36415; 74174; 80048; 80053; 81001; 82150; 82378; 83605; 83690; 85025; 85610; 86301; 87040; 87070; 87086; J1956; J3490; J8597; Q9967

== ENCOUNTER 2017-11-20 11:31 | Inpatient (IN) | payer MEDICARE, OTHER ==
[~2017-11-20] VITALS: Ht 177.8 cm; Wt 66.3 kg
[~2017-11-20 11:31] MED LIST changes: +CALC625T20 PO; +LEVO750T31 PO; +METR500T8 PO; +MULT1TAB52 PO; +OXYC-323 PO
[2017-11-20] MEDS: IV DEXTROSE 5 %-0.45 % NACL 1,000 ML IV SCH ×2 (11:45→18:17)
[2017-11-20] MEDS ORDERED: PROCHLORPERAZINE 10 MG/2 ML VIAL. IV PRN (11:45)
[2017-11-20] MEDS: levoFLOXacin 750 MG TABLET PO SCH ×2 (12:00→12:21)
[2017-11-20] MEDS ORDERED: oxyCODONE/APAP 5/325 1 TAB TABLET PO PRN (12:00)
[2017-11-20] MEDS ORDERED: ZOLPIDEM 5 MG TABLET. PO PRN (12:00)
[2017-11-20] MEDS: LIPASE/PROTEAS/AMYLAS 10/34/55 CAPSULE.DR. PO SCH ×2 (12:00→16:54)
[2017-11-20] MEDS: METOCLOPRAMIDE 10 MG TABLET PO SCH ×3 (12:22→20:42)
[2017-11-20] MEDS: HYDROmorphone PF 2 MG/ML VIAL IV PRN ×2 (12:22→16:57)
[2017-11-20 12:30] VITALS: BP 135/84
[2017-11-20 13:09] LABS: BASO # 0.1 x10^3/uL (0.0-0.2); BASO % 1 % (0-3); EOS # 0.3 x10^3/uL (0.0-0.7); EOS % 4 % (0-3); HEMATOCRIT 33.6 % (39.0-53.0); HEMOGLOBIN 11.3 g/dL (13.0-17.5); LYMPH # 1.2 x10^3/uL (1.0-4.8); LYMPH % 15 % (24-48); MEAN CORPUSCULAR HEMOGLOBIN 28 pg (25-35); MEAN CORPUSCULAR HGB CONC 34 g/dL (31-37); MEAN CORPUSCULAR VOLUME 84 fL (79-100); MONO # 0.6 x10^3/uL (0.0-1.1); MONO % 8 % (0-9); NEUT # 5.7 x10^3uL (1.8-7.7); NEUT % 72 % (31-73); PLATELET COUNT 318 x10^3/uL (140-400); RED BLOOD COUNT 3.99 x10^6/uL (4.30-5.70); RED CELL DISTRIBUTION WIDTH 14.9 % (11.5-14.5); WHITE BLOOD COUNT 7.9 x10^3/uL (4.0-11.0)
[2017-11-20 13:22] LABS: AMYLASE 99 U/L (25-115); LIPASE 551 U/L (73-393)
[2017-11-20 13:25] LABS: ALBUMIN 2.2 g/dL (3.4-5.0); ALBUMIN/GLOBULIN RATIO 0.7 (1.0-1.7); CALCIUM 8.5 mg/dL (8.5-10.1); CREATININE 0.8 mg/dL (0.7-1.3); GFR 96.1; POTASSIUM 3.7 mmol/L (3.5-5.1); TOTAL PROTEIN 5.5 g/dL (6.4-8.2)
--- NOTE | 2017-11-20 14:15 | RAD ---
ABDOMEN SUPINE UPRIGHT History: abd pain, hx of stones Comparison: CTA abdomen pelvis dated 11/11/2017. Findings: No obvious free air. Nonobstructive bowel gas pattern. Bilateral surgical clips. No significant change in multiple punctate bilateral renal calculi. No acute osseous abnormality. IMPRESSION: 1. Nonobstructive bowel gas pattern 2. No significant change radiographically in multiple punctate bilateral renal calculi. Electronically signed by: Yony Nayak MD (11/20/2017 2:11 PM) [facility]
[2017-11-20] MEDS: metroNIDAZOLE 500 MG TABLET PO SCH ×2 (14:37→20:42)
[2017-11-20 16:20] LABS: CLARITY,URINE CLOUDY; COLOR,URINE BROWN
[2017-11-20 16:21] LABS: BILIRUBIN,URINE NEG (NEG)
[2017-11-20 16:23] LABS: RBC,URINE TNTC /HPF (0-2); WBC,URINE RARE /HPF (0-4)
[2017-11-20 16:24] LABS: BACTERIA,URINE 0 /HPF (0-FEW); SQUAMOUS EPITHELIAL CELL,UR OCC /LPF
[2017-11-20 16:43] VITALS: BP 114/79
[2017-11-20] MEDS: RIVAROXABAN 15 MG TABLET. PO SCH (16:54)
[2017-11-20 19:00] VITALS: BP 115/69
[2017-11-20] MEDS: DOCUSATE SODIUM 100 MG CAPSULE PO SCH (20:42)
[2017-11-21] MEDS: IV DEXTROSE 5 %-0.45 % NACL 1,000 ML IV SCH ×2 (00:55→07:46)
[2017-11-21 05:51] VITALS: BP 135/83
[2017-11-21] MEDS: levoFLOXacin 750 MG TABLET PO SCH (06:17)
[2017-11-21] MEDS: LIPASE/PROTEAS/AMYLAS 10/34/55 CAPSULE.DR. PO SCH ×2 (07:40→11:51)
[2017-11-21] MEDS: METOCLOPRAMIDE 10 MG TABLET PO SCH ×2 (07:40→11:51)
[2017-11-21 07:47] LABS: CALCIUM 8.5 mg/dL (8.5-10.1); CREATININE 0.7 mg/dL (0.7-1.3); GFR 112.1; POTASSIUM 3.7 mmol/L (3.5-5.1)
[2017-11-21] MEDS: RIVAROXABAN 15 MG TABLET. PO SCH (08:22)
[2017-11-21] MEDS: DOCUSATE SODIUM 100 MG CAPSULE PO SCH (08:23)
[2017-11-21] MEDS: metroNIDAZOLE 500 MG TABLET PO SCH (08:24)
[2017-11-21] MEDS ORDERED: PANTOPRAZOLE 40 MG TABLET. PO SCH (09:00)
[2017-11-21] MEDS ORDERED: MULTIVITAMIN with MINERAL TABLET. PO SCH (09:00)
[2017-11-21] MEDS ORDERED: CETIRIZINE HCL 10 MG TABLET PO SCH (09:00)
[2017-11-21] MEDS ORDERED: FLUTICASONE 50MCG/NASAL SPRAY 16GM BOTTLE. NS SCH (09:00)
[2017-11-21] MEDS ORDERED: CALCIUM POLYCARBOPHIL 625 MG TABLET PO SCH (09:00)
[2017-11-21 10:24] VITALS: BP 120/79
== END 2017-11-21 12:45 | disposition home or self-care (01) | DRG 693 ==
LOC: 1 SOUTH 11:39
PROVIDERS: ADMIT Family Medicine; ATTEND Family Medicine
DX: N20.0 Calculus of kidney (principal); E41 Nutritional marasmus; E43 Unspecified severe protein-calorie malnutrition; E78.5 Hyperlipidemia, unspecified; I10 Essential (primary) hypertension; K21.9 Gastro-esophageal reflux disease without esophagitis; J44.9 Chronic obstructive pulmonary disease, unspecified; E78.00 Pure hypercholesterolemia, unspecified; Z85.038 Personal history of other malignant neoplasm of large intestine; Z85.07 Personal history of malignant neoplasm of pancreas; Z86.010 Personal history of colon polyps; Z90.49 Acquired absence of other specified parts of digestive tract; Z80.0 Family history of malignant neoplasm of digestive organs; Z82.49 Family history of ischemic heart disease and other diseases of the circulatory system; Z79.899 Other long term (current) drug therapy; Z79.01 Long term (current) use of anticoagulants; Z68.21 Body mass index [BMI] 21.0-21.9, adult
CPT/HCPCS: 36415; 74021; 80048; 80053; 81001; 82150; 83690; 85025; J1170; J8597

== ENCOUNTER 2017-11-24 20:42 | Inpatient (IN) | payer MEDICARE, OTHER ==
[~2017-11-24] VITALS: Ht 177.8 cm; Wt 68.1 kg
[~2017-11-24 20:42] MED LIST changes: -IPRA3AMP NEB; +IPRA3AMP29 NEB
--- NOTE | 2017-11-24 21:29 | ED.ADGEN ---
Past History Past Medical History: DVT, GERD, High Cholesterol, Kidney Stones, Pancreatitis , Other Past Surgical History: Other Additional Past Surgical Histo: Whipple surgery Smoking: Non-smoker Alcohol Use: None Drug Use: None Adult General Chief Complaint Chief Complaint ".. I got the kidney stone again... It here on the Rt.... I just left Wednesday... ".. This one.. is just above my pelvis on the Rt...." HPI HPI Patient is a 67 year old male who presents with hx of recurrent kidney stone formation. Pt. recent discharge with Renal colic on Wednesday.. Pt. had been doing well until acute onset of renal colic on the RT. and severe vomiting. Pt. has had hx o multiple renal stones. Pt. denies any fever or chills. Pt. has had extensive surgery- whipple procedure. Pt. has follow with urology in the past. Pt. denies any bad food. No changes in meds. P:t. Normally follows with Dr. Morel. Pt. pain currently 03/16 and is actively vomiting. Review of Systems Review of Systems Constitutional: Denies fever or chills [] Eyes: Denies change in visual acuity, redness, or eye pain [] HENT: Denies nasal congestion or sore throat [] Respiratory: Denies cough or shortness of breath [] Cardiovascular: No additional information not addressed in HPI [] GI: complaints of Rt abdominal pain, nausea, vomiting, . Denies bloody stools or diarrhea [] : Denies dysuria . Has hematuria [] Musculoskeletal: Denies back pain or joint pain [] Integument: Denies rash or skin lesions [] Neurologic: Denies headache, focal weakness or sensory changes [] Endocrine: Denies polyuria or polydipsia [] All other systems were reviewed and found to be within normal limits, except as documented in this note. Family History Family History Non-contributory Current Medications Current Medications See Nursing for home meds. Allergies Allergies Allergies Coded Allergies Type Severity Reaction Last Updated Verified No Known Drug Allergies 10/24/17 No Physical Exam Physical Exam Constitutional: In acute distress, non-toxic appearance. [] HENT: Normocephalic, atraumatic, bilateral external ears normal, oropharynx dry , no oral exudates, nose normal. [] Eyes: PERRLA, EOMI, conjunctiva normal, no discharge. [] Neck: Normal range of motion, no tenderness, supple, no stridor. [] Cardiovascular:Tachycardia Heart rate regular rhythm, no murmur [] Lungs & Thorax: Bilateral breath sounds equal at apex on auscultation [] Abdomen: Bowel sounds decreased, soft, epigastric tenderness, no masses, no pulsatile masses. Old surgery scars. Rt. flank pain at ridge of pelvis Skin: Warm, diaphoretic, no erythema, no rash. [] Poor turgor. Back: No tenderness, Rt. CVA tenderness. [] Extremities: No tenderness, no cyanosis, no clubbing, ROM intact, no edema. [] No psoas. Neurologic: Alert and oriented X 3, normal motor function, normal sensory function, no focal deficits noted. [] Psychologic: Affect anxious, judgement normal, mood depressed. Current Patient Data Vital Signs Vital Signs Date Time Temp Pulse Resp B/P (MAP) Pulse Ox O2 Delivery O2 Flow Rate FiO2 11/24/17 21:23 86 18 118/79 (92) 97 Room Air 11/24/17 20:42 98.6 Lab Results Laboratory Tests Test 11/24/17 21:00 Urine Collection Type Unknown Urine Color Yellow Urine Clarity Hazy Urine pH 5.5 Urine Specific [place] 1.025 Urine Protein Trace (NEG-TRACE) Urine Glucose (UA) Neg mg/dL (NEG) Urine Ketones (Stick) Neg mg/dL (NEG) Urine Blood Mod (NEG) Urine Nitrite Neg (NEG) Urine Bilirubin Neg (NEG) Urine Urobilinogen Dipstick 0.2 mg/dL (0.2 mg/dL) Urine Leukocyte Esterase Neg (NEG) Urine RBC 11-20 /HPF (0-2) Urine WBC 5-10 /HPF (0-4) Urine Squamous Epithelial Cells Occ /LPF Urine Bacteria 0 /HPF (0-FEW) Urine Mucus Mod /LPF EKG EKG My interpretation of EKG shows a sinus rhythm at 73. No findings acute STEMI of contralateral changes. Radiology/Procedures Radiology/Procedures []My interpretation of abdomen film shows no free air in the diaphragm. Has previous clips from surgeries. Nonspecific bowel gas pattern. Does appear to have a stone in or at the renal ureter junction CT pending at time of Admit. [] Course & Med Decision Making Course & Med Decision Making Pertinent Labs and Imaging studies reviewed. (See chart for details)- Discussed presentation, testing and tx. plan with Dr. Morel- Will admit for further evaluation and treatment [] Final Impression Final Impression 1. Renal stone/ Colic- Rt 2. Anemia 3. Elevated Lipase 4. Elevated Alk. Phos. 5 Malnutrition- Alb. 2.3 6. Hypokalemia 7. Anemia Dragon Disclaimer Dragon Disclaimer This electronic medical record was generated, in whole or in part, using a voice recognition dictation system. MARIA A CUBA MD Nov 24, 2017 21:28
[2017-11-24] MEDS ORDERED: IV RINGERS SOLUTION,LACTATED 1,000 ML IV SCH (21:45)
[2017-11-24] MEDS ORDERED: MORPHINE SULFATE 10 MG/ML SYRINGE. SQ ONE (21:45)
[2017-11-24] MEDS ORDERED: ONDANSETRON PF 4 MG/2 ML VIAL. IV ONE (21:45)
[2017-11-24] MEDS ORDERED: ONDANSETRON ODT 4 MG TAB.RAPDIS PO ONE (21:45)
[2017-11-24] MEDS ORDERED: FAMOTIDINE 20 MG/2 ML VIAL IVP ONE (21:45)
[2017-11-24] MEDS ORDERED: TAMSULOSIN 0.4 MG CAP.ER.24H. PO ONE (21:45)
[2017-11-24 22:09] LABS: BILIRUBIN,URINE NEG (NEG); CLARITY,URINE HAZY; COLOR,URINE YELLOW; GLUCOSE,URINE NEG (NEG); NITRITE,URINE NEG (NEG); UROBILINOGEN,URINE 0.2 mg/dL (0.2 mg/dL)
[2017-11-24 22:10] LABS: BACTERIA,URINE 0 /HPF (0-FEW); SQUAMOUS EPITHELIAL CELL,UR OCC /LPF
[2017-11-24 22:24] LABS: BASO # 0.1 x10^3/uL (0.0-0.2); BASO % 1 % (0-3); EOS # 0.5 x10^3/uL (0.0-0.7); EOS % 5 % (0-3); HEMATOCRIT 36.6 % (39.0-53.0); HEMOGLOBIN 12.2 g/dL (13.0-17.5); LYMPH # 1.7 x10^3/uL (1.0-4.8); LYMPH % 18 % (24-48); MEAN CORPUSCULAR HEMOGLOBIN 28 pg (25-35); MEAN CORPUSCULAR HGB CONC 33 g/dL (31-37); MEAN CORPUSCULAR VOLUME 85 fL (79-100); MONO # 0.7 x10^3/uL (0.0-1.1); MONO % 7 % (0-9); NEUT # 6.8 x10^3uL (1.8-7.7); NEUT % 70 % (31-73); PLATELET COUNT 384 x10^3/uL (140-400); RED CELL DISTRIBUTION WIDTH 15.6 % (11.5-14.5); WHITE BLOOD COUNT 9.7 x10^3/uL (4.0-11.0)
[2017-11-24 22:45] LABS: ALBUMIN 2.3 g/dL (3.4-5.0); ALK PHOS 841 U/L (46-116); ALT (SGPT) 106 U/L (16-63); ANION GAP 10 (6-14); AST (SGOT) 72 U/L (15-37); BLOOD UREA NITROGEN 18 mg/dL (8-26); CALCIUM 8.5 mg/dL (8.5-10.1); CARBON DIOXIDE 26 mmol/L (21-32); CHLORIDE 106 mmol/L (98-107); CREATININE 0.8 mg/dL (0.7-1.3); DIRECT BILIRUBIN 0.7 mg/dL (0.0-0.2); GFR 96.1; GLUCOSE 103 mg/dL (70-99); LIPASE 531 U/L (73-393); POTASSIUM 3.4 mmol/L (3.5-5.1); SODIUM 142 mmol/L (136-145); TOTAL BILIRUBIN 1.2 mg/dL (0.2-1.0); TOTAL PROTEIN 5.9 g/dL (6.4-8.2)
[2017-11-24] MEDS ORDERED: KETOROLAC 15 MG/ML VIAL. IV PRN (22:45)
[2017-11-24] MEDS ORDERED: MORPHINE SULFATE 10 MG/ML SYRINGE. SQ PRN (22:45)
[2017-11-24] MEDS ORDERED: ONDANSETRON ODT 4 MG TAB.RAPDIS PO PRN (22:45)
--- NOTE | 2017-11-24 23:08 | RAD ---
CT scan of the abdomen and pelvis without contrast 11/24/2017 CLINICAL HISTORY: Right flank pain with history of renal calculi. TECHNIQUE: Unenhanced, contiguous, 3 mm axial sections were obtained through the abdomen and pelvis. One or more of the following individualized dose reduction techniques were utilized for this study: 1. Automated exposure control. 2. Adjustment of the mA and/or kV according to patient size. 3. Use of iterative reconstruction technique. FINDINGS: Comparison is made to a CT scan of the abdomen and pelvis dated 09/04/2017. Images through the lung bases demonstrate minimal dependent subsegmental atelectasis bilaterally. Air is seen within the intrahepatic bile ducts. No acute focal abnormality of the liver is seen. The spleen, pancreas and adrenal glands are within normal limits. Multiple bilateral nonobstructing renal calculi are seen. These measure 2 to 5 mm in size. A 1 cm rounded low-attenuation lesion is seen involving the midpole of the left kidney. This likely represents a cyst. Mild dilatation of the right intrarenal collecting system is seen. Within the mid right ureter a 1 cm ureteral calculus is seen. This is at the level of the L5 vertebrae. It is causing mild obstruction of the right collecting system. There is no evidence of obstruction of the left collecting system. Atherosclerotic calcification abdominal aorta is seen. The abdominal aorta tapers normally. Surgical clips are seen within the gallbladder fossa consistent with a cholecystectomy. No free fluid or free air is seen within the abdomen. Air and stool seen throughout the colon. The appendix is well-visualized and is within normal limits. Images through the pelvis demonstrate the urinary bladder is contracted. The prostate gland is enlarged likely related to BPH. There appears to be small bladder calculi within the right aspect of the urinary bladder which measure 2 to 3 mm in size. Calcifications are seen within the prostate gland. No free fluid is seen. Degenerative changes are seen involving lower thoracic and throughout the lumbar spine. Degenerative changes are seen involving both hips. IMPRESSION: 1 cm mid right ureteral calculus which is causing mild obstruction of the right collecting system. Electronically signed by: Teddy Quesada MD (11/24/2017 11:04 PM) [facility]
[2017-11-24 23:20] VITALS: BP 130/84
[2017-11-24] MEDS: IV RINGERS SOLUTION,LACTATED 1,000 ML IV SCH (23:59)
--- NOTE | 2017-11-25 00:29 | RAD ---
Acute abdominal series to include a PA chest radiograph 11/24/2017 Clinical History: Right-sided abdominal pain. A PA digital radiograph of the chest was obtained. Supine and erect AP digital radiographs of the abdomen/pelvis were obtained. Comparison studies dated 10/30/2017. The cardiac silhouette is normal in size. The thoracic aorta is mildly tortuous. Atherosclerotic calcification thoracic aorta is seen. No acute pulmonary infiltrate is noted. No pneumothorax or pleural effusion is seen. Surgical clips are seen within the right upper quadrant abdomen consistent with a cholecystectomy. Surgical clips are seen within the left mid abdomen. Bilateral renal calculi are seen which measure 2 to 3 mm in size. 2 calcifications are seen to the right the L4-5 disc space which may represent mid right ureteral calculi. These measure 3 to 4 mm in size. There is no evidence of bowel obstruction. No free air is seen. Degenerative changes are seen involving the lumbar spine and both hips. Impression: Question mid right ureteral calculi as outlined above. Electronically signed by: Teddy Quesada MD (11/25/2017 12:26 AM) [facility]
--- NOTE | 2017-11-25 02:10 | EKG ---
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
[2017-11-25] MEDS: IV RINGERS SOLUTION,LACTATED 1,000 ML IV SCH ×2 (04:58→11:15)
[2017-11-25 05:45] VITALS: BP 109/74
[2017-11-25] MEDS ORDERED: ZOLPIDEM 5 MG TABLET. PO PRN (06:30)
[2017-11-25] MEDS ORDERED: oxyCODONE/APAP 5/325 1 TAB TABLET PO PRN (06:30)
[2017-11-25 06:35] LABS: CALCIUM 8.7 mg/dL (8.5-10.1); CREATININE 0.8 mg/dL (0.7-1.3); GFR 96.1; POTASSIUM 4.1 mmol/L (3.5-5.1)
[2017-11-25 06:52] LABS: BASO % 1 % (0-3); EOS # 0.5 x10^3/uL (0.0-0.7); EOS % 5 % (0-3); HEMATOCRIT 31.4 % (39.0-53.0); HEMOGLOBIN 10.8 g/dL (13.0-17.5); LYMPH # 1.5 x10^3/uL (1.0-4.8); LYMPH % 17 % (24-48); MEAN CORPUSCULAR HEMOGLOBIN 29 pg (25-35); MEAN CORPUSCULAR HGB CONC 34 g/dL (31-37); MEAN CORPUSCULAR VOLUME 85 fL (79-100); MONO # 0.7 x10^3/uL (0.0-1.1); MONO % 8 % (0-9); NEUT # 5.8 x10^3uL (1.8-7.7); NEUT % 68 % (31-73); PLATELET COUNT 299 x10^3/uL (140-400); RED CELL DISTRIBUTION WIDTH 15.7 % (11.5-14.5); WHITE BLOOD COUNT 8.5 x10^3/uL (4.0-11.0)
[2017-11-25] MEDS ORDERED: PANTOPRAZOLE 40 MG TABLET. PO SCH (07:30)
[2017-11-25] MEDS ORDERED: RIVAROXABAN 10 MG TABLET. PO SCH (08:00)
[2017-11-25] MEDS ORDERED: RIVAROXABAN 15 MG TABLET. PO SCH (08:00)
[2017-11-25] MEDS ORDERED: TAMSULOSIN 0.4 MG CAP.ER.24H. PO SCH (09:00)
[2017-11-25] MEDS ORDERED: CETIRIZINE HCL 10 MG TABLET PO SCH (09:00)
[2017-11-25] MEDS ORDERED: FLUTICASONE 50MCG/NASAL SPRAY 16GM BOTTLE. NS SCH (09:00)
[2017-11-25] MEDS ORDERED: DOCUSATE SODIUM 100 MG CAPSULE PO SCH (09:00)
[2017-11-25] MEDS ORDERED: CALCIUM POLYCARBOPHIL 625 MG TABLET PO SCH (09:00)
[2017-11-25] MEDS ORDERED: MULTIVITAMIN with MINERAL TABLET. PO SCH (09:00)
[2017-11-25] MEDS: METOCLOPRAMIDE 10 MG TABLET PO SCH ×2 (09:09→11:30)
[2017-11-25] MEDS: LIPASE/PROTEAS/AMYLAS 10/32/42 CAPSULE.DR. PO SCH ×2 (09:10→12:00)
[2017-11-25 10:43] VITALS: BP 113/76
--- NOTE | 2017-11-25 13:38 | HP ---
ADMIT DATE: 11/24/2017 HISTORY OF PRESENT ILLNESS: One of several admission for this 67-year-old gentleman, came in with severe right flank pain. The patient had a CAT scan showed that he had a 1 cm stone caught in his right ureter. The patient had a pain of 10/10 and is actively vomiting. He had to be admitted for further evaluation, IV fluids, and pain medication obviously. PAST MEDICAL HISTORY: He has had Whipple surgery, DVT, GERD, hypercholesterolemia, nephrolithiasis, pancreatitis, and nonmalignant pancreatic pseudocyst. SOCIAL HISTORY: Denies smoking, alcohol, or drug use. FAMILY HISTORY: Unremarkable. ALLERGIES: The patient has no known drug allergies. Among his other past medical history, he has had a DVT of his right calf on 10/24/2017, right rib fracture, chronic pancreatitis, Whipple 06/2017 with a fistula formation, kidney stones, lithotripsy. The patient had problems with fractured ribs, bulging disk, DVTs. His influenza pneumococcal vaccinations are up to date. FAMILY HISTORY: Sister had a cancer of the skin, father and sister with coronary artery disease, cancer in mother and a sister. HOME MEDICATIONS: Include Zyrtec 10, Xarelto 15 b.i.d., Percocet 5/325, Ambien, Flonase nasal spray, fiber, Colace, Zenpep 10,000, Prilosec 40 b.i.d., metoclopramide 10 q.i.d. before meals and at bedtime, multivitamin. ALLERGIES: No known drug allergies. REVIEW OF SYSTEMS: The patient has severe pain. The patient is also very emaciated. He is not eating well. He is losing weight and there is concern with his fistula also has been a major problem there. In any case, the patient denies chest pain per se. Denies problem with bowels bladder, nephrolithiasis. PHYSICAL EXAMINATION: GENERAL: The patient otherwise on exam is a pleasant white male. VITAL SIGNS: Blood pressure 113/76, respiratory rate 20, pulse 73, afebrile. HEENT: The patient's head was atraumatic, normocephalic. Eyes: PERRLA without jaundice. The mouth and throat were normal. NECK: Supple, no JVD or thyromegaly. LUNGS: Diminished throughout, but clear. CARDIOVASCULAR: Regular sinus rhythm, S1, S2, without murmur, rub, thrill, or extra heart sound in this very frail-appearing male. ABDOMEN: Soft with diffuse tenderness in the right mid quadrant area. EXTREMITIES: No clubbing, cyanosis, nor edema. NEUROLOGIC: The patient was alert and oriented x 3. The patient does have musculoskeletal atrophy per se. LABORATORY DATA: The patient's white count is 9, hemoglobin 12 and 36. No left shift. Sodium and potassium 142 and 3.4. AST 72, ALT 106, alkaline phosphatase 841, lipase 531. Albumin low at 2.3. Urine showed blood, 10-20 red blood cells. IMPRESSION AND PLAN: In any case, impression nephrolithiasis with obstruction to the right ureter 1 cm stone, recurrent right flank pain, nephrolithiasis, pancreatitis, hypokalemia, severe malnutrition with emaciation. The patient will be admitted. The patient's fluid, pain medication and hopefully get him to for further evaluation by Urology since we do not have a Urology situation here anymore. JOSE R LEWIS MD DR: SHOLA/phyllis JOB#: [id number] / [id number]
[2017-11-25] MEDS ORDERED: LACTOBACILLUS RHAMNOSUS GG 1 CAPSULE. PO SCH (21:00)
== END 2017-11-25 13:23 | disposition short-term general hospital (02) | DRG 693 ==
LOC: ER 20:42 → 1 SOUTH 21:30
PROVIDERS: ADMIT Family Medicine; ATTEND Family Medicine
DX: N20.1 Calculus of ureter (principal); K85.90 Acute pancreatitis without necrosis or infection, unspecified; E41 Nutritional marasmus; N13.9 Obstructive and reflux uropathy, unspecified; Z68.21 Body mass index [BMI] 21.0-21.9, adult; E78.00 Pure hypercholesterolemia, unspecified; E87.6 Hypokalemia; K21.9 Gastro-esophageal reflux disease without esophagitis; Z87.442 Personal history of urinary calculi; Z80.9 Family history of malignant neoplasm, unspecified; Z82.49 Family history of ischemic heart disease and other diseases of the circulatory system; D64.9 Anemia, unspecified; Z86.718 Personal history of other venous thrombosis and embolism; Z79.01 Long term (current) use of anticoagulants
CPT/HCPCS: 36415; 74022; 74176; 80048; 80076; 81001; 82553; 83690; 84484; 85025; 85610; 85730; 87086; 93005; 96361; 96372; 96374; 96375; J1885; J1956; J2270; J2405; J7120; J8597; Q0162; S0028; 99285-25

== ENCOUNTER → 2017-12-22 | Outpatient (CLI) | payer MEDICARE, OTHER ==
[2017-11-25 10:43] VITALS: BP 113/76
[2017-12-22 10:36] LABS: BASO # 0.1 x10^3/uL (0.0-0.2); BASO % 1 % (0-3); EOS # 0.5 x10^3/uL (0.0-0.7); EOS % 6 % (0-3); HEMATOCRIT 35.1 % (39.0-53.0); HEMOGLOBIN 11.5 g/dL (13.0-17.5); LYMPH # 1.6 x10^3/uL (1.0-4.8); LYMPH % 18 % (24-48); MEAN CORPUSCULAR HEMOGLOBIN 29 pg (25-35); MEAN CORPUSCULAR HGB CONC 33 g/dL (31-37); MEAN CORPUSCULAR VOLUME 88 fL (79-100); MONO # 0.6 x10^3/uL (0.0-1.1); MONO % 6 % (0-9); NEUT # 5.9 x10^3uL (1.8-7.7); NEUT % 68 % (31-73); PLATELET COUNT 295 x10^3/uL (140-400); RED BLOOD COUNT 3.99 x10^6/uL (4.30-5.70); RED CELL DISTRIBUTION WIDTH 17.5 % (11.5-14.5); WHITE BLOOD COUNT 8.7 x10^3/uL (4.0-11.0)
[2017-12-22 10:50] LABS: ALBUMIN 2.7 g/dL (3.4-5.0); ALBUMIN/GLOBULIN RATIO 0.9 (1.0-1.7); CALCIUM 8.3 mg/dL (8.5-10.1); CREATININE 0.6 mg/dL (0.7-1.3); MAGNESIUM 1.8 mg/dL (1.8-2.4); PHOSPHORUS 2.7 mg/dL (2.6-4.7); POTASSIUM 4.1 mmol/L (3.5-5.1); TOTAL BILIRUBIN 0.6 mg/dL (0.2-1.0); TOTAL PROTEIN 5.6 g/dL (6.4-8.2)
== END | disposition home or self-care (01) ==
LOC: SPEC 10:26
PROVIDERS: ATTEND Family Medicine
DX: I25.10 Atherosclerotic heart disease of native coronary artery without angina pectoris (principal); I12.9 Hypertensive chronic kidney disease with stage 1 through stage 4 chronic kidney disease, or unspecified chronic kidney disease; N18.3 Chronic kidney disease, stage 3 (moderate); E78.5 Hyperlipidemia, unspecified
CPT/HCPCS: 36415; 80053; 83735; 84100; 85025

== ENCOUNTER → 2017-12-29 | Outpatient (CLI) | payer MEDICARE, OTHER ==
[2017-12-29 10:44] LABS: BASO # 0.1 x10^3/uL (0.0-0.2); BASO % 1 % (0-3); EOS # 0.5 x10^3/uL (0.0-0.7); EOS % 6 % (0-3); HEMATOCRIT 38.4 % (39.0-53.0); HEMOGLOBIN 12.5 g/dL (13.0-17.5); LYMPH # 1.3 x10^3/uL (1.0-4.8); LYMPH % 16 % (24-48); MEAN CORPUSCULAR HEMOGLOBIN 29 pg (25-35); MEAN CORPUSCULAR HGB CONC 33 g/dL (31-37); MEAN CORPUSCULAR VOLUME 89 fL (79-100); MONO # 0.6 x10^3/uL (0.0-1.1); MONO % 8 % (0-9); NEUT # 5.4 x10^3uL (1.8-7.7); NEUT % 69 % (31-73); PLATELET COUNT 255 x10^3/uL (140-400); RED BLOOD COUNT 4.34 x10^6/uL (4.30-5.70); RED CELL DISTRIBUTION WIDTH 19.2 % (11.5-14.5); WHITE BLOOD COUNT 7.8 x10^3/uL (4.0-11.0)
[2017-12-29 10:48] LABS: CREATININE 0.6 mg/dL (0.7-1.3); MAGNESIUM 1.9 mg/dL (1.8-2.4); PHOSPHORUS 4.3 mg/dL (2.6-4.7); POTASSIUM 4.3 mmol/L (3.5-5.1); TOTAL BILIRUBIN 0.7 mg/dL (0.2-1.0); TOTAL PROTEIN 6.1 g/dL (6.4-8.2)
== END | disposition home or self-care (01) ==
LOC: SPEC 10:19
PROVIDERS: ATTEND Family Medicine
DX: K63.2 Fistula of intestine (principal); E43 Unspecified severe protein-calorie malnutrition; I12.9 Hypertensive chronic kidney disease with stage 1 through stage 4 chronic kidney disease, or unspecified chronic kidney disease; N18.3 Chronic kidney disease, stage 3 (moderate); K21.9 Gastro-esophageal reflux disease without esophagitis; E87.6 Hypokalemia; J44.9 Chronic obstructive pulmonary disease, unspecified; E78.5 Hyperlipidemia, unspecified; E78.00 Pure hypercholesterolemia, unspecified; R62.7 Adult failure to thrive; Z85.038 Personal history of other malignant neoplasm of large intestine; Z85.07 Personal history of malignant neoplasm of pancreas
CPT/HCPCS: 36415; 80053; 83735; 84100; 85025

== ENCOUNTER → 2018-01-03 | Outpatient (CLI) | payer MEDICARE, OTHER ==
[2018-01-03 09:32] LABS: BASO # 0.1 x10^3/uL (0.0-0.2); BASO % 1 % (0-3); EOS # 0.5 x10^3/uL (0.0-0.7); EOS % 6 % (0-3); HEMATOCRIT 36.4 % (39.0-53.0); LYMPH # 1.5 x10^3/uL (1.0-4.8); LYMPH % 19 % (24-48); MEAN CORPUSCULAR HEMOGLOBIN 29 pg (25-35); MEAN CORPUSCULAR HGB CONC 33 g/dL (31-37); MEAN CORPUSCULAR VOLUME 89 fL (79-100); MONO # 0.6 x10^3/uL (0.0-1.1); MONO % 7 % (0-9); NEUT # 5.1 x10^3uL (1.8-7.7); NEUT % 66 % (31-73); PLATELET COUNT 218 x10^3/uL (140-400); RED BLOOD COUNT 4.08 x10^6/uL (4.30-5.70); RED CELL DISTRIBUTION WIDTH 19.2 % (11.5-14.5); WHITE BLOOD COUNT 7.7 x10^3/uL (4.0-11.0)
[2018-01-03 09:54] LABS: CALCIUM 8.8 mg/dL (8.5-10.1); CREATININE 0.6 mg/dL (0.7-1.3); MAGNESIUM 1.8 mg/dL (1.8-2.4); PHOSPHORUS 3.7 mg/dL (2.6-4.7); POTASSIUM 3.9 mmol/L (3.5-5.1)
== END | disposition home or self-care (01) ==
LOC: SPEC 09:11
PROVIDERS: ATTEND Family Medicine
DX: E43 Unspecified severe protein-calorie malnutrition (principal); K63.2 Fistula of intestine; E78.5 Hyperlipidemia, unspecified; E78.00 Pure hypercholesterolemia, unspecified; I12.9 Hypertensive chronic kidney disease with stage 1 through stage 4 chronic kidney disease, or unspecified chronic kidney disease; N18.3 Chronic kidney disease, stage 3 (moderate); J44.9 Chronic obstructive pulmonary disease, unspecified; E87.6 Hypokalemia; K21.9 Gastro-esophageal reflux disease without esophagitis; Z85.038 Personal history of other malignant neoplasm of large intestine; Z85.07 Personal history of malignant neoplasm of pancreas
CPT/HCPCS: 36415; 80053; 83735; 84100; 85025

== ENCOUNTER → 2018-01-05 | Outpatient (CLI) | payer MEDICARE, OTHER ==
[2018-01-05 09:35] LABS: BASO # 0.1 x10^3/uL (0.0-0.2); BASO % 1 % (0-3); EOS # 0.5 x10^3/uL (0.0-0.7); EOS % 6 % (0-3); HEMATOCRIT 36.6 % (39.0-53.0); HEMOGLOBIN 12.1 g/dL (13.0-17.5); LYMPH # 1.7 x10^3/uL (1.0-4.8); LYMPH % 19 % (24-48); MEAN CORPUSCULAR HEMOGLOBIN 30 pg (25-35); MEAN CORPUSCULAR HGB CONC 33 g/dL (31-37); MEAN CORPUSCULAR VOLUME 89 fL (79-100); MONO # 0.7 x10^3/uL (0.0-1.1); MONO % 8 % (0-9); NEUT # 5.8 x10^3uL (1.8-7.7); NEUT % 66 % (31-73); PLATELET COUNT 222 x10^3/uL (140-400); RED CELL DISTRIBUTION WIDTH 19.2 % (11.5-14.5); WHITE BLOOD COUNT 8.7 x10^3/uL (4.0-11.0)
[2018-01-05 09:44] LABS: ALBUMIN 3.1 g/dL (3.4-5.0); CALCIUM 8.6 mg/dL (8.5-10.1); CREATININE 0.7 mg/dL (0.7-1.3); GFR 112.1; MAGNESIUM 1.7 mg/dL (1.8-2.4); PHOSPHORUS 3.4 mg/dL (2.6-4.7); POTASSIUM 4.1 mmol/L (3.5-5.1); TOTAL BILIRUBIN 0.8 mg/dL (0.2-1.0); TOTAL PROTEIN 6.1 g/dL (6.4-8.2)
== END | disposition home or self-care (01) ==
LOC: SPEC 09:22
PROVIDERS: ATTEND Family Medicine
DX: E43 Unspecified severe protein-calorie malnutrition (principal); K63.2 Fistula of intestine; I12.9 Hypertensive chronic kidney disease with stage 1 through stage 4 chronic kidney disease, or unspecified chronic kidney disease; N18.3 Chronic kidney disease, stage 3 (moderate); E78.5 Hyperlipidemia, unspecified; E78.00 Pure hypercholesterolemia, unspecified; D63.8 Anemia in other chronic diseases classified elsewhere; E87.6 Hypokalemia; J44.9 Chronic obstructive pulmonary disease, unspecified; Z85.038 Personal history of other malignant neoplasm of large intestine; Z85.07 Personal history of malignant neoplasm of pancreas; Z86.718 Personal history of other venous thrombosis and embolism; Z86.010 Personal history of colon polyps; Z80.9 Family history of malignant neoplasm, unspecified; Z80.8 Family history of malignant neoplasm of other organs or systems; Z80.0 Family history of malignant neoplasm of digestive organs
CPT/HCPCS: 36415; 80053; 83735; 84100; 85025

== ENCOUNTER → 2018-01-10 | Outpatient (CLI) | payer MEDICARE, OTHER ==
[2018-01-10 10:19] LABS: BASO # 0.1 x10^3/uL (0.0-0.2); BASO % 1 % (0-3); EOS # 0.5 x10^3/uL (0.0-0.7); EOS % 7 % (0-3); HEMATOCRIT 35.3 % (39.0-53.0); HEMOGLOBIN 11.7 g/dL (13.0-17.5); LYMPH # 1.3 x10^3/uL (1.0-4.8); LYMPH % 19 % (24-48); MEAN CORPUSCULAR HEMOGLOBIN 30 pg (25-35); MEAN CORPUSCULAR HGB CONC 33 g/dL (31-37); MEAN CORPUSCULAR VOLUME 89 fL (79-100); MONO # 0.5 x10^3/uL (0.0-1.1); MONO % 8 % (0-9); NEUT # 4.5 x10^3uL (1.8-7.7); NEUT % 65 % (31-73); PLATELET COUNT 221 x10^3/uL (140-400); RED BLOOD COUNT 3.97 x10^6/uL (4.30-5.70); RED CELL DISTRIBUTION WIDTH 18.6 % (11.5-14.5); WHITE BLOOD COUNT 6.9 x10^3/uL (4.0-11.0)
[2018-01-10 10:28] LABS: ALBUMIN 2.9 g/dL (3.4-5.0); ALBUMIN/GLOBULIN RATIO 0.9 (1.0-1.7); CALCIUM 8.8 mg/dL (8.5-10.1); CREATININE 0.6 mg/dL (0.7-1.3); MAGNESIUM 1.8 mg/dL (1.8-2.4); PHOSPHORUS 3.6 mg/dL (2.6-4.7); POTASSIUM 4.3 mmol/L (3.5-5.1); TOTAL BILIRUBIN 0.5 mg/dL (0.2-1.0)
== END | disposition home or self-care (01) ==
LOC: SPEC 09:41
PROVIDERS: ATTEND Family Medicine
DX: E43 Unspecified severe protein-calorie malnutrition (principal); K63.2 Fistula of intestine; I12.9 Hypertensive chronic kidney disease with stage 1 through stage 4 chronic kidney disease, or unspecified chronic kidney disease; N18.3 Chronic kidney disease, stage 3 (moderate); J44.9 Chronic obstructive pulmonary disease, unspecified; E78.5 Hyperlipidemia, unspecified; E78.00 Pure hypercholesterolemia, unspecified; D63.8 Anemia in other chronic diseases classified elsewhere; E87.6 Hypokalemia; K21.9 Gastro-esophageal reflux disease without esophagitis; Z90.49 Acquired absence of other specified parts of digestive tract; Z90.411 Acquired partial absence of pancreas; Z68.27 Body mass index [BMI] 27.0-27.9, adult; Z68.21 Body mass index [BMI] 21.0-21.9, adult; Z86.718 Personal history of other venous thrombosis and embolism; Z85.07 Personal history of malignant neoplasm of pancreas; Z86.010 Personal history of colon polyps; Z85.038 Personal history of other malignant neoplasm of large intestine; Z80.9 Family history of malignant neoplasm, unspecified; Z80.8 Family history of malignant neoplasm of other organs or systems; Z80.0 Family history of malignant neoplasm of digestive organs
CPT/HCPCS: 36415; 80053; 83735; 84100; 85025

== ENCOUNTER → 2018-01-14 | Outpatient (CLI) | payer MEDICARE, OTHER ==
[2018-01-14 10:02] LABS: BASO # 0.1 x10^3/uL (0.0-0.2); BASO % 1 % (0-3); EOS # 0.4 x10^3/uL (0.0-0.7); EOS % 4 % (0-3); HEMATOCRIT 37.8 % (39.0-53.0); HEMOGLOBIN 12.4 g/dL (13.0-17.5); LYMPH # 1.5 x10^3/uL (1.0-4.8); LYMPH % 15 % (24-48); MEAN CORPUSCULAR HEMOGLOBIN 30 pg (25-35); MEAN CORPUSCULAR HGB CONC 33 g/dL (31-37); MEAN CORPUSCULAR VOLUME 90 fL (79-100); MONO # 0.7 x10^3/uL (0.0-1.1); MONO % 7 % (0-9); NEUT # 7.5 x10^3uL (1.8-7.7); NEUT % 74 % (31-73); PLATELET COUNT 237 x10^3/uL (140-400); RED BLOOD COUNT 4.21 x10^6/uL (4.30-5.70); RED CELL DISTRIBUTION WIDTH 18.2 % (11.5-14.5)
[2018-01-14 10:18] LABS: ALBUMIN 3.2 g/dL (3.4-5.0); ALBUMIN/GLOBULIN RATIO 1.1 (1.0-1.7); CALCIUM 9.1 mg/dL (8.5-10.1); CREATININE 0.7 mg/dL (0.7-1.3); GFR 112.1; MAGNESIUM 1.8 mg/dL (1.8-2.4); POTASSIUM 4.3 mmol/L (3.5-5.1); TOTAL BILIRUBIN 0.7 mg/dL (0.2-1.0); TOTAL PROTEIN 6.2 g/dL (6.4-8.2)
== END | disposition home or self-care (01) ==
LOC: SPEC 09:33
PROVIDERS: ATTEND Family Medicine
DX: E43 Unspecified severe protein-calorie malnutrition (principal); K63.2 Fistula of intestine; I12.9 Hypertensive chronic kidney disease with stage 1 through stage 4 chronic kidney disease, or unspecified chronic kidney disease; N18.3 Chronic kidney disease, stage 3 (moderate); E78.5 Hyperlipidemia, unspecified; E78.00 Pure hypercholesterolemia, unspecified; I25.10 Atherosclerotic heart disease of native coronary artery without angina pectoris; Z79.01 Long term (current) use of anticoagulants; Z86.718 Personal history of other venous thrombosis and embolism; Z85.07 Personal history of malignant neoplasm of pancreas; Z85.038 Personal history of other malignant neoplasm of large intestine; Z86.010 Personal history of colon polyps; Z80.0 Family history of malignant neoplasm of digestive organs; Z80.8 Family history of malignant neoplasm of other organs or systems
CPT/HCPCS: 36415; 80053; 83735; 84100; 85025

== ENCOUNTER → 2018-01-17 | Outpatient (CLI) | payer MEDICARE, OTHER ==
[~2018-01-17] MED LIST changes: +ALTEPLASE 2 MG VIAL INT CAT ONE; +DOXY100T PO; +FAMO20TA5 PO; +GUAI600T47 PO; +HYDR4TAB45 PO; +LACT1CAP19 PO; +LEVO500T8 PO; +MIRT15TA3 PO; +ONDA4TAB10 PO; +ONDA4TAB11 PO; +OXYC5CAP PO; +TPN; +Tpn Per Pharmacy MC
[2018-01-17 10:27] VITALS: BP 116/79
[2018-01-17 10:40] LABS: BASO # 0.1 x10^3/uL (0.0-0.2); BASO % 1 % (0-3); EOS # 0.3 x10^3/uL (0.0-0.7); EOS % 4 % (0-3); HEMATOCRIT 36.9 % (39.0-53.0); HEMOGLOBIN 12.2 g/dL (13.0-17.5); LYMPH # 1.5 x10^3/uL (1.0-4.8); LYMPH % 19 % (24-48); MEAN CORPUSCULAR HEMOGLOBIN 30 pg (25-35); MEAN CORPUSCULAR HGB CONC 33 g/dL (31-37); MEAN CORPUSCULAR VOLUME 90 fL (79-100); MONO # 0.6 x10^3/uL (0.0-1.1); MONO % 7 % (0-9); NEUT # 5.5 x10^3uL (1.8-7.7); NEUT % 69 % (31-73); PLATELET COUNT 227 x10^3/uL (140-400); RED BLOOD COUNT 4.11 x10^6/uL (4.30-5.70); RED CELL DISTRIBUTION WIDTH 17.9 % (11.5-14.5)
--- NOTE | 2018-01-17 10:50 | NUR ---
NSG NOTE; OUT PT PICC BLOOD DRAW PT HERE TO ROOM 124 AT 1020 VIA AMB ACCOMP BY PT ORIGINALLY HERE BECAUSE HOME HEALTH NURSE UNABLE TO GET BLOOD RETURN ON HIS RUE PICC LINE AND SENT HERE BY DR LEWIS FOR CATHFLO. I WAS EASILY ABLE TO GET BLOOD RETURN. LABS WERE DRAWN PER PROTOCOL. PICC FLUSHED WITH NS 20ML AND CAPPED PT DISCHARGED HOME WITH
[2018-01-17 10:53] LABS: ALBUMIN/GLOBULIN RATIO 0.8 (1.0-1.7); CALCIUM 9.2 mg/dL (8.5-10.1); CREATININE 0.6 mg/dL (0.7-1.3); MAGNESIUM 1.8 mg/dL (1.8-2.4); PHOSPHORUS 3.5 mg/dL (2.6-4.7); POTASSIUM 4.5 mmol/L (3.5-5.1); TOTAL PROTEIN 6.7 g/dL (6.4-8.2)
== END | disposition home or self-care (01) ==
LOC: OPINF 10:02
PROVIDERS: ATTEND Family Medicine
DX: K63.2 Fistula of intestine (principal); E43 Unspecified severe protein-calorie malnutrition; I12.9 Hypertensive chronic kidney disease with stage 1 through stage 4 chronic kidney disease, or unspecified chronic kidney disease; N18.3 Chronic kidney disease, stage 3 (moderate); D63.8 Anemia in other chronic diseases classified elsewhere; I25.10 Atherosclerotic heart disease of native coronary artery without angina pectoris; R62.7 Adult failure to thrive; K21.9 Gastro-esophageal reflux disease without esophagitis; E78.00 Pure hypercholesterolemia, unspecified; I77.810 Thoracic aortic ectasia; J44.9 Chronic obstructive pulmonary disease, unspecified; K86.1 Other chronic pancreatitis; Z79.899 Other long term (current) drug therapy; Z85.038 Personal history of other malignant neoplasm of large intestine; Z68.21 Body mass index [BMI] 21.0-21.9, adult; Z85.07 Personal history of malignant neoplasm of pancreas; Z76.0 Encounter for issue of repeat prescription
CPT/HCPCS: 36415; 36592; 80053; 83735; 84100; 85025

== ENCOUNTER → 2018-01-19 | Outpatient (CLI) | payer MEDICARE, OTHER ==
[2018-01-17 10:27] VITALS: BP 116/79
[~2018-01-19] MED LIST changes: -ALTEPLASE 2 MG VIAL INT CAT ONE; -DOXY100T PO; -FAMO20TA5 PO; -GUAI600T47 PO; -HYDR4TAB45 PO; -LACT1CAP19 PO; -LEVO500T8 PO; -MIRT15TA3 PO; -ONDA4TAB10 PO; -ONDA4TAB11 PO; -OXYC5CAP PO; -TPN; -Tpn Per Pharmacy MC
[2018-01-19 10:37] LABS: BASO # 0.1 x10^3/uL (0.0-0.2); BASO % 1 % (0-3); EOS # 0.4 x10^3/uL (0.0-0.7); EOS % 4 % (0-3); HEMOGLOBIN 12.2 g/dL (13.0-17.5); LYMPH # 1.4 x10^3/uL (1.0-4.8); LYMPH % 17 % (24-48); MEAN CORPUSCULAR HEMOGLOBIN 30 pg (25-35); MEAN CORPUSCULAR HGB CONC 33 g/dL (31-37); MEAN CORPUSCULAR VOLUME 90 fL (79-100); MONO # 0.6 x10^3/uL (0.0-1.1); MONO % 8 % (0-9); NEUT # 5.7 x10^3uL (1.8-7.7); NEUT % 70 % (31-73); PLATELET COUNT 229 x10^3/uL (140-400); RED BLOOD COUNT 4.14 x10^6/uL (4.30-5.70); RED CELL DISTRIBUTION WIDTH 17.7 % (11.5-14.5); WHITE BLOOD COUNT 8.2 x10^3/uL (4.0-11.0)
[2018-01-19 11:03] LABS: ALBUMIN 3.1 g/dL (3.4-5.0); ALBUMIN/GLOBULIN RATIO 0.9 (1.0-1.7); CREATININE 0.7 mg/dL (0.7-1.3); GFR 112.1; MAGNESIUM 1.8 mg/dL (1.8-2.4); PHOSPHORUS 3.7 mg/dL (2.6-4.7); POTASSIUM 4.4 mmol/L (3.5-5.1); TOTAL BILIRUBIN 0.8 mg/dL (0.2-1.0); TOTAL PROTEIN 6.4 g/dL (6.4-8.2)
== END | disposition home or self-care (01) ==
LOC: SPEC 10:23
PROVIDERS: ATTEND Family Medicine
DX: K63.2 Fistula of intestine (principal); E43 Unspecified severe protein-calorie malnutrition; I12.9 Hypertensive chronic kidney disease with stage 1 through stage 4 chronic kidney disease, or unspecified chronic kidney disease; N18.3 Chronic kidney disease, stage 3 (moderate); J44.9 Chronic obstructive pulmonary disease, unspecified; E78.5 Hyperlipidemia, unspecified; E78.00 Pure hypercholesterolemia, unspecified; E87.6 Hypokalemia; I25.10 Atherosclerotic heart disease of native coronary artery without angina pectoris; Z86.718 Personal history of other venous thrombosis and embolism; Z85.07 Personal history of malignant neoplasm of pancreas; Z86.010 Personal history of colon polyps; Z86.2 Personal history of diseases of the blood and blood-forming organs and certain disorders involving the immune mechanism; Z85.038 Personal history of other malignant neoplasm of large intestine; Z90.411 Acquired partial absence of pancreas; Z90.49 Acquired absence of other specified parts of digestive tract
CPT/HCPCS: 36415; 80053; 83735; 84100; 85025

== ENCOUNTER → 2018-02-02 | Outpatient (CLI) | payer MEDICARE, OTHER ==
[2018-01-17 10:27] VITALS: BP 116/79
[~2018-02-02] MED LIST changes: +GUAI600T47 PO; +LEVO500T8 PO; +MIRT15TA3 PO; +OXYC5CAP PO
[2018-02-02 11:33] LABS: BASO # 0.1 x10^3/uL (0.0-0.2); BASO % 1 % (0-3); EOS # 0.2 x10^3/uL (0.0-0.7); EOS % 3 % (0-3); HEMATOCRIT 39.9 % (39.0-53.0); HEMOGLOBIN 13.3 g/dL (13.0-17.5); LYMPH # 1.4 x10^3/uL (1.0-4.8); LYMPH % 16 % (24-48); MEAN CORPUSCULAR HEMOGLOBIN 29 pg (25-35); MEAN CORPUSCULAR HGB CONC 33 g/dL (31-37); MEAN CORPUSCULAR VOLUME 88 fL (79-100); MONO # 0.8 x10^3/uL (0.0-1.1); MONO % 10 % (0-9); NEUT % 70 % (31-73); PLATELET COUNT 295 x10^3/uL (140-400); RED BLOOD COUNT 4.54 x10^6/uL (4.30-5.70); RED CELL DISTRIBUTION WIDTH 16.4 % (11.5-14.5); WHITE BLOOD COUNT 8.5 x10^3/uL (4.0-11.0)
[2018-02-02 11:37] LABS: ALBUMIN 2.8 g/dL (3.4-5.0); ALBUMIN/GLOBULIN RATIO 0.8 (1.0-1.7); CALCIUM 9.1 mg/dL (8.5-10.1); CREATININE 0.9 mg/dL (0.7-1.3); GFR 83.9; MAGNESIUM 2.1 mg/dL (1.8-2.4); PHOSPHORUS 3.6 mg/dL (2.6-4.7); POTASSIUM 4.1 mmol/L (3.5-5.1); TOTAL BILIRUBIN 0.5 mg/dL (0.2-1.0); TOTAL PROTEIN 6.3 g/dL (6.4-8.2)
[2018-02-02 13:26] LABS: % BANDS 11 % (0-9); % BASOS 0 % (0-3); % EOS 2 % (0-5); % LYMPHS 21 % (24-48); % MONOS 10 % (0-10); % SEGS 56 % (35-66); PLATELET CLUMP PRESENT; PLT ESTIMATE ADEQUATE (ADEQUATE); TOXIC GRANULATION SLIGHT
== END | disposition home or self-care (01) ==
LOC: LAB 11:18
PROVIDERS: ATTEND Family Medicine
DX: E43 Unspecified severe protein-calorie malnutrition (principal); L43.2 Lichenoid drug reaction; I12.9 Hypertensive chronic kidney disease with stage 1 through stage 4 chronic kidney disease, or unspecified chronic kidney disease; N18.3 Chronic kidney disease, stage 3 (moderate); D63.8 Anemia in other chronic diseases classified elsewhere; J44.9 Chronic obstructive pulmonary disease, unspecified; I25.10 Atherosclerotic heart disease of native coronary artery without angina pectoris; E78.5 Hyperlipidemia, unspecified; K21.9 Gastro-esophageal reflux disease without esophagitis; E78.00 Pure hypercholesterolemia, unspecified; E87.6 Hypokalemia; Z87.442 Personal history of urinary calculi; Z85.07 Personal history of malignant neoplasm of pancreas; Z85.038 Personal history of other malignant neoplasm of large intestine; Z86.010 Personal history of colon polyps; Z90.411 Acquired partial absence of pancreas; Z90.49 Acquired absence of other specified parts of digestive tract; Z80.8 Family history of malignant neoplasm of other organs or systems; Z80.0 Family history of malignant neoplasm of digestive organs; Z82.49 Family history of ischemic heart disease and other diseases of the circulatory system
CPT/HCPCS: 36415; 80053; 83735; 84100; 84134; 85007; 85025

== ENCOUNTER 2018-02-04 12:30 | Inpatient (IN) | payer MEDICARE, OTHER ==
[~2018-02-04] VITALS: Ht 177.8 cm; Wt 69.2 kg
[2018-02-04] VITALS (11 sets, daily range): BP systolic 112–144; BP diastolic 72–87
[~2018-02-04 12:30] MED LIST changes: -GUAI600T47 PO; -LEVO500T8 PO; -MIRT15TA3 PO; -OXYC5CAP PO
[2018-02-04] MEDS ORDERED: HYDROmorphone 2 MG TABLET PO PRN (12:45)
[2018-02-04] MEDS ORDERED: PIP/TAZO PER PHARMACY MC PRN (12:45)
[2018-02-04] MEDS ORDERED: ONDANSETRON PF 4 MG/2 ML VIAL. IV PRN (12:45)
[2018-02-04] MEDS ORDERED: PROCHLORPERAZINE 10 MG/2 ML VIAL. IV PRN ×2 (12:45→17:15)
[2018-02-04] MEDS: HYDROmorphone PF 2 MG/ML VIAL ONE ×2 (12:58→13:02)
[2018-02-04] MEDS: IV NORMAL SALINE 1,000ML 1,000 ML IV SCH ×2 (12:58→18:31)
[2018-02-04 13:18] LABS: BASO % 1 % (0-3); EOS # 0.1 x10^3/uL (0.0-0.7); EOS % 1 % (0-3); HEMOGLOBIN 11.8 g/dL (13.0-17.5); LYMPH # 1.1 x10^3/uL (1.0-4.8); LYMPH % 16 % (24-48); MEAN CORPUSCULAR HEMOGLOBIN 29 pg (25-35); MEAN CORPUSCULAR HGB CONC 33 g/dL (31-37); MEAN CORPUSCULAR VOLUME 88 fL (79-100); MONO % 13 % (0-9); NEUT # 5.1 x10^3uL (1.8-7.7); NEUT % 69 % (31-73); PLATELET COUNT 259 x10^3/uL (140-400); RED BLOOD COUNT 4.09 x10^6/uL (4.30-5.70); WHITE BLOOD COUNT 7.3 x10^3/uL (4.0-11.0)
[2018-02-04 13:28] LABS: ALBUMIN 2.5 g/dL (3.4-5.0); ALBUMIN/GLOBULIN RATIO 0.7 (1.0-1.7); CALCIUM 8.9 mg/dL (8.5-10.1); CREATININE 0.8 mg/dL (0.7-1.3); GFR 96.1; POTASSIUM 3.7 mmol/L (3.5-5.1); TOTAL BILIRUBIN 0.6 mg/dL (0.2-1.0); TOTAL PROTEIN 6.2 g/dL (6.4-8.2)
[2018-02-04] MEDS ORDERED: IOHEXOL 300 MG/ML 75 ML VIAL. IV ONE (14:15)
[2018-02-04] MEDS ORDERED: IOHEXOL 240 MG/ML 50ML VIAL. PO ONE (14:15)
[2018-02-04] MEDS: PANTOPRAZOLE IV 40 MG VIAL. IVP SCH (14:49)
--- NOTE | 2018-02-04 15:19 | RAD ---
CT ABD PELV W/ORAL IV CONTRAST dated 02/04/2018 2:28 PM Indication:..ABDOMINAL PAIN WITH NAUSEA/VOMITING, RECENT SURGERY FOR A MASS REMOVAL, WHIPPLE SURGERY IN JUNE. PATIENT DRANK 1/3 OF ORAL CONTRAST.
75MLS OMNI 300 IV CONTRAST. Comparison: 11/24/2017 Technique: Contiguous axial imaging the abdomen and pelvis performed after the administration of 75 cc Omnipaque 300 One or more of the following individualized dose reduction techniques were utilized for this examination: 1. Automated exposure control 2. Adjustment of the mA and/or kV according to patient size 3. Use of iterative reconstruction technique Findings: Limited images of lung bases are clear. Heart size within normal limits. No pleural or pericardial effusion. Moderate inflammatory stranding surrounding the pancreas and descending duodenum. A pancreatic stent is in place. There is moderate pneumobilia with evidence of prior choledochoduodenotomy. There is diffuse biliary ductal dilatation. Gallbladder is surgically absent. Small amount of fluid at the gallbladder fossa. Small amount of fluid along the inferior margin of the pancreas with small amount of ascites along the liver edge. There is some mild narrowing of the portal confluence. The portal vein and splenic vein are otherwise patent. Spleen is normal in size. Adrenal glands and kidneys are unremarkable. Multiple small stones along the calyceal margins of the both kidney. No hydronephrosis. There is a well-defined low-density focus at the midpole left kidney, likely cyst. Unopacified GI tract normal in caliber and contour. No focal bowel wall thickening. The appendix is normal in caliber. There are posterochanges of the stomach with gastrojejunostomy. Abdominal aorta normal in caliber. No adenopathy. Images of pelvis a nondistended urinary bladder. Moderate enlargement of the prostate gland. No free pelvic fluid or pelvic lymphadenopathy. Small left inguinal hernia containing only fat. Bone windows show no acute findings. Multilevel spondylosis. IMPRESSION: 1. Findings consistent with acute pancreatitis with pancreatic stent in place. No well-formed fluid collection to suggest pseudocyst or abscess. Inflammation appears to result in mild narrowing of the portal confluence. Otherwise no apparent vascular compromise. 2. Postoperative changes of the stomach with choledochoduodenostomy. There is diffuse dilation of the biliary tree with pneumobilia. No apparent filling defect at the distal CBD. 3. Small amount of ascites. 4. Skin defects at the anterior abdominal wall, likely related to recent surgery. 5. Bilateral nephrolithiasis, nonobstructive. Electronically signed by: Shady Cheng MD (02/04/2018 3:16 PM) [facility]
--- NOTE | 2018-02-04 15:41 | RAD ---
Chest, 2 views, 02/04/2018: HISTORY: Cough Comparison is made to a study from 10/24/2017. The heart size and pulmonary vascularity are normal. No pulmonary infiltrate is seen. There is no evidence of pleural fluid. IMPRESSION: No acute cardiopulmonary abnormality is detected. Electronically signed by: Lico Busby MD (02/04/2018 3:38 PM) [facility]
--- NOTE | 2018-02-04 16:00 | EKG ---
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
[2018-02-04] MEDS: AA 3%/ELECTROLYTE-TPN SOLN/GLY 1,000 ML IV SCH (16:40)
[2018-02-04] MEDS ORDERED: OXYC5CAP PO (17:37)
[2018-02-04] MEDS ORDERED: GUAI600T47 PO (17:37)
[2018-02-04] MEDS ORDERED: LEVO500T8 PO (17:37)
[2018-02-04] MEDS ORDERED: MIRT15TA3 PO (17:37)
[2018-02-04 17:59] LABS: BACTERIA,URINE FEW /HPF (0-FEW); BILIRUBIN,URINE SMALL (NEG); CLARITY,URINE HAZY; COLOR,URINE AMBER; GLUCOSE,URINE NEG (NEG); NITRITE,URINE NEG (NEG); RBC,URINE >40 /HPF (0-2); SQUAMOUS EPITHELIAL CELL,UR OCC /LPF; UROBILINOGEN,URINE 0.2 mg/dL (0.2 mg/dL)
[2018-02-04] MEDS: PIPERACILLIN/TAZOBACTAM 4.5 GM in IV NORMAL SALINE 50ML 50 ML IV SCH (18:31)
[2018-02-04] MEDS: ONDANSETRON PF 4 MG/2 ML VIAL. IV PRN (18:35)
[2018-02-04] MEDS: HYDROmorphone PF 2 MG/ML VIAL IV PRN (20:28)
[2018-02-05] VITALS (21 sets, daily range): BP systolic 91–122; BP diastolic 64–83
[2018-02-05] MEDS: PIPERACILLIN/TAZOBACTAM 4.5 GM in IV NORMAL SALINE 50ML 50 ML IV SCH ×5 (00:05→23:43)
[2018-02-05] MEDS: HYDROmorphone PF 2 MG/ML VIAL IV PRN ×4 (00:07→23:58)
[2018-02-05] MEDS: IV NORMAL SALINE 1,000ML 1,000 ML IV SCH ×2 (02:50→18:04)
[2018-02-05] MEDS: AA 3%/ELECTROLYTE-TPN SOLN/GLY 1,000 ML IV SCH ×2 (04:00→08:59)
[2018-02-05 06:20] LABS: AMYLASE 95 U/L (25-115); LIPASE 957 U/L (73-393)
[2018-02-05 08:11] LABS: PHOSPHORUS 3.1 mg/dL (2.6-4.7)
[2018-02-05 08:43] LABS: BASO # 0.1 x10^3/uL (0.0-0.2); BASO % 1 % (0-3); EOS % 0 % (0-3); HEMOGLOBIN 11.1 g/dL (13.0-17.5); LYMPH # 0.7 x10^3/uL (1.0-4.8); LYMPH % 6 % (24-48); MEAN CORPUSCULAR HEMOGLOBIN 29 pg (25-35); MEAN CORPUSCULAR HGB CONC 34 g/dL (31-37); MEAN CORPUSCULAR VOLUME 87 fL (79-100); MONO # 1.1 x10^3/uL (0.0-1.1); MONO % 9 % (0-9); NEUT # 10.2 x10^3uL (1.8-7.7); NEUT % 84 % (31-73); PLATELET COUNT 199 x10^3/uL (140-400); RED BLOOD COUNT 3.79 x10^6/uL (4.30-5.70); RED CELL DISTRIBUTION WIDTH 15.8 % (11.5-14.5); WHITE BLOOD COUNT 12.1 x10^3/uL (4.0-11.0)
[2018-02-05] MEDS: PANTOPRAZOLE IV 40 MG VIAL. IVP SCH (08:59)
[2018-02-05 09:15] LABS: % BANDS 3 % (0-9); % BASOS 1 % (0-3); % LYMPHS 3 % (24-48); % MONOS 8 % (0-10); % SEGS 85 % (35-66); PLATELET CLUMP PRESENT; PLT ESTIMATE ADEQUATE (ADEQUATE)
[2018-02-05 09:16] LABS: MICROCYTOSIS PRESENT; POLYCHROMASIA PRESENT; TOXIC GRANULATION PRESENT
[2018-02-05 09:17] LABS: TOXIC VACUOLATION PRESENT
[2018-02-05] MEDS: DOCUSATE SODIUM 100 MG CAPSULE PO SCH (10:57)
[2018-02-05] MEDS: ONDANSETRON PF 4 MG/2 ML VIAL. IV PRN (14:24)
[2018-02-05] MEDS ORDERED: AMINO ACIDS IV SCH ×9 (15:00)
[2018-02-05] MEDS ORDERED: WATER IV SCH ×9 (15:00)
[2018-02-05] MEDS ORDERED: [UNRECOGNIZED DRUG - OTHER] IV SCH ×9 (15:00)
[2018-02-05] MEDS ORDERED: DEXTROSE 50% IV SCH ×9 (15:00)
[2018-02-05] MEDS ORDERED: TOTAL PARENTERAL NUTRITION IV SCH ×9 (15:00)
[2018-02-06] VITALS (14 sets, daily range): BP systolic 85–128; BP diastolic 56–83
--- NOTE | 2018-02-06 00:45 | PN ---
DATE: 02/05/2018 SUBJECTIVE: A 67-year-old gentleman in with again acute on top of chronic pancreatitis. The patient has had severe pain when he first came in. His lipase was nearly at 1000. He has had markedly elevated liver enzymes as well as a markedly decreased albumin and prealbumin was only 0.7. The patient continues to be monitored carefully IV fluids, antibiotics, PICC line. He will continue on TPN as an outpatient to ____ this is probably the fifth or sixth times this year alone. He has had problems. He just completed a surgery for repair of a fistula in the patient's abdomen. He will continue to be monitored carefully in the ICU. OBJECTIVE: VITAL SIGNS: Blood pressure 102/70, respiratory rate 18, pulse 70, afebrile. GENERAL: The patient is alert and oriented. LUNGS: Clear. CARDIOVASCULAR: Regular sinus rhythm. ABDOMEN: Soft. Diffuse tenderness, but improved. He is making progress overall. IMPRESSION AND PLAN: Acute on top of chronic pancreatitis postop surgery, but that does not have anything I think to do with his pancreatitis, severe protein malnutrition due to cachexia and he has been unable to eat because of his surgeries, Whipple procedures and of course this most recent surgery. We will continue to monitor him, supply TPN per pharmacy and make further evaluation on him as indicated. JOSE R LEWIS MD DR: SHOLA/phyllis JOB#: [id number] / [id number]
[2018-02-06 05:45] LABS: CALCIUM 8.4 mg/dL (8.5-10.1); CREATININE 0.6 mg/dL (0.7-1.3); PHOSPHORUS 2.5 mg/dL (2.6-4.7); POTASSIUM 3.8 mmol/L (3.5-5.1)
[2018-02-06] MEDS: PIPERACILLIN/TAZOBACTAM 4.5 GM in IV NORMAL SALINE 50ML 50 ML IV SCH (06:12)
[2018-02-06] MEDS: PANTOPRAZOLE IV 40 MG VIAL. IVP SCH (08:44)
[2018-02-06] MEDS: DOCUSATE SODIUM 100 MG CAPSULE PO SCH (08:45)
[2018-02-06] MEDS: TPN PER PHARMACY MC PRN (09:36)
[2018-02-06] MEDS: HYDROmorphone PF 2 MG/ML VIAL IV PRN ×2 (11:39→22:27)
--- NOTE | 2018-02-06 12:47 | PN ---
DATE: SUBJECTIVE: Znlzt-[id number]-ohxw-old gentleman in with acute on top of chronic pancreatitis, severe. The patient also has marked severe protein malnutrition and emaciation and receiving TPN therapy. The patient is making some progress. He is still requiring IV pain medication as he has such severe pain, it causes him to double over and he has tremendous shakes with it at the same time that he has this onset of problems with his pain management, which is on a 03/16 when it strikes. The patient is still having trouble eating. He is on TPN, following TPN protocol there. OBJECTIVE: VITAL SIGNS: The patient's blood pressure has been as low as 94/67, now up to 102/70; pulse 75; respiratory rate 18; afebrile. GENERAL: The patient is a little bit more alert. HEENT: Head atraumatic, normocephalic. Eyes PERRLA without jaundice. The mouth and throat were normal. NECK: Supple. LUNGS: Clear. ABDOMEN: Soft, diffuse tenderness. The patient is markedly emaciated. He has lost a lot of muscle mass noted throughout. The patient has active bowel sounds. NEUROLOGIC: Alert and oriented. The patient otherwise is in better spirits than when he first came in, when he was in excruciating pain all the time. The patient will be transferred from ICU to the regular floor here and give him a little bit more freedom as he like to move around. He will continue on PT, OT as well to keep his strength up as well as a dietary consultation and continue on his TPN. IMPRESSION: Therefore of acute on top of chronic pancreatitis, postop surgery, for fistula repair and history of Whipple procedure. Severe protein malnutrition due to cachexia and unable to eat because of his surgeries, Whipple procedure and so forth. Anemia of chronic disease. Hematuria secondary to nephrolithiasis. PLAN: Continue on present drug regimen and he has a PICC line. We will proceed to try to arrange so that he can have TPN as an outpatient as well. JOSE R LEWIS MD DR: SHOLA/phyllis JOB#: [id number] / [id number]
[2018-02-06] MEDS ORDERED: DEXTROSE 50% IV SCH ×11 (15:00)
[2018-02-06] MEDS ORDERED: AMINO ACIDS IV SCH ×11 (15:00)
[2018-02-06] MEDS ORDERED: [UNRECOGNIZED DRUG - OTHER] IV SCH ×11 (15:00)
[2018-02-06] MEDS ORDERED: TOTAL PARENTERAL NUTRITION IV SCH ×11 (15:00)
[2018-02-06] MEDS ORDERED: WATER IV SCH ×11 (15:00)
[2018-02-06] MEDS: RIVAROXABAN 10 MG TABLET. PO SCH (16:36)
[2018-02-06] MEDS ORDERED: RIVAROXABAN 15 MG PO SCH (17:00)
[2018-02-06] MEDS ORDERED: RIVAROXABAN 10 MG TABLET. PO SCH (17:00)
[2018-02-06] MEDS: FAMOTIDINE 20 MG TABLET PO SCH (19:52)
[2018-02-07 05:18] VITALS: BP 110/68
[2018-02-07 05:35] LABS: MAGNESIUM 1.7 mg/dL (1.8-2.4); PHOSPHORUS 2.5 mg/dL (2.6-4.7)
[2018-02-07 05:37] LABS: ALBUMIN 1.9 g/dL (3.4-5.0); ALBUMIN/GLOBULIN RATIO 0.6 (1.0-1.7); CALCIUM 8.1 mg/dL (8.5-10.1); CREATININE 0.5 mg/dL (0.7-1.3); GFR 165.4; POTASSIUM 3.6 mmol/L (3.5-5.1); TOTAL BILIRUBIN 0.4 mg/dL (0.2-1.0); TOTAL PROTEIN 5.3 g/dL (6.4-8.2)
[2018-02-07] MEDS: PANTOPRAZOLE IV 40 MG VIAL. IVP SCH (08:23)
[2018-02-07] MEDS: FAMOTIDINE 20 MG TABLET PO SCH ×2 (08:24→20:37)
[2018-02-07] MEDS: DOCUSATE SODIUM 100 MG CAPSULE PO SCH (08:25)
[2018-02-07 10:28] VITALS: BP 116/80
[2018-02-07] MEDS: ONDANSETRON PF 4 MG/2 ML VIAL. IV PRN (10:36)
--- NOTE | 2018-02-07 10:38 | PN ---
DATE: 02/07/2018 SUBJECTIVE: A 67-year-old male comes in with acute on top of chronic pancreatitis, still having episodes of severe pain, requiring IV pain medication, did spike somewhat of a temperature last night of 99.9. OBJECTIVE: VITAL SIGNS: Blood pressure 122/78, respiratory rate 20, pulse 84. GENERAL: The patient is alert and oriented, feels a little better, but he has not been taking anything orally to try to rest his pancreas. We will try him on a clear liquid diet and make further evaluation with that situation there. His labs for today on the [facility], chemistry shows his albumin actually has gone down to 1.9 from the 2.5. Consequently, we will determine if we need any additional protein supplementation, have dietary review him otherwise. LUNGS: Clear. CARDIOVASCULAR: Stable. ABDOMEN: Soft, diffuse tenderness. The patient with still wound where he had a surgery, nurses changing that daily, but we will advance him on to clear liquids. The Pepcid seems to be helping him in terms of his acid reflux along with the Protonix. We will continue to monitor the patient accordingly and advance very carefully on his diet as he has had multiple relapses. IMPRESSION: Acute on top of chronic pancreatitis, postop surgery for removal of mass from the abdomen, severe protein malnutrition, cachexia, protein imbalance noted negative there, severe pain requiring IV antibiotic therapy. JOSE R LEWIS MD DR: SHOLA/phyllis JOB#: [id number] / [id number]
[2018-02-07] MEDS: TPN PER PHARMACY MC PRN (10:45)
[2018-02-07] MEDS: LIPASE/PROTEAS/AMYLAS 10/32/42 CAPSULE.DR. PO SCH ×2 (12:00→17:00)
[2018-02-07] MEDS: HYDROmorphone PF 2 MG/ML VIAL IV PRN (13:38)
[2018-02-07 14:16] VITALS: BP 112/74
[2018-02-07] MEDS ORDERED: DEXTROSE 50% IV SCH ×10 (15:00)
[2018-02-07] MEDS ORDERED: WATER IV SCH ×10 (15:00)
[2018-02-07] MEDS ORDERED: TOTAL PARENTERAL NUTRITION IV SCH ×10 (15:00)
[2018-02-07] MEDS ORDERED: [UNRECOGNIZED DRUG - OTHER] IV SCH ×10 (15:00)
[2018-02-07] MEDS ORDERED: AMINO ACIDS IV SCH ×10 (15:00)
[2018-02-07] MEDS: RIVAROXABAN 10 MG TABLET. PO SCH (17:21)
[2018-02-07 19:15] VITALS: BP 130/79
[2018-02-07 23:05] VITALS: BP 133/83
[2018-02-08 05:43] VITALS: BP 147/89
[2018-02-08 06:46] LABS: CALCIUM 8.7 mg/dL (8.5-10.1); CREATININE 0.5 mg/dL (0.7-1.3); GFR 165.4; MAGNESIUM 1.8 mg/dL (1.8-2.4); PHOSPHORUS 3.3 mg/dL (2.6-4.7); POTASSIUM 4.2 mmol/L (3.5-5.1)
[2018-02-08] MEDS: LIPASE/PROTEAS/AMYLAS 10/32/42 CAPSULE.DR. PO SCH ×2 (08:06→12:00)
[2018-02-08] MEDS: PANTOPRAZOLE IV 40 MG VIAL. IVP SCH (08:07)
[2018-02-08] MEDS: FAMOTIDINE 20 MG TABLET PO SCH (08:07)
[2018-02-08] MEDS: DOCUSATE SODIUM 100 MG CAPSULE PO SCH (08:07)
[2018-02-08] MEDS ORDERED: CALCIUM GLUCONATE 1,000 MG in IV NORMAL SALINE 100ML 100 ML IV ONE (10:30)
[2018-02-08 11:19] VITALS: BP 122/85
[2018-02-08] MEDS ORDERED: FAMO20TA5 PO (13:50)
[2018-02-08] MEDS ORDERED: DOCU-109 PO (13:50)
[2018-02-08] MEDS ORDERED: HYDR4TAB45 PO (13:50)
[2018-02-08] MEDS ORDERED: Tpn Per Pharmacy MC (13:50)
[2018-02-08] MEDS ORDERED: LIPA1CAP12 PO (13:50)
== END 2018-02-08 15:15 | disposition home health service (06) | DRG 871 ==
LOC: ICU 12:30 → 1 SOUTH 02-06 17:03
PROVIDERS: ADMIT Family Medicine; ATTEND Family Medicine
DX: A41.9 Sepsis, unspecified organism (principal); K85.90 Acute pancreatitis without necrosis or infection, unspecified; E43 Unspecified severe protein-calorie malnutrition; R64 Cachexia; K86.1 Other chronic pancreatitis; D63.8 Anemia in other chronic diseases classified elsewhere; K86.89 Other specified diseases of pancreas; N20.0 Calculus of kidney; Z90.411 Acquired partial absence of pancreas; E78.5 Hyperlipidemia, unspecified; I10 Essential (primary) hypertension; K21.9 Gastro-esophageal reflux disease without esophagitis; Z80.0 Family history of malignant neoplasm of digestive organs; Z82.49 Family history of ischemic heart disease and other diseases of the circulatory system; Z68.21 Body mass index [BMI] 21.0-21.9, adult
CPT/HCPCS: 36415; 71046; 74177; 80048; 80053; 81001; 82150; 82947; 83605; 83690; 83735; 84100; 84134; 85007; 85025; 85610; 87040; 87641; 93005; C9113; J0610; J0780; J1170; J2405; J2543; J3475; J3490; Q9966; Q9967; J7030

== ENCOUNTER → 2018-02-17 | Outpatient (CLI) | payer MEDICARE, OTHER ==
[2018-02-08 11:19] VITALS: BP 122/85
[~2018-02-17] MED LIST changes: +FAMO20TA5 PO; +GUAI600T47 PO; +HYDR4TAB45 PO; +LEVO500T8 PO; +MIRT15TA3 PO; +OXYC5CAP PO; +TPN; +Tpn Per Pharmacy MC
[2018-02-17 10:11] LABS: BASO # 0.1 x10^3/uL (0.0-0.2); BASO % 1 % (0-3); EOS # 0.6 x10^3/uL (0.0-0.7); EOS % 6 % (0-3); HEMATOCRIT 36.7 % (39.0-53.0); LYMPH # 1.3 x10^3/uL (1.0-4.8); LYMPH % 13 % (24-48); MEAN CORPUSCULAR HEMOGLOBIN 28 pg (25-35); MEAN CORPUSCULAR HGB CONC 33 g/dL (31-37); MEAN CORPUSCULAR VOLUME 87 fL (79-100); MONO # 0.7 x10^3/uL (0.0-1.1); MONO % 8 % (0-9); NEUT # 6.9 x10^3uL (1.8-7.7); NEUT % 72 % (31-73); PLATELET COUNT 163 x10^3/uL (140-400); RED BLOOD COUNT 4.24 x10^6/uL (4.30-5.70); RED CELL DISTRIBUTION WIDTH 15.9 % (11.5-14.5); WHITE BLOOD COUNT 9.6 x10^3/uL (4.0-11.0)
[2018-02-17 10:26] LABS: ALBUMIN 2.6 g/dL (3.4-5.0); ALBUMIN/GLOBULIN RATIO 0.7 (1.0-1.7); CALCIUM 8.8 mg/dL (8.5-10.1); CREATININE 0.6 mg/dL (0.7-1.3); POTASSIUM 4.9 mmol/L (3.5-5.1); TOTAL BILIRUBIN 0.3 mg/dL (0.2-1.0); TOTAL PROTEIN 6.3 g/dL (6.4-8.2)
== END | disposition home or self-care (01) ==
LOC: SPEC 09:34
PROVIDERS: ATTEND Family Medicine
DX: K86.1 Other chronic pancreatitis (principal); R62.7 Adult failure to thrive; I12.9 Hypertensive chronic kidney disease with stage 1 through stage 4 chronic kidney disease, or unspecified chronic kidney disease; N18.3 Chronic kidney disease, stage 3 (moderate); E78.00 Pure hypercholesterolemia, unspecified; K21.9 Gastro-esophageal reflux disease without esophagitis; E78.5 Hyperlipidemia, unspecified; J44.9 Chronic obstructive pulmonary disease, unspecified; I25.10 Atherosclerotic heart disease of native coronary artery without angina pectoris; Z86.718 Personal history of other venous thrombosis and embolism; Z85.07 Personal history of malignant neoplasm of pancreas; Z85.038 Personal history of other malignant neoplasm of large intestine; Z86.010 Personal history of colon polyps; Z90.411 Acquired partial absence of pancreas; Z86.2 Personal history of diseases of the blood and blood-forming organs and certain disorders involving the immune mechanism; Z80.8 Family history of malignant neoplasm of other organs or systems; Z82.49 Family history of ischemic heart disease and other diseases of the circulatory system; Z80.0 Family history of malignant neoplasm of digestive organs
CPT/HCPCS: 36415; 80053; 85025

== ENCOUNTER 2018-02-22 11:06 | Inpatient (IN) | payer MEDICARE, OTHER ==
[~2018-02-22] VITALS: Ht 177.8 cm; Wt 65.5 kg
[~2018-02-22 11:06] MED LIST changes: -TPN
[2018-02-22 12:50] VITALS: BP 121/81
[2018-02-22] MEDS ORDERED: FAMO20TA5 PO (12:52)
[2018-02-22] MEDS ORDERED: DOCU-109 PO (12:52)
[2018-02-22] MEDS ORDERED: HYDR4TAB45 PO (12:52)
[2018-02-22] MEDS ORDERED: RIVA15TA PO (12:52)
[2018-02-22] MEDS ORDERED: TPN (12:52)
[2018-02-22] MEDS ORDERED: LIPA1CAP12 PO (12:52)
[2018-02-22] MEDS ORDERED: TPN PER PHARMACY MC PRN (13:00)
[2018-02-22 14:16] LABS: ALBUMIN 2.4 g/dL (3.4-5.0); ALBUMIN/GLOBULIN RATIO 0.6 (1.0-1.7); ALK PHOS 261 U/L (46-116); ALT (SGPT) 62 U/L (16-63); ANION GAP 8 (6-14); AST (SGOT) 31 U/L (15-37); BLOOD UREA NITROGEN 24 mg/dL (8-26); BUN/CREATININE RATIO 40 (6-20); CALCIUM 8.9 mg/dL (8.5-10.1); CARBON DIOXIDE 22 mmol/L (21-32); CHLORIDE 106 mmol/L (98-107); CREATININE 0.6 mg/dL (0.7-1.3); GLUCOSE 89 mg/dL (70-99); POTASSIUM 4.5 mmol/L (3.5-5.1); SODIUM 136 mmol/L (136-145); TOTAL BILIRUBIN 0.7 mg/dL (0.2-1.0); TOTAL PROTEIN 6.4 g/dL (6.4-8.2)
--- NOTE | 2018-02-22 14:25 | EKG ---
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
[2018-02-22 15:07] VITALS: BP 119/81
[2018-02-22] MEDS: TPN PER PHARMACY MC PRN ×2 (15:10→15:14)
[2018-02-22 16:46] LABS: BASO % 1 % (0-3); EOS # 0.2 x10^3/uL (0.0-0.7); EOS % 4 % (0-3); HEMOGLOBIN 11.5 g/dL (13.0-17.5); LYMPH # 1.2 x10^3/uL (1.0-4.8); LYMPH % 18 % (24-48); MEAN CORPUSCULAR HEMOGLOBIN 29 pg (25-35); MEAN CORPUSCULAR HGB CONC 33 g/dL (31-37); MEAN CORPUSCULAR VOLUME 87 fL (79-100); MONO # 0.6 x10^3/uL (0.0-1.1); MONO % 9 % (0-9); NEUT # 4.4 x10^3uL (1.8-7.7); NEUT % 69 % (31-73); PLATELET COUNT 206 x10^3/uL (140-400); RED BLOOD COUNT 4.03 x10^6/uL (4.30-5.70); RED CELL DISTRIBUTION WIDTH 15.6 % (11.5-14.5); WHITE BLOOD COUNT 6.4 x10^3/uL (4.0-11.0)
[2018-02-22] MEDS: RIVAROXABAN 15 MG TABLET. PO SCH (17:09)
[2018-02-22] MEDS: LIPASE/PROTEAS/AMYLAS 10/32/42 CAPSULE.DR. PO SCH (17:09)
[2018-02-22] MEDS: DOCUSATE SODIUM 100 MG CAPSULE PO SCH (17:09)
[2018-02-22] MEDS: METOCLOPRAMIDE 10 MG TABLET PO SCH ×2 (17:09→19:57)
[2018-02-22 17:57] LABS: BACTERIA,URINE FEW /HPF (0-FEW); BILIRUBIN,URINE NEG (NEG); CLARITY,URINE CLEAR; COLOR,URINE YELLOW; GLUCOSE,URINE NEG (NEG); HYALINE CASTS, URINE OCC /HPF; NITRITE,URINE NEG (NEG); RBC,URINE 0 /HPF (0-2); SQUAMOUS EPITHELIAL CELL,UR OCC /LPF; UROBILINOGEN,URINE 1 mg/dL (0.2 mg/dL); WBC,URINE RARE /HPF (0-4)
[2018-02-22 18:29] VITALS: BP 107/74
[2018-02-22] MEDS: FAMOTIDINE 20 MG TABLET PO SCH (19:57)
[2018-02-22] MEDS: CETIRIZINE HCL 10 MG TABLET PO SCH (19:58)
[2018-02-22] MEDS: MIRTAZAPINE 15 MG TABLET PO SCH (19:58)
[2018-02-22] MEDS: HYDROmorphone 2 MG TABLET PO PRN (19:58)
[2018-02-22] MEDS ORDERED: [UNRECOGNIZED DRUG - OTHER] IV SCH ×10 (20:00)
[2018-02-22] MEDS ORDERED: TOTAL PARENTERAL NUTRITION IV SCH ×10 (20:00)
[2018-02-22] MEDS ORDERED: AMINO ACIDS IV SCH ×10 (20:00)
[2018-02-22 23:40] VITALS: BP 114/80
--- NOTE | 2018-02-23 00:55 | PN ---
DATE: SUBJECTIVE: This is a 67-year-old gentleman who came in with chest pain. The patient, otherwise, seems to be resting fairly comfortably. The patient will be seen by Cardiology later today. PHYSICAL EXAMINATION: VITAL SIGNS: Show blood pressure 110/____, respiratory rate 20, pulse ____. GENERAL: The patient is alert and oriented, frail appearing. LUNGS: Diminished throughout. CARDIOVASCULAR: Regular sinus rhythm, S1 and S2, without murmur, rub, thrill, or extra heart sounds. ABDOMEN: Soft, nontender. We will go ahead and continue above for the patient. The patient is still on TPN feedings and has an elevated D-dimer. The patient has had an abdominal series, we will get a CTA, and make further evaluation on him with those results along with Cardiology. IMPRESSION: Chest pain, hibtseiz-xe-joomag protein malnutrition, history of Whipple procedure, and pancreatic tumors. PLAN: Continue to monitor the patient. We will make further evaluation as indicated per those results. JOSE R LEWIS MD DR: SHOLA/phyllis JOB#: [id number] / [id number]
[2018-02-23] MEDS: METOCLOPRAMIDE 10 MG TABLET PO SCH ×4 (05:51→19:28)
[2018-02-23 06:01] VITALS: BP 145/91
[2018-02-23 06:55] LABS: BASO # 0.1 x10^3/uL (0.0-0.2); BASO % 1 % (0-3); EOS # 0.4 x10^3/uL (0.0-0.7); EOS % 6 % (0-3); HEMATOCRIT 37.3 % (39.0-53.0); HEMOGLOBIN 12.3 g/dL (13.0-17.5); LYMPH # 1.5 x10^3/uL (1.0-4.8); LYMPH % 24 % (24-48); MEAN CORPUSCULAR HEMOGLOBIN 28 pg (25-35); MEAN CORPUSCULAR HGB CONC 33 g/dL (31-37); MEAN CORPUSCULAR VOLUME 86 fL (79-100); MONO # 0.5 x10^3/uL (0.0-1.1); MONO % 8 % (0-9); NEUT # 3.8 x10^3uL (1.8-7.7); NEUT % 61 % (31-73); PLATELET COUNT 238 x10^3/uL (140-400); RED BLOOD COUNT 4.33 x10^6/uL (4.30-5.70); WHITE BLOOD COUNT 6.2 x10^3/uL (4.0-11.0)
[2018-02-23 06:56] LABS: CREATININE 0.6 mg/dL (0.7-1.3)
[2018-02-23] MEDS: PANTOPRAZOLE 40 MG TABLET. PO SCH (07:59)
[2018-02-23] MEDS: RIVAROXABAN 15 MG TABLET. PO SCH ×2 (08:00→17:14)
[2018-02-23] MEDS: LIPASE/PROTEAS/AMYLAS 10/32/42 CAPSULE.DR. PO SCH ×3 (08:00→17:14)
[2018-02-23] MEDS: DOCUSATE SODIUM 100 MG CAPSULE PO SCH (08:00)
[2018-02-23] MEDS: FAMOTIDINE 20 MG TABLET PO SCH ×2 (08:01→19:28)
[2018-02-23 08:45] LABS: ALBUMIN 2.5 g/dL (3.4-5.0); TOTAL BILIRUBIN 0.7 mg/dL (0.2-1.0); TOTAL PROTEIN 6.9 g/dL (6.4-8.2)
[2018-02-23 09:01] LABS: DIRECT BILIRUBIN 0.2 mg/dL (0.0-0.2)
[2018-02-23] MEDS: ONDANSETRON PF 4 MG/2 ML VIAL. IV PRN ×2 (09:30→17:16)
--- NOTE | 2018-02-23 10:11 | PDOC2 ---
LIOR EAGLE GRINDING OPERATOR 02/23/18 1010: CONSULT Date of Admission DATE: 02/23/18 TIME: 10:09 Reason for Consult: cp History of Present Illness Mr Pérez is a 67 year old male who presented to his PCP yesterday as hospital follow up from 02/08/18 hospital discharge for pancreatitis. He reported symptoms of cough and congestion as well as chest pain, so was directly admitted for evaluation.The patient reports recent history of cholecystectomy, Whipple and then fistula repair as well as DVT. He is currently on OAC. He reports chest discomfort that is "like someone sitting on chest", worse in reclining position, improved with side lying or sitting up. He currently denies dyspnea, palpitations, lightheadedness or syncope. He does report tenderness left midaxillary line at about 3-5 intercostal area reproducible with palpation. His discomfort has been constant. He denies fever, chills or cough at this time. He complains of nausea and vomiting with everything other than fluids and has been on TPN for some time secondary to this. 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 chronic nausea/vomiting, on TPN significant weight loss GERD colon polyps DVT bowel obstruction recurrent pancreatitis Past Surgical History: Cholecystectomy, Other (testicular mass removal, whipple , fistula repair) Family History Father - ID at 67y/o Mother - colon cancer additional family history of hypertension and hyperlipidemia Social History non smoker, 1 beer weekly, no illicit drugs Current Medications Current Medications Influenza Virus Vaccine (Afluria Trivalent [id number] Syringe) 0.5 ml ONCE ONCE VAX IM ; Start 02/23/18 at 09:00; Stop 02/23/18 at 09:01; Status DC Guaifenesin (Mucinex Er) 600 mg BID PO Last administered on 02/23/18at 09:28; Start 02/22/18 at 21:00 Amylase/Lipase/ Protease (Zenpep 10,000) 1 cap TIDWMEALS PO Last administered on 02/23/18at 08:00; Start 02/22/18 at 17:00 Cetirizine HCl (ZyrTEC) 10 mg QHS PO Last administered on 02/22/18at 19:58; Start 02/22/18 at 21:00 Docusate Sodium (Colace) 100 mg DAILY PO Last administered on 02/23/18at 08:00; Start 02/22/18 at 15:00 Famotidine (Pepcid) 20 mg BID PO Last administered on 02/23/18at 08:01; Start at 21:00 Hydromorphone HCl (Dilaudid) 2 mg PRN QID PRN PO PAIN Last administered on 02/22at 19:58; Start 02/22/18 at 13:15 Metoclopramide HCl (Reglan) 10 mg QIDACHS PO Last administered on 02/23/18at 05: 51; Start 02/22/18 at 16:30 Mirtazapine (Remeron) 15 mg QHS PO Last administered on 02/22/18at 19:58; Start 02/22/18 at 21:00 Pantoprazole Sodium (Protonix) 40 mg DAILYAC PO Last administered on 02/23/18at 07:59; Start 02/23/18 at 07:30 Rivaroxaban (Xarelto) 15 mg BIDWMEALS PO Last administered on 02/23/18at 08:00; Start 02/22/18 at 17:00 Non-Formulary Medication ([Tpn Per Pharmacy] ) 1 each PRN DAILY PRN MC SEE COMMENTS; Start 02/22/18 at 13:00; Status UNV Info (Tpn Per Pharmacy) 1 each PRN DAILY PRN MC SEE COMMENTS Last administered on 02/22/18at 15:14; Start 02/22/18 at 13:30 Sodium Chloride 90 meq/Sodium Phosphate 15 mmol/ Potassium Chloride 60 meq/ Potassium Phosphate 15 mmol/ Magnesium Sulfate 15 meq/ Multivitamins/ Minerals 10 ml/ Chromium/Copper/ Manganese/Seleni/ Zn 1 ml/Total Parenteral Nutrition/ Amino Acids/Dextrose/ Fat Emulsion Intravenous 1,860 ml @ 77.5 mls/hr TPN CONT IV Last administered on 02/22/18at 19:57; Start 02/22/18 at 20:00; Stop at 21:59; Status DC Ondansetron HCl (Zofran) 4 mg PRN Q6HRS PRN IV NAUSEA/VOMITING Last administered on 02/23/18at 09:30; Start 02/23/18 at 08:30 Sodium Chloride 1,000 ml @ 100 mls/hr Q10H IV ; Start 02/23/18 at 08:30 Active Scripts Active [Tpn Per Pharmacy] 1 EACH Each 1 Each MC PRN DAILY PRN on 16hrs of 8hrs Reported [Tpn] Famotidine 20 Mg Tablet 1 Tab PO BID Zenpep Dr 10,000 Units Capsule (Lipase/Protease/Amylase) 1 Each Capsule.dr 1 Each PO TIDWMEALS Colace (Docusate Sodium) 100 Mg Capsule 1 Cap PO DAILY Dilaudid (Hydromorphone Hcl) 4 Mg Tablet 2 Tab PO QID PRN Xarelto (Rivaroxaban) 15 Mg Tablet 15 Mg PO BIDWMEALS Mucinex (Guaifenesin) 600 Mg Tablet.er 1 Tab PO BID LAST DOSE GIVEN: DATE: TIME: NEXT DOSE DUE: DATE: TIME: Mirtazapine 15 Mg Tablet 1 Tab PO QHS LAST DOSE GIVEN: DATE: YESTERDAY TIME: AT BEDTIME NEXT DOSE DUE: DATE: TODAY TIME: AT BEDTIME Metoclopramide Hcl 10 Mg Tablet 10 Mg PO QIDACHS LAST DOSE GIVEN: DATE: TIME: NEXT DOSE DUE: DATE: TIME: Zyrtec (Cetirizine Hcl) 10 Mg Tablet 1 Tab PO HS LAST DOSE GIVEN: DATE: TIME: NEXT DOSE DUE: DATE: TIME: Omeprazole 40 Mg Capsule.dr 40 Mg PO BID LAST DOSE GIVEN: DATE: TODAY TIME: AM NEXT DOSE DUE: DATE: TODAY TIME: PM Allergies: Coded Allergies: No Known Drug Allergies (Unverified , 10/24/17) verified with the pt Review of System as per HPI or negative General: Alert, Oriented X3, Cooperative, No acute distress HEENT: Atraumatic, EOMI Lungs: Clear to auscultation, Normal air movement Heart: Regular rate, Normal S1, Normal S2, Other (tenderness left lateral chest wall) Abdomen: Normal bowel sounds, Soft Extremities: No cyanosis, No edema, Normal pulses Neuro: Normal speech, Strength at 5/5 X4 ext Psych/Mental Status: Mental status NL, Mood NL VITALS Vital Signs Date Time Temp Pulse Resp B/P (MAP) Pulse Ox O2 Delivery O2 Flow Rate FiO2 02/23/18 08:15 Room Air 02/23/18 06:01 98.8 92 20 145/91 (109) 92 Labs Laboratory Tests Test 02/22/18 13:35 02/22/18 17:35 02/23/18 05:55 White Blood Count 6.4 x10^3/uL (4.0-11.0) 6.2 x10^3/uL (4.0-11.0) Red Blood Count 4.03 x10^6/uL (4.30-5.70) 4.33 x10^6/uL (4.30-5.70) Hemoglobin 11.5 g/dL (13.0-17.5) 12.3 g/dL (13.0-17.5) Hematocrit 35.0 % (39.0-53.0) 37.3 % (39.0-53.0) Mean Corpuscular Volume 87 fL (79-100) 86 fL (79-100) Mean Corpuscular Hemoglobin 29 pg (25-35) 28 pg (25-35) Mean Corpuscular Hemoglobin Concent 33 g/dL (31-37) 33 g/dL (31-37) Red Cell Distribution Width 15.6 % (11.5-14.5) 16.0 % (11.5-14.5) Platelet Count 206 x10^3/uL (140-400) 238 x10^3/uL (140-400) Neutrophils (%) (Auto) 69 % (31-73) 61 % (31-73) Lymphocytes (%) (Auto) 18 % (24-48) 24 % (24-48) Monocytes (%) (Auto) 9 % (0-9) 8 % (0-9) Eosinophils (%) (Auto) 4 % (0-3) 6 % (0-3) Basophils (%) (Auto) 1 % (0-3) 1 % (0-3) Neutrophils # (Auto) 4.4 x10^3uL (1.8-7.7) 3.8 x10^3uL (1.8-7.7) Lymphocytes # (Auto) 1.2 x10^3/uL (1.0-4.8) 1.5 x10^3/uL (1.0-4.8) Monocytes # (Auto) 0.6 x10^3/uL (0.0-1.1) 0.5 x10^3/uL (0.0-1.1) Eosinophils # (Auto) 0.2 x10^3/uL (0.0-0.7) 0.4 x10^3/uL (0.0-0.7) Basophils # (Auto) 0.0 x10^3/uL (0.0-0.2) 0.1 x10^3/uL (0.0-0.2) D-Dimer (Shelley) 1.04 mg/L (0.00-0.50) Sodium Level 136 mmol/L (136-145) 138 mmol/L (136-145) Potassium Level 4.5 mmol/L (3.5-5.1) 4.0 mmol/L (3.5-5.1) Chloride Level 106 mmol/L (98-107) 106 mmol/L (98-107) Carbon Dioxide Level 22 mmol/L (21-32) 23 mmol/L (21-32) Anion Gap 8 (6-14) 9 (6-14) Blood Urea Nitrogen 24 mg/dL (8-26) 19 mg/dL (8-26) Creatinine 0.6 mg/dL (0.7-1.3) 0.6 mg/dL (0.7-1.3) Estimated GFR (Cockcroft-Gault) 134.0 134.0 BUN/Creatinine Ratio 40 (6-20) Glucose Level 89 mg/dL (70-99) 97 mg/dL (70-99) Lactic Acid Level 0.7 mmol/L (0.4-2.0) Calcium Level 8.9 mg/dL (8.5-10.1) 9.0 mg/dL (8.5-10.1) Total Bilirubin 0.7 mg/dL (0.2-1.0) 0.7 mg/dL (0.2-1.0) Aspartate Amino Transf (AST/SGOT) 31 U/L (15-37) 32 U/L (15-37) Alanine Aminotransferase (ALT/SGPT) 62 U/L (16-63) 65 U/L (16-63) Alkaline Phosphatase 261 U/L (46-116) 265 U/L (46-116) Creatine Kinase < 15 U/L (39-308) Troponin I Quantitative < 0.017 ng/mL (0-0.055) < 0.017 ng/mL (0-0.055) Total Protein 6.4 g/dL (6.4-8.2) 6.9 g/dL (6.4-8.2) Albumin 2.4 g/dL (3.4-5.0) 2.5 g/dL (3.4-5.0) Albumin/Globulin Ratio 0.6 (1.0-1.7) Urine Collection Type Unknown Urine Color Yellow Urine Clarity Clear Urine pH 5.5 Urine Specific [place] 1.020 Urine Protein Neg (NEG-TRACE) Urine Glucose (UA) Neg mg/dL (NEG) Urine Ketones (Stick) Neg mg/dL (NEG) Urine Blood Neg (NEG) Urine Nitrite Neg (NEG) Urine Bilirubin Neg (NEG) Urine Urobilinogen Dipstick 1 mg/dL (0.2 mg/dL) Urine Leukocyte Esterase Neg (NEG) Urine RBC 0 /HPF (0-2) Urine WBC Rare /HPF (0-4) Urine Squamous Epithelial Cells Occ /LPF Urine Bacteria Few /HPF (0-FEW) Urine Hyaline Casts Occ /HPF Urine Mucus Mod /LPF Magnesium Level 1.7 mg/dL (1.8-2.4) Direct Bilirubin 0.2 mg/dL (0.0-0.2) Amylase Level 108 U/L (25-115) Images EKG sinus rhythm with premature atrial contraction, no acute ischemic changes. acute abd series - IMPRESSION: 1. Postsurgical change in the upper abdomen with associated pneumobilia. 2. Left intrarenal calculi. 3. No acute abdominal abnormality is detected. CXR - IMPRESSION: 1. The right PICC is in satisfactory position. 2. No acute cardiopulmonary abnormality is detected. CTA - Impression: 1. There is no evidence of pulmonary embolic disease. 2. 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 3. There is some coronary calcification. 4. As seen on previous CT abdomen exam, there is pneumobilia and pancreatic stent, some persistent hazy density about the visualized pancreas. Assessment/Plan 1. chest pain, atypical - ? pericarditis vs more likely costochondritis. Doubt ACS. Check echo and serial EKGs. CT chest pending. Request recent stress test results for review. 2. elevated d dimer - CT negative for PE, on Xarelto for recent DVT 3 Hx HTN - blood pressure currently controlled. await echo. 4. Hx Hyperlipidemia - check lipids 5. hypomagnesemia - replace, consider change in TPN with next bag. JOELLE KING MD 02/23/18 1711: CONSULT Assessment/Plan Patient seen and examined. Agree with above nurse practitioner note. 67-year-old male with multiple noncardiac comorbidities coming to the hospital in the setting of very atypical chest pain. His EKG, cardiac enzymes and examination do not support a clear cardiac diagnosis for his discomfort. Suspect this is mostly muscular skeletal nature Supportive care from a cardiac standpoint. No further testing necessary. He had a myocardial perfusion study in November 2017 which was unremarkable. Thank you for this consultation. Pls call with any further questions. LIOR EAGLE APRN Feb 23, 2018 10:10 JOELLE KING MD Feb 23, 2018 17:11
[2018-02-23] MEDS: IV NORMAL SALINE 1,000ML 1,000 ML IV SCH ×2 (10:14→20:13)
[2018-02-23] MEDS ORDERED: MAGNESIUM SULFATE 1GM 100 ML IV ONE (10:30)
[2018-02-23] MEDS ORDERED: IOHEXOL 300 MG/ML 75 ML VIAL. IV ONE (10:30)
[2018-02-23] MEDS: TPN PER PHARMACY MC PRN (11:00)
[2018-02-23 11:01] VITALS: BP 121/86
--- NOTE | 2018-02-23 11:03 | RAD ---
Chest, 2 views, 02/23/2018: HISTORY: Chest pain Comparison is made to a study from 02/04/2018. A right PICC has been inserted extending into the inferior aspect of the superior vena cava. The heart size is normal. No pulmonary infiltrate is seen. There is no evidence of pleural fluid or pneumothorax. An old rib fracture is present on the lower right. IMPRESSION: 1. The right PICC is in satisfactory position. 2. No acute cardiopulmonary abnormality is detected. Electronically signed by: Lico Busby MD (02/23/2018 11:00 AM) [facility]
--- NOTE | 2018-02-23 11:28 | RAD ---
Acute abdomen series, 02/22/2018: HISTORY: Abdominal pain, shortness of breath This study is just now being presented for review on a delayed basis. There are surgical clips in the abdomen. There is a tube in the upper abdomen which has been shown on a previous CT exam to lie in the pancreatic duct. Gas is present in large and small bowel in a nonspecific pattern. No free air seen in the abdomen. Pneumobilia is present, presumably on a postsurgical basis. Several left intrarenal calculi are again identified. The heart size and pulmonary vascularity are normal. No pulmonary infiltrate is seen. A right PICC extends into the superior vena cava. There is no evidence of pleural fluid. IMPRESSION: 1. Postsurgical change in the upper abdomen with associated pneumobilia. 2. Left intrarenal calculi. 3. No acute abdominal abnormality is detected. Electronically signed by: Lico Busby MD (02/23/2018 11:24 AM) [facility]
--- NOTE | 2018-02-23 11:56 | RAD ---
Chest CTA History: Chest pain, increased d-dimer Technique: After bolus of intravenous contrast, CT imaging was performed of the chest. Multiplanar reconstruction images to include MIP reconstruction images are submitted. Exposure: One or more of the following individualized dose reduction techniques were utilized for this examination: 1. Automated exposure control 2. Adjustment of the mA and/or kV according to patient size 3. Use of iterative reconstruction technique. Contrast: 75 cc Omnipaque 300 Comparison: None Findings: [ ] No pulmonary embolism is identified. Tubular ascending thoracic aorta is dilated about 3.9 cm. Aortic root is dilated about 4.4 cm. There is no intraluminal flap of the thoracic aorta. Ascending thoracic aorta is not significantly dilated at about 2.5 cm. There is some coronary calcification. There is no pericardial or pleural fluid, pneumothorax, lobar consolidation. Major airways are patent. No significantly enlarged nodes are identified of the chest. There is no abnormality of the thyroid gland. There is a right upper extremity PICC. There is pneumobilia. There is a pancreatic stent present as seen on February 04, 2018 CT abdomen exam, some persistent hazy density of about the visualized pancreas. Impression: 1. There is no evidence of pulmonary embolic disease. 2. 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 3. There is some coronary calcification. 4. As seen on previous CT abdomen exam, there is pneumobilia and pancreatic stent, some persistent hazy density about the visualized pancreas. Electronically signed by: Paco Tellez MD (02/23/2018 11:52 AM) [id number]
--- NOTE | 2018-02-23 12:45 | EKG ---
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
[2018-02-23] MEDS: HYDROmorphone 2 MG TABLET PO PRN ×2 (13:02→18:08)
[2018-02-23 15:30] VITALS: BP 126/76
[2018-02-23 19:25] VITALS: BP 141/87
[2018-02-23] MEDS: CETIRIZINE HCL 10 MG TABLET PO SCH (19:27)
[2018-02-23] MEDS: MIRTAZAPINE 15 MG TABLET PO SCH (19:28)
[2018-02-23] MEDS ORDERED: HYDROmorphone 2 MG TABLET PO ONE (19:30)
--- NOTE | 2018-02-23 20:12 | EKG ---
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
[2018-02-23] MEDS ORDERED: [UNRECOGNIZED DRUG - OTHER] IV SCH ×10 (22:00)
[2018-02-23] MEDS ORDERED: AMINO ACIDS IV SCH ×10 (22:00)
[2018-02-23] MEDS ORDERED: TOTAL PARENTERAL NUTRITION IV SCH ×10 (22:00)
[2018-02-23 22:52] VITALS: BP 118/78
--- NOTE | 2018-02-23 23:28 | PN ---
DATE: 02/23/2018 SUBJECTIVE: This is a 67-year-old gentleman, well known for his recent Whipple surgery with multiple complications. He is on continuous TPN feedings. He has still been having severe nausea, vomiting. He also came in with chest pain and he has low magnesium. We will monitor that as well. Otherwise, the patient's albumin is low at 2.5. Liver enzymes elevated. He says he is feeling a little better today. Cardiology is going to get an echo on him. Cardiac enzymes so far negative. PHYSICAL EXAMINATION: VITAL SIGNS: Blood pressure 140/90, respiratory rate 20, pulse 90, afebrile. GENERAL: The patient is alert and oriented. LUNGS: Diminished throughout, but clear. CARDIOVASCULAR: Regular sinus rhythm. ABDOMEN: Soft, diffuse tenderness, tube feeding going in through gastrostomy. He is doing relatively well. Wound healing well from his previous surgery. In any case, the patient is resting fairly comfortably. IMPRESSION: Chest pain, rule out cardiac in nature, postop from Whipple procedure with complications, [id number] protein malnutrition, low magnesium, elevated liver enzymes, general failure to thrive. JOSE R LEWIS MD DR: SHOLA/phyllis JOB#: [id number] / [id number]
[2018-02-24] MEDS: IV NORMAL SALINE 1,000ML 1,000 ML IV SCH (04:30)
[2018-02-24 05:35] VITALS: BP 135/85
[2018-02-24] MEDS: METOCLOPRAMIDE 10 MG TABLET PO SCH (06:17)
[2018-02-24 06:42] LABS: CALCIUM 7.8 mg/dL (8.5-10.1); CREATININE 0.5 mg/dL (0.7-1.3); GFR 165.4; POTASSIUM 3.5 mmol/L (3.5-5.1)
[2018-02-24] MEDS: ONDANSETRON PF 4 MG/2 ML VIAL. IV PRN (08:20)
[2018-02-24] MEDS: LIPASE/PROTEAS/AMYLAS 10/32/42 CAPSULE.DR. PO SCH (08:25)
[2018-02-24] MEDS: RIVAROXABAN 15 MG TABLET. PO SCH (08:25)
[2018-02-24] MEDS: FAMOTIDINE 20 MG TABLET PO SCH (08:25)
[2018-02-24] MEDS: DOCUSATE SODIUM 100 MG CAPSULE PO SCH (08:25)
[2018-02-24] MEDS: PANTOPRAZOLE 40 MG TABLET. PO SCH (08:25)
--- NOTE | 2018-02-24 09:20 | PDOC ---
PROGRESS NOTES Objective Vital Signs Date Time Temp Pulse Resp B/P (MAP) Pulse Ox O2 Delivery O2 Flow Rate FiO2 02/24/18 08:50 Room Air 02/24/18 05:35 98.2 88 20 135/85 (102) 98 Intake and Output 02/24/18 07:00 Intake Total 3562 ml Output Total 2300 ml Balance 1262 ml Intake Oral 100 ml IV Total 3462 ml Output Urine Total 2300 ml Review of Relevant I have reviewed the following items cassia (where applicable) has been applied. Labs Laboratory Tests Test 02/22/18 13:35 02/22/18 17:35 02/23/18 05:55 02/24/18 06:15 White Blood Count 6.4 x10^3/uL (4.0-11.0) 6.2 x10^3/uL (4.0-11.0) Red Blood Count 4.03 x10^6/uL (4.30-5.70) 4.33 x10^6/uL (4.30-5.70) Hemoglobin 11.5 g/dL (13.0-17.5) 12.3 g/dL (13.0-17.5) Hematocrit 35.0 % (39.0-53.0) 37.3 % (39.0-53.0) Mean Corpuscular Volume 87 fL (79-100) 86 fL (79-100) Mean Corpuscular Hemoglobin 29 pg (25-35) 28 pg (25-35) Mean Corpuscular Hemoglobin Concent 33 g/dL (31-37) 33 g/dL (31-37) Red Cell Distribution Width 15.6 % (11.5-14.5) 16.0 % (11.5-14.5) Platelet Count 206 x10^3/uL (140-400) 238 x10^3/uL (140-400) Neutrophils (%) (Auto) 69 % (31-73) 61 % (31-73) Lymphocytes (%) (Auto) 18 % (24-48) 24 % (24-48) Monocytes (%) (Auto) 9 % (0-9) 8 % (0-9) Eosinophils (%) (Auto) 4 % (0-3) 6 % (0-3) Basophils (%) (Auto) 1 % (0-3) 1 % (0-3) Neutrophils # (Auto) 4.4 x10^3uL (1.8-7.7) 3.8 x10^3uL (1.8-7.7) Lymphocytes # (Auto) 1.2 x10^3/uL (1.0-4.8) 1.5 x10^3/uL (1.0-4.8) Monocytes # (Auto) 0.6 x10^3/uL (0.0-1.1) 0.5 x10^3/uL (0.0-1.1) Eosinophils # (Auto) 0.2 x10^3/uL (0.0-0.7) 0.4 x10^3/uL (0.0-0.7) Basophils # (Auto) 0.0 x10^3/uL (0.0-0.2) 0.1 x10^3/uL (0.0-0.2) D-Dimer (Shelley) 1.04 mg/L (0.00-0.50) Sodium Level 136 mmol/L (136-145) 138 mmol/L (136-145) 141 mmol/L (136-145) Potassium Level 4.5 mmol/L (3.5-5.1) 4.0 mmol/L (3.5-5.1) 3.5 mmol/L (3.5-5.1) Chloride Level 106 mmol/L (98-107) 106 mmol/L (98-107) 110 mmol/L (98-107) Carbon Dioxide Level 22 mmol/L (21-32) 23 mmol/L (21-32) 22 mmol/L (21-32) Anion Gap 8 (6-14) 9 (6-14) 9 (6-14) Blood Urea Nitrogen 24 mg/dL (8-26) 19 mg/dL (8-26) 15 mg/dL (8-26) Creatinine 0.6 mg/dL (0.7-1.3) 0.6 mg/dL (0.7-1.3) 0.5 mg/dL (0.7-1.3) Estimated GFR (Cockcroft-Gault) 134.0 134.0 165.4 BUN/Creatinine Ratio 40 (6-20) Glucose Level 89 mg/dL (70-99) 97 mg/dL (70-99) 96 mg/dL (70-99) Lactic Acid Level 0.7 mmol/L (0.4-2.0) Calcium Level 8.9 mg/dL (8.5-10.1) 9.0 mg/dL (8.5-10.1) 7.8 mg/dL (8.5-10.1) Total Bilirubin 0.7 mg/dL (0.2-1.0) 0.7 mg/dL (0.2-1.0) Aspartate Amino Transf (AST/SGOT) 31 U/L (15-37) 32 U/L (15-37) Alanine Aminotransferase (ALT/SGPT) 62 U/L (16-63) 65 U/L (16-63) Alkaline Phosphatase 261 U/L (46-116) 265 U/L (46-116) Creatine Kinase < 15 U/L (39-308) Troponin I Quantitative < 0.017 ng/mL (0-0.055) < 0.017 ng/mL (0-0.055) Total Protein 6.4 g/dL (6.4-8.2) 6.9 g/dL (6.4-8.2) Albumin 2.4 g/dL (3.4-5.0) 2.5 g/dL (3.4-5.0) Albumin/Globulin Ratio 0.6 (1.0-1.7) Prealbumin 17.5 mg/dL (16.0-42.0) Urine Collection Type Unknown Urine Color Yellow Urine Clarity Clear Urine pH 5.5 Urine Specific [place] 1.020 Urine Protein Neg (NEG-TRACE) Urine Glucose (UA) Neg mg/dL (NEG) Urine Ketones (Stick) Neg mg/dL (NEG) Urine Blood Neg (NEG) Urine Nitrite Neg (NEG) Urine Bilirubin Neg (NEG) Urine Urobilinogen Dipstick 1 mg/dL (0.2 mg/dL) Urine Leukocyte Esterase Neg (NEG) Urine RBC 0 /HPF (0-2) Urine WBC Rare /HPF (0-4) Urine Squamous Epithelial Cells Occ /LPF Urine Bacteria Few /HPF (0-FEW) Urine Hyaline Casts Occ /HPF Urine Mucus Mod /LPF Magnesium Level 1.7 mg/dL (1.8-2.4) 1.6 mg/dL (1.8-2.4) Direct Bilirubin 0.2 mg/dL (0.0-0.2) Amylase Level 108 U/L (25-115) Lipase 746 U/L (73-393) Medications Current Medications Influenza Virus Vaccine (Afluria Trivalent [id number] Syringe) 0.5 ml ONCE ONCE VAX IM Last administered on 02/23/18 11:37; Start 02/23/18 at 09:00; Stop at 09:01; Status DC Guaifenesin (Mucinex Er) 600 mg BID PO Last administered on 02/24/18 08:26; Start 02/22/18 at 21:00 Amylase/Lipase/ Protease (Zenpep 10,000) 1 cap TIDWMEALS PO Last administered on 02/24/18 08:25; Start 02/22/18 at 17:00 Cetirizine HCl (ZyrTEC) 10 mg QHS PO Last administered on 02/23/18 19:27; Start 02/22/18 at 21:00 Docusate Sodium (Colace) 100 mg DAILY PO Last administered on 02/24/18 08:25; Start 02/22/18 at 15:00 Famotidine (Pepcid) 20 mg BID PO Last administered on 02/24/18 08:25; Start at 21:00 Hydromorphone HCl (Dilaudid) 2 mg PRN QID PRN PO PAIN Last administered on 02/23 18:08; Start 02/22/18 at 13:15 Metoclopramide HCl (Reglan) 10 mg QIDACHS PO Last administered on 02/24/18 06: 17; Start 02/22/18 at 16:30 Mirtazapine (Remeron) 15 mg QHS PO Last administered on 02/23/18 19:28; Start 02/22/18 at 21:00 Pantoprazole Sodium (Protonix) 40 mg DAILYAC PO Last administered on 02/24/18 08:25; Start 02/23/18 at 07:30 Rivaroxaban (Xarelto) 15 mg BIDWMEALS PO Last administered on 02/24/18 08:25; Start 02/22/18 at 17:00 Non-Formulary Medication ([Tpn Per Pharmacy] ) 1 each PRN DAILY PRN MC SEE COMMENTS; Start 02/22/18 at 13:00; Status UNV Info (Tpn Per Pharmacy) 1 each PRN DAILY PRN MC SEE COMMENTS Last administered on 02/23/18at 11:00; Start 02/22/18 at 13:30 Sodium Chloride 90 meq/Sodium Phosphate 15 mmol/ Potassium Chloride 60 meq/ Potassium Phosphate 15 mmol/ Magnesium Sulfate 15 meq/ Multivitamins/ Minerals 10 ml/ Chromium/Copper/ Manganese/Seleni/ Zn 1 ml/Total Parenteral Nutrition/ Amino Acids/Dextrose/ Fat Emulsion Intravenous 1,860 ml @ 77.5 mls/hr TPN CONT IV Last administered on 02/22/18at 19:57; Start 02/22/18 at 20:00; Stop at 21:59; Status DC Ondansetron HCl (Zofran) 4 mg PRN Q6HRS PRN IV NAUSEA/VOMITING Last administered on 02/24/18at 08:20; Start 02/23/18 at 08:30 Sodium Chloride 1,000 ml @ 100 mls/hr Q10H IV Last administered on 02/23/18at 20:13; Start 02/23/18 at 08:30 Iohexol (Omnipaque 300 Mg/ml) 75 ml 1X ONCE IV Last administered on 02/23/18at 11:12; Start 02/23/18 at 10:30; Stop 02/23/18 at 10:31; Status DC Magnesium Sulfate 100 ml @ 100 mls/hr 1X ONCE IV Last administered on at 11:30; Start 02/23/18 at 10:30; Stop 02/23/18 at 11:29; Status DC Sodium Chloride 90 meq/Sodium Phosphate 15 mmol/ Potassium Chloride 60 meq/ Potassium Phosphate 15 mmol/ Magnesium Sulfate 15 meq/ Multivitamins/ Minerals 10 ml/ Chromium/Copper/ Manganese/Seleni/ Zn 1 ml/Total Parenteral Nutrition/ Amino Acids/Dextrose/ Fat Emulsion Intravenous 1,860 ml @ 77.5 mls/hr TPN CONT IV Last administered on 02/23/18at 20:13; Start 02/23/18 at 22:00; Stop at 21:59 Hydromorphone HCl (Dilaudid) 2 mg 1X ONCE PO Last administered on 02/23/18at 19 :27; Start 02/23/18 at 19:30; Stop 02/23/18 at 19:31; Status DC Active Scripts Active [Tpn Per Pharmacy] 1 EACH Each 1 Each MC PRN DAILY PRN on 16hrs of 8hrs Reported [Tpn] Famotidine 20 Mg Tablet 1 Tab PO BID Zenpep Dr 10,000 Units Capsule (Lipase/Protease/Amylase) 1 Each Capsule.dr 1 Each PO TIDWMEALS Colace (Docusate Sodium) 100 Mg Capsule 1 Cap PO DAILY Dilaudid (Hydromorphone Hcl) 4 Mg Tablet 2 Tab PO QID PRN Xarelto (Rivaroxaban) 15 Mg Tablet 15 Mg PO BIDWMEALS Mucinex (Guaifenesin) 600 Mg Tablet.er 1 Tab PO BID LAST DOSE GIVEN: DATE: TIME: NEXT DOSE DUE: DATE: TIME: Mirtazapine 15 Mg Tablet 1 Tab PO QHS LAST DOSE GIVEN: DATE: YESTERDAY TIME: AT BEDTIME NEXT DOSE DUE: DATE: TODAY TIME: AT BEDTIME Metoclopramide Hcl 10 Mg Tablet 10 Mg PO QIDACHS LAST DOSE GIVEN: DATE: TIME: NEXT DOSE DUE: DATE: TIME: Zyrtec (Cetirizine Hcl) 10 Mg Tablet 1 Tab PO HS LAST DOSE GIVEN: DATE: TIME: NEXT DOSE DUE: DATE: TIME: Omeprazole 40 Mg Capsule.dr 40 Mg PO BID LAST DOSE GIVEN: DATE: TODAY TIME: AM NEXT DOSE DUE: DATE: TODAY TIME: PM Vitals/I & O Vital Sign - Last 24 Hours 02/23/18 02/23/18 02/23/18 02/23/18 11:01 13:02 15:30 18:08 Temp 98.7 99.9 Pulse 97 109 Resp 18 18 18 B/P (MAP) 121/86 (98) 126/76 (93) Pulse Ox 98 98 98 O2 Delivery Room Air Room Air Room Air Room Air 02/23/18 02/23/18 02/23/18 02/23/18 1918 19:25 19:27 20:00 Temp 98.4 Pulse 104 Resp 18 18 B/P (MAP) 141/87 (105) Pulse Ox 98 96 96 O2 Delivery Room Air Room Air Room Air Room Air 902/23/18 02/24/18 02/24/18 20:47 22:52 05:35 08:50 Temp 99.2 98.2 Pulse 86 88 Resp 18 18 20 B/P (MAP) 118/78 (91) 135/85 (102) Pulse Ox 96 97 98 O2 Delivery Room Air Room Air Room Air Room Air Intake and Output 02/23/18 02/23/18 02/24/18 15:00 23:00 07:00 Intake Total 1300 ml 2262 ml Output Total 1300 ml 1000 ml Balance 0 ml 1262 ml LIOR EAGLE [employer] Feb 24, 2018 09:19
--- NOTE | 2018-02-24 11:40 | PN ---
DATE: 02/24/2018 SUBJECTIVE: The patient resting fairly comfortably. The patient was admitted for substernal chest pain, radiating. The patient was worked up over by Cardiology. They did an echo and official report says it looks good. The patient had a CTA of his chest. 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 He will follow up with his GI specialist down at for this. In any case, the patient made good progress. Cardiac enzymes were negative, however it did show continued problems with chronic pancreatitis as well as low magnesium and he has severe protein malnutrition with his other problems as well. In any case, his D-dimer was elevated, but as noted the CTA was negative for problems there. We will continue to monitor him and have him get back in to his doctors down there at . IMPRESSION: Severe protein malnutrition, chest pain, acute on top of chronic pancreatitis, postop Whipple procedure. JOSE R LEWIS MD DR: SHOLA/phyllis JOB#: [id number] / [id number]
--- NOTE | 2018-02-24 13:05 | CARD ---
MR#: [id number] Date of Study: 02/24/2018 Ordering Physician: LIOR EAGLE, Referring Physician: JOSE R LEWIS, Tech: Janae Renner APPROVED REPORT EXAM: Two-dimensional and M-mode echocardiogram with Doppler and color Doppler. Other Information Quality : AverageHR: 84bpm INDICATION Chest Pain 2D DIMENSIONS RVDd2.8 (2.9-3.5cm)Left Atrium(2D)3.2 (1.6-4.0cm) IVSd1.2 (0.7-1.1cm)Aortic Root(2D)3.5 (2.0-3.7cm) LVDd4.8 (3.9-5.9cm)LVOT Diameter2.1 (1.8-2.4cm) PWd1.0 (0.7-1.1cm)LVDs2.2 (2.5-4.0cm) FS (%) 54.4 %SV91.4 ml LVEF(%)85.1 (>50%) Aortic Valve AoV Peak Manuel.107.6cm/sAoV VTI23.0cm AO Peak GR.4.6mmHgLVOT Peak Manuel.83.3cm/s LVOT VTI 19.22cmAO Mean GR.3mmHg ANGEL LUIS (VMAX)2.52gl7NJG (VTI)2.95cm2 Mitral Valve MV E [place]87.2cm/sMV DECEL [id number] MV A Aajwuheb29.1cm/sE/A Ratio1.2 Pulmonary Valve PV Peak [place]ig[place]51.4cm/sPV Peak Grad.3mmHg Tricuspid Valve TR P. Iefkeetn731sj/sRAP UMLVXQPY6jgKl TR Peak Gr.74uvOhGYAB46foKa Pulmonary Vein S1 Nzqtlclb90.8cm/sD2 Zrcfkulz41.7cm/s LEFT VENTRICLE The left ventricle is normal size. There is normal left ventricular wall thickness. The left ventricu lar systolic function is normal. The Ejection Fraction is 65-70%. There is normal LV segmental wall m otion. RIGHT VENTRICLE The right ventricle is normal size. There is normal right ventricular wall thickness. The right ventr icular systolic function is normal. ATRIA The left atrium size is normal. The right atrium size is normal. The interatrial septum is intact wit h no evidence for an atrial septal defect or patent foramen ovale as noted on 2-D or Doppler imaging. AORTIC VALVE The aortic valve is normal in structure and function. Doppler and Color Flow revealed no significant aortic regurgitation. There is no significant aortic valvular stenosis. MITRAL VALVE The mitral valve is normal in structure and function. There is no mitral valve stenosis. Doppler and Color Flow revealed trace mitral regurgitation. TRICUSPID VALVE The tricuspid valve is normal in structure and function. Doppler and Color Flow revealed no tricuspid valve regurgitation noted. There is no tricuspid valve stenosis. PULMONIC VALVE The pulmonic valve is not well visualized. Doppler and Color Flow revealed no pulmonic valvular regur gitation. GREAT VESSELS The aortic root is normal in size. PERICARDIAL EFFUSION There is no evidence of significant pericardial effusion. Critical Notification Critical Value: No <Conclusion> The left ventricular systolic function is normal. The Ejection Fraction is 65-70%. There is normal LV segmental wall motion. Doppler and Color Flow revealed trace mitral regurgitation. There is no evidence of significant pericardial effusion. Signed by : Jake Hatfield, Electronically Approved : 02/24/2018 13:04:22
== END 2018-02-24 10:30 | disposition home health service (06) | DRG 438 ==
LOC: 1 SOUTH 11:23
PROVIDERS: ADMIT Family Medicine; ATTEND Family Medicine
DX: K85.90 Acute pancreatitis without necrosis or infection, unspecified (principal); E43 Unspecified severe protein-calorie malnutrition; I10 Essential (primary) hypertension; R07.89 Other chest pain; K86.1 Other chronic pancreatitis; E78.5 Hyperlipidemia, unspecified; I77.810 Thoracic aortic ectasia; R62.7 Adult failure to thrive; K21.9 Gastro-esophageal reflux disease without esophagitis; N20.0 Calculus of kidney; Z80.0 Family history of malignant neoplasm of digestive organs; Z86.010 Personal history of colon polyps; Z82.49 Family history of ischemic heart disease and other diseases of the circulatory system; Z68.20 Body mass index [BMI] 20.0-20.9, adult; Z90.49 Acquired absence of other specified parts of digestive tract; Z90.411 Acquired partial absence of pancreas; Z79.899 Other long term (current) drug therapy; Z23 Encounter for immunization
CPT/HCPCS: 36415; 71046; 71275; 74022; 80048; 80053; 80076; 81001; 82150; 82550; 83605; 83690; 83735; 84134; 84484; 85025; 85379; 90471; 90756; 93005; 93306; J2405; J3475; J3490; J8597; Q9967; J7030; Q2035

== ENCOUNTER → 2018-03-02 | Outpatient (CLI) | payer MEDICARE, OTHER ==
[~2018-03-02] MED LIST changes: +TPN
[2018-03-02 08:32] VITALS: BP 119/88
[2018-03-02 08:57] LABS: BASO # 0.1 x10^3/uL (0.0-0.2); BASO % 1 % (0-3); EOS # 0.4 x10^3/uL (0.0-0.7); EOS % 5 % (0-3); HEMATOCRIT 36.9 % (39.0-53.0); HEMOGLOBIN 12.2 g/dL (13.0-17.5); LYMPH # 1.3 x10^3/uL (1.0-4.8); LYMPH % 18 % (24-48); MEAN CORPUSCULAR HEMOGLOBIN 28 pg (25-35); MEAN CORPUSCULAR HGB CONC 33 g/dL (31-37); MEAN CORPUSCULAR VOLUME 85 fL (79-100); MONO # 0.5 x10^3/uL (0.0-1.1); MONO % 7 % (0-9); NEUT # 5.2 x10^3uL (1.8-7.7); NEUT % 69 % (31-73); PLATELET COUNT 276 x10^3/uL (140-400); RED BLOOD COUNT 4.33 x10^6/uL (4.30-5.70); RED CELL DISTRIBUTION WIDTH 15.3 % (11.5-14.5); WHITE BLOOD COUNT 7.5 x10^3/uL (4.0-11.0)
[2018-03-02 09:08] LABS: ALBUMIN 2.5 g/dL (3.4-5.0); ALBUMIN/GLOBULIN RATIO 0.6 (1.0-1.7); CALCIUM 8.9 mg/dL (8.5-10.1); CREATININE 0.6 mg/dL (0.7-1.3); POTASSIUM 4.2 mmol/L (3.5-5.1); TOTAL BILIRUBIN 0.5 mg/dL (0.2-1.0); TOTAL PROTEIN 6.8 g/dL (6.4-8.2)
--- NOTE | 2018-03-02 10:07 | NUR ---
Pt here for outpatient PICC line flush and lab draw and ambulated to room 111 accompanied by his . Pt has DL PICC line to right upper arm. PICC line flushed with 10cc NS, labs drawn, line flushed with 20cc NS, then capped. Second line flushed with 10cc NS, then capped. Blood return noted in both lines. Pt ambulated from the unit.
== END | disposition home or self-care (01) ==
LOC: OPINF 03-01 17:19
PROVIDERS: ATTEND Family Medicine
DX: Z45.2 Encounter for adjustment and management of vascular access device (principal); I12.9 Hypertensive chronic kidney disease with stage 1 through stage 4 chronic kidney disease, or unspecified chronic kidney disease; N18.3 Chronic kidney disease, stage 3 (moderate); D63.8 Anemia in other chronic diseases classified elsewhere; I25.10 Atherosclerotic heart disease of native coronary artery without angina pectoris; J44.9 Chronic obstructive pulmonary disease, unspecified; E78.5 Hyperlipidemia, unspecified; E78.00 Pure hypercholesterolemia, unspecified; Z79.899 Other long term (current) drug therapy; Z68.20 Body mass index [BMI] 20.0-20.9, adult; Z85.038 Personal history of other malignant neoplasm of large intestine; Z85.07 Personal history of malignant neoplasm of pancreas; Z86.718 Personal history of other venous thrombosis and embolism
CPT/HCPCS: 36415; 36592; 80053; 82607; 82728; 84443; 85025; 96523

== ENCOUNTER → 2018-03-07 | Outpatient (CLI) | payer MEDICARE, OTHER ==
[2018-03-02 08:32] VITALS: BP 119/88
[2018-03-07 09:49] LABS: BASO # 0.1 x10^3/uL (0.0-0.2); BASO % 1 % (0-3); EOS # 0.2 x10^3/uL (0.0-0.7); EOS % 3 % (0-3); HEMATOCRIT 36.6 % (39.0-53.0); LYMPH # 1.2 x10^3/uL (1.0-4.8); LYMPH % 16 % (24-48); MEAN CORPUSCULAR HEMOGLOBIN 28 pg (25-35); MEAN CORPUSCULAR HGB CONC 33 g/dL (31-37); MEAN CORPUSCULAR VOLUME 85 fL (79-100); MONO # 0.5 x10^3/uL (0.0-1.1); MONO % 7 % (0-9); NEUT # 5.4 x10^3uL (1.8-7.7); NEUT % 72 % (31-73); PLATELET COUNT 260 x10^3/uL (140-400); RED CELL DISTRIBUTION WIDTH 15.4 % (11.5-14.5); WHITE BLOOD COUNT 7.5 x10^3/uL (4.0-11.0)
[2018-03-07 10:02] LABS: ALBUMIN 2.6 g/dL (3.4-5.0); ALBUMIN/GLOBULIN RATIO 0.7 (1.0-1.7); CALCIUM 8.7 mg/dL (8.5-10.1); CREATININE 0.6 mg/dL (0.7-1.3); MAGNESIUM 1.9 mg/dL (1.8-2.4); PHOSPHORUS 3.7 mg/dL (2.6-4.7); POTASSIUM 4.4 mmol/L (3.5-5.1); TOTAL BILIRUBIN 0.7 mg/dL (0.2-1.0); TOTAL PROTEIN 6.2 g/dL (6.4-8.2)
== END | disposition home or self-care (01) ==
LOC: SPEC 08:54
PROVIDERS: ATTEND Family Medicine
DX: Z76.0 Encounter for issue of repeat prescription (principal); K86.1 Other chronic pancreatitis; Z79.899 Other long term (current) drug therapy
CPT/HCPCS: 36415; 80053; 83735; 84100; 85025

== ENCOUNTER → 2018-03-23 | Outpatient (CLI) | payer MEDICARE, OTHER ==
[2018-03-21 15:39] VITALS: BP 111/81
[~2018-03-23] MED LIST changes: +DOXY100T PO; +LACT1CAP19 PO; +ONDA4TAB10 PO; +ONDA4TAB11 PO
[2018-03-23 15:15] LABS: BASO # 0.1 x10^3/uL (0.0-0.2); BASO % 1 % (0-3); EOS # 0.1 x10^3/uL (0.0-0.7); EOS % 1 % (0-3); HEMATOCRIT 35.6 % (39.0-53.0); HEMOGLOBIN 11.7 g/dL (13.0-17.5); LYMPH # 1.2 x10^3/uL (1.0-4.8); LYMPH % 12 % (24-48); MEAN CORPUSCULAR HEMOGLOBIN 27 pg (25-35); MEAN CORPUSCULAR HGB CONC 33 g/dL (31-37); MEAN CORPUSCULAR VOLUME 83 fL (79-100); MONO # 0.7 x10^3/uL (0.0-1.1); MONO % 7 % (0-9); NEUT # 8.1 x10^3uL (1.8-7.7); NEUT % 80 % (31-73); PLATELET COUNT 301 x10^3/uL (140-400); RED BLOOD COUNT 4.29 x10^6/uL (4.30-5.70); RED CELL DISTRIBUTION WIDTH 15.6 % (11.5-14.5); WHITE BLOOD COUNT 10.2 x10^3/uL (4.0-11.0)
[2018-03-23 15:34] LABS: ALBUMIN 2.4 g/dL (3.4-5.0); ALBUMIN/GLOBULIN RATIO 0.6 (1.0-1.7); CALCIUM 8.6 mg/dL (8.5-10.1); CREATININE 0.6 mg/dL (0.7-1.3); MAGNESIUM 1.8 mg/dL (1.8-2.4); PHOSPHORUS 3.3 mg/dL (2.6-4.7); POTASSIUM 4.3 mmol/L (3.5-5.1); TOTAL BILIRUBIN 0.5 mg/dL (0.2-1.0); TOTAL PROTEIN 6.6 g/dL (6.4-8.2)
--- NOTE | 2018-03-26 01:40 | DS ---
DATE OF DISCHARGE: HOSPITAL COURSE: A 67-year-old male patient seen initially in the Emergency Room complaining of chest pain, sharp pain along the left side of his chest radiating into his neck and down his left arm. The patient also associated with some shortness of breath. The patient has multiple risk factors. He was admitted for rule out NE protocol while in the hospital as blood cultures were obtained. The patient was also on continuous feeding from his previous pancreatic Whipple procedures. In any case, the cardiac enzymes were negative; however, positive blood cultures were called in; and since he already has a central line, the patient was started on vancomycin and continued to be treated as an outpatient. He will receive IV antibiotic therapy as an outpatient. IMPRESSION: 1. Bacteremia. 2. History of pancreatic cancer. 3. Sepsis. 4. Post Whipple procedure. 5. Chronic malnutrition. 6. Moderate to severe protein malnutrition. 7. Elevated liver enzymes. PLAN: Continue to monitor the patient as an outpatient, make further evaluation on him as indicated. JOSE R LEWIS MD DR: SHOLA/phyllis JOB#: [id number] / [id number]
== END | disposition home or self-care (01) ==
LOC: LAB 14:17
PROVIDERS: ATTEND Family Medicine
DX: E45 Retarded development following protein-calorie malnutrition (principal); E43 Unspecified severe protein-calorie malnutrition; R62.7 Adult failure to thrive
CPT/HCPCS: 36415; 80053; 83735; 84100; 85025

== ENCOUNTER 2018-04-11 11:47 | Emergency (ER) | payer MEDICARE, OTHER ==
[~2018-04-11] VITALS: Ht 182.9 cm; Wt 67.7 kg
[2018-04-11] MEDS ORDERED: IV NORMAL SALINE 1,000ML 1,000 ML IV SCH (12:13)
[2018-04-11 12:44] LABS: BASO % 0 % (0-3); EOS % 0 % (0-3); HEMATOCRIT 34.8 % (39.0-53.0); HEMOGLOBIN 11.1 g/dL (13.0-17.5); LYMPH % 7 % (24-48); MEAN CORPUSCULAR HEMOGLOBIN 27 pg (25-35); MEAN CORPUSCULAR HGB CONC 32 g/dL (31-37); MEAN CORPUSCULAR VOLUME 84 fL (79-100); MONO # 0.5 x10^3/uL (0.0-1.1); MONO % 4 % (0-9); NEUT # 13.2 x10^3uL (1.8-7.7); NEUT % 90 % (31-73); PLATELET COUNT 275 x10^3/uL (140-400); RED BLOOD COUNT 4.17 x10^6/uL (4.30-5.70); RED CELL DISTRIBUTION WIDTH 17.7 % (11.5-14.5); WHITE BLOOD COUNT 14.8 x10^3/uL (4.0-11.0)
[2018-04-11] MEDS ORDERED: ONDANSETRON PF 4 MG/2 ML VIAL. IV ONE ×2 (12:45→17:15)
--- NOTE | 2018-04-11 12:54 | PHYS DOC ---
Past History Past Medical History: DVT, GERD, High Cholesterol, Kidney Stones, Pancreatitis , Other Past Surgical History: Other Additional Past Surgical Histo: Whipple surgery Smoking: Non-smoker Alcohol Use: None Drug Use: None Adult General Chief Complaint Chief Complaint: SHORTNESS OF BREATH [facility] HPI Patient is a 67 year old male with history of complicated Whipple surgery on home intravenous parenteral therapy complaining of episodes of nausea and vomiting for the last 3 days and shortness of breath and upper abdominal pain. Patient complaining of 2 or 3 episodes of nonbloody vomiting for the last 3 days and constant upper abdominal sharp pain with radiation to his back that did not get better with 8 mg of oral Dilaudid 3 times a day with the last dose at 1 AM today. Patient had recent hospitalization with chest pain. Patient denies diarrhea, fever and chills, focal neuro deficit, urinary symptom, palpitation and dizziness. Review of Systems Review of Systems Constitutional: Denies fever or chills, reports generalized weakness [] Eyes: Denies change in visual acuity, redness, or eye pain [] HENT: Denies nasal congestion or sore throat [] Respiratory: Denies cough, reports shortness of breath [] Cardiovascular: No additional information not addressed in HPI [] GI: Reports abdominal pain, nausea, vomiting, denies bloody stools or diarrhea [ ] : Denies dysuria or hematuria [] Musculoskeletal: Denies back pain or joint pain [] Integument: Denies rash or skin lesions [] Neurologic: Denies headache, focal weakness or sensory changes [] Endocrine: Denies polyuria or polydipsia [] All other systems were reviewed and found to be within normal limits, except as documented in this note. Current Medications Current Medications Current Medications Medications (Trade) Dose Ordered Sig/Omega Start Time Stop Time Status Last Admin Dose Admin Ondansetron HCl (Zofran) 4 mg 1X ONCE 04/11/18 12:45 04/11/18 12:46 04/11/18 12:26 4 MG Sodium Chloride 1,000 ml @ 1,000 mls/hr Q1H 04/11/18 12:13 04/11/18 13:12 04/11/18 12:26 1,000 MLS/HR Allergies Allergies Allergies Coded Allergies Type Severity Reaction Last Updated Verified No Known Drug Allergies 10/24/17 No Physical Exam Physical Exam Constitutional: Well developed, malnourished, mild distress, non-toxic appearance. [] HENT: Normocephalic, atraumatic, bilateral external ears normal, oropharynx dry , no oral exudates, nose normal. [] Eyes: PERRLA, EOMI, conjunctiva normal, no discharge, jaundice. [] Neck: Normal range of motion, no tenderness, supple, no stridor. [] Cardiovascular:Heart rate regular rhythm, no murmur [] Lungs & Thorax: Bilateral breath sounds clear to auscultation [] Abdomen: Bowel sounds normal, soft, no tenderness, no masses, no pulsatile masses. [] Skin: Warm, dry, no erythema, no rash. [] Back: No tenderness, no CVA tenderness. [] Extremities: No tenderness, no cyanosis, no clubbing, ROM intact, no edema. [] Neurologic: Alert and oriented X 3, normal motor function, normal sensory function, no focal deficits noted. [] Psychologic: Affect anxious, judgement normal, mood normal. [] Current Patient Data Vital Signs Vital Signs Date Time Temp Pulse Resp B/P (MAP) Pulse Ox O2 Delivery O2 Flow Rate FiO2 04/11/18 11:50 97.5 92 18 100 Room Air EKG EKG EKG interpreted by me. EKG at 1202 showed normal sinus rhythm at rate of 75, right salas axis, no acute ST and T-wave abnormalities[] Radiology/Procedures Radiology/Procedures [address] [address] IMAGING REPORT Signed PATIENT: KIRSTEN LEVY ACCOUNT: [id number] : 1950 LOCATION: ER AGE: 67 SEX: M EXAM STATUS: REG ER ORD. PHYSICIAN: JENNIFER JIMENEZ MD REASON: SOB PROCEDURE: PORTABLE CHEST 1V Single view of the chest. 04/11/2018 12:46 PM Indication: SHORT OF BREATH Comparison: CT chest March 20, 2018 Findings: Mild patchy opacities seen in the right lung base. This is similar location to the prior nodular infiltrates identified on prior CT exam. No pneumothorax, pleural effusion, or other focal lesion is seen. Heart size is normal. Right upper extremity PICC line tip at the cavoatrial junction is stable. IMPRESSION: Patchy infiltrate in the right lung base, similar to findings on prior CT scan. Follow up to ensure complete resolution recommended. Electronically signed by: Jose Luis Collier MD (04/11/2018 1:33 PM) [id number] DICTATED AND SIGNED BY: JOSE LUIS COLLIER MD DATE: 04/11/18 1336 CC: JOSE R LEWIS MD; JENNIFER JIMENEZ MD ~ Course & Med Decision Making Course & Med Decision Making Pertinent Labs and Imaging studies reviewed. (See chart for details) Evaluation of patient in ER showed 67-year-old male patient with history of complicated Whipple surgery in June 2017 presented to ER with complaining of nausea and vomiting and shortness of for 3 days. Have blood pressure of 102/58 at arrival to ER that decreased to 88 with supine position. Patient did not have fever or tachycardia and treated with IV fluid. Lactic acid was 3.9 and Zosyn and vancomycin was started. Blood culture and pH PICC line catheter culture is pending. Dr. Lewis informed at 1315 and agreed with transferring patient to [facility]. Dr. Mclaughlin accepted transfer to [facility] at 1420. Patient and his informed about plan of care and needs for transfer. Patient had mild elevation of d-dimer but currently taking Xarelto and does not have tachypnea or tachycardia and hypoxia therefore evaluation for PE was not obtain. Patient treated with 2 L of IV fluids and blood pressure stayed above 90 without tachycardia or confusion. Patient agreed to not have Dilaudid because of hypotension. Dragon Disclaimer Dragon Disclaimer This electronic medical record was generated, in whole or in part, using a voice recognition dictation system. Departure Departure: Impression: Primary Impression: Sepsis Additional Impressions: Nausea and vomiting Shortness of breath Elevated liver function tests Hypotension Disposition: 05 XFER OTHER ([facility] at 1421) Condition: GUARDED Referrals: JOSE R LEWIS MD (PCP) Critical Care Time Critical care time was 80 minutes exclusive of procedures. Problem Qualifiers JENNIFER JIMENEZ MD Apr 11, 2018 12:54
[2018-04-11 13:02] LABS: ALBUMIN 2.2 g/dL (3.4-5.0); ALBUMIN/GLOBULIN RATIO 0.5 (1.0-1.7); CREATININE 1.2 mg/dL (0.7-1.3); GFR 60.2; MAGNESIUM 1.7 mg/dL (1.8-2.4); POTASSIUM 3.9 mmol/L (3.5-5.1); TOTAL PROTEIN 6.4 g/dL (6.4-8.2)
[2018-04-11 13:04] LABS: TOTAL BILIRUBIN 1.8 mg/dL (0.2-1.0)
[2018-04-11] MEDS ORDERED: IV NORMAL SALINE 50ML 50 ML ONE (13:30)
[2018-04-11] MEDS ORDERED: PIPERACILLIN/TAZOBACTAM 3.375 GM VIAL IV ONE (13:30)
[2018-04-11] MEDS ORDERED: IV NORMAL SALINE 1,000ML 1,000 ML IV ONE ×2 (13:30→15:15)
[2018-04-11] MEDS ORDERED: PIPERACILLIN/TAZOBACTAM 3.375 GM in IV NORMAL SALINE 50ML 50 ML IV ONE (13:30)
--- NOTE | 2018-04-11 13:37 | RAD ---
Single view of the chest. 04/11/2018 12:46 PM Indication: SHORT OF BREATH Comparison: CT chest March 20, 2018 Findings: Mild patchy opacities seen in the right lung base. This is similar location to the prior nodular infiltrates identified on prior CT exam. No pneumothorax, pleural effusion, or other focal lesion is seen. Heart size is normal. Right upper extremity PICC line tip at the cavoatrial junction is stable. IMPRESSION: Patchy infiltrate in the right lung base, similar to findings on prior CT scan. Follow up to ensure complete resolution recommended. Electronically signed by: Jose Luis Hamilton MD (04/11/2018 1:33 PM) [facility]
[2018-04-11] MEDS ORDERED: VANCOMYCIN 1 GM in IV NORMAL SALINE 250ML 250 ML IV ONE (13:45)
[2018-04-11 13:50] LABS: CLARITY,URINE HAZY; COLOR,URINE AMBER
[2018-04-11 13:51] LABS: BACTERIA,URINE MOD /HPF (0-FEW); BILIRUBIN,URINE LARGE (NEG); GLUCOSE,URINE 100 mg/dL (NEG); GRANULAR CASTS,URINE OCC /HPF; HYALINE CASTS, URINE MOD /HPF; NITRITE,URINE POS (NEG); SQUAMOUS EPITHELIAL CELL,UR OCC /LPF; UROBILINOGEN,URINE 1 mg/dL (0.2 mg/dL)
[2018-04-11] MEDS ORDERED: IV NORMAL SALINE 250ML 250 ML ONE (13:58)
[2018-04-11] MEDS ORDERED: VANCOMYCIN 1 GM VIAL. ONE (13:59)
[2018-04-11 17:16] VITALS: BP 111/79
--- NOTE | 2018-04-12 07:04 | EKG ---
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
== END 2018-04-11 17:30 | disposition short-term general hospital (02) ==
LOC: ER 11:47
DX: A41.9 Sepsis, unspecified organism (principal); R11.2 Nausea with vomiting, unspecified; R06.02 Shortness of breath; R79.89 Other specified abnormal findings of blood chemistry; I95.9 Hypotension, unspecified; Z86.718 Personal history of other venous thrombosis and embolism; K21.9 Gastro-esophageal reflux disease without esophagitis; E78.00 Pure hypercholesterolemia, unspecified; Z87.442 Personal history of urinary calculi
CPT/HCPCS: 36415; 71045; 80053; 81001; 82550; 83605; 83690; 83735; 83880; 84484; 85025; 85379; 85610; 85730; 87040; 87070; 87086; 87205; 93005; 96361; 96365; 96368; 96375; 99291; 99292; J2405; J2543; J3370; J7050; J7030

== ENCOUNTER 2018-06-17 13:27 | Inpatient (IN) | payer MEDICARE, OTHER ==
[~2018-06-17] VITALS: Ht 177.8 cm; Wt 66.4 kg
[~2018-06-17 13:27] MED LIST changes: +HYDR-2155 PO; -HYDR-2758 PO; +METR-84 PO; -METR500T8 PO; -OXYC-323 PO; +OXYC1TAB15 PO
[2018-06-17] MEDS ORDERED: IOHEXOL 240 MG/ML 50ML VIAL. ONE (13:38)
--- NOTE | 2018-06-17 13:43 | PHYS DOC ---
Past History Past Medical History: DVT, GERD, High Cholesterol, Kidney Stones, Pancreatitis , Other Past Surgical History: Cholecystectomy, Other Additional Past Surgical Histo: Whipple surgery Smoking: Non-smoker Alcohol Use: None Drug Use: None Adult General Chief Complaint Chief Complaint: ABDOMINAL PAIN HPI HPI Patient is a 67 year old male who presents with upper abdominal pain. This started this morning. Worse than his usual abdominal pain. 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 Patient is also had a cholecystectomy. 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 No blood in the stool or emesis. Patient did get some relief with heating pads. Patient is also passing a kidney stone on his left side. This does not feel any worse than his usual kidney stone discomfort. He denies any dysuria. Denies hematuria.[] Review of Systems Review of Systems Constitutional: Denies fever or chills [] Eyes: Denies change in visual acuity, redness, or eye pain [] HENT: Denies nasal congestion or sore throat [] Respiratory: Denies cough or shortness of breath [] Cardiovascular: No chest pain or palpitations[] GI: See history of present illness[] : Denies dysuria or hematuria [] Musculoskeletal: Denies back pain or joint pain [] Integument: Denies rash or skin lesions [] Neurologic: Denies headache, focal weakness or sensory changes [] Endocrine: Denies polyuria or polydipsia [] All other systems were reviewed and found to be within normal limits, except as documented in this note. Current Medications Current Medications Current Medications Medications (Trade) Dose Ordered Sig/Omega Start Time Stop Time Status Last Admin Dose Admin Hyoscyamine (Anaspaz) 0.125 mg 1X ONCE 06/17/18 13:45 06/17/18 13:46 UNV Lactated Ringer's 1,000 ml @ 1,000 mls/hr Q1H 06/17/18 13:34 06/17/18 14:33 UNV Ondansetron HCl (Zofran) 4 mg 1X ONCE 06/17/18 13:45 06/17/18 13:46 UNV Allergies Allergies Allergies Coded Allergies Type Severity Reaction Last Updated Verified No Known Drug Allergies 10/24/17 No Physical Exam Physical Exam Constitutional: Well developed, well nourished, no acute distress, non-toxic appearance. [] HENT: Normocephalic, atraumatic, bilateral external ears normal, oropharynx moist, no oral exudates, nose normal. [] Eyes: PERRLA, EOMI, conjunctiva normal, no discharge. [] Neck: Normal range of motion, no tenderness, supple, no stridor. [] Cardiovascular:Heart rate regular rhythm, no murmur [] Lungs & Thorax: Bilateral breath sounds clear to auscultation [] Abdomen: Bowel sounds normal, soft, scarring consistent with surgical history, tenderness in the epigastric region, no rebound, no guarding, no rigidity. no masses, no pulsatile masses. [] Skin: Warm, dry, no erythema, no rash. [] Back: No tenderness, no CVA tenderness. [] Extremities: No tenderness, no cyanosis, no clubbing, ROM intact, no edema. [] Neurologic: Alert and oriented X 3, normal motor function, normal sensory function, no focal deficits noted. [] Psychologic: Affect normal, judgement normal, mood normal. [] EKG EKG [] Radiology/Procedures Radiology/Procedures CT of the abdomen and pelvis with contrast, 06/17/2018: HISTORY: Upper abdominal pain, previous pancreatic cancer with Whipple surgery Multidetector CT imaging was performed following oral and IV administration of contrast. Pneumobilia is again noted on a postsurgical basis. There is a tiny unchanged low-density lesion posterior medially in the right lobe of the liver which is likely a cyst. No new hepatic abnormality is seen. The pancreatic head is surgically absent. A stent which was previously seen in the pancreatic duct has been removed. There is mild persistent increased density in the peripancreatic fat compatible ongoing or recurrent inflammation versus scarring. The spleen is of normal size. There are multiple small calculi in both kidneys. There is a small cyst in the lateral aspect of the left kidney. An additional subcentimeter low-density lesion in the lateral right kidney is probably a cyst although it is too small to definitively characterize. There is no evidence of hydronephrosis. There is a mildly prominent extrarenal pelvis on the left. No ureteral calculus is identified. There is a tiny 4 x 2 mm radiopacity along the posterior wall of the urinary bladder on the left. This appears to lie just inferior to the level of the left ureterovesical junction. This probably represents a stone fragment in the bladder, rather than lying in the intramural segment of the distal left ureter. The prostate gland is mildly enlarged and contains multiple calcifications. There is mild associated diffuse bladder wall thickening. Mild aortoiliac calcific plaquing is present without evidence of aneurysm. No abdominal or pelvic adenopathy is seen. There is a moderate amount gas and stool scattered throughout the colon. Several proximal small bowel loops are mildly dilated, likely secondary to prior gastrojejunostomy. No free air or free fluid is evident in the abdomen or pelvis. IMPRESSION: 1. Previous Whipple surgery with associated pneumobilia. 2. Mildly increased density in the peripancreatic fat may reflect mild pancreatitis versus scarring. Correlation with laboratory findings is suggested. 3. Small bilateral intrarenal calculi. 4. Small density along the posterior wall of the urinary bladder on the left which probably represents a stone fragment within the bladder. 5. Prostatic enlargement with mild associated diffuse bladder wall thickening.[] Course & Med Decision Making Course & Med Decision Making Pertinent Labs and Imaging studies reviewed. (See chart for details) ED course: Patient arrived, was placed in bed, tolerated exam well. Patient achieved significant pain relief with an initial dose of morphine but this had to be redosed due to continued pain. Patient was able to tolerate oral intake for the CT scan contrast. He was transported to and from CT with any Patients. Due to the continued pain and the CT findings, consultation was made with his primary care physician who graciously admitted him. Findings were discussed with the patient and family who voiced understanding. Patient was admitted in improved condition. Medical decision making: Based on the CT scan and and patient's history, concern for pancreatitis despite lack of elevation in his pancreatic enzymes. No evidence of other significant intra-abdominal pathology at this time. No evidence of an obstructing stone[] Dragon Disclaimer Dragon Disclaimer This electronic medical record was generated, in whole or in part, using a voice recognition dictation system. Departure Departure: Impression: Primary Impression: Acute on chronic pancreatitis Disposition: ADMITTED INPATIENT Admitting Physician: Yaya Morel Condition: STABLE Referrals: YAYA MOREL MD (PCP) KALLI GARCIA DO Jun 17, 2018 13:43
[2018-06-17] MEDS ORDERED: MORPHINE SULFATE 4 MG/ML DISP.SYRIN. IV ONE (13:45)
[2018-06-17] MEDS ORDERED: HYOSCYAMINE 0.125 MG TAB.RAPDIS PO ONE (13:45)
[2018-06-17] MEDS ORDERED: IV RINGERS SOLUTION,LACTATED 1,000 ML IV SCH (13:45)
[2018-06-17] MEDS ORDERED: ONDANSETRON PF 4 MG/2 ML VIAL. IV ONE (13:45)
[2018-06-17 13:55] LABS: BASO # 0.1 x10^3/uL (0.0-0.2); BASO % 1 % (0-3); EOS # 0.1 x10^3/uL (0.0-0.7); EOS % 1 % (0-3); HEMATOCRIT 34.9 % (39.0-53.0); HEMOGLOBIN 11.4 g/dL (13.0-17.5); LYMPH # 0.9 x10^3/uL (1.0-4.8); LYMPH % 8 % (24-48); MEAN CORPUSCULAR HEMOGLOBIN 28 pg (25-35); MEAN CORPUSCULAR HGB CONC 33 g/dL (31-37); MEAN CORPUSCULAR VOLUME 84 fL (79-100); MONO # 0.6 x10^3/uL (0.0-1.1); MONO % 5 % (0-9); NEUT # 10.1 x10^3uL (1.8-7.7); NEUT % 87 % (31-73); PLATELET COUNT 354 x10^3/uL (140-400); RED BLOOD COUNT 4.13 x10^6/uL (4.30-5.70); RED CELL DISTRIBUTION WIDTH 16.9 % (11.5-14.5); WHITE BLOOD COUNT 11.6 x10^3/uL (4.0-11.0)
[2018-06-17] MEDS ORDERED: IOHEXOL 300 MG/ML 75 ML VIAL. IV ONE (14:00)
[2018-06-17 14:08] LABS: ALBUMIN 2.3 g/dL (3.4-5.0); ALBUMIN/GLOBULIN RATIO 0.6 (1.0-1.7); CALCIUM 8.2 mg/dL (8.5-10.1); CREATININE 0.7 mg/dL (0.7-1.3); GFR 112.1; TOTAL BILIRUBIN 0.6 mg/dL (0.2-1.0); TOTAL PROTEIN 5.9 g/dL (6.4-8.2)
[2018-06-17 14:42] LABS: AMORPHOUS SEDIMENT,UR PRESENT /HPF; BACTERIA,URINE FEW /HPF (0-FEW); BILIRUBIN,URINE NEG (NEG); CLARITY,URINE CLEAR; COLOR,URINE AMBER; GLUCOSE,URINE NEG (NEG); NITRITE,URINE NEG (NEG); RBC,URINE RARE /HPF (0-2); SQUAMOUS EPITHELIAL CELL,UR FEW /LPF; UROBILINOGEN,URINE 0.2 mg/dL (0.2 mg/dL)
[2018-06-17 14:43] LABS: GRANULAR CASTS,URINE OCC /HPF
--- NOTE | 2018-06-17 15:39 | RAD ---
CT of the abdomen and pelvis with contrast, 06/17/2018: HISTORY: Upper abdominal pain, previous pancreatic cancer with Whipple surgery Multidetector CT imaging was performed following oral and IV administration of contrast. Pneumobilia is again noted on a postsurgical basis. There is a tiny unchanged low-density lesion posterior medially in the right lobe of the liver which is likely a cyst. No new hepatic abnormality is seen. The pancreatic head is surgically absent. A stent which was previously seen in the pancreatic duct has been removed. There is mild persistent increased density in the peripancreatic fat compatible ongoing or recurrent inflammation versus scarring. The spleen is of normal size. There are multiple small calculi in both kidneys. There is a small cyst in the lateral aspect of the left kidney. An additional subcentimeter low-density lesion in the lateral right kidney is probably a cyst although it is too small to definitively characterize. There is no evidence of hydronephrosis. There is a mildly prominent extrarenal pelvis on the left. No ureteral calculus is identified. There is a tiny 4 x 2 mm radiopacity along the posterior wall of the urinary bladder on the left. This appears to lie just inferior to the level of the left ureterovesical junction. This probably represents a stone fragment in the bladder, rather than lying in the intramural segment of the distal left ureter. The prostate gland is mildly enlarged and contains multiple calcifications. There is mild associated diffuse bladder wall thickening. Mild aortoiliac calcific plaquing is present without evidence of aneurysm. No abdominal or pelvic adenopathy is seen. There is a moderate amount gas and stool scattered throughout the colon. Several proximal small bowel loops are mildly dilated, likely secondary to prior gastrojejunostomy. No free air or free fluid is evident in the abdomen or pelvis. IMPRESSION: 1. Previous Whipple surgery with associated pneumobilia. 2. Mildly increased density in the peripancreatic fat may reflect mild pancreatitis versus scarring. Correlation with laboratory findings is suggested. 3. Small bilateral intrarenal calculi. 4. Small density along the posterior wall of the urinary bladder on the left which probably represents a stone fragment within the bladder. 5. Prostatic enlargement with mild associated diffuse bladder wall thickening. PQRS Compliance Statement: One or more of the following individualized dose reduction techniques were utilized for this examination: 1. Automated exposure control 2. Adjustment of the mA and/or kV according to patient size 3. Use of iterative reconstruction technique Electronically signed by: Lico Busby MD (06/17/2018 3:35 PM) [facility]
[2018-06-17] MEDS ORDERED: MORPHINE SULFATE 2 MG/ML DISP.SYRIN. IV ONE (16:00)
[2018-06-17] MEDS ORDERED: IV NORMAL SALINE 1,000ML 1,000 ML IV ONE (16:00)
[2018-06-17] MEDS ORDERED: ONDANSETRON PF 4 MG/2 ML VIAL. IV PRN (16:15)
[2018-06-17] MEDS ORDERED: MORPHINE SULFATE 4 MG/ML DISP.SYRIN. IV PRN (16:15)
[2018-06-17] MEDS ORDERED: ACETAMINOPHEN 325 MG TABLET PO PRN (16:15)
[2018-06-17 17:48] VITALS: BP 129/83
[2018-06-17] MEDS: IV NORMAL SALINE 1,000ML 1,000 ML IV SCH ×2 (18:27→22:19)
[2018-06-17] MEDS ORDERED: ZOLPIDEM 5 MG TABLET. PO PRN (18:45)
[2018-06-17] MEDS ORDERED: ELECTROLYTE (NON-ICU) PROTOCOL MC PRN (18:45)
[2018-06-17] MEDS ORDERED: DOCUSATE SODIUM 100 MG CAPSULE PO PRN (19:00)
[2018-06-17] MEDS ORDERED: ONDANSETRON ODT 4 MG TAB.RAPDIS PO PRN (19:00)
[2018-06-17] MEDS ORDERED: HYDROmorphone 2 MG TABLET PO PRN (19:00)
[2018-06-17] MEDS: POTASSIUM CHLORIDE 10MEQ 50 ML IV SCH ×4 (19:34→22:34)
[2018-06-17] MEDS: HYDROmorphone PF 2 MG/ML VIAL IV PRN (19:35)
[2018-06-17 19:42] VITALS: BP 122/88
[2018-06-17] MEDS ORDERED: DEXTROSE 50% 25 GM / 50ML DISP.SYRIN. IV PRN (20:00)
[2018-06-17] MEDS: METOCLOPRAMIDE 10 MG TABLET PO SCH (20:19)
[2018-06-17] MEDS ORDERED: APIXABAN 2.5 MG TABLET PO SCH (21:00)
[2018-06-17 22:37] VITALS: BP 118/73
[2018-06-18 05:21] VITALS: BP 122/75
[2018-06-18] MEDS: HYDROmorphone PF 2 MG/ML VIAL IV PRN ×4 (05:39→20:38)
[2018-06-18] MEDS: IV NORMAL SALINE 1,000ML 1,000 ML IV SCH (05:39)
[2018-06-18 06:33] LABS: BASO # 0.1 x10^3/uL (0.0-0.2); BASO % 1 % (0-3); EOS # 0.3 x10^3/uL (0.0-0.7); EOS % 3 % (0-3); HEMATOCRIT 32.4 % (39.0-53.0); HEMOGLOBIN 10.6 g/dL (13.0-17.5); LYMPH # 1.6 x10^3/uL (1.0-4.8); LYMPH % 14 % (24-48); MEAN CORPUSCULAR HEMOGLOBIN 28 pg (25-35); MEAN CORPUSCULAR HGB CONC 33 g/dL (31-37); MEAN CORPUSCULAR VOLUME 84 fL (79-100); MONO # 0.8 x10^3/uL (0.0-1.1); MONO % 7 % (0-9); NEUT # 8.7 x10^3uL (1.8-7.7); NEUT % 75 % (31-73); PLATELET COUNT 286 x10^3/uL (140-400); RED BLOOD COUNT 3.83 x10^6/uL (4.30-5.70); RED CELL DISTRIBUTION WIDTH 16.9 % (11.5-14.5); WHITE BLOOD COUNT 11.6 x10^3/uL (4.0-11.0)
[2018-06-18 06:42] LABS: ALBUMIN 2.2 g/dL (3.4-5.0); ALBUMIN/GLOBULIN RATIO 0.7 (1.0-1.7); CALCIUM 8.3 mg/dL (8.5-10.1); CREATININE 0.5 mg/dL (0.7-1.3); GFR 165.4; POTASSIUM 3.4 mmol/L (3.5-5.1); TOTAL BILIRUBIN 0.8 mg/dL (0.2-1.0); TOTAL PROTEIN 5.4 g/dL (6.4-8.2)
[2018-06-18] MEDS: INSULIN LISPRO 300 UNITS/3 ML INSULN.PEN. SQ SCH ×3 (08:00→17:00)
--- NOTE | 2018-06-18 08:01 | RAD ---
CHEST AP ONLY Clinical Indication: short of breath Comparison: AP chest April 11, 2018. Findings: The cardiomediastinal silhouette is normal. There is a nodular opacity in the right midlung. There is no pneumothorax. No pleural effusion is appreciated. No acute bone abnormality. IMPRESSION: Nodular airspace opacity in the right midlung. Electronically signed by: Frantz Thompson MD (06/18/2018 7:57 AM) [facility]
[2018-06-18] MEDS: CETIRIZINE HCL 10 MG TABLET PO SCH (08:35)
[2018-06-18] MEDS: PANTOPRAZOLE 40 MG TABLET. PO SCH (08:35)
[2018-06-18] MEDS: LIPASE/PROTEAS/AMYLAS 10/32/42 CAPSULE.DR. PO SCH ×3 (08:35→17:29)
[2018-06-18] MEDS: RIVAROXABAN 15 MG TABLET. PO SCH ×2 (08:36→17:29)
[2018-06-18] MEDS: METOCLOPRAMIDE 10 MG TABLET PO SCH ×4 (08:36→20:38)
[2018-06-18 11:19] VITALS: BP 125/73
--- NOTE | 2018-06-18 12:45 | PN ---
DATE: 06/18/2018 SUBJECTIVE: This is a 67-year-old male who comes in with acute pancreatitis and probable nephrolithiasis. The patient is resting comfortably. Potassium has come back up. It was down as low as 3, it is up to just 3.4. He is feeling a little bit better overall. The patient otherwise is still requiring IV pain medication for pain in his left flank and abdominal area. OBJECTIVE: VITAL SIGNS: Blood pressure 125/70, respiration 16, pulse 70, afebrile. GENERAL: The patient is alert and oriented x 3. LUNGS: Clear. CARDIOVASCULAR: Regular sinus rhythm. ABDOMEN: Soft, diffuse tenderness in the epigastric area, but no rebound or guarding. Positive bowel sounds. No hepatosplenomegaly noted. EXTREMITIES: No clubbing, cyanosis, or edema. NEUROLOGIC: Intact. IMPRESSION: Acute pancreatitis, nephrolithiasis, left flank pain, moderate to severe protein malnutrition. PLAN: Continue to monitor the patient and accordingly make further evaluation on him as indicated and continue to adjust his electrolytes. JOSE R LEWIS MD DR: SHOLA/phyllis JOB#: [id number] / [id number]
[2018-06-18 16:53] VITALS: BP 131/82
[2018-06-18 19:51] VITALS: BP 129/85
[2018-06-18 23:21] VITALS: BP 123/82
[2018-06-19 06:35] VITALS: BP 141/85
[2018-06-19 06:36] LABS: CALCIUM 8.5 mg/dL (8.5-10.1); CREATININE 0.5 mg/dL (0.7-1.3); GFR 165.4; POTASSIUM 3.1 mmol/L (3.5-5.1)
[2018-06-19] MEDS ORDERED: POTASSIUM CHLORIDE 20 MEQ TABLET.ER. PO ONE (07:15)
[2018-06-19] MEDS: INSULIN LISPRO 300 UNITS/3 ML INSULN.PEN. SQ SCH (08:00)
[2018-06-19] MEDS: RIVAROXABAN 15 MG TABLET. PO SCH (08:08)
[2018-06-19] MEDS: METOCLOPRAMIDE 10 MG TABLET PO SCH (08:09)
[2018-06-19] MEDS: LIPASE/PROTEAS/AMYLAS 10/32/42 CAPSULE.DR. PO SCH (08:09)
[2018-06-19] MEDS: CETIRIZINE HCL 10 MG TABLET PO SCH (08:09)
[2018-06-19] MEDS: PANTOPRAZOLE 40 MG TABLET. PO SCH (08:09)
[2018-06-19] MEDS ORDERED: HYDR4TAB45 PO (10:04)
--- NOTE | 2018-06-29 17:47 | HP ---
ADMIT DATE: 06/17/2018 HISTORY OF PRESENT ILLNESS: A 67-year-old male came in with abdominal pain. The patient has a history of pancreatic cancer, neuroendocrine tumor as well as a Whipple procedure. The patient has been having problems for about last couple of days with severe nausea, vomiting, and abdominal pain. The patient did get some relief with heating pads, but could not keep any fluids down. As a result of this, the patient was admitted to the hospital for further evaluation. He was also noted to have severe left flank pain. He has a history of nephrolithiasis and this was giving him severe amount of pain as indicated. The patient was admitted to the hospital for further evaluation and treatment of his abdominal pain as well as possible nephrolithiasis. PAST MEDICAL HISTORY: As noted, DVT, GERD, hypercholesterolemia, kidney stones, pancreatitis, Whipple procedure, neuroendocrine tumor of the pancreas, cholecystectomy and so forth. FAMILY HISTORY: Noncontributory. SOCIAL HISTORY: The patient denies smoking, alcohol or drug use. Basically unremarkable. IMMUNIZATIONS: Up-to-date. REVIEW OF SYSTEMS: As noted, severe nausea, occasional vomiting with severe left flank pain. Denies chest pain or shortness of breath, but has significant abdominal pain. MEDICATIONS: Reviewed and as reconciliation chart, as noted above. PHYSICAL EXAMINATION: GENERAL: This is a pleasant white male, moderate amount of pain of 9-10/10. VITAL SIGNS: Blood pressure 122/88, respiratory rate 18, pulse 81, afebrile. HEENT: The patient's head was atraumatic, normocephalic. Eyes: PERRLA without jaundice. Mouth and throat were normal. NECK: Supple. LUNGS: Clear. Diminished throughout, poor movement of air. CARDIOVASCULAR: Regular sinus rhythm, S1, S2; without murmur, rub, thrill, or extra heart sound. ABDOMEN: Soft, diffuse tenderness in the left mid and left lower quadrant area as well as right upper and right mid quadrant area. No rebounding; some guarding, positive bowel sounds. No hepatosplenomegaly. EXTREMITIES: No clubbing, cyanosis or edema. NEUROLOGIC: The patient was alert and oriented x 3. LABORATORY DATA: White count 11.6, hemoglobin 11.4. Electrolytes show low potassium of 3.0. The patient's alkaline phosphatase was elevated, glucose 196, albumin 2.3. ASSESSMENT AND PLAN: The patient was admitted for further evaluation and treatment of his abdominal pain, intractable as well as dehydration and hypokalemia. He will be given IV fluids, potassium supplement and pain medication. JOSE R LEWIS MD DR: SHOLA/phyllis JOB#: [id number] / [id number]
--- NOTE | 2018-06-29 21:58 | DS ---
DATE OF DISCHARGE: 06/19/2018 HOSPITAL COURSE: This 67-year-old male came in with abdominal pain, intractable and unable to control it at home. The patient also was having some left flank pain and felt like he was passing a kidney stone. The patient had some mild hematuria. The patient was admitted, placed on IV fluids, IV pain medication to control the pain. The patient made good progress with this combination and replenished his potassium, which was as low as 3 and came up gradually and he will continue to take potassium as an outpatient. The patient also had [id number] protein malnutrition. The patient will continue to be monitored carefully, make further evaluation on him as indicated as an outpatient. IMPRESSION: Abdominal pain, acute on top of chronic pancreatitis, left nephrolithiasis, anemia of chronic disease, neuroendocrine pancreatic tumor, jltiqqya-[id number] protein malnutrition, hyperglycemia, hypokalemia. PLAN: The patient will be discharged. See MRAD and he will follow up with his oncologist down there at and make further evaluation on him as indicated. JOSE R LEWIS MD DR: SHOLA/phyllis JOB#: [id number] / [id number]
== END 2018-06-19 10:49 | disposition home or self-care (01) | DRG 438 ==
LOC: ER 13:27 → 1 SOUTH 17:04
PROVIDERS: ADMIT Family Medicine; ATTEND Family Medicine
DX: K85.90 Acute pancreatitis without necrosis or infection, unspecified (principal); E43 Unspecified severe protein-calorie malnutrition; D3A.8 Other benign neuroendocrine tumors; K86.1 Other chronic pancreatitis; E78.00 Pure hypercholesterolemia, unspecified; K21.9 Gastro-esophageal reflux disease without esophagitis; N20.0 Calculus of kidney; N40.0 Benign prostatic hyperplasia without lower urinary tract symptoms; Z87.442 Personal history of urinary calculi; Z90.411 Acquired partial absence of pancreas; Z68.21 Body mass index [BMI] 21.0-21.9, adult; Z90.49 Acquired absence of other specified parts of digestive tract; D63.8 Anemia in other chronic diseases classified elsewhere; E87.6 Hypokalemia; R73.9 Hyperglycemia, unspecified; E86.0 Dehydration; Z85.07 Personal history of malignant neoplasm of pancreas
CPT/HCPCS: 36415; 71045; 74177; 80048; 80053; 81001; 82947; 83690; 84484; 85025; 85610; 87086; 96361; 96374; 96375; 96376; J1170; J1815; J2270; J2405; J3480; J7120; J8597; Q9967; 99285-25; J7030

== ENCOUNTER 2018-06-25 14:05 | Inpatient (IN) | payer MEDICARE, OTHER ==
[~2018-06-25] VITALS: Ht 177.8 cm; Wt 66.3 kg
--- NOTE | 2018-06-25 14:41 | EKG ---
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
--- NOTE | 2018-06-25 14:48 | RAD ---
Exam performed: CT scan of the head without contrast. Date of Service: 06/25/2018. Comparison: None available. Clinical History: Fall last night, laceration about the left eye. Technique: Helical acquisitions are obtained from the foramen magnum to the vertex without intravenous administration of contrast. Findings: There is prominence of cortical sulci and ventricular system compatible with age related atrophy. There are areas of low-attenuation in both periventricular deep white matter suggesting small vessel ischemic changes. Normal burkett-white differentiation is maintained. There is no extra axial fluid collection, intraparenchymal hemorrhage or mass lesion. The visualized portions of the orbits, paranasal sinuses and the mastoid air cells appear clear. Mild soft tissue swelling is seen around the left orbit . The calvarium is intact. Impression: 1. Age-appropriate atrophy without any acute intracranial process. PQRS Compliance Statement: One or more of the following individualized dose reduction techniques were utilized for this examination: 1. Automated exposure control 2. Adjustment of the mA and/or kV according to patient size 3. Use of iterative reconstruction technique Electronically signed by: Zeina Dinh MD (06/25/2018 2:44 PM) [facility]
--- NOTE | 2018-06-25 14:58 | RAD ---
Single view chest and right-sided rib study dated 06/25/2018. No comparison available. Clinical data indication: Pain after fall. FINDINGS: Single upright view of the chest shows normal heart and mediastinal contours. Lungs are somewhat hyperinflated but otherwise clear. No consolidation or pleural effusion. No pneumothorax. Dedicated views of the right-sided ribs show no evidence of displaced right rib fracture.. Probable old healed fractures of the eighth and ninth posterior right ribs. No acute bony abnormality. IMPRESSION: 1. No acute radiographic abnormality. No evidence of acute right rib fracture. 2. Probable old healed fractures of the eighth and ninth posterior right ribs. Electronically signed by: Shady Cheng MD (06/25/2018 2:54 PM) [facility]
--- NOTE | 2018-06-25 15:07 | PHYS DOC ---
Past History Past Medical History: Other Past Surgical History: Other Additional Past Surgical Histo: Whipple surgery Smoking: Non-smoker Alcohol Use: None Drug Use: None Adult General Chief Complaint Chief Complaint: MECHANICAL FALL HPI HPI 59-year-old male presents after fall at home. The patient went to the restroom last night in his house. He remembers feeling okay on the way to the bathroom, but that dizzy in the bathroom. He remembers feeling himself fall hitting the floor on the right side of his head. He does not remember much after that. He woke up couple of hours later and was back in bed. He admitted the restroom again. He had no difficulty at that point. The patient presents to the ER because his daughter was concerned he may have more injuries. He continues to have right sided lower rib pain. The patient has already on Dilaudid by mouth due to previous surgery complications from multiple surgery one year ago. The patient is also on Xarelto. He denies fever or chills. Review of Systems Review of Systems Constitutional: Denies fever or chills [] Eyes: Denies change in visual acuity, redness, or eye pain [] HENT: Bruising to the left periorbital area and small laceration.[] Respiratory: Denies cough or shortness of breath [] Cardiovascular: No additional information not addressed in HPI [] GI: Denies abdominal pain, nausea, vomiting, bloody stools or diarrhea [] : Denies dysuria or hematuria [] Musculoskeletal: Right rib pain[] Integument: Denies rash or skin lesions [] Neurologic: Denies headache, focal weakness or sensory changes [] Endocrine: Denies polyuria or polydipsia [] All other systems were reviewed and found to be within normal limits, except as documented in this note. Allergies Allergies Allergies Coded Allergies Type Severity Reaction Last Updated Verified No Known Drug Allergies 10/24/17 No Physical Exam Physical Exam Constitutional: Well developed, well nourished, no acute distress, non-toxic appearance. [] HENT: Normocephalic, bilateral external ears normal, oropharynx moist, no oral exudates, nose normal. Ecchymosis in the lateral side of the left eye. 1 cm laceration that is well approximated with scab within the second ecchymosis.[] Eyes: PERRLA, EOMI, conjunctiva normal, no discharge. [] Neck: Normal range of motion, no tenderness, supple, no stridor. [] Cardiovascular:Heart rate 103, regular rhythm, no murmur [] Lungs & Thorax: Bilateral breath sounds clear to auscultation. Right-sided lateral rib tenderness [] Abdomen: Bowel sounds normal, soft, no tenderness, no masses, no pulsatile masses. [] Skin: Warm, dry, no erythema, no rash. [] Back: No tenderness, no CVA tenderness. [] Extremities: No tenderness, no cyanosis, no clubbing, ROM intact, no edema. [] Neurologic: Alert and oriented X 3, normal motor function, normal sensory function, no focal deficits noted. [] Psychologic: Affect normal, judgement normal, mood normal. [] Current Patient Data Vital Signs Vital Signs Date Time Temp Pulse Resp B/P (MAP) Pulse Ox O2 Delivery O2 Flow Rate FiO2 06/25/18 14:57 98.4 102 26 95 Room Air EKG EKG [] Radiology/Procedures Radiology/Procedures [] Impressions: Exam performed: CT scan of the head without contrast. Date of Service: 06/25/2018. Comparison: None available. Clinical History: Fall last night, laceration about the left eye. Technique: Helical acquisitions are obtained from the foramen magnum to the vertex without intravenous administration of contrast. Findings: There is prominence of cortical sulci and ventricular system compatible with age related atrophy. There are areas of low-attenuation in both periventricular deep white matter suggesting small vessel ischemic changes. Normal burkett-white differentiation is maintained. There is no extra axial fluid collection, intraparenchymal hemorrhage or mass lesion. The visualized portions of the orbits, paranasal sinuses and the mastoid air cells appear clear. Mild soft tissue swelling is seen around the left orbit . The calvarium is intact. Impression: 1. Age-appropriate atrophy without any acute intracranial process. PQRS Compliance Statement: One or more of the following individualized dose reduction techniques were utilized for this examination: 1. Automated exposure control 2. Adjustment of the mA and/or kV according to patient size 3. Use of iterative reconstruction technique Electronically signed by: Zeina Dinh MD (06/25/2018 2:44 PM) [facility] DICTATED AND SIGNED BY: ZEINA DINH MD DATE: 06/25/18 1441 CC: JOHANN COMER DO; JOSE R LEWIS MD Single view chest and right-sided rib study dated 06/25/2018. No comparison available. Clinical data indication: Pain after fall. FINDINGS: Single upright view of the chest shows normal heart and mediastinal contours. Lungs are somewhat hyperinflated but otherwise clear. No consolidation or pleural effusion. No pneumothorax. Dedicated views of the right-sided ribs show no evidence of displaced right rib fracture.. Probable old healed fractures of the eighth and ninth posterior right ribs. No acute bony abnormality. IMPRESSION: 1. No acute radiographic abnormality. No evidence of acute right rib fracture. 2. Probable old healed fractures of the eighth and ninth posterior right ribs. Electronically signed by: Shady Menendez MD (06/25/2018 2:54 PM) [facility] DICTATED AND SIGNED BY: SHADY MENENDEZ MD DATE: 06/25/18 1453 CC: JOHANN COMER DO; JOSE R LEWIS MD Course & Med Decision Making Course & Med Decision Making Pertinent Labs and Imaging studies reviewed. (See chart for details) The patient's CT is negative for acute findings. His x-rays do not show any fractures. The patient is on Xarelto. I discussed the case with Dr. Lewis and he agrees that it will be prudent to further observe the patient given his syncopal episode and injuries. I discussed this with the patient and he is in agreement with admission. [] Dragon Disclaimer Dragon Disclaimer This electronic medical record was generated, in whole or in part, using a voice recognition dictation system. Departure Departure: Impression: Primary Impression: Syncope Additional Impressions: Fall Contusion of face Rib pain on right side Disposition: ADMITTED INPATIENT Condition: STABLE Referrals: JOSE R LEWIS MD (PCP) Problem Qualifiers JOHANN COMER DO Jun 25, 2018 15:07
[2018-06-25 15:23] LABS: BASO # 0.1 x10^3/uL (0.0-0.2); BASO % 1 % (0-3); EOS # 0.2 x10^3/uL (0.0-0.7); EOS % 2 % (0-3); HEMOGLOBIN 11.7 g/dL (13.0-17.5); LYMPH % 9 % (24-48); MEAN CORPUSCULAR HEMOGLOBIN 28 pg (25-35); MEAN CORPUSCULAR HGB CONC 33 g/dL (31-37); MEAN CORPUSCULAR VOLUME 85 fL (79-100); MONO # 0.9 x10^3/uL (0.0-1.1); MONO % 8 % (0-9); NEUT # 8.7 x10^3uL (1.8-7.7); NEUT % 80 % (31-73); PLATELET COUNT 362 x10^3/uL (140-400); RED BLOOD COUNT 4.26 x10^6/uL (4.30-5.70); RED CELL DISTRIBUTION WIDTH 16.5 % (11.5-14.5); WHITE BLOOD COUNT 10.9 x10^3/uL (4.0-11.0)
[2018-06-25 15:33] LABS: BACTERIA,URINE 0 /HPF (0-FEW); BILIRUBIN,URINE NEG (NEG); CLARITY,URINE CLEAR; COLOR,URINE YELLOW; GLUCOSE,URINE NEG (NEG); NITRITE,URINE NEG (NEG); RBC,URINE RARE /HPF (0-2); SQUAMOUS EPITHELIAL CELL,UR OCC /LPF; UROBILINOGEN,URINE 1 mg/dL (0.2 mg/dL)
[2018-06-25 15:40] LABS: ALBUMIN 2.4 g/dL (3.4-5.0); ALBUMIN/GLOBULIN RATIO 0.6 (1.0-1.7); CALCIUM 8.1 mg/dL (8.5-10.1); CREATININE 0.7 mg/dL (0.7-1.3); GFR 112.1; POTASSIUM 3.7 mmol/L (3.5-5.1); TOTAL BILIRUBIN 0.9 mg/dL (0.2-1.0); TOTAL PROTEIN 6.3 g/dL (6.4-8.2)
[2018-06-25] MEDS ORDERED: HYDROmorphone 2 MG TABLET PO PRN (17:30)
[2018-06-25] MEDS ORDERED: DOCUSATE SODIUM 100 MG CAPSULE PO PRN (17:30)
[2018-06-25] MEDS ORDERED: ONDANSETRON ODT 4 MG TAB.RAPDIS PO PRN (17:45)
[2018-06-25] MEDS ORDERED: URSO300C26 PO (17:54)
[2018-06-25] MEDS ORDERED: ONDANSETRON PF 4 MG/2 ML VIAL. IV PRN (18:15)
[2018-06-25] MEDS: HYDROmorphone PF 1 MG/ML DISP.SYRIN IV PRN ×2 (19:35→22:05)
[2018-06-25 20:12] VITALS: BP 104/73
[2018-06-25] MEDS: METOCLOPRAMIDE 10 MG TABLET PO SCH (22:04)
[2018-06-25 22:47] VITALS: BP 113/74
[2018-06-26] MEDS: HYDROmorphone PF 1 MG/ML DISP.SYRIN IV PRN ×2 (04:54→09:05)
[2018-06-26 05:53] VITALS: BP 125/75
[2018-06-26] MEDS ORDERED: PANTOPRAZOLE 40 MG TABLET. PO SCH (07:30)
[2018-06-26] MEDS ORDERED: RIVAROXABAN 15 MG TABLET. PO SCH (08:00)
[2018-06-26] MEDS: METOCLOPRAMIDE 10 MG TABLET PO SCH ×2 (08:42→12:39)
[2018-06-26] MEDS: LIPASE/PROTEAS/AMYLAS 10/32/42 CAPSULE.DR. PO SCH ×2 (08:42→12:39)
[2018-06-26] MEDS ORDERED: CETIRIZINE HCL 10 MG TABLET PO SCH (09:00)
[2018-06-26] MEDS: URSODIOL 300 MG CAPSULE. PO SCH ×2 (09:13→12:39)
[2018-06-26 12:37] VITALS: BP 108/75
--- NOTE | 2018-06-26 13:29 | HP ---
ADMIT DATE: 06/26/2018 HISTORY OF PRESENT ILLNESS: A 67-year-old male apparently got up out of bed and twisted and went to the restroom and got extremely dizzy, lightheaded, fell hitting the floor with marked contusion to the left side of his orbit, around the eye was black and blue. The patient was also complaining of extreme rib pain; however, there were no fractures of the ribs per CT scan. The patient otherwise made good progress and this is a short stay H and P and summary. PAST MEDICAL HISTORY: Peripheral neuropathy, angina, hypercholesterolemia, DVT, pneumonias, history of old rib fractures, diverticulitis, pancreatic cancer, pancreatitis. He has had a Whipple surgery in 06/2017, kidney stones, lithotripsy arthritis, cancer, influenza. Pneumococcal vaccinations are up-to-date. FAMILY HISTORY: Positive for skin cancer. Father with myocardial infarction, mother with colon cancer, sister with hypertension, another sister with coronary artery disease. Mother course with colon cancer and cardiovascular disease and the father and a sister. ALLERGIES: He had no known drug allergies. HOME MEDICATIONS: See the home med list for his home medications. SOCIAL HISTORY: No smoking, no alcohol, or drug use. REVIEW OF SYSTEMS: The patient outside of the contusion to his left side of his forehead and around the left eye. The patient's right ribs hurt, but other than that, he said he did not have any nausea, vomiting, chest pain, shortness of breath. Denied any melena, hematochezia, hematemesis, and neurologically intact. PHYSICAL EXAMINATION: GENERAL: He is a pleasant white male. VITAL SIGNS: Blood pressure initially 118/80, respiratory rate 26, pulse 102 and afebrile. HEENT: The patient's head was traumatic. There was a contusion over the left eyebrow. There was a slight laceration and ecchymosis around the left eye. The patient's eye itself was PERRLA, EOMI. Mouth and throat: Normal. NECK: Supple, no JVD, carotid thyromegaly. LUNGS: Diminished, but clear. CARDIOVASCULAR: Regular sinus rhythm. ABDOMEN: Soft, nontender. EXTREMITIES: No clubbing, cyanosis or edema. NEUROLOGIC: The patient is alert and oriented x 3. He said he was in good condition. He just got dizzy and fell, but because he was on these blood thinners such as Xarelto he was admitted for observation and make evaluation on that as indicated. He did extremely well. There were no complications. IMPRESSION: Concussion secondary to fall at home, rib contusion secondary to fall at home, history of pancreatic cancer, history of pancreatitis, history of kidney stones, chronic anemia, [id number] protein malnutrition. The patient will be discharged home and followed up as an outpatient, make further evaluation on him. See MRAD. Decreased activity. No driving. JOSE R LEWIS MD DR: SHOLA/phyllis JOB#: [id number] / [id number]
== END 2018-06-26 13:00 | disposition home or self-care (01) | DRG 88 ==
LOC: ER 14:05 → 1 SOUTH 17:15
PROVIDERS: ADMIT Family Medicine; ATTEND Family Medicine
DX: S06.0X9A Concussion with loss of consciousness of unspecified duration, initial encounter (principal); E43 Unspecified severe protein-calorie malnutrition; R64 Cachexia; S20.219A Contusion of unspecified front wall of thorax, initial encounter; E78.00 Pure hypercholesterolemia, unspecified; Z79.01 Long term (current) use of anticoagulants; W18.39XA Other fall on same level, initial encounter; Z80.0 Family history of malignant neoplasm of digestive organs; Z80.8 Family history of malignant neoplasm of other organs or systems; Z82.49 Family history of ischemic heart disease and other diseases of the circulatory system; Z85.07 Personal history of malignant neoplasm of pancreas; Z87.442 Personal history of urinary calculi; Y93.89 Activity, other specified; Y92.098 Other place in other non-institutional residence as the place of occurrence of the external cause; Y99.8 Other external cause status; Z68.21 Body mass index [BMI] 21.0-21.9, adult
CPT/HCPCS: 36415; 70450; 71101; 80053; 81001; 84484; 85025; 87086; 93005; J1170; J8597; 99285-25

== ENCOUNTER 2018-08-08 18:34 | Emergency (ER) | payer MEDICARE, OTHER ==
[~2018-08-08] VITALS: Ht 177.8 cm; Wt 67.7 kg
[~2018-08-08 18:34] MED LIST changes: +METR-34 PO; -METR-84 PO; +URSO300C26 PO
[2018-08-08] MEDS: IV NORMAL SALINE 1,000ML 1,000 ML IV SCH (20:52)
[2018-08-08] MEDS: ONDANSETRON PF 4 MG/2 ML VIAL. IV ONE (20:54)
[2018-08-08] MEDS: MORPHINE SULFATE 4 MG/ML DISP.SYRIN. IV/SQ PRN (20:55)
--- NOTE | 2018-08-08 21:01 | RAD ---
CT Abdomen and Pelvis without contrast History: Bilateral flank pain, passing several kidney stones the last 2 weeks, history of lithotripsy and Whipple surgery Technique: Noncontrast CT imaging was performed of the abdomen and pelvis. Multiplanar images are reviewed. Exposure: One or more of the following individualized dose reduction techniques were utilized for this examination: 1. Automated exposure control 2. Adjustment of the mA and/or kV according to patient size 3. Use of iterative reconstruction technique. Comparison: June 17, 2018 Findings: There are at least 15 calculi of each kidney. There is no hydronephrosis of either kidney. Largest calculus inferior left kidney measures about 0.6 cm, largest in the right about 0.84 cm. There are again 3 small calculi in the posterior left urinary bladder lumen, 2 which are near the ureterovesical junction. The ureters are not significantly dilated, somewhat difficult to visualize in their entirety. There is mild distention of the urinary bladder. Prostate gland slightly indents the base of urinary bladder as seen previously. There is mild wall prominence of urinary bladder There is again pneumobilia somewhat increased, more likely on a postsurgical basis.. There again has been resection of pancreatic head. Accurate evaluation of pancreas and abdominal visceral organs is limited without intravenous contrast. There is no adrenal nodularity. No new obvious focal abnormality is identified of the spleen. There again are more prominent loops of bowel in the abdomen near surgical site. There is no free air or significant free fluid. There is fairly prominent stool retention. There is fat in the left inguinal canal seen previously, no bowel. There is no pleural fluid at the visualized lung bases. Impression: 1. There are multiple bilateral renal calculi, no hydronephrosis or definitive ureteral calculus. There are 3 small adjacent calculi in the dependent left aspect of the urinary bladder, 2 of which are near the ureterovesical junction. 2. There is again pneumobilia somewhat increased, more likely on postsurgical basis given postsurgical changes of Whipple procedure. 3. There is fairly prominent stool retention. 4. Prostate gland again somewhat indents the base of the urinary bladder. There is mild prominence of the urinary bladder duncan which can be associated with chronic urinary retention unless clinical suspicion for cystitis. Electronically signed by: Paco Tellez MD (08/08/2018 8:58 PM) [facility]
[2018-08-08 21:08] LABS: BASO # 0.1 x10^3/uL (0.0-0.2); BASO % 1 % (0-3); EOS # 0.2 x10^3/uL (0.0-0.7); EOS % 2 % (0-3); HEMATOCRIT 36.1 % (39.0-53.0); HEMOGLOBIN 11.9 g/dL (13.0-17.5); LYMPH # 0.9 x10^3/uL (1.0-4.8); LYMPH % 10 % (24-48); MEAN CORPUSCULAR HEMOGLOBIN 27 pg (25-35); MEAN CORPUSCULAR HGB CONC 33 g/dL (31-37); MEAN CORPUSCULAR VOLUME 81 fL (79-100); MONO # 0.8 x10^3/uL (0.0-1.1); MONO % 8 % (0-9); NEUT # 7.5 x10^3uL (1.8-7.7); NEUT % 79 % (31-73); PLATELET COUNT 363 x10^3/uL (140-400); RED BLOOD COUNT 4.44 x10^6/uL (4.30-5.70); RED CELL DISTRIBUTION WIDTH 17.6 % (11.5-14.5); WHITE BLOOD COUNT 9.5 x10^3/uL (4.0-11.0)
[2018-08-08 21:16] LABS: BILIRUBIN,URINE NEG (NEG); CLARITY,URINE CLEAR; COLOR,URINE YELLOW; GLUCOSE,URINE NEG (NEG)
[2018-08-08 21:17] LABS: CALCIUM 8.7 mg/dL (8.5-10.1); CREATININE 0.7 mg/dL (0.7-1.3); GFR 112.1; POTASSIUM 3.8 mmol/L (3.5-5.1)
[2018-08-08 21:18] LABS: BACTERIA,URINE 0 /HPF (0-FEW); NITRITE,URINE NEG (NEG); RBC,URINE RARE /HPF (0-2); UROBILINOGEN,URINE 0.2 mg/dL (0.2 mg/dL); WBC,URINE RARE /HPF (0-4)
[2018-08-08 22:00] VITALS: BP 116/68
--- NOTE | 2018-08-08 22:01 | ED.ADGEN ---
Past History Past Medical History: Kidney Stones, Other Past Surgical History: Other Additional Past Surgical Histo: Whipple surgery Smoking: Non-smoker Alcohol Use: None Drug Use: None Adult General Chief Complaint Chief Complaint Flank pain HPI HPI 59 years old gentleman with history of renal stones presented to the emergency department with left flank pain started about a week ago patient has been passing stones in his been collecting them no nausea no vomiting no diarrhea no on any other symptoms no hematuria no urgency no frequency Review of Systems Review of Systems Constitutional: Denies fever or chills [] Eyes: Denies change in visual acuity, redness, or eye pain [] HENT: Denies nasal congestion or sore throat [] Respiratory: Denies cough or shortness of breath [] Cardiovascular: No additional information not addressed in HPI [] GI: Denies abdominal pain, nausea, vomiting, bloody stools or diarrhea [] : Denies dysuria or hematuria [] Musculoskeletal: Denies back pain or joint pain [] Integument: Denies rash or skin lesions [] Neurologic: Denies headache, focal weakness or sensory changes [] Endocrine: Denies polyuria or polydipsia [] All other systems were reviewed and found to be within normal limits, except as documented in this note. Current Medications Current Medications Current Medications Medications (Trade) Dose Ordered Sig/Omega Start Time Stop Time Status Last Admin Dose Admin Morphine Sulfate (Morphine 4mg Syringe) 4 mg PRN Q15MIN PRN 08/08/18 19:45 08/09/18 19:44 08/08/18 20:55 4 MG Ondansetron HCl (Zofran) 4 mg 1X ONCE 08/08/18 19:45 08/08/18 19:46 DC 08/08/18 20:54 4 MG Sodium Chloride 1,000 ml @ 1,000 mls/hr Q1H 08/08/18 19:40 08/08/18 20:39 DC 08/08/18 20:52 1,000 MLS/HR Allergies Allergies Allergies Coded Allergies Type Severity Reaction Last Updated Verified No Known Drug Allergies 10/24/17 No Physical Exam Physical Exam Constitutional: Well developed, well nourished, no acute distress, non-toxic appearance. [] HENT: Normocephalic, atraumatic, bilateral external ears normal, oropharynx moist, no oral exudates, nose normal. [] Eyes: PERRLA, EOMI, conjunctiva normal, no discharge. [] Neck: Normal range of motion, no tenderness, supple, no stridor. [] Cardiovascular:Heart rate regular rhythm, no murmur [] Lungs & Thorax: Bilateral breath sounds clear to auscultation [] Abdomen: Bowel sounds normal, soft, no tenderness, no masses, no pulsatile masses. [] Skin: Warm, dry, no erythema, no rash. [] Back: No tenderness,+CVA tenderness. [] Extremities: No tenderness, no cyanosis, no clubbing, ROM intact, no edema. [] Neurologic: Alert and oriented X 3, normal motor function, normal sensory function, no focal deficits noted. [] Psychologic: Affect normal, judgement normal, mood normal. [] Current Patient Data Vital Signs Vital Signs Date Time Temp Pulse Resp B/P (MAP) Pulse Ox O2 Delivery O2 Flow Rate FiO2 08/08/18 20:55 20 08/08/18 19:30 98.8 84 98 Room Air Lab Results Laboratory Tests Test 08/08/18 20:40 08/08/18 20:45 Urine Collection Type Unknown Urine Color Yellow Urine Clarity Clear Urine pH 5.5 Urine Specific [place] 1.010 Urine Protein Neg (NEG-TRACE) Urine Glucose (UA) Neg mg/dL (NEG) Urine Ketones (Stick) Neg mg/dL (NEG) Urine Blood Neg (NEG) Urine Nitrite Neg (NEG) Urine Bilirubin Neg (NEG) Urine Urobilinogen Dipstick 0.2 mg/dL (0.2 mg/dL) Urine Leukocyte Esterase Neg (NEG) Urine RBC Rare /HPF (0-2) Urine WBC Rare /HPF (0-4) Urine Squamous Epithelial Cells None /LPF Urine Bacteria 0 /HPF (0-FEW) Urine Mucus Slight /LPF White Blood Count 9.5 x10^3/uL (4.0-11.0) Red Blood Count 4.44 x10^6/uL (4.30-5.70) Hemoglobin 11.9 g/dL (13.0-17.5) L Hematocrit 36.1 % (39.0-53.0) L Mean Corpuscular Volume 81 fL (79-100) Mean Corpuscular Hemoglobin 27 pg (25-35) Mean Corpuscular Hemoglobin Concent 33 g/dL (31-37) Red Cell Distribution Width 17.6 % (11.5-14.5) H Platelet Count 363 x10^3/uL (140-400) Neutrophils (%) (Auto) 79 % (31-73) H Lymphocytes (%) (Auto) 10 % (24-48) L Monocytes (%) (Auto) 8 % (0-9) Eosinophils (%) (Auto) 2 % (0-3) Basophils (%) (Auto) 1 % (0-3) Neutrophils # (Auto) 7.5 x10^3uL (1.8-7.7) Lymphocytes # (Auto) 0.9 x10^3/uL (1.0-4.8) L Monocytes # (Auto) 0.8 x10^3/uL (0.0-1.1) Eosinophils # (Auto) 0.2 x10^3/uL (0.0-0.7) Basophils # (Auto) 0.1 x10^3/uL (0.0-0.2) Sodium Level 143 mmol/L (136-145) Potassium Level 3.8 mmol/L (3.5-5.1) Chloride Level 107 mmol/L (98-107) Carbon Dioxide Level 26 mmol/L (21-32) Anion Gap 10 (6-14) Blood Urea Nitrogen 10 mg/dL (8-26) Creatinine 0.7 mg/dL (0.7-1.3) Estimated GFR (Cockcroft-Gault) 112.1 Glucose Level 107 mg/dL (70-99) H Calcium Level 8.7 mg/dL (8.5-10.1) EKG EKG [] Radiology/Procedures Radiology/Procedures [] Course & Med Decision Making Course & Med Decision Making Pertinent Labs and Imaging studies reviewed. (See chart for details) [] Final Impression Final Impression [] Problems: (1) Renal stone Dragon Disclaimer Dragon Disclaimer This electronic medical record was generated, in whole or in part, using a voice recognition dictation system. KENISHA BELTRAN MD Aug 08, 2018 22:01
[2018-08-08] MEDS ORDERED: HYDR-3165 PO (22:10)
--- NOTE | 2018-08-08 22:58 | EKG ---
[address] [address] Test Date: 2018-08-08 Test Time: 22:02:42 Pat Name: KIRSTEN LEVY Department: Room: Gender: M [employer]: : 1950 Requested By: KENISHA BELTRAN Order Number: [id number] Reading MD: Price Sanchez MD Measurements Intervals [place] Rate: 88 P: 33 VA: 122 QRS: 36 QRSD: 84 T: 48 QT: 432 QTc: 527 Interpretive Statements SINUS RHYTHM ATRIAL PREMATURE COMPLEX(ES) PROLONGED QT Electronically Signed On 08-09-2018 6:56:48 [employer]NAGER OF [employer] by Price Sanchez MD
[2018-08-23] MEDS ORDERED: LEVO500T8 IV (13:07)
== END 2018-08-08 22:12 | disposition home or self-care (01) ==
LOC: ER 18:34
DX: N20.0 Calculus of kidney (principal); Z87.442 Personal history of urinary calculi
CPT/HCPCS: 36415; 74176; 80048; 81001; 85025; 93005; 96374; 96375; 99284; J2270; J2405; J7030

== ENCOUNTER 2018-08-19 22:43 | Inpatient (IN) | payer MEDICARE, OTHER ==
[~2018-08-19] VITALS: Ht 177.8 cm; Wt 70.3 kg
[~2018-08-19 22:43] MED LIST changes: +HYDR-3165 PO
[2018-08-19] MEDS ORDERED: IBUPROFEN 600 MG TABLET. PO ONE ×2 (23:28→23:45)
[2018-08-19] MEDS ORDERED: ACETAMINOPHEN 500 MG TABLET PO ONE ×2 (23:28→23:45)
[2018-08-19] MEDS ORDERED: CONTRAST GIVEN MC PRN (23:30)
[2018-08-19] MEDS ORDERED: ONDANSETRON PF 4 MG/2 ML VIAL. IV ONE (23:30)
[2018-08-19] MEDS ORDERED: IV NORMAL SALINE 1,000ML 1,000 ML IV SCH (23:30)
[2018-08-19] MEDS: HYDROmorphone PF 1 MG/ML DISP.SYRIN IV/SQ PRN (23:30)
[2018-08-19] MEDS ORDERED: IOHEXOL 300 MG/ML 75 ML VIAL. IV ONE (23:30)
[2018-08-19 23:31] LABS: BILIRUBIN,URINE NEG (NEG); CLARITY,URINE HAZY; COLOR,URINE AMBER; GLUCOSE,URINE NEG (NEG)
[2018-08-19 23:32] LABS: AMORPHOUS SEDIMENT,UR PRESENT /HPF; BACTERIA,URINE FEW /HPF (0-FEW); NITRITE,URINE NEG (NEG); SQUAMOUS EPITHELIAL CELL,UR OCC /LPF; UROBILINOGEN,URINE 1 mg/dL (0.2 mg/dL); WBC,URINE 0 /HPF (0-4)
[2018-08-19 23:49] LABS: BASO # 0.1 x10^3/uL (0.0-0.2); BASO % 1 % (0-3); EOS # 0.1 x10^3/uL (0.0-0.7); EOS % 1 % (0-3); HEMATOCRIT 34.2 % (39.0-53.0); HEMOGLOBIN 11.2 g/dL (13.0-17.5); LYMPH # 0.7 x10^3/uL (1.0-4.8); LYMPH % 6 % (24-48); MEAN CORPUSCULAR HEMOGLOBIN 27 pg (25-35); MEAN CORPUSCULAR HGB CONC 33 g/dL (31-37); MEAN CORPUSCULAR VOLUME 81 fL (79-100); MONO # 0.5 x10^3/uL (0.0-1.1); MONO % 4 % (0-9); NEUT # 9.7 x10^3uL (1.8-7.7); NEUT % 88 % (31-73); PLATELET COUNT 273 x10^3/uL (140-400); RED CELL DISTRIBUTION WIDTH 17.9 % (11.5-14.5)
[2018-08-19 23:57] LABS: ALBUMIN 2.6 g/dL (3.4-5.0); ALBUMIN/GLOBULIN RATIO 0.7 (1.0-1.7); CALCIUM 8.5 mg/dL (8.5-10.1); CREATININE 0.8 mg/dL (0.7-1.3); GFR 96.1; POTASSIUM 3.7 mmol/L (3.5-5.1); TOTAL BILIRUBIN 1.4 mg/dL (0.2-1.0); TOTAL PROTEIN 6.1 g/dL (6.4-8.2)
[2018-08-20 00:22] LABS: % BANDS 7 % (0-9); % BASOS 2 % (0-3); % EOS 1 % (0-5); % LYMPHS 5 % (24-48); % MONOS 5 % (0-10); % SEGS 80 % (35-66); ANISOCYTOSIS PRESENT; MICROCYTOSIS PRESENT; PLT ESTIMATE ADEQUATE (ADEQUATE)
--- NOTE | 2018-08-20 00:26 | RAD ---
PQRS Compliance statement: One or more of the following individualized dose reduction techniques were utilized for this examination: 1. Automated exposure control. 2. Adjustment of the mA and/or kV according to patient size. 3. Use of iterative reconstruction technique. Indication:Bilateral flank pain. Hx whipple sx and bilateral renal stones TECHNIQUE: CT abdomen and pelvis without IV contrast with multiplanar reformats. COMPARISON: 08/08/2018 FINDINGS: Limited evaluation of solid abdominal and pelvic organs due to lack of IV contrast. Heart is normal in size. No pericardial or pleural effusion. Noncontrast appearance of the liver, spleen, pancreas, adrenals within normal limits. Stable moderate pneumobilia. Postsurgical changes from Whipple procedure. Bilateral multiple nonobstructing stones are seen. 4 mm stone is seen in the distal left ureter without significant hydroureteronephrosis. Small fat-containing left inguinal hernia. Simple cyst in the left kidney measuring 1.3 cm. Large amount of diffuse colonic stool burden. Dilated afferent and efferent loops of small bowel seen. Prostate is nonenlarged. Urinary bladder demonstrates circumferential wall thickening. No pneumoperitoneum. No suspicious bony lesion. IMPRESSION: Limited evaluation of solid abdominal and pelvic organs due to lack of IV contrast. 1. Bilateral renal stones with stone in the distal left ureter without hydroureteronephrosis. 2. Postsurgical changes from the procedure with dilated afferent and efferent small bowel loops. Findings may be secondary to ileus or small bowel obstruction. 3. Circumferential wall thickening of the urinary bladder may be secondary to suboptimal distention or cystitis. Correlate with urinalysis. 4.Diffuse large colonic stool burden, patient may be constipated. Electronically signed by: Allan Wyman DO (08/20/2018 12:23 AM) [facility]
[2018-08-20] MEDS: HYDROmorphone PF 1 MG/ML DISP.SYRIN IV/SQ PRN (00:34)
[2018-08-20 00:35] LABS: INFLUENZA A PATIENT NEGATIVE (NEGATIVE); INFLUENZA B PATIENT NEGATIVE (NEGATIVE)
[2018-08-20] MEDS ORDERED: VANCOMYCIN 1 GM VIAL. ONE (01:03)
[2018-08-20] MEDS ORDERED: IV NORMAL SALINE 250ML 250 ML ONE (01:03)
[2018-08-20] MEDS ORDERED: PIPERACILLIN/TAZOBACTAM 3.375 GM VIAL IV ONE ×2 (01:03→01:13)
[2018-08-20] MEDS ORDERED: IV NORMAL SALINE 50ML 50 ML ONE (01:03)
--- NOTE | 2018-08-20 01:17 | PHYS DOC ---
Past History Past Medical History: Angina, Arthritis, Cancer, Diverticulitis, DVT, GERD, High Cholesterol, Kidney Stones, Pneumonia, UTI, Other Past Surgical History: Other Additional Past Surgical Histo: Whipple surgery Smoking: Non-smoker Alcohol Use: None Drug Use: None Adult General Chief Complaint Chief Complaint: FLANK PAIN HPI HPI Patient is a 67-year-old male who presents with report of lower abdominal pain and bilateral flank pain that has been ongoing for the last few weeks. Patient states that he was seen here couple of weeks ago and had a CT scan that demonstrated numerous bilateral kidney stones and he states that over the last couple of weeks he has been parked passing a large number of stones. Patient states that pain had recurred yesterday and this evening had gotten much worse. He recently had undergone a Whipple procedure out at and has been taking by mouth Dilaudid at home but states that tonight the pain got out of control. Upon arrival, patient noted to be febrile. Patient was unaware that he has been running a fever. He does admit to nausea and vomiting. He rates his pain to be a 9 out of 10 at this time. He states that nothing is improving his symptoms. Patient states that his last normal bowel movement was today, having had 2 BMs throughout the day. Review of Systems Review of Systems Constitutional: Positive fever and chills [] Respiratory: Denies cough or shortness of breath [] Cardiovascular: No additional information not addressed in HPI [] GI: Positive abdominal pain with nausea and vomiting. Denies diarrhea [] : Positive hematuria [] Musculoskeletal: Positive bilateral back pain [] All other systems were reviewed and found to be within normal limits, except as documented in this note. Current Medications Current Medications Current Medications Medications (Trade) Dose Ordered Sig/[facility] Start Time Stop Time Status Last Admin Dose Admin Acetaminophen (Tylenol) 500 mg STK-MED ONCE 08/19/18 23:28 08/19/18 23:29 DC Hydromorphone HCl (Dilaudid) 1 mg PRN Q15MIN PRN 08/19/18 23:15 08/20/18 23:14 08/20/18 00:34 1 MG Ibuprofen (Motrin) 600 mg STK-MED ONCE 08/19/18 23:28 08/19/18 23:29 DC Info (Do NOT chart on this entry -- for MONITORING) 1 each PRN DAILY PRN 08/19/18 23:30 08/21/18 23:29 Iohexol (Omnipaque 300 Mg/ml) 75 ml 1X ONCE 08/19/18 23:30 08/19/18 23:31 DC Ondansetron HCl (Zofran) 4 mg 1X ONCE 08/19/18 23:30 08/19/18 23:31 DC 08/19/18 23:30 4 MG Piperacillin Sod/ Tazobactam Sod (Zosyn) 3.375 gm STK-MED ONCE 08/20/18 01:03 08/20/18 01:04 DC Piperacillin Sod/ Tazobactam Sod 3.375 gm/Sodium Chloride 50 ml @ 100 mls/hr 1X ONCE 08/20/18 01:30 08/20/18 01:59 Sodium Chloride 50 ml @ As Directed STK-MED ONCE 08/20/18 01:03 08/20/18 01:04 DC Vancomycin HCl (Vancomycin) 1 gm STK-MED ONCE 08/20/18 01:03 08/20/18 01:04 DC Vancomycin HCl 1 gm/Sodium Chloride 250 ml @ 250 mls/hr 1X ONCE 08/20/18 01:30 08/20/18 02:29 Allergies Allergies Allergies Coded Allergies Type Severity Reaction Last Updated Verified No Known Drug Allergies 10/24/17 No Physical Exam Physical Exam Constitutional: Well developed, well nourished, in mild distress, non-toxic appearance. [] HENT: Normocephalic, atraumatic, bilateral external ears normal, oropharynx dry , no oral exudates, nose normal. [] Eyes: PERRLA, EOMI, conjunctiva normal, no discharge. [] Neck: Normal range of motion, no tenderness, supple, no stridor. [] Cardiovascular: Mildly tachycardic rate with regular rhythm[] Lungs & Thorax: Bilateral breath sounds clear to auscultation [] Abdomen: Bowel sounds normal, soft, with epigastric and suprapubic tenderness. [ ] Skin: Warm, dry, no erythema, no rash. [] Extremities: No tenderness, no cyanosis, no clubbing, ROM intact. [] Neurologic: Alert and oriented X 3, no focal deficits noted. [] Current Patient Data Vital Signs Vital Signs Date Time Temp Pulse Resp B/P (MAP) Pulse Ox O2 Delivery O2 Flow Rate FiO2 08/20/18 00:34 18 95 Room Air 08/19/18 23:11 103.0 140 Lab Results Laboratory Tests Test 08/19/18 23:15 08/19/18 23:25 08/19/18 23:59 Urine Collection Type Unknown Urine Color Shari Urine Clarity Hazy Urine pH 6.0 Urine Specific [place] 1.025 Urine Protein 30 mg/dl (NEG-TRACE) Urine Glucose (UA) Neg mg/dL (NEG) Urine Ketones (Stick) Neg mg/dL (NEG) Urine Blood Mod (NEG) Urine Nitrite Neg (NEG) Urine Bilirubin Neg (NEG) Urine Urobilinogen Dipstick 1 mg/dL (0.2 mg/dL) Urine Leukocyte Esterase Neg (NEG) Urine RBC 11-20 /HPF (0-2) Urine WBC 0 /HPF (0-4) Urine Squamous Epithelial Cells Occ /LPF Urine Transitional Epithelial Cells Occ /LPF Urine Renal Epithelial Cells Occ /LPF Urine Amorphous Sediment Present /HPF Urine Bacteria Few /HPF (0-FEW) Urine Mucus Slight /LPF White Blood Count 11.0 x10^3/uL (4.0-11.0) Red Blood Count 4.20 x10^6/uL (4.30-5.70) L Hemoglobin 11.2 g/dL (13.0-17.5) L Hematocrit 34.2 % (39.0-53.0) L Mean Corpuscular Volume 81 fL (79-100) Mean Corpuscular Hemoglobin 27 pg (25-35) Mean Corpuscular Hemoglobin Concent 33 g/dL (31-37) Red Cell Distribution Width 17.9 % (11.5-14.5) H Platelet Count 273 x10^3/uL (140-400) Neutrophils (%) (Auto) 88 % (31-73) H Lymphocytes (%) (Auto) 6 % (24-48) L Monocytes (%) (Auto) 4 % (0-9) Eosinophils (%) (Auto) 1 % (0-3) Basophils (%) (Auto) 1 % (0-3) Neutrophils # (Auto) 9.7 x10^3uL (1.8-7.7) H Lymphocytes # (Auto) 0.7 x10^3/uL (1.0-4.8) L Monocytes # (Auto) 0.5 x10^3/uL (0.0-1.1) Eosinophils # (Auto) 0.1 x10^3/uL (0.0-0.7) Basophils # (Auto) 0.1 x10^3/uL (0.0-0.2) Segmented Neutrophils % 80 % (35-66) H Band Neutrophils % 7 % (0-9) Lymphocytes % 5 % (24-48) L Monocytes % 5 % (0-10) Eosinophils % 1 % (0-5) Basophils % 2 % (0-3) Platelet Estimate Adequate (ADEQUATE) Anisocytosis Present Microcytosis Present Sodium Level 141 mmol/L (136-145) Potassium Level 3.7 mmol/L (3.5-5.1) Chloride Level 105 mmol/L (98-107) Carbon Dioxide Level 23 mmol/L (21-32) Anion Gap 13 (6-14) Blood Urea Nitrogen 20 mg/dL (8-26) Creatinine 0.8 mg/dL (0.7-1.3) Estimated GFR (Cockcroft-Gault) 96.1 BUN/Creatinine Ratio 25 (6-20) H Glucose Level 119 mg/dL (70-99) H Lactic Acid Level 2.4 mmol/L (0.4-2.0) H Calcium Level 8.5 mg/dL (8.5-10.1) Total Bilirubin 1.4 mg/dL (0.2-1.0) H Aspartate Amino Transferase (AST) 35 U/L (15-37) Alanine Aminotransferase (ALT) 32 U/L (16-63) Alkaline Phosphatase 292 U/L (46-116) H Total Protein 6.1 g/dL (6.4-8.2) L Albumin 2.6 g/dL (3.4-5.0) L Albumin/Globulin Ratio 0.7 (1.0-1.7) L Influenza Type A (Rapid) Negative (NEGATIVE) Influenza Type B (Rapid) Negative (NEGATIVE) EKG EKG [] Radiology/Procedures Radiology/Procedures [] Impressions: PROCEDURE: CT ABDOMEN PELVIS WO CONTRAST PQRS Compliance statement: One or more of the following individualized dose reduction techniques were utilized for this examination: 1. Automated exposure control. 2. Adjustment of the mA and/or kV according to patient size. 3. Use of iterative reconstruction technique. Indication:Bilateral flank pain. Hx whipple sx and bilateral renal stones TECHNIQUE: CT abdomen and pelvis without IV contrast with multiplanar reformats. COMPARISON: 08/08/2018 FINDINGS: Limited evaluation of solid abdominal and pelvic organs due to lack of IV contrast. Heart is normal in size. No pericardial or pleural effusion. Noncontrast appearance of the liver, spleen, pancreas, adrenals within normal limits. Stable moderate pneumobilia. Postsurgical changes from Whipple procedure. Bilateral multiple nonobstructing stones are seen. 4 mm stone is seen in the distal left ureter without significant hydroureteronephrosis. Small fat-containing left inguinal hernia. Simple cyst in the left kidney measuring 1.3 cm. Large amount of diffuse colonic stool burden. Dilated afferent and efferent loops of small bowel seen. Prostate is nonenlarged. Urinary bladder demonstrates circumferential wall thickening. No pneumoperitoneum. No suspicious bony lesion. IMPRESSION: Limited evaluation of solid abdominal and pelvic organs due to lack of IV contrast. 1. Bilateral renal stones with stone in the distal left ureter without hydroureteronephrosis. 2. Postsurgical changes from the procedure with dilated afferent and efferent small bowel loops. Findings may be secondary to ileus or small bowel obstruction. 3. Circumferential wall thickening of the urinary bladder may be secondary to suboptimal distention or cystitis. Correlate with urinalysis. 4.Diffuse large colonic stool burden, patient may be constipated. Electronically signed by: Allan Wyman DO (08/20/2018 12:23 AM) [facility] Course & Med Decision Making Course & Med Decision Making Pertinent Labs and Imaging studies reviewed. (See chart for details) [] Dragon Disclaimer Dragon Disclaimer This electronic medical record was generated, in whole or in part, using a voice recognition dictation system. Departure Departure: Impression: Primary Impression: Ureterolithiasis Additional Impressions: Ileus Fever Disposition: ADMITTED INPATIENT Admitting Physician: Jose R Morel Condition: IMPROVED Referrals: JOSE R MOREL MD (PCP) Problem Qualifiers Additional Impressions: Fever Fever type: unspecified Qualified Codes: R50.9 - Fever, unspecified SIERRA SOTOMAYOR Jr., DO Aug 20, 2018 01:17
[2018-08-20] MEDS ORDERED: PIPERACILLIN/TAZOBACTAM 3.375 GM in IV NORMAL SALINE 50ML 50 ML IV ONE (01:30)
[2018-08-20] MEDS ORDERED: VANCOMYCIN 1 GM in IV NORMAL SALINE 250ML 250 ML IV ONE (01:30)
[2018-08-20] MEDS ORDERED: ACETAMINOPHEN 325 MG TABLET PO PRN (01:30)
[2018-08-20] MEDS ORDERED: ONDANSETRON PF 4 MG/2 ML VIAL. IV PRN (01:30)
[2018-08-20] MEDS: IV NORMAL SALINE 1,000ML 1,000 ML IV SCH ×3 (01:50→17:30)
[2018-08-20 01:57] VITALS: BP 99/66
[2018-08-20] MEDS ORDERED: RIVA20TA2 PO (02:35)
[2018-08-20] MEDS ORDERED: NORT50CA PO (02:35)
[2018-08-20] MEDS ORDERED: TAMS0.4C97 PO (02:35)
[2018-08-20] MEDS ORDERED: LIPA1CAP6 PO (02:37)
[2018-08-20 04:54] VITALS: BP 97/62
--- NOTE | 2018-08-20 05:25 | EKG ---
[address] [address] Test Date: 2018-08-19 Test Time: 23:19:33 Pat Name: KIRSTEN LEVY Department: Room: 120 A Gender: M Genetics Physician: SAMUEL : 1950 Requested By: SIERRA SOTOMAYOR Order Number: [id number] Reading MD: Price Sanchez MD Measurements Intervals [place] Rate: 127 P: 33 IN: 118 QRS: 68 QRSD: 80 T: 63 QT: 304 QTc: 447 Interpretive Statements SINUS TACHYCARDIA Electronically Signed On 08-25-2018 14:03:23 CDT by Price Sanchez MD
[2018-08-20] MEDS ORDERED: PROTEASE PO SCH (09:00)
[2018-08-20] MEDS ORDERED: AMYLASE PO SCH (09:00)
[2018-08-20] MEDS ORDERED: LIPASE PO SCH (09:00)
[2018-08-20] MEDS ORDERED: BISACODYL 10 MG SUPP.RECT PR ONE (09:00)
[2018-08-20] MEDS: DOCUSATE SODIUM 100 MG CAPSULE PO PRN (09:39)
[2018-08-20] MEDS: PANTOPRAZOLE 40 MG TABLET. PO SCH (09:39)
[2018-08-20] MEDS: RIVAROXABAN 10 MG TABLET. PO SCH (09:39)
[2018-08-20] MEDS: HYDROmorphone 2 MG TABLET PO PRN ×2 (09:39→19:24)
[2018-08-20] MEDS: URSODIOL 300 MG CAPSULE. PO SCH ×3 (09:41→19:54)
[2018-08-20 10:42] VITALS: BP 118/76
[2018-08-20] MEDS: LIPASE/PROTEAS/AMYLAS 10/32/42 CAPSULE.DR. PO SCH ×2 (12:57→16:35)
[2018-08-20] MEDS: METOCLOPRAMIDE 10 MG TABLET PO SCH ×3 (12:57→19:54)
[2018-08-20] MEDS: HYDROmorphone PF 1 MG/ML DISP.SYRIN IV PRN ×2 (13:34→16:55)
--- NOTE | 2018-08-20 14:00 | RAD ---
Right lower extremity venous Doppler. HISTORY: History of clot and right peroneal vein and 2018, pain right thigh Duplex ultrasound was used to evaluate the veins of the right lower extremity. Real-time imaging with compression, color flow imaging and Doppler were utilized for evaluation. The right common femoral vein is compressible and has flow with color imaging. The deep femoral vein on the right is compressible and has flow with color imaging. There is flow in the greater saphenous vein with color imaging on the right. The femoral and popliteal veins are compressible and have flow with color imaging and antegrade flow with augmentation. The right posterior tibial veins are compressible and have flow with color imaging. 1 peroneal vein has intraluminal echoes in the mid peroneal vein and is not completely compressible consistent with deep venous thrombosis probably chronic or incomplete recanalization but an acute DVT would be difficult to exclude. IMPRESSION: 1. 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 2. Remaining deep veins of the right lower extremity are compressible and free of acute deep venous thrombosis. Electronically signed by: Kameron Vargas MD (08/20/2018 1:57 PM) [facility]
[2018-08-20 14:31] VITALS: BP 106/69
[2018-08-20 19:30] VITALS: BP 121/77
[2018-08-20] MEDS: TAMSULOSIN 0.4 MG CAP.ER.24H. PO SCH (19:53)
[2018-08-20] MEDS: LACTOBACILLUS RHAMNOSUS GG 1 CAPSULE. PO SCH (19:53)
[2018-08-20] MEDS: NORTRIPTYLINE 25 MG CAPSULE PO SCH (19:55)
--- NOTE | 2018-08-20 20:00 | HP ---
ADMIT DATE: 08/20/2018 HISTORY OF PRESENT ILLNESS: The patient is a 67-year-old male in with bilateral nephrolithiasis with severe excruciating flank pain. The patient has been battling multiple kidney stones for sometimes, has a urologist at that follows him for this. When he came in, he did have an elevated lactic acid and was admitted to the hospital for further evaluation and treatment of possible sepsis along with his nephrolithiasis bilaterally and passing a stone as well on top of that. The patient will be receiving antibiotics, fluids, and pain medication IV. PAST MEDICAL HISTORY: Tinnitus; angina; anticoagulant therapy, on Xarelto; hypercholesterolemia; DVTs; respiratory disease; rib fractures; pneumonias; gastrointestinal symptoms; diverticulitis; pancreatic cancer or pancreatitis; colonic polyps; abdominal surgery; Whipple procedure in 06/2017; gastroesophageal reflux; kidney stones; urinary tract infection; lithotripsies; multiple joints of arthritis; bulging disk; influenza. Pneumococcal vaccinations are up-to-date. FAMILY HISTORY: Positive for neoplasm of the skin, myocardial infarction, colon cancer, hypertension, CABG in a sister, cancer in the mother and cardiovascular disease in the father and sister as well. ALLERGIES: The patient has no known drug allergies. MEDICATIONS: The reconciliation of medications was undertaken in the chart and briefly noted Xarelto 20 mg daily, Flomax 0.4, nortriptyline 50, docusate sodium, ursodiol 300 mg capsule daily, Zenpep 2 with each meal, lipase I am not sure why that has been there twice, and Prilosec 40 mg daily. The patient is a full code. SOCIAL HISTORY: No smoking, alcohol or drug use. Lives at home with his . REVIEW OF SYSTEMS: Denies any headaches, visual changes, blurred vision. Severe pain from the flank to the kidney stones. The patient also has some nausea, but no vomiting. Does have lot of constipation. No problems urinating per se except for the kidney stones, of course, and neurologically, the patient is alert and oriented x 3. PHYSICAL EXAMINATION: GENERAL: On exam, this is a very pleasant white male, looking stated age. VITAL SIGNS: Blood pressure 97/62, respiration 18, pulse 73, afebrile. HEENT: The patient's head was atraumatic, normocephalic. Eyes: PERRLA without jaundice. Mouth and throat were normal. NECK: Supple, without JVD, carotid bruits. No thyromegaly. LUNGS: Diminished throughout, poor movement of air. CARDIOVASCULAR: Regular sinus rhythm, S1, S2, without murmur, rub, thrill, or extra heart sounds. ABDOMEN: Soft, nontender except for the flank pain. Definite tenderness. Surgical scar seems to be healing fairly well overall. EXTREMITIES: No clubbing, cyanosis or edema. NEUROLOGIC: The patient is alert and oriented x 3. The patient otherwise seems to be resting fairly comfortably. We will make further evaluation on him. IMAGING STUDIES: The patient's venous Doppler shows chronic thrombus of the right peroneal vein. Remaining deep veins of the right are compressible, free of acute DVT otherwise. IMPRESSION: Bilateral nephrolithiasis, passing of a kidney stone, severe flank pain, elevated lactic acid, hematuria of course, anemia of chronic disease, hypotension, constipation. The patient continues to be monitored carefully fluids. Strain all urine and make further evaluation on him as indicated. JOSE R LEWIS MD DR: SHOLA/phyllis JOB#: [id number] / [id number]
[2018-08-20 23:13] VITALS: BP 121/76
[2018-08-21] MEDS: IV NORMAL SALINE 1,000ML 1,000 ML IV SCH (00:46)
[2018-08-21 05:38] VITALS: BP 112/69
[2018-08-21 07:18] LABS: BASO # 0.1 x10^3/uL (0.0-0.2); BASO % 1 % (0-3); EOS # 0.5 x10^3/uL (0.0-0.7); EOS % 7 % (0-3); HEMATOCRIT 30.9 % (39.0-53.0); HEMOGLOBIN 10.2 g/dL (13.0-17.5); LYMPH # 1.4 x10^3/uL (1.0-4.8); LYMPH % 20 % (24-48); MEAN CORPUSCULAR HEMOGLOBIN 27 pg (25-35); MEAN CORPUSCULAR HGB CONC 33 g/dL (31-37); MEAN CORPUSCULAR VOLUME 83 fL (79-100); MONO # 0.8 x10^3/uL (0.0-1.1); MONO % 11 % (0-9); NEUT # 4.3 x10^3uL (1.8-7.7); NEUT % 61 % (31-73); PLATELET COUNT 211 x10^3/uL (140-400); RED BLOOD COUNT 3.73 x10^6/uL (4.30-5.70); RED CELL DISTRIBUTION WIDTH 18.1 % (11.5-14.5)
[2018-08-21 07:19] LABS: CALCIUM 8.4 mg/dL (8.5-10.1); CREATININE 0.6 mg/dL (0.7-1.3); POTASSIUM 3.6 mmol/L (3.5-5.1)
[2018-08-21] MEDS: RIVAROXABAN 10 MG TABLET. PO SCH (08:17)
[2018-08-21] MEDS: LIPASE/PROTEAS/AMYLAS 10/32/42 CAPSULE.DR. PO SCH ×3 (08:17→17:37)
[2018-08-21] MEDS: DOCUSATE SODIUM 100 MG CAPSULE PO PRN (08:17)
[2018-08-21] MEDS: LACTOBACILLUS RHAMNOSUS GG 1 CAPSULE. PO SCH ×2 (08:17→19:34)
[2018-08-21] MEDS: METOCLOPRAMIDE 10 MG TABLET PO SCH ×4 (08:18→19:34)
[2018-08-21] MEDS: PANTOPRAZOLE 40 MG TABLET. PO SCH (08:18)
[2018-08-21] MEDS: HYDROmorphone 2 MG TABLET PO PRN ×3 (08:18→19:34)
[2018-08-21] MEDS: URSODIOL 300 MG CAPSULE. PO SCH ×3 (08:18→19:34)
[2018-08-21] MEDS: NORTRIPTYLINE 25 MG CAPSULE PO SCH (08:19)
[2018-08-21 10:42] VITALS: BP 112/69
[2018-08-21] MEDS ORDERED: PIP/TAZO PER PHARMACY MC PRN (11:15)
[2018-08-21] MEDS: PIPERACILLIN/TAZOBACTAM 4.5 GM in IV NORMAL SALINE 50ML 50 ML IV SCH ×3 (12:18→23:42)
[2018-08-21 16:25] VITALS: BP 117/77
--- NOTE | 2018-08-21 18:04 | PN ---
DATE: SUBJECTIVE: A 67-year-old male with bilateral nephrolithiasis apparently had positive blood cultures, called this morning and as a result of this, the patient continues on his IV antibiotic therapy. The patient otherwise is resting fairly comfortably. He did have bilateral nephrolithiasis. Pain seems to be under better control. OBJECTIVE: VITAL SIGNS: Blood pressure 110/70, respiration 18, pulse 80 and afebrile. GENERAL: The patient is alert and oriented. LUNGS: Diminished throughout, poor movement of air. CARDIOVASCULAR: Regular sinus rhythm. ABDOMEN: Soft and nontender. Flank pain markedly improved. IMPRESSION: Therefore, bacteremia, bilateral nephrolithiasis, elevated lactic acid, hematuria, anemia of chronic disease, ____ and constipation. JOSE R LEWIS MD DR: SHOLA/phyllis JOB#: [id number] / [id number]
[2018-08-21] MEDS: TAMSULOSIN 0.4 MG CAP.ER.24H. PO SCH (19:34)
[2018-08-21 20:01] VITALS: BP 122/81
[2018-08-21 23:21] VITALS: BP 109/69
[2018-08-22 05:03] VITALS: BP 114/74
[2018-08-22] MEDS: PIPERACILLIN/TAZOBACTAM 4.5 GM in IV NORMAL SALINE 50ML 50 ML IV SCH ×3 (05:23→18:36)
[2018-08-22] MEDS: LIPASE/PROTEAS/AMYLAS 10/32/42 CAPSULE.DR. PO SCH ×3 (08:14→16:54)
[2018-08-22] MEDS: HYDROmorphone 2 MG TABLET PO PRN (08:14)
[2018-08-22] MEDS: LACTOBACILLUS RHAMNOSUS GG 1 CAPSULE. PO SCH ×2 (08:15→21:51)
[2018-08-22] MEDS: URSODIOL 300 MG CAPSULE. PO SCH ×3 (08:15→21:51)
[2018-08-22] MEDS: NORTRIPTYLINE 25 MG CAPSULE PO SCH (08:15)
[2018-08-22] MEDS: METOCLOPRAMIDE 10 MG TABLET PO SCH ×4 (08:15→21:51)
[2018-08-22] MEDS: RIVAROXABAN 10 MG TABLET. PO SCH (08:15)
[2018-08-22] MEDS: DOCUSATE SODIUM 100 MG CAPSULE PO PRN (08:15)
[2018-08-22] MEDS: PANTOPRAZOLE 40 MG TABLET. PO SCH (08:15)
[2018-08-22] MEDS: HYDROmorphone PF 2 MG/ML VIAL IV PRN ×3 (09:57→21:52)
[2018-08-22 10:53] VITALS: BP 106/75
[2018-08-22 15:26] VITALS: BP 103/66
[2018-08-22 19:12] VITALS: BP 146/77
[2018-08-22] MEDS: TAMSULOSIN 0.4 MG CAP.ER.24H. PO SCH (21:52)
[2018-08-22 23:20] VITALS: BP 103/64
[2018-08-23] MEDS: PIPERACILLIN/TAZOBACTAM 4.5 GM in IV NORMAL SALINE 50ML 50 ML IV SCH ×3 (00:16→11:18)
[2018-08-23 05:22] VITALS: BP 122/72
[2018-08-23 06:39] LABS: BASO # 0.1 x10^3/uL (0.0-0.2); BASO % 1 % (0-3); EOS # 0.2 x10^3/uL (0.0-0.7); EOS % 2 % (0-3); HEMATOCRIT 33.4 % (39.0-53.0); LYMPH # 0.8 x10^3/uL (1.0-4.8); LYMPH % 12 % (24-48); MEAN CORPUSCULAR HEMOGLOBIN 27 pg (25-35); MEAN CORPUSCULAR HGB CONC 33 g/dL (31-37); MEAN CORPUSCULAR VOLUME 83 fL (79-100); MONO # 0.8 x10^3/uL (0.0-1.1); MONO % 12 % (0-9); NEUT # 5.1 x10^3uL (1.8-7.7); NEUT % 73 % (31-73); PLATELET COUNT 236 x10^3/uL (140-400); RED BLOOD COUNT 4.04 x10^6/uL (4.30-5.70); RED CELL DISTRIBUTION WIDTH 17.8 % (11.5-14.5)
[2018-08-23 06:48] LABS: CALCIUM 8.6 mg/dL (8.5-10.1); CREATININE 0.7 mg/dL (0.7-1.3); GFR 112.1; POTASSIUM 3.5 mmol/L (3.5-5.1)
[2018-08-23] MEDS: DOCUSATE SODIUM 100 MG CAPSULE PO PRN (08:05)
[2018-08-23] MEDS: PANTOPRAZOLE 40 MG TABLET. PO SCH (08:05)
[2018-08-23] MEDS: LIPASE/PROTEAS/AMYLAS 10/32/42 CAPSULE.DR. PO SCH ×2 (08:05→11:19)
[2018-08-23] MEDS: RIVAROXABAN 10 MG TABLET. PO SCH (08:05)
[2018-08-23] MEDS: METOCLOPRAMIDE 10 MG TABLET PO SCH ×2 (08:05→11:18)
[2018-08-23] MEDS: URSODIOL 300 MG CAPSULE. PO SCH (08:05)
[2018-08-23] MEDS: LACTOBACILLUS RHAMNOSUS GG 1 CAPSULE. PO SCH (08:05)
[2018-08-23] MEDS: NORTRIPTYLINE 25 MG CAPSULE PO SCH (08:06)
[2018-08-23] MEDS: HYDROmorphone PF 2 MG/ML VIAL IV PRN (08:06)
[2018-08-23 09:52] VITALS: BP 99/68
--- NOTE | 2018-08-23 11:02 | PN ---
DATE: 08/22/2018 SUBJECTIVE: The patient had positive blood cultures. He has been placed on appropriate IV antibiotic therapy. His lactic acid one time was elevated. Albumin low at 2.6. He continues on IV antibiotic therapy. He was having increased flank pain. He thinks he is trying to move another stone on his right flank. The patient has a chronic thrombus of his right peroneal vein, still giving him pain there. OBJECTIVE: VITAL SIGNS: Blood pressure 103/66, respiratory rate 20, pulse 87, afebrile. GENERAL: The patient is alert and oriented. LUNGS: Diminished, poor movement of air. CARDIOVASCULAR: Regular sinus rhythm, S1, S2. ABDOMEN: Soft, nontender. IMPRESSION: Bacteremia, bilateral nephrolithiasis, elevated lactic acid, hematuria, anemia of chronic disease. PLAN: Continue on IV antibiotic therapy for now. Make further evaluation on him as indicated. JOSE R LEWIS MD DR: SHOLA/phyllis JOB#: [id number] / [id number]
[2018-08-23] MEDS ORDERED: LEVO500T8 IV (13:07)
--- NOTE | 2018-09-01 23:58 | DS ---
DATE OF DISCHARGE: 08/23/2018 HOSPITAL COURSE: The patient has a long history of multiple medical problems. The patient came in through the Emergency Room. He was having severe excruciating flank pain, uncontrolled with oral medications, came in for IV pain medication and control. The patient passes 20-30 stones in a week. 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 The patient was admitted to the hospital and placed on IV fluids. His lactic acid was elevated to 2.4 and the patient made relatively good progress overall. The patient did have blood cultures drawn and there was a positive blood culture for Veillonella species. The patient in turn was placed on appropriate diet and antibiotic therapy with consultation with pharmacy. The patient made good progress during the rest of his hospitalization. PICC line was placed. He was discharged home. He had a positive D-dimer, venous Dopplers were negative. CT of the abdomen showed circumferential wall thickening of the urinary bladder, possible cystitis, large colonic stool burden as well as bilateral renal stones, stone in the distal left ureter without hydroureteronephrosis. The patient made excellent progress during the rest of his hospitalization and continued to receive IV antibiotic therapy as an outpatient. IMPRESSION AND PLAN: Bacteremia, bilateral nephrolithiasis, elevated lactic acid, anemia of chronic disease, severe protein malnutrition, history of previous Whipple procedure for pancreatic mass as well as hematuria. The patient will be discharged home. He will be put on a stone prevention diet as well as see [facility]. Impression is as noted above. He will be followed up in 7-10 days here as well as follow up with his physicians down at . JOSE R LEWIS MD DR: SHOLA/phyllis JOB#: [id number] / [id number]
== END 2018-08-23 13:39 | disposition home or self-care (01) | DRG 871 ==
LOC: ER 22:43 → 1 SOUTH 08-20 01:17
PROVIDERS: ADMIT Family Medicine; ATTEND Family Medicine
DX: A41.9 Sepsis, unspecified organism (principal); E43 Unspecified severe protein-calorie malnutrition; N20.2 Calculus of kidney with calculus of ureter; K56.7 Ileus, unspecified; I82.891 Chronic embolism and thrombosis of other specified veins; D63.8 Anemia in other chronic diseases classified elsewhere; R79.89 Other specified abnormal findings of blood chemistry; I95.9 Hypotension, unspecified; E78.00 Pure hypercholesterolemia, unspecified; K21.9 Gastro-esophageal reflux disease without esophagitis; Z80.0 Family history of malignant neoplasm of digestive organs; Z82.49 Family history of ischemic heart disease and other diseases of the circulatory system; Z85.07 Personal history of malignant neoplasm of pancreas; Z86.010 Personal history of colon polyps; Z87.01 Personal history of pneumonia (recurrent); M19.90 Unspecified osteoarthritis, unspecified site; Z87.440 Personal history of urinary (tract) infections; Z90.411 Acquired partial absence of pancreas
CPT/HCPCS: 36415; 74176; 80048; 80053; 81001; 83605; 85007; 85025; 87040; 87077; 87205; 87804; 93005; 93971; 96361; 96365; 96375; 96376; J1170; J1956; J2405; J2543; J3370; J7050; J8597; 99285-25; J7030

== ENCOUNTER → 2018-09-27 | Outpatient (CLI) | payer MEDICARE, OTHER ==
[2018-08-30 10:42] VITALS: BP 109/72
[~2018-09-27] MED LIST changes: +LEVO500T8 IV; +LIPA1CAP6 PO; +NORT50CA PO; +RIVA20TA2 PO
[2018-09-27 12:10] LABS: ALBUMIN 2.7 g/dL (3.4-5.0); ALBUMIN/GLOBULIN RATIO 0.7 (1.0-1.7); CALCIUM 8.6 mg/dL (8.5-10.1); CREATININE 0.7 mg/dL (0.7-1.3); GFR 111.8; POTASSIUM 3.3 mmol/L (3.5-5.1); TOTAL BILIRUBIN 0.7 mg/dL (0.2-1.0); TOTAL PROTEIN 6.4 g/dL (6.4-8.2)
== END | disposition home or self-care (01) ==
LOC: LAB 11:30
PROVIDERS: ATTEND Family Medicine
DX: N20.0 Calculus of kidney (principal)
CPT/HCPCS: 36415; 80053

== ENCOUNTER 2019-01-04 15:43 | Observation (INO) | payer MEDICARE, OTHER ==
[~2019-01-04] VITALS: Ht 177.8 cm; Wt 68.7 kg
[2019-01-04] MEDS ORDERED: ONDANSETRON PF 4 MG/2 ML VIAL. IV PRN (16:15)
--- NOTE | 2019-01-04 17:00 | NUR ---
The patient, KIRSTEN LEVY, 68 y/o, M admitted by JOSE R LEWIS MD, as a direct admission for possible ileus. Pt in pain upon admission, 11/14, abdomen. Dr. Lewis ordered Fentanyl 50mcg q2 IVP. Pt A&Ox4, VSS. Pt was given written information regarding hospital policies, unit procedures and contact persons. Sarah Higgins RN
[2019-01-04] MEDS: IV NORMAL SALINE 1,000ML 1,000 ML IV SCH ×2 (17:07→23:14)
--- NOTE | 2019-01-04 17:10 | RAD ---
Exam: CT abdomen and pelvis without contrast INDICATION: Abdominal pain TECHNIQUE: Sequential axial images through the abdomen and pelvis obtained without IV contrast. Sagittal and coronal reformatted images were reconstructed from the axial data and reviewed. Comparisons: 10/19/2018 FINDINGS: Heart size is normal. No pericardial effusion. Visualized lung bases are clear. Mild bronchiectatic changes noted at the lung bases. No pleural effusion. Evaluation of the solid organs is limited secondary to noncontrast technique. Large amount of pneumobilia is noted, similar to the prior exam. Additionally there are stable foci of air noted within the pancreas, presumably the pancreatic duct. Postsurgical changes of hepaticojejunostomy is noted. Otherwise, liver, spleen, pancreas and adrenals are unremarkable. Gallbladder surgically absent. Several nonobstructing renal calculi are noted bilaterally. No perinephric inflammation or hydronephrosis. No ureteral calculi. Bladder is decompressed not well evaluated. Prostate is not enlarged. Postsurgical changes in the bowel as described above. Mildly dilated loops of bowel are noted at the level of the hepaticojejunostomy measuring up to 4.2 cm in diameter. Otherwise, large and small bowel are unremarkable. Free intra-abdominal air or fluid. Abdominal aorta has a normal course and caliber. No enlarged intra-abdominal lymph nodes are identified. No suspicious osseous lesions or acute fractures. IMPRESSION: 1. Mildly dilated loops of small bowel adjacent to the hepaticojejunostomy which may relate to focal ileus versus partial or early obstruction. Continued radiographic follow-up is recommended. 2. Redemonstrated is moderate to large amount of pneumobilia in a relatively dilated biliary tree. Degree of dilatation is increased when compared to prior exams. Recommend correlation with LFTs. Exposure: One or more of the following in the visualized dose reduction techniques were utilized for this examination: 1. Automated exposure control 2. Adjustment of the MA and/or KV according to patient size 3. Use of iterative of reconstructive technique Electronically signed by: Geremias Davis MD (01/04/2019 5:07 PM) [facility]
[2019-01-04 17:43] LABS: BASO # 0.1 x10^3/uL (0.0-0.2); BASO % 1 % (0-3); EOS # 0.2 x10^3/uL (0.0-0.7); EOS % 3 % (0-3); HEMATOCRIT 36.7 % (39.0-53.0); HEMOGLOBIN 11.9 g/dL (13.0-17.5); LYMPH # 1.5 x10^3/uL (1.0-4.8); LYMPH % 19 % (24-48); MEAN CORPUSCULAR HEMOGLOBIN 28 pg (25-35); MEAN CORPUSCULAR HGB CONC 32 g/dL (31-37); MEAN CORPUSCULAR VOLUME 86 fL (79-100); MONO # 0.9 x10^3/uL (0.0-1.1); MONO % 12 % (0-9); NEUT # 5.3 x10^3uL (1.8-7.7); NEUT % 66 % (31-73); PLATELET COUNT 286 x10^3/uL (140-400); RED BLOOD COUNT 4.28 x10^6/uL (4.30-5.70); RED CELL DISTRIBUTION WIDTH 16.9 % (11.5-14.5)
[2019-01-04 17:54] LABS: ALBUMIN 2.8 g/dL (3.4-5.0); ALBUMIN/GLOBULIN RATIO 0.8 (1.0-1.7); CALCIUM 8.7 mg/dL (8.5-10.1); CREATININE 0.6 mg/dL (0.7-1.3); GFR 133.6; POTASSIUM 3.9 mmol/L (3.5-5.1); TOTAL BILIRUBIN 0.6 mg/dL (0.2-1.0); TOTAL PROTEIN 6.2 g/dL (6.4-8.2)
[2019-01-04 18:04] VITALS: BP 116/77
[2019-01-04 19:47] VITALS: BP 117/85
[2019-01-04 19:53] LABS: BILIRUBIN,URINE NEG (NEG); CLARITY,URINE HAZY; COLOR,URINE AMBER; GLUCOSE,URINE NEG (NEG); NITRITE,URINE NEG (NEG); RBC,URINE 0 /HPF (0-2); UROBILINOGEN,URINE 2 mg/dL (0.2 mg/dL); WBC,URINE OCC /HPF (0-4)
[2019-01-04 19:54] LABS: BACTERIA,URINE FEW /HPF (0-FEW); SQUAMOUS EPITHELIAL CELL,UR OCC /LPF
[2019-01-04] MEDS ORDERED: DOCUSATE SODIUM 100 MG CAPSULE PO PRN (20:15)
[2019-01-04] MEDS ORDERED: TAMSULOSIN 0.4 MG CAP.ER.24H. PO SCH (21:00)
[2019-01-04] MEDS: URSODIOL 300 MG CAPSULE. PO SCH (21:01)
[2019-01-04 22:41] VITALS: BP 121/79
[2019-01-05] MEDS: IV NORMAL SALINE 1,000ML 1,000 ML IV SCH ×2 (04:45→12:15)
[2019-01-05 05:24] VITALS: BP 135/90
[2019-01-05] MEDS: URSODIOL 300 MG CAPSULE. PO SCH ×2 (08:51→13:24)
[2019-01-05] MEDS: LIPASE/PROTEAS/AMYLAS 10/32/42 CAPSULE.DR. PO SCH ×2 (08:51→12:03)
[2019-01-05] MEDS ORDERED: NORTRIPTYLINE 25 MG CAPSULE PO SCH (09:00)
[2019-01-05] MEDS ORDERED: RIVAROXABAN 10 MG TABLET. PO SCH (09:00)
[2019-01-05] MEDS ORDERED: PANTOPRAZOLE 40 MG TABLET. PO SCH (09:00)
[2019-01-05 11:47] VITALS: BP 126/85
--- NOTE | 2019-01-05 13:34 | NUR ---
Pt discharged from hospital with at approx 1315. All discharge instructions reviewed with pt and , and all questions answered. PIV removed. Pt stated pain was controlled p/t departure. Pt left with all his belongings.
== END 2019-01-05 13:15 | disposition home or self-care (01) ==
LOC: 1 SOUTH 15:43 → INTOOBSV 15:43
PROVIDERS: ADMIT Family Medicine; ATTEND Family Medicine
DX: K56.600 Partial intestinal obstruction, unspecified as to cause (principal); E78.5 Hyperlipidemia, unspecified; I10 Essential (primary) hypertension; K21.9 Gastro-esophageal reflux disease without esophagitis; E78.00 Pure hypercholesterolemia, unspecified; N20.0 Calculus of kidney; Z85.038 Personal history of other malignant neoplasm of large intestine; Z98.890 Other specified postprocedural states; E86.0 Dehydration; R11.2 Nausea with vomiting, unspecified
CPT/HCPCS: 36415; 74176; 80053; 81001; 82150; 83690; 85025; 96361; 96374; 96376; G0378; G0379; J3010; J7030

== ENCOUNTER → 2019-01-27 | Outpatient (CLI) | payer MEDICARE, OTHER ==
[2019-01-05 11:47] VITALS: BP 126/85
[2019-01-27 12:06] LABS: BASO # 0.1 x10^3/uL (0.0-0.2); BASO % 1 % (0-3); EOS # 0.3 x10^3/uL (0.0-0.7); EOS % 5 % (0-3); HEMATOCRIT 35.6 % (39.0-53.0); HEMOGLOBIN 11.7 g/dL (13.0-17.5); LYMPH # 1.5 x10^3/uL (1.0-4.8); LYMPH % 26 % (24-48); MEAN CORPUSCULAR HEMOGLOBIN 29 pg (25-35); MEAN CORPUSCULAR HGB CONC 33 g/dL (31-37); MEAN CORPUSCULAR VOLUME 88 fL (79-100); MONO # 0.5 x10^3/uL (0.0-1.1); MONO % 9 % (0-9); NEUT # 3.4 x10^3uL (1.8-7.7); NEUT % 59 % (31-73); PLATELET COUNT 227 x10^3/uL (140-400); RED BLOOD COUNT 4.06 x10^6/uL (4.30-5.70); WHITE BLOOD COUNT 5.8 x10^3/uL (4.0-11.0)
[2019-01-27 12:15] LABS: AMORPHOUS SEDIMENT,UR PRESENT /HPF; BACTERIA,URINE 0 /HPF (0-FEW); BILIRUBIN,URINE NEG (NEG); CLARITY,URINE HAZY; COLOR,URINE AMBER; GLUCOSE,URINE NEG (NEG); HYALINE CASTS, URINE OCC /HPF; NITRITE,URINE NEG (NEG); SQUAMOUS EPITHELIAL CELL,UR OCC /LPF; UROBILINOGEN,URINE 1 mg/dL (0.2 mg/dL); WBC,URINE 0 /HPF (0-4)
[2019-01-27] MEDS: IOHEXOL 350 MG/ML 100 ML VIAL. IV ONE (12:15)
[2019-01-27 12:20] LABS: ALBUMIN/GLOBULIN RATIO 0.9 (1.0-1.7); CALCIUM 8.7 mg/dL (8.5-10.1); CREATININE 0.8 mg/dL (0.7-1.3); GFR 95.8; POTASSIUM 3.4 mmol/L (3.5-5.1); TOTAL BILIRUBIN 0.5 mg/dL (0.2-1.0); TOTAL PROTEIN 6.5 g/dL (6.4-8.2)
--- NOTE | 2019-01-27 13:48 | RAD ---
PQRS Compliance statement: One or more of the following individualized dose reduction techniques were utilized for this examination: 1. Automated exposure control. 2. Adjustment of the mA and/or kV according to patient size. 3. Use of iterative reconstruction technique. Indication:Chest pain on breathing. Cough. Chest. TECHNIQUE: CT angiogram of the chest with IV contrast with multiplanar MIP reformats. COMPARISON:03/20/2018 FINDINGS: Suboptimal PE study due to contrast bolus timing. No central or segmental filling defects in the pulmonary arteries. Evaluation of subsegmental pulmonary arteries is limited. Heart is normal in size. No pericardial or pleural effusion. Coronary artery calcifications noted. No enlarged axillary, mediastinal or hilar adenopathy. Mild reticulonodular opacities are seen in the anterior segment of the right upper lobe likely infectious or scarring. Otherwise, lungs are clear. Stable pneumobilia likely prior sphincterectomy. Otherwise, Lalita sections through the spleen, adrenals, upper kidneys within normal limits. Status post cholecystectomy. No suspicious bony lesion. IMPRESSION: 1. Slight suboptimal PE study due to contrast bolus timing. No central or segmental PE. Evaluation of subsegmental pulmonary arteries is limited. 2. No pneumonia or imaging evidence of acute pulmonary infarct. Electronically signed by: Allan Wyman DO (01/27/2019 1:45 PM) [facility]
== END | disposition home or self-care (01) ==
LOC: CT 11:30
PROVIDERS: ATTEND Family Medicine
DX: I25.10 Atherosclerotic heart disease of native coronary artery without angina pectoris (principal); R91.8 Other nonspecific abnormal finding of lung field; R51 Headache; R68.89 Other general symptoms and signs; Z90.49 Acquired absence of other specified parts of digestive tract; Z79.01 Long term (current) use of anticoagulants
CPT/HCPCS: 36415; 71275; 80053; 81001; 82550; 83605; 83690; 84484; 85025; 85379; Q9967

== ENCOUNTER 2019-02-02 08:45 | Emergency (ER) | payer MEDICARE, OTHER ==
[~2019-02-02] VITALS: Ht 177.8 cm; Wt 67.7 kg
--- NOTE | 2019-02-02 09:08 | PHYS DOC ---
Past History Past Medical History: Angina, Arthritis, Cancer, Diverticulitis, DVT, GERD, High Cholesterol, Kidney Stones, Pneumonia, UTI, Other Past Surgical History: Other Additional Past Surgical Histo: Whipple surgery Smoking: Non-smoker Alcohol Use: None Drug Use: None Adult General Chief Complaint Chief Complaint: CHEST PAIN [facility] HPI 68-year-old male presents via EMS with near syncope and chest pain. 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 He felt like he might pass out. A passerby helped him sit on the ground. The patient did not pass out. He describes the chest pain has an internal cramping feeling. It is not painful to palpation. He has been having right-sided chest wall pain for a while. It seems to, and go at random. He recently had a CT scan done by his primary care physician to evaluate this area. Patient had a Whipple surgery 2 years ago and has not been the same since. He has known hernias in the areas of the surgical scars. He also gets more fatigued in general. The patient has not had a stress test in several years. He has no cardiac history. He has normal blood pressure without blood pressure medication. He denies fever or chills. Review of Systems Review of Systems Constitutional: Denies fever or chills [] Eyes: Denies change in visual acuity, redness, or eye pain [] HENT: Denies nasal congestion or sore throat [] Respiratory: Denies cough or shortness of breath [] Cardiovascular: No additional information not addressed in HPI [] GI: Denies abdominal pain, nausea, vomiting, bloody stools or diarrhea [] : Denies dysuria or hematuria [] Musculoskeletal: Denies back pain or joint pain [] Integument: Denies rash or skin lesions [] Neurologic: Dizziness, Denies headache, focal weakness or sensory changes [] Endocrine: Denies polyuria or polydipsia [] All other systems were reviewed and found to be within normal limits, except as documented in this note. Allergies Allergies Allergies Coded Allergies Type Severity Reaction Last Updated Verified No Known Drug Allergies 10/24/17 No Physical Exam Physical Exam Constitutional: Well developed, well nourished, no acute distress, non-toxic appearance. [] HENT: Normocephalic, atraumatic, bilateral external ears normal, oropharynx moist, no oral exudates, nose normal. [] Eyes: PERRLA, EOMI, conjunctiva normal, no discharge. [] Neck: Normal range of motion, no tenderness, supple, no stridor. [] Cardiovascular:Heart rate regular rhythm, no murmur [] Lungs & Thorax: Bilateral breath sounds clear to auscultation [] Abdomen: Bowel sounds normal, soft, no tenderness, no masses, no pulsatile masses. [] Skin: Warm, dry, no erythema, no rash. Surgical scars on abdomen[] Back: No tenderness, no CVA tenderness. [] Extremities: No tenderness, no cyanosis, no clubbing, ROM intact, no edema. [] Neurologic: Alert and oriented X 3, normal motor function, normal sensory function, no focal deficits noted. [] Psychologic: Affect normal, judgement normal, mood normal. [] Current Patient Data Lab Results Laboratory Tests Test 02/02/19 08:52 Glucose (Fingerstick) 190 mg/dL (70-99) H EKG EKG Sinus rhythm, rate 78, normal axis, no ST elevations or depressions.[] Radiology/Procedures Radiology/Procedures [] Impressions: CHEST AP ONLY History: Chest pain Comparison: June 18, 2018 Findings: No consolidation or pleural effusion. Normal heart size. Previously seen nodular opacity within the right midlung has resolved. Impression: 1. No acute cardiopulmonary process. Electronically signed by: Rajeev Pearl DO (02/02/2019 9:18 AM) [facility] DICTATED AND SIGNED BY: RAJEEV PEARL DO DATE: 02/02/19917 CC: JOHANN COMER DO; JOSE R LEWIS MD ~ Course & Med Decision Making Course & Med Decision Making Pertinent Labs and Imaging studies reviewed. (See chart for details) The patient's labs are basically unremarkable. His alkaline phosphatase is elevated. His troponin is negative. His chest x-ray is negative for acute findings. I reviewed the CT of his chest that he had recently, and there are no significant findings. I believe the patient's symptoms today likely stemming from his pain, pain medication use, and possibly some mild dehydration. This seems to be reactive or vasovagal in nature. I don't have an answer for his right-sided chest wall pain. It is tender to palpation. He tells me it hurts sometimes when he lays flat. I don't know if this is referred pain from his thoracic spine or another musculoskeletal source. I have advised that he continue to follow-up with his primary care physician. He is stable for discharge at this time. [] Dragon Disclaimer Dragon Disclaimer This electronic medical record was generated, in whole or in part, using a voice recognition dictation system. Departure Departure: Impression: Primary Impression: Chest wall pain Additional Impression: Vasovagal near syncope Disposition: 01 HOME, SELF-CARE Condition: STABLE Referrals: JOSE R LEWIS MD (PCP) Patient Instructions: Chest Wall Pain, [id number], Syncope, [id number] Problem Qualifiers JOHANN COMER DO Feb 02, 2019 09:08
[2019-02-02] MEDS ORDERED: IV NORMAL SALINE 1,000ML 1,000 ML IV ONE (09:15)
[2019-02-02 09:19] LABS: BASO % 1 % (0-3); EOS # 0.2 x10^3/uL (0.0-0.7); EOS % 3 % (0-3); HEMATOCRIT 36.6 % (39.0-53.0); HEMOGLOBIN 11.9 g/dL (13.0-17.5); LYMPH % 21 % (24-48); MEAN CORPUSCULAR HEMOGLOBIN 28 pg (25-35); MEAN CORPUSCULAR HGB CONC 32 g/dL (31-37); MEAN CORPUSCULAR VOLUME 87 fL (79-100); MONO # 0.3 x10^3/uL (0.0-1.1); MONO % 6 % (0-9); NEUT # 3.5 x10^3uL (1.8-7.7); NEUT % 70 % (31-73); PLATELET COUNT 220 x10^3/uL (140-400); RED BLOOD COUNT 4.19 x10^6/uL (4.30-5.70); RED CELL DISTRIBUTION WIDTH 16.7 % (11.5-14.5)
[2019-02-02 09:20] VITALS: BP 117/83
--- NOTE | 2019-02-02 09:21 | RAD ---
CHEST AP ONLY History: Chest pain Comparison: June 18, 2018 Findings: No consolidation or pleural effusion. Normal heart size. Previously seen nodular opacity within the right midlung has resolved. Impression: 1. No acute cardiopulmonary process. Electronically signed by: Berlin Negrete DO (02/02/2019 9:18 AM) [facility] [place]
[2019-02-02 09:32] LABS: ALBUMIN 3.1 g/dL (3.4-5.0); CALCIUM 8.8 mg/dL (8.5-10.1); CREATININE 0.9 mg/dL (0.7-1.3); GFR 83.7; POTASSIUM 3.4 mmol/L (3.5-5.1); TOTAL BILIRUBIN 0.9 mg/dL (0.2-1.0); TOTAL PROTEIN 6.2 g/dL (6.4-8.2)
--- NOTE | 2019-02-02 14:44 | EKG ---
[address] [address] Test Date: 2019-02-02 Test Time: 08:50:10 Pat Name: KIRSTEN LEVY Department: Room: Gender: M [employer]: YENNI : 1950 Requested By: JOHANN COMER Order Number: [id number] Reading MD: Measurements Intervals Bock Rate: 78 P: 35 TN: 136 QRS: 54 QRSD: 86 T: 47 QT: 382 QTc: 439 Interpretive Statements SINUS RHYTHM NORMAL ECG RI6.01 No previous ECG available for comparison
[2019-02-03] MEDS ORDERED: HYDR4TAB45 PO (12:58)
[2019-02-03] MEDS ORDERED: VITA10003 PO (13:03)
[2019-02-03] MEDS ORDERED: [UNRECOGNIZED DRUG - OTHER] PO (13:03)
[2019-02-03] MEDS ORDERED: ERGO500027 PO (13:03)
== END 2019-02-02 11:15 | disposition home or self-care (01) ==
LOC: ER 08:45
DX: R55 Syncope and collapse (principal); R07.89 Other chest pain; M19.90 Unspecified osteoarthritis, unspecified site; Z86.718 Personal history of other venous thrombosis and embolism; K21.9 Gastro-esophageal reflux disease without esophagitis; E78.00 Pure hypercholesterolemia, unspecified; Z87.442 Personal history of urinary calculi; Z87.440 Personal history of urinary (tract) infections
CPT/HCPCS: 36415; 71045; 80053; 82947; 83690; 84484; 85025; 93005; 99285; J7030

== ENCOUNTER 2019-02-03 11:26 | Inpatient (IN) | payer MEDICARE, OTHER ==
[~2019-02-03] VITALS: Ht 177.8 cm; Wt 69.1 kg
[2019-02-03 11:49] VITALS: BP 138/86
[2019-02-03] MEDS ORDERED: DOCUSATE SODIUM 100 MG CAPSULE PO PRN (12:30)
[2019-02-03 12:53] LABS: BASO # 0.1 x10^3/uL (0.0-0.2); BASO % 1 % (0-3); EOS # 0.2 x10^3/uL (0.0-0.7); EOS % 4 % (0-3); HEMATOCRIT 34.3 % (39.0-53.0); HEMOGLOBIN 11.1 g/dL (13.0-17.5); LYMPH # 1.3 x10^3/uL (1.0-4.8); LYMPH % 25 % (24-48); MEAN CORPUSCULAR HEMOGLOBIN 28 pg (25-35); MEAN CORPUSCULAR HGB CONC 32 g/dL (31-37); MEAN CORPUSCULAR VOLUME 88 fL (79-100); MONO # 0.5 x10^3/uL (0.0-1.1); MONO % 9 % (0-9); NEUT # 3.1 x10^3uL (1.8-7.7); NEUT % 61 % (31-73); PLATELET COUNT 211 x10^3/uL (140-400); RED CELL DISTRIBUTION WIDTH 16.5 % (11.5-14.5); WHITE BLOOD COUNT 5.1 x10^3/uL (4.0-11.0)
[2019-02-03] MEDS ORDERED: HYDR4TAB45 PO (12:58)
[2019-02-03] MEDS ORDERED: IV 1/2 NORMAL SALINE 1,000 ML IV PRN (13:00)
[2019-02-03] MEDS ORDERED: [UNRECOGNIZED DRUG - OTHER] PO (13:03)
[2019-02-03] MEDS ORDERED: VITA10003 PO (13:03)
[2019-02-03] MEDS ORDERED: ERGO500027 PO (13:03)
[2019-02-03 13:19] LABS: ALBUMIN 2.9 g/dL (3.4-5.0); ALBUMIN/GLOBULIN RATIO 0.9 (1.0-1.7); CALCIUM 8.8 mg/dL (8.5-10.1); CREATININE 0.7 mg/dL (0.7-1.3); GFR 111.8; POTASSIUM 3.6 mmol/L (3.5-5.1); TOTAL BILIRUBIN 0.5 mg/dL (0.2-1.0); TOTAL PROTEIN 6.3 g/dL (6.4-8.2)
[2019-02-03] MEDS: HYDROmorphone 2 MG TABLET PO PRN ×2 (13:38→21:32)
[2019-02-03 15:07] VITALS: BP 144/89
--- NOTE | 2019-02-03 15:49 | NUR ---
The patient, KIRSTEN LEVY, 68 y/o, M admitted by JOSE R LEWIS MD, was given written information regarding hospital policies, unit procedures and contact persons. Pt ambulated to room accompanied with spouse. Pt alert and oriented. Bed locked, in lowest position, given call light. .
[2019-02-03] MEDS ORDERED: RIVAROXABAN 10 MG TABLET. PO SCH (17:00)
[2019-02-03] MEDS: URSODIOL 300 MG CAPSULE. PO SCH ×2 (17:10→20:38)
[2019-02-03] MEDS: LIPASE/PROTEAS/AMYLAS 10/32/42 CAPSULE.DR. PO SCH (17:52)
[2019-02-03 19:35] VITALS: BP 122/73
[2019-02-03] MEDS ORDERED: ONDANSETRON ODT 4 MG TAB.RAPDIS PO PRN (20:30)
[2019-02-03] MEDS ORDERED: TAMSULOSIN 0.4 MG CAP.ER.24H. PO SCH (21:00)
[2019-02-03 22:31] VITALS: BP 126/78
[2019-02-04 05:19] VITALS: BP 128/80
[2019-02-04] MEDS: HYDROmorphone 2 MG TABLET PO PRN (07:13)
[2019-02-04] MEDS ORDERED: PANTOPRAZOLE 40 MG TABLET. PO SCH (07:30)
[2019-02-04] MEDS ORDERED: NORTRIPTYLINE 25 MG CAPSULE PO SCH (09:00)
[2019-02-04] MEDS: LIPASE/PROTEAS/AMYLAS 10/32/42 CAPSULE.DR. PO SCH ×2 (09:38→12:23)
[2019-02-04] MEDS: URSODIOL 300 MG CAPSULE. PO SCH (09:38)
[2019-02-04 10:46] VITALS: BP 132/84
--- NOTE | 2019-02-04 12:41 | NUR ---
Pt discharged home with self care. Patient is given D/C teaching. IV is dc'd tele monitor removed. Patient ambulated off unit. Will continue to monitor.
[2019-02-04 13:37] LABS: BILIRUBIN,URINE NEG (NEG); CLARITY,URINE CLEAR; COLOR,URINE AMBER; GLUCOSE,URINE NEG (NEG); NITRITE,URINE NEG (NEG); UROBILINOGEN,URINE 4 mg/dL (0.2 mg/dL)
[2019-02-04 13:38] LABS: AMORPHOUS SEDIMENT,UR PRESENT /HPF; BACTERIA,URINE 0 /HPF (0-FEW); RBC,URINE 0 /HPF (0-2); SQUAMOUS EPITHELIAL CELL,UR OCC /LPF; WBC,URINE 0 /HPF (0-4)
--- NOTE | 2019-02-04 21:51 | PN ---
DATE: SUBJECTIVE: A 68-year-old male came in with chest pain as well as being dehydrated. The patient was unable to take fluids, try to be treated as an outpatient; however, it became increasingly worse bent over at the abdomen. He has chronic pancreatitis as well as problems from a previous abdominal surgery consistent with possible mass in the pancreas. He also has numerous stones in his kidney and he has been passing those. In any case, the pain in his chest has been like [phone]. He has to take Dilaudid for it. The patient was unable to be cared for at home, brought in and hydrated on IV fluids. OBJECTIVE: VITAL SIGNS: The patient's blood pressure 128/80, respiratory rate 20, pulse 62, afebrile. GENERAL: The patient is alert and oriented, says he feels a little better this morning. LUNGS: Diminished, but still marked tenderness in the right ribs now that was not there yesterday. Lungs are clear to auscultation. CARDIOVASCULAR: Bradycardic, but regular sinus rhythm. ABDOMEN: Soft, nontender. The patient is on blood thinners. Cardiac enzymes so far have been negative. His protein is low at 2.9. We will continue with pain medication. We will get a CT of the ribs and hopefully ready for discharge here soon. IMPRESSION: Chest pain, rib pain, nephrolithiasis, severe protein malnutrition, history of pancreatic cancer, anemia of chronic disease. JOSE R LEWIS MD DR: SHOLA/phyllis JOB#: [id number] / [id number]
[2019-02-06] MEDS ORDERED: CHOLECALCIFEROL (VITAMIN D3) 50,000 UNIT CAPSULE PO SCH (09:00)
--- NOTE | 2019-02-07 20:18 | DS ---
DATE OF DISCHARGE: 02/04/2019 HOSPITAL COURSE: A 68-year-old male was admitted with chest pain going across his chest. The patient noted some relief with nitroglycerin, but he still had continued pain. He was admitted for rule out [place] protocol. The patient has multiple risk factors for this. In any case, the patient made good progress during the rest of his hospitalization. 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 IMPRESSION: Chest pain, unknown etiology; history of pancreatic cancer, pancreatic surgery; nephrolithiasis; history of post-Whipple procedure and lithotripsy. He will be on a diet to reduce the risk of his kidney stones and also will continue to monitor him accordingly on the other complications. JOSE R LEWIS MD DR: SHOLA/phyllis JOB#: [id number] / [id number]
== END 2019-02-04 12:41 | disposition home or self-care (01) | DRG 640 ==
LOC: 1 SOUTH 11:26
PROVIDERS: ADMIT Family Medicine; ATTEND Family Medicine
DX: E86.0 Dehydration (principal); E43 Unspecified severe protein-calorie malnutrition; K86.1 Other chronic pancreatitis; R07.89 Other chest pain; Z68.21 Body mass index [BMI] 21.0-21.9, adult; D63.8 Anemia in other chronic diseases classified elsewhere; N20.0 Calculus of kidney
CPT/HCPCS: 36415; 71045; 80053; 81001; 82550; 82947; 83605; 83690; 84484; 85025; 85379; 93005; J7030; Q0162

== ENCOUNTER 2019-02-28 17:43 | Emergency (ER) | payer MEDICARE, OTHER ==
[~2019-02-28] VITALS: Ht 177.8 cm; Wt 70.8 kg
[~2019-02-28 17:43] MED LIST changes: +ERGO500027 PO; +VITA10003 PO; +[UNRECOGNIZED DRUG - OTHER] PO
[2019-02-28] MEDS ORDERED: IPRATRPIUM/ALBUTEROL 0.5/2.5MG 3 ML NEBU. NEB ONE (18:00)
[2019-02-28] MEDS ORDERED: IV NORMAL SALINE 1,000ML 1,000 ML IV SCH (18:16)
--- NOTE | 2019-02-28 18:22 | PHYS DOC ---
Past History Past Medical History: GERD, Kidney Stones, Other Past Surgical History: Other Additional Past Surgical Histo: Whipple surgery Smoking: Non-smoker Alcohol Use: None Drug Use: None Adult General Chief Complaint Chief Complaint: WEAKNESS/GENERALIZED HPI HPI Patient is a 68 year old male who presents with complaint of intermittent abdominal pain and generalized weakness. The patient states that he has been having episodes of generalized weakness, lightheadedness, near syncope over the past few weeks. Notes that he had his most recent episode earlier this afternoon where he experienced blurring of vision, dizziness, and felt like he was going to pass out. He states that he did not pass out or fall to the ground. He states that he has generalized muscle weakness currently but is able to ambulate under his own power without assistance. Denies any associated fever. Notes that he has history of intermittent abdominal pain mostly along his right side and has had previous history of pancreatitis. Notes very mild pain at this time. He states he went to see his primary physician, Dr. Lewis, and was told to come to the emergency department for further devi luation. Patient states that Dr. Lewis voiced that he was concerned whether the patient could be having possible TIA episodes in this advised him come to the emergency department for evaluation. Denies any focal weakness currently. Review of Systems Review of Systems Constitutional: Denies fever or chills [] Eyes: Denies change in visual acuity, redness, or eye pain [] HENT: Denies nasal congestion or sore throat [] Respiratory: Denies cough or shortness of breath [] Cardiovascular: Denies chest pain or edema[] GI: Abdominal pain, recurrent chronic vomiting, denies bloody stools or diarrhea [] : Denies dysuria or hematuria [] Musculoskeletal: Denies back pain or joint pain [] Integument: Denies rash or skin lesions [] Neurologic: Denies headache, focal weakness or sensory changes [] All other systems were reviewed and found to be within normal limits, except as documented in this note. Current Medications Current Medications Current Medications Medications (Trade) Dose Ordered Sig/Omega Start Time Stop Time Status Last Admin Dose Admin Albuterol/ Ipratropium (Duoneb) 3 ml 1X ONCE 02/28/19 18:00 02/28/19 18:00 DC Sodium Chloride 1,000 ml @ 1,000 mls/hr Q1H 02/28/19 18:16 9/24/19 19:15 UNV Allergies Allergies Allergies Coded Allergies Type Severity Reaction Last Updated Verified No Known Drug Allergies 10/24/17 No Physical Exam Physical Exam Constitutional: Well developed, well nourished, no acute distress, non-toxic appearance. [] HENT: Normocephalic, atraumatic, bilateral external ears normal, oropharynx moist, no oral exudates, nose normal. [] Eyes: PERRLA, EOMI, conjunctiva normal, no discharge. [] Neck: Normal range of motion, no tenderness, supple, no stridor. [] Cardiovascular:Heart rate regular rhythm, no murmur [] Lungs & Thorax: Bilateral breath sounds clear to auscultation [] Abdomen: Bowel sounds normal, soft, no tenderness, no masses, no pulsatile masses. [] Skin: Warm, dry, no erythema, no rash. [] Back: No tenderness, no CVA tenderness. [] Extremities: No tenderness, no cyanosis, no clubbing, ROM intact, no edema. [] Neurologic: Alert and oriented X 3, normal motor function, normal sensory function, no focal deficits noted. [] Current Patient Data Vital Signs Vital Signs Date Time Temp Pulse Resp B/P (MAP) Pulse Ox O2 Delivery O2 Flow Rate FiO2 02/28/19 17:59 97.3 68 18 100 Room Air Lab Results Laboratory Tests Test 02/28/19 17:56 02/28/19 18:20 White Blood Count 5.7 x10^3/uL Red Blood Count 4.34 x10^6/uL Hemoglobin 12.3 g/dL Hematocrit 38.0 % Mean Corpuscular Volume 88 fL Mean Corpuscular Hemoglobin 28 pg Mean Corpuscular Hemoglobin Concent 32 g/dL Red Cell Distribution Width 16.0 % Platelet Count 240 x10^3/uL Neutrophils (%) (Auto) 52 % Lymphocytes (%) (Auto) 33 % Monocytes (%) (Auto) 10 % Eosinophils (%) (Auto) 4 % Basophils (%) (Auto) 1 % Neutrophils # (Auto) 3.0 x10^3uL Lymphocytes # (Auto) 1.8 x10^3/uL Monocytes # (Auto) 0.6 x10^3/uL Eosinophils # (Auto) 0.2 x10^3/uL Basophils # (Auto) 0.1 x10^3/uL Sodium Level 144 mmol/L Potassium Level 3.5 mmol/L Chloride Level 107 mmol/L Carbon Dioxide Level 29 mmol/L Anion Gap 8 Blood Urea Nitrogen 12 mg/dL Creatinine 0.8 mg/dL Estimated GFR (Cockcroft-Gault) 95.8 BUN/Creatinine Ratio 15 Glucose Level 77 mg/dL Calcium Level 9.0 mg/dL Total Bilirubin 0.6 mg/dL Aspartate Amino Transf (AST/SGOT) 23 U/L Alanine Aminotransferase (ALT/SGPT) 35 U/L Alkaline Phosphatase 187 U/L Creatine Kinase 72 U/L Creatine Kinase MB (Mass) 1.6 ng/mL Creatine Kinase MB Relative Index 2.2 % Troponin I Quantitative < 0.017 ng/mL Total Protein 6.8 g/dL Albumin 3.3 g/dL Albumin/Globulin Ratio 0.9 Lipase 69 U/L Urine Collection Type Unknown Urine Color Yellow Urine Clarity Clear Urine pH 6.0 Urine Specific [place] 1.020 Urine Protein Neg Urine Glucose (UA) Neg mg/dL Urine Ketones (Stick) Neg mg/dL Urine Blood Neg Urine Nitrite Neg Urine Bilirubin Neg Urine Urobilinogen Dipstick 1 mg/dL Urine Leukocyte Esterase Neg Urine RBC Occ /HPF Urine WBC 1-4 /HPF Urine Squamous Epithelial Cells Occ /LPF Urine Bacteria 0 /HPF Urine Mucus Mod /LPF Current Medications Medications (Trade) Dose Ordered Sig/Omega Route PRN Reason Start Time Stop Time Status Last Admin Dose Admin Albuterol/ Ipratropium (Duoneb) 3 ml 1X ONCE NEB 02/28/19 18:00 02/28/19 18:00 DC Sodium Chloride 1,000 ml @ 1,000 mls/hr Q1H IV 02/28/19 18:16 02/28/19 19:15 DC 02/28/19 18:22 EKG EKG Rhythm strip interpretation: Heart rate 68, normal sinus rhythm, no ectopy[] Radiology/Procedures Radiology/Procedures [address] [address] IMAGING REPORT Signed PATIENT: KIRSTEN LEVY ACCOUNT: [id number] : 1950 LOCATION: ER AGE: 68 SEX: M EXAM STATUS: REG ER ORD. PHYSICIAN: CHANELL CSATELAN MD REASON: Dizziness, generalized weakness, headache PROCEDURE: CT HEAD WO CONTRAST CT HEAD WO CONTRAST Indication: Dizziness. Weakness. Headache. Exposure: One or more of the following individualized dose reduction techniques were utilized for this examination: 1. Automated exposure control 2. Adjustment of the mA and/or kV according to patient size 3. Use of iterative reconstruction technique. Technique: Standard imaging without intravenous contrast. Comparison: June 25, 2018 FINDINGS: No acute intracranial hemorrhage, mass effect, midline shift or abnormal extra-axial fluid collection. The mild prominence of ventricles and sulci compatible with atrophy. Low-density in the white matter bilaterally, a nonspecific finding, but which is commonly due to chronic small vessel ischemic disease in a patient of this age. The orbits appear unremarkable. No significant scalp swelling. Visualized sinuses are clear. No evidence of acute skull abnormality. IMPRESSION: No evidence of acute intracranial hemorrhage. Electronically signed by: Shady Dillard MD (02/28/2019 6:49 PM) [facility] DICTATED AND SIGNED BY: SHADY DILLARD MD DATE: 02/28/19 1849 CC: JOSE R LEWIS MD; CHANELL CASTELAN MD ~ [] Course & Med Decision Making Course & Med Decision Making Pertinent Labs and Imaging studies reviewed. (See chart for details) Patient was given IV fluids in the emergency department. Patient's lab work was reviewed and appears to be stable at this time with no evidence of acute pancreatitis, cardiac ischemia, or acute renal failure. Patient remains asymptomatic at this time. I spoke with the patient's primary physician, Dr. Lewis, he stated that he was concerned initially the patient may have had a TIA episode. The patient though denies any unilateral weakness associated with his symptoms. Patient currently on P[place] therapy. CT head reveals no evidence of hemorrhage. I have low suspicion for TIA in this patient. After speaking with the patient, we have agreed to continue with outpatient follow-up. Patient referred to Dr. Gilmore of neurology to follow up in the next 2 days for reevaluation. Also advised follow-up at Dr. Lewis's office in the next 1-2 days for reevaluation. Advised return to emergency department for any worsening symptoms per the patient was understanding and in agreement with treatment plan. Dragon Disclaimer Dragon Disclaimer This electronic medical record was generated, in whole or in part, using a voice recognition dictation system. Departure Departure: Impression: Primary Impression: Generalized weakness Additional Impression: Abdominal pain Disposition: 01 HOME, SELF-CARE Condition: IMPROVED Referrals: JOSE R LEWIS MD (PCP) MOHINDER GILMORE MD Patient Instructions: Abdominal Pain (Nonspecific), Weakness Additional Instructions: Your lab work and testing today showed no acute changes to explain the recurrent nature of your abdominal pain and weakness symptoms. It is recommended that you call the office of Dr. Gilmore of neurology tomorrow to schedule follow-up in the next 2 days for reevaluation. Call your primary physician's office tomorrow to schedule follow-up in the next 2 days. Return to the emergency department for any worsening symptoms. Problem Qualifiers Additional Impression: Abdominal pain Abdominal location: right upper quadrant Qualified Codes: R10.11 - Right upper quadrant pain CHANELL CASTELAN MD Feb 28, 2019 18:22
[2019-02-28 18:32] LABS: BASO # 0.1 x10^3/uL (0.0-0.2); BASO % 1 % (0-3); EOS # 0.2 x10^3/uL (0.0-0.7); EOS % 4 % (0-3); HEMOGLOBIN 12.3 g/dL (13.0-17.5); LYMPH # 1.8 x10^3/uL (1.0-4.8); LYMPH % 33 % (24-48); MEAN CORPUSCULAR HEMOGLOBIN 28 pg (25-35); MEAN CORPUSCULAR HGB CONC 32 g/dL (31-37); MEAN CORPUSCULAR VOLUME 88 fL (79-100); MONO # 0.6 x10^3/uL (0.0-1.1); MONO % 10 % (0-9); NEUT % 52 % (31-73); PLATELET COUNT 240 x10^3/uL (140-400); RED BLOOD COUNT 4.34 x10^6/uL (4.30-5.70); WHITE BLOOD COUNT 5.7 x10^3/uL (4.0-11.0)
[2019-02-28 18:49] LABS: ALBUMIN 3.3 g/dL (3.4-5.0); ALBUMIN/GLOBULIN RATIO 0.9 (1.0-1.7); CREATININE 0.8 mg/dL (0.7-1.3); GFR 95.8; POTASSIUM 3.5 mmol/L (3.5-5.1); TOTAL BILIRUBIN 0.6 mg/dL (0.2-1.0); TOTAL PROTEIN 6.8 g/dL (6.4-8.2)
[2019-02-28 18:49] LABS: BACTERIA,URINE 0 /HPF (0-FEW); BILIRUBIN,URINE NEG (NEG); CLARITY,URINE CLEAR; COLOR,URINE YELLOW; GLUCOSE,URINE NEG (NEG); NITRITE,URINE NEG (NEG); SQUAMOUS EPITHELIAL CELL,UR OCC /LPF; UROBILINOGEN,URINE 1 mg/dL (0.2 mg/dL)
[2019-02-28 18:50] LABS: RBC,URINE OCC /HPF (0-2)
--- NOTE | 2019-02-28 18:52 | RAD ---
CT HEAD WO CONTRAST Indication: Dizziness. Weakness. Headache. Exposure: One or more of the following individualized dose reduction techniques were utilized for this examination: 1. Automated exposure control 2. Adjustment of the mA and/or kV according to patient size 3. Use of iterative reconstruction technique. Technique: Standard imaging without intravenous contrast. Comparison: June 25, 2018 FINDINGS: No acute intracranial hemorrhage, mass effect, midline shift or abnormal extra-axial fluid collection. The mild prominence of ventricles and sulci compatible with atrophy. Low-density in the white matter bilaterally, a nonspecific finding, but which is commonly due to chronic small vessel ischemic disease in a patient of this age. The orbits appear unremarkable. No significant scalp swelling. Visualized sinuses are clear. No evidence of acute skull abnormality. IMPRESSION: No evidence of acute intracranial hemorrhage. Electronically signed by: Shady Dillard MD (02/28/2019 6:49 PM) [facility]
--- NOTE | 2019-02-28 19:54 | RAD ---
Indication:Shortness of breath. TECHNIQUE:Portable AP chest X-ray COMPARISON: 02/02/2019. FINDINGS: Heart is normal in size. Lungs are clear. No pneumothorax or effusion. Visualized bony thorax within normal limits. IMPRESSION: No acute pulmonary process. Electronically signed by: Allan Wyman DO (02/28/2019 7:51 PM) [facility]
[2019-02-28 20:06] VITALS: BP 134/87
== END 2019-02-28 20:10 | disposition home or self-care (01) ==
LOC: ER 17:43
DX: R53.1 Weakness (principal); R10.9 Unspecified abdominal pain; R55 Syncope and collapse; R51 Headache; K21.9 Gastro-esophageal reflux disease without esophagitis; Z87.442 Personal history of urinary calculi
CPT/HCPCS: 36415; 70450; 71045; 80053; 81001; 82553; 83690; 84484; 85025; 96360; 96361; 99285-25; J7030

== ENCOUNTER 2019-03-06 08:33 | Inpatient (IN) | payer MEDICARE, OTHER ==
[~2019-03-06] VITALS: Ht 175.3 cm; Wt 69.9 kg
[~2019-03-06 08:33] MED LIST changes: +OMEP40CA45 PO; -OMEP40CA5 PO
[2019-03-06] MEDS ORDERED: IV NORMAL SALINE 1,000ML 1,000 ML IV SCH ×2 (09:00→11:22)
--- NOTE | 2019-03-06 09:11 | EKG ---
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
--- NOTE | 2019-03-06 09:13 | PHYS DOC ---
Past History Past Medical History: Cancer (neuroendocrine tumor of the pancreas), GERD, Kidney Stones, Other Past Surgical History: Other Additional Past Surgical Histo: Whipple surgery Smoking: Non-smoker Alcohol Use: None Drug Use: None Adult General Chief Complaint Chief Complaint: DIZZY/LIGHT HEADED HPI HPI Patient is a 68-year-old male presents with near syncope and double vision. He attributes this to complications from his Whipple surgery that was performed in June 2018. Since that time he has had waxing and waning abdominal pain in the upper portion of the abdomen. 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 Reports that this got worse as he sat up to get in to the car with his said that she could bring him to the hospital. No nausea or vomiting worse than usualhe vomits every evening. No bloody stool. Upper abdominal pain is sharp and crampy and across the entire abdomen. No respirophasic component to the discomfort. No recent PE risk factors. No focal weakness in the arms or legs. No difficulty speaking.[] Review of Systems Review of Systems Constitutional: Denies fever or chills [] Eyes: Denies change in visual acuity, redness, or eye pain [] HENT: Denies nasal congestion or sore throat [] Respiratory: Denies cough or shortness of breath [] Cardiovascular: No additional information not addressed in HPI [] GI: See history of present illness[] : Denies dysuria or hematuria [] Musculoskeletal: Denies back pain or joint pain [] Integument: Denies rash or skin lesions [] Neurologic: Denies headache, focal weakness or sensory changes [] Endocrine: Denies polyuria or polydipsia [] All other systems were reviewed and found to be within normal limits, except as documented in this note. Allergies Allergies Allergies Coded Allergies Type Severity Reaction Last Updated Verified No Known Drug Allergies 10/24/17 No Physical Exam Physical Exam Constitutional: Well developed, well nourished, no acute distress, non-toxic appearance. [] HENT: Normocephalic, atraumatic, bilateral external ears normal, oropharynx moist, no oral exudates, nose normal. [] Eyes: PERRLA, EOMI, conjunctiva normal, no discharge. [] Neck: Normal range of motion, no tenderness, supple, no stridor. [] Cardiovascular:Heart rate regular rhythm, no murmur [] Lungs & Thorax: Bilateral breath sounds clear to auscultation [] Abdomen: Bowel sounds normal, soft, upper abdominal tenderness, no rebound, no guarding, no rigidity, no masses, no pulsatile masses. [] Skin: Warm, dry, no erythema, no rash. [] Back: No tenderness, no CVA tenderness. [] Extremities: No tenderness, no cyanosis, no clubbing, ROM intact, no edema. [] Neurologic: Alert and oriented X 3, normal motor function, normal sensory function, no focal deficits noted. NIH stroke scale of 0[] Psychologic: Affect normal, judgement normal, mood anxious. [] Current Patient Data Vital Signs Vital Signs Date Time Temp Pulse Resp B/P (MAP) Pulse Ox O2 Delivery O2 Flow Rate FiO2 03/06/19 08:37 97.8 72 16 98 Room Air EKG EKG EKG shows a sinus rhythm at 84 bpm, normal axis, normal QTC at 440 ms, no ST elevations. No acute changes when compared with 02/02/2019. Interpreted by me at 0845[] Radiology/Procedures Radiology/Procedures PROCEDURE: PORTABLE CHEST 1V PORTABLE CHEST 1V INDICATION: Near syncope, dizziness. COMPARISON STUDY: 02/28/2019. FINDINGS: Lungs: Normal lung volume. No pulmonary mass or consolidation. The tracheobronchial tree and hilar structures are normal. Pleura: No pleural effusion or pneumothorax. Heart and Mediastinum: Stable cardiomediastinal silhouette and great vessels. IMPRESSION: No consolidation. PROCEDURE: CT HEAD WO CONTRAST STUDY: CT head without contrast INDICATION: Dizziness. Blurred vision. COMPARISON: Most recently on 02/28/2019 TECHNIQUE: Axial CT imaging through the head without the use of intravenous contrast. Sagittal and coronal reformats were obtained. FINDINGS: No acute intracranial hemorrhage. No mass effect, midline shift or hydrocephalus. No localized area of burkett-white matter differentiation loss to suggest an acute cortical infarction. The calvarium is intact. The visualized paranasal sinuses are well aerated, as are the mastoid air cells. IMPRESSION: No acute intracranial abnormality by CT. PROCEDURE: CT ABD PELV W/ORAL&IV CONTRAST Examination: CT ABD PELV W/ORAL IV CONTRAST History: Upper abdominal pain. Whipple procedure for pancreatic tumor. Comparison/Correlation: 01/04/2019 CT abdomen and pelvis without contrast Findings: Axial images of the abdomen and pelvis were obtained following oral and IV contrast. Visualized lung bases are clear. Significant bony gas is noted. Cholecystectomy noted. Portal venous opacifications unremarkable. Spleen is normal. Mid to distal pancreas is also unremarkable. Suture material along the right quadrant small bowel is noted. Absence of the pancreatic head corresponding to history of Whipple procedure is noted. Suture material in the pancreatic bed is noted. Minimal gas within the pancreatic duct appears to be present. There are bilateral nonobstructive renal calculi are present measuring up to 0.4 cm diameter. No enlarged abdominal or pelvic lymph nodes. No ascites or pelvic free fluid. No definite bowel obstruction or extraluminal gas. Surgical clips involving the upper abdomen. Borderline contrast filled distended loop about the mid abdomen is present without a suspicious transition point also narrowing of the bowel is present on axial image 50 of series 2 and is similar compared to previous exam. Moderate quantity of stool is present in the colon. Appendix is normal. Bladder is mostly decompressed. Prostate gland measures 5.5 cm. Impression: Nonobstructive renal calculi. Hepaticojejunostomy with associated biliary gas and pancreatic ductal is again seen. No definite obstruction. Prostatomegaly.[] Course & Med Decision Making Course & Med Decision Making Pertinent Labs and Imaging studies reviewed. (See chart for details) ED course: Patient arrived, was placed in bed, and tolerated exam well. He was transported to and from CT initially for the head CT. He was able to tolerate oral contrast and was subsequently taken back to CT for evaluation of the abdomen. He has been able to ambulate while in the emergency department. Symptoms have improved while here. Consultation was made with his primary care physician after the return of laboratory and imaging studies, he elected to admit the patient for further evaluation and treatment. Patient was also informed of the laboratory and imaging findings and voiced understanding. All questions were answered. He was admitted in improved condition. Medical decision making: This 8-year-old male with near syncopal event. This does not appear to be a stroke syndrome. No evidence of rhythm disturbance during his emergency department stay. No evidence of mass or bleed. No mass or obstruction in the abdomen. No significant electrolyte abnormality.[] Dragon Disclaimer Dragon Disclaimer This electronic medical record was generated, in whole or in part, using a voice recognition dictation system. Departure Departure: Impression: Primary Impression: Near syncope Additional Impression: Abdominal pain Disposition: 09 ADMITTED INPATIENT Admitting Physician: Yaya Morel Condition: IMPROVED Referrals: YAYA MOREL MD (PCP) Problem Qualifiers Additional Impression: Abdominal pain Abdominal location: epigastric Qualified Codes: R10.13 - Epigastric pain LINNEAKALLI FLORES Mar 06, 2019 09:13
[2019-03-06 09:14] LABS: BASO # 0.1 x10^3/uL (0.0-0.2); BASO % 1 % (0-3); EOS # 0.4 x10^3/uL (0.0-0.7); EOS % 5 % (0-3); HEMATOCRIT 40.3 % (39.0-53.0); LYMPH # 1.3 x10^3/uL (1.0-4.8); LYMPH % 20 % (24-48); MEAN CORPUSCULAR HEMOGLOBIN 28 pg (25-35); MEAN CORPUSCULAR HGB CONC 32 g/dL (31-37); MEAN CORPUSCULAR VOLUME 88 fL (79-100); MONO # 0.5 x10^3/uL (0.0-1.1); MONO % 8 % (0-9); NEUT # 4.4 x10^3uL (1.8-7.7); NEUT % 66 % (31-73); PLATELET COUNT 227 x10^3/uL (140-400); RED BLOOD COUNT 4.58 x10^6/uL (4.30-5.70); RED CELL DISTRIBUTION WIDTH 16.4 % (11.5-14.5); WHITE BLOOD COUNT 6.7 x10^3/uL (4.0-11.0)
[2019-03-06 09:21] LABS: ALBUMIN 3.4 g/dL (3.4-5.0); ALBUMIN/GLOBULIN RATIO 0.9 (1.0-1.7); CALCIUM 9.1 mg/dL (8.5-10.1); CREATININE 0.8 mg/dL (0.7-1.3); GFR 95.8; POTASSIUM 3.9 mmol/L (3.5-5.1); TOTAL BILIRUBIN 0.8 mg/dL (0.2-1.0); TOTAL PROTEIN 7.2 g/dL (6.4-8.2)
[2019-03-06] MEDS ORDERED: IOHEXOL 300 MG/ML 75 ML VIAL. IV ONE (09:30)
[2019-03-06] MEDS ORDERED: PANTOPRAZOLE IV 40 MG VIAL. IVP ONE (09:30)
[2019-03-06] MEDS ORDERED: IOHEXOL 240 MG/ML 50ML VIAL. PO ONE (09:30)
--- NOTE | 2019-03-06 09:30 | RAD ---
STUDY: CT head without contrast INDICATION: Dizziness. Blurred vision. COMPARISON: Most recently on 02/28/2019 TECHNIQUE: Axial CT imaging through the head without the use of intravenous contrast. Sagittal and coronal reformats were obtained. FINDINGS: No acute intracranial hemorrhage. No mass effect, midline shift or hydrocephalus. No localized area of burkett-white matter differentiation loss to suggest an acute cortical infarction. The calvarium is intact. The visualized paranasal sinuses are well aerated, as are the mastoid air cells. IMPRESSION: No acute intracranial abnormality by CT. Electronically signed by: JUAN ROSE MD (03/06/2019 9:27 AM) [facility]
--- NOTE | 2019-03-06 09:32 | RAD ---
PORTABLE CHEST 1V INDICATION: Near syncope, dizziness. COMPARISON STUDY: 02/28/2019. FINDINGS: Lungs: Normal lung volume. No pulmonary mass or consolidation. The tracheobronchial tree and hilar structures are normal. Pleura: No pleural effusion or pneumothorax. Heart and Mediastinum: Stable cardiomediastinal silhouette and great vessels. IMPRESSION: No consolidation. Electronically signed by: Paco Seymour MD (03/06/2019 9:29 AM) [facility]
[2019-03-06 10:28] LABS: BACTERIA,URINE 0 /HPF (0-FEW); BILIRUBIN,URINE NEG (NEG); CLARITY,URINE CLEAR; COLOR,URINE YELLOW; GLUCOSE,URINE NEG (NEG); NITRITE,URINE NEG (NEG); SQUAMOUS EPITHELIAL CELL,UR OCC /LPF; UROBILINOGEN,URINE 0.2 mg/dL (0.2 mg/dL)
--- NOTE | 2019-03-06 10:44 | RAD ---
Examination: CT ABD PELV W/ORAL IV CONTRAST History: Upper abdominal pain. Whipple procedure for pancreatic tumor. Comparison/Correlation: 01/04/2019 CT abdomen and pelvis without contrast Findings: Axial images of the abdomen and pelvis were obtained following oral and IV contrast. Visualized lung bases are clear. Significant bony gas is noted. Cholecystectomy noted. Portal venous opacifications unremarkable. Spleen is normal. Mid to distal pancreas is also unremarkable. Suture material along the right quadrant small bowel is noted. Absence of the pancreatic head corresponding to history of Whipple procedure is noted. Suture material in the pancreatic bed is noted. Minimal gas within the pancreatic duct appears to be present. There are bilateral nonobstructive renal calculi are present measuring up to 0.4 cm diameter. No enlarged abdominal or pelvic lymph nodes. No ascites or pelvic free fluid. No definite bowel obstruction or extraluminal gas. Surgical clips involving the upper abdomen. Borderline contrast filled distended loop about the mid abdomen is present without a suspicious transition point also narrowing of the bowel is present on axial image 50 of series 2 and is similar compared to previous exam. Moderate quantity of stool is present in the colon. Appendix is normal. Bladder is mostly decompressed. Prostate gland measures 5.5 cm. Impression: Nonobstructive renal calculi. Hepaticojejunostomy with associated biliary gas and pancreatic ductal is again seen. No definite obstruction. Prostatomegaly. PQRS Compliance Statement: One or more of the following individualized dose reduction techniques were utilized for this examination: 1. Automated exposure control 2. Adjustment of the mA and/or kV according to patient size 3. Use of iterative reconstruction technique Electronically signed by: Narendra Berry MD (03/06/2019 10:41 AM) [facility]
[2019-03-06] MEDS ORDERED: MORPHINE SULFATE 2 MG/ML DISP.SYRIN. IV PRN (11:30)
[2019-03-06] MEDS ORDERED: ACETAMINOPHEN 325 MG TABLET PO PRN (11:30)
[2019-03-06] MEDS ORDERED: ONDANSETRON PF 4 MG/2 ML VIAL. IV PRN (11:30)
[2019-03-06] MEDS ORDERED: DICYCLOMINE 20 MG/2 ML AMPUL. IM ONE (11:40)
[2019-03-06 12:07] VITALS: BP 127/77
[2019-03-06] MEDS ORDERED: FLU VAX QS 2019-20 (36MOS+)/PF 0.5 ML SYRINGE. VAX IM ONE (12:45)
[2019-03-06 15:22] VITALS: BP 148/82
[2019-03-06] MEDS: HYDROmorphone PF 2 MG/ML VIAL IV PRN ×3 (15:23→22:59)
[2019-03-06] MEDS: IV NORMAL SALINE 1,000ML 1,000 ML IV SCH ×2 (18:00→22:59)
[2019-03-06 19:41] VITALS: BP 131/84
[2019-03-06 23:02] VITALS: BP 120/83
[2019-03-07] MEDS: IV NORMAL SALINE 1,000ML 1,000 ML IV SCH ×5 (01:00→22:11)
[2019-03-07 06:19] VITALS: BP 120/77
[2019-03-07] MEDS: HYDROmorphone PF 2 MG/ML VIAL IV PRN ×4 (08:43→21:14)
[2019-03-07 10:21] VITALS: BP 120/66
[2019-03-07 14:41] VITALS: BP 112/71
[2019-03-07 18:50] VITALS: BP 129/75
--- NOTE | 2019-03-07 20:20 | HP ---
ADMIT DATE: 03/06/2019 HISTORY OF PRESENT ILLNESS: A 68-year-old male comes in with near syncope, double vision. 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 The patient has been having problems for the last 9 months as he has been having problems with abdominal pain in the upper portion of the abdomen, multiple kidney stones, double visions in the light. The patient also nearly passed out as he set up in his 's car. The patient was seen initially in the Emergency Room, brought in for generalized near syncope, severe right flank and abdominal pain requiring IV pain medication, not relieved with oral pain medication. The patient was admitted to the hospital for further evaluation and treatment of the multiplicity of medical problems as noted than stated above. PAST MEDICAL HISTORY: As noted. Nasal drip, tinnitus, peripheral neuropathy, angina, anticoagulant therapy, hypercholesterolemia, DVT, respiratory symptoms, rib fracture, old pneumonia, diverticulitis, diverticulosis. DICTATION ENDS HERE. JOSE R LEWIS MD DR: SHOLA/phyllis JOB#: [id number] / [id number]
[2019-03-07] MEDS: ONDANSETRON ODT 4 MG TAB.RAPDIS PO PRN (20:52)
[2019-03-07 22:23] VITALS: BP 132/87
[2019-03-08] MEDS: IV NORMAL SALINE 1,000ML 1,000 ML IV SCH ×3 (03:23→13:21)
[2019-03-08 05:53] VITALS: BP 138/67
[2019-03-08] MEDS: HYDROmorphone PF 2 MG/ML VIAL IV PRN ×2 (08:20→19:07)
[2019-03-08 11:24] VITALS: BP 132/94
[2019-03-08] MEDS: ONDANSETRON ODT 4 MG TAB.RAPDIS PO PRN (11:26)
[2019-03-08] MEDS ORDERED: ORPHENADRINE ER 100 MG TABLET.ER PO PRN ×2 (11:45)
[2019-03-08] MEDS ORDERED: DOCUSATE SODIUM 100 MG CAPSULE PO PRN (12:15)
[2019-03-08] MEDS ORDERED: VITAMIN A 10,000 UNIT CAPSULE. PO PRN (12:15)
[2019-03-08] MEDS ORDERED: HYDROmorphone 2 MG TABLET PO PRN (12:30)
[2019-03-08] MEDS: LIPASE/PROTEAS/AMYLAS 10/32/42 CAPSULE.DR. PO SCH ×2 (13:00→17:25)
[2019-03-08] MEDS: URSODIOL 300 MG CAPSULE. PO SCH ×2 (13:17→22:32)
[2019-03-08] MEDS: RIVAROXABAN 10 MG TABLET. PO SCH (13:17)
[2019-03-08] MEDS ORDERED: [UNRECOGNIZED DRUG - OTHER] PO SCH (14:00)
[2019-03-08 15:30] VITALS: BP 138/87
[2019-03-08 19:51] VITALS: BP 146/90
[2019-03-08 23:29] VITALS: BP 130/78
[2019-03-09] MEDS: IV NORMAL SALINE 1,000ML 1,000 ML IV SCH ×2 (02:50→16:46)
--- NOTE | 2019-03-09 03:43 | PN ---
DATE: SUBJECTIVE: A 68-year-old male came in with severe abdominal pain, bent over in pain. He is doing somewhat better today. We have rehydrated him extensively and he has made good progress in that regard there. The patient's CT scan showed the possibility of a problem with biliary gas and pancreatic ductal enlargement, which apparently is longstanding. 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 The patient's orthostatics seem to be in good control and he is making excellent progress with an excellent attitude that the patient usually exhibits. OBJECTIVE: VITAL SIGNS: Blood pressure that of ____, respiratory rate 20, pulse 82, afebrile. LUNGS: Diminished throughout, poor movement of air, but clear. CARDIOVASCULAR: Regular sinus rhythm. ABDOMEN: Soft, diffuse tenderness in the right upper quadrant area has been markedly improved. ABDOMEN: Soft, nontender. Surgical scars as indicated previously. EXTREMITIES: No clubbing, cyanosis, or edema. We will continue with evaluation on him and we will continue with PT, OT and make further evaluation for him. He did have some severe muscle spasm of his neck and shooting pains around his head as noted and as a result of this, we will get some PT, OT and continue to monitor him accordingly. IMPRESSION: Severe abdominal pain, chronic pancreatic insufficiency, hepatic biliary dilatation as well as with near syncope. Continue with PT, OT for stabilization and make further evaluation on him as indicated. JOSE R LEWIS MD DR: SHOLA/phyllis JOB#: [id number] / [id number]
[2019-03-09 06:08] VITALS: BP 151/82
[2019-03-09] MEDS: ONDANSETRON ODT 4 MG TAB.RAPDIS PO PRN (07:32)
[2019-03-09] MEDS: HYDROmorphone PF 2 MG/ML VIAL IV PRN ×3 (07:33→21:13)
[2019-03-09] MEDS: PANTOPRAZOLE 40 MG TABLET. PO SCH (07:59)
[2019-03-09] MEDS: LIPASE/PROTEAS/AMYLAS 10/32/42 CAPSULE.DR. PO SCH ×3 (07:59→16:43)
[2019-03-09] MEDS: RIVAROXABAN 10 MG TABLET. PO SCH (07:59)
[2019-03-09] MEDS: URSODIOL 300 MG CAPSULE. PO SCH ×3 (08:13→21:12)
[2019-03-09] MEDS: METOCLOPRAMIDE 10 MG TABLET PO SCH ×4 (10:00→21:12)
[2019-03-09 10:28] VITALS: BP 125/82
[2019-03-09 15:12] VITALS: BP 123/76
[2019-03-09 19:19] VITALS: BP 143/78
--- NOTE | 2019-03-10 04:57 | PN ---
DATE: 03/09/2019 SUBJECTIVE: The patient with severe abdominal pain and flank pain, doing a little bit better, but still having a lot of problems with regurgitation. He says after he eats, he brings the food right back up and was having problems with epigastric pain. OBJECTIVE: VITAL SIGNS: Blood pressure 143/78, respiration 18, pulse 62, afebrile. GENERAL: The patient is alert and oriented. LUNGS: Diminished throughout, but clear. CARDIOVASCULAR: Regular sinus rhythm. ABDOMEN: Soft. Surgical scar is well healed hernia, ventral hernias related to his surgical intervention; however, there was some tenderness in the epigastric area. EXTREMITIES: No clubbing, cyanosis, nor edema. NEUROLOGIC: The patient is baseline stable, very pleasant gentleman. The patient otherwise continued to be monitored carefully. We will make further evaluation on him. We will adjust his medications and try to get him to keep his food down, so he does not regurgitate, have other problems as a result of that. Otherwise, the patient continued to be monitored carefully, make further evaluation on him. IMPRESSION: Abdominal pain, dehydration, near syncope, possible gastroparesis, chronic pancreatic insufficiency, hepatic biliary dilatation, near syncope. Continue with PT, OT and make further evaluation on him as indicated. JOSE R LEWIS MD DR: SHOLA/phyllis JOB#: [id number] / [id number]
[2019-03-10 05:59] VITALS: BP 143/77
[2019-03-10] MEDS: IV NORMAL SALINE 1,000ML 1,000 ML IV SCH (06:38)
[2019-03-10] MEDS: LIPASE/PROTEAS/AMYLAS 10/32/42 CAPSULE.DR. PO SCH (09:00)
[2019-03-10] MEDS: PANTOPRAZOLE 40 MG TABLET. PO SCH (09:00)
[2019-03-10] MEDS: RIVAROXABAN 10 MG TABLET. PO SCH (09:00)
[2019-03-10] MEDS: METOCLOPRAMIDE 10 MG TABLET PO SCH (09:01)
[2019-03-10] MEDS: URSODIOL 300 MG CAPSULE. PO SCH (09:02)
[2019-03-10] MEDS ORDERED: ONDA4TAB12 PO (09:50)
[2019-03-10] MEDS ORDERED: METO10TA PO (09:50)
[2019-03-10] MEDS ORDERED: ORPH-16 PO (09:50)
--- NOTE | 2019-03-10 22:53 | DS ---
DATE OF DISCHARGE: 03/10/2019 HOSPITAL COURSE: A 68-year-old male with long history of multiple surgical procedures on his abdomen. He came in and the patient was having severe abdominal pain, right flank pain, radiating. The patient's CT abdomen and pelvis showed biliary gas and pancreatic ductal gas and the hepaticojejunostomy, previous procedure. Prostate gland was 5.5 cm. The patient was dehydrated ____ the patient was in excruciating pain and he will be controlled with outpatient oral pain medications. The patient made good progress. He was rehydrated, pain was brought under good control. He was started on some Reglan as the patient was noted to have problems with regurgitating food. He was also placed on a medication, digestive enzymes, and to make further evaluation on him as indicated. The patient made good progress. He will be referred back off to his neurologist and GI doctors as indicated. There were no complications. IMPRESSION: Abdominal pain, dehydration, near syncope, possible gastroparesis, chronic pancreatic insufficiency, hepatic biliary dilatation, hyperglycemia, hypernatremia. The patient will be continued to be monitored. Follow up with Cardiology, Surgery and Oncology as an outpatient. PLAN: As above. He will be discharged. Regular diet, decreased activity, and follow up as indicated above. JOSE R LEWIS MD DR: SHOLA/phyllis JOB#: [id number] / [id number]
== END 2019-03-10 10:35 | disposition home or self-care (01) | DRG 74 ==
LOC: ER 08:33 → 1 SOUTH 11:08
PROVIDERS: ADMIT Family Medicine; ATTEND Family Medicine
DX: G90.8 Other disorders of autonomic nervous system (principal); E87.0 Hyperosmolality and hypernatremia; K31.84 Gastroparesis; K86.89 Other specified diseases of pancreas; E86.0 Dehydration; G89.29 Other chronic pain; E78.00 Pure hypercholesterolemia, unspecified; H53.2 Diplopia; K21.9 Gastro-esophageal reflux disease without esophagitis; N20.0 Calculus of kidney; G62.9 Polyneuropathy, unspecified; K57.90 Diverticulosis of intestine, part unspecified, without perforation or abscess without bleeding; R73.9 Hyperglycemia, unspecified; Z86.718 Personal history of other venous thrombosis and embolism; Z87.01 Personal history of pneumonia (recurrent)
CPT/HCPCS: 36415; 70450; 71045; 74177; 80053; 81001; 83690; 84484; 85025; 85610; 85730; 90471; 90686; 93005; 96372; 96374; C9113; J0500; J1170; J2405; J8597; Q0162; Q9966; Q9967; 99285-25; J7030

== ENCOUNTER → 2019-04-10 | Outpatient (CLI) | payer MEDICARE, OTHER ==
[~2019-04-10] MED LIST changes: +ONDA4TAB12 PO; +ORPH-16 PO
[2019-04-10 17:16] LABS: BASO % 1 % (0-3); EOS # 0.3 x10^3/uL (0.0-0.7); EOS % 5 % (0-3); HEMATOCRIT 38.5 % (39.0-53.0); HEMOGLOBIN 12.3 g/dL (13.0-17.5); LYMPH # 1.5 x10^3/uL (1.0-4.8); LYMPH % 22 % (24-48); MEAN CORPUSCULAR HEMOGLOBIN 28 pg (25-35); MEAN CORPUSCULAR HGB CONC 32 g/dL (31-37); MEAN CORPUSCULAR VOLUME 87 fL (79-100); MONO # 0.6 x10^3/uL (0.0-1.1); MONO % 10 % (0-9); NEUT % 62 % (31-73); PLATELET COUNT 204 x10^3/uL (140-400); RED BLOOD COUNT 4.42 x10^6/uL (4.30-5.70); RED CELL DISTRIBUTION WIDTH 16.8 % (11.5-14.5); WHITE BLOOD COUNT 6.5 x10^3/uL (4.0-11.0)
[2019-04-10 17:35] LABS: ALBUMIN 3.1 g/dL (3.4-5.0); ALBUMIN/GLOBULIN RATIO 0.9 (1.0-1.7); CALCIUM 8.8 mg/dL (8.5-10.1); CREATININE 0.7 mg/dL (0.7-1.3); GFR 111.8; POTASSIUM 4.3 mmol/L (3.5-5.1); TOTAL BILIRUBIN 0.6 mg/dL (0.2-1.0); TOTAL PROTEIN 6.7 g/dL (6.4-8.2)
[2019-04-10 17:52] LABS: CLARITY,URINE CLEAR; COLOR,URINE YELLOW
[2019-04-10 17:53] LABS: BACTERIA,URINE 0 /HPF (0-FEW); BILIRUBIN,URINE NEG (NEG); GLUCOSE,URINE NEG (NEG); NITRITE,URINE NEG (NEG); UROBILINOGEN,URINE 1 mg/dL (0.2 mg/dL); WBC,URINE 0 /HPF (0-4)
== END | disposition home or self-care (01) ==
LOC: LAB 16:23
PROVIDERS: ATTEND Family Medicine
DX: N20.0 Calculus of kidney (principal); K85.91 Acute pancreatitis with uninfected necrosis, unspecified; R31.0 Gross hematuria
CPT/HCPCS: 36415; 80053; 81001; 83605; 83690; 85025

== ENCOUNTER 2019-04-19 13:44 | Inpatient (IN) | payer MEDICARE, OTHER ==
[~2019-04-19] VITALS: Ht 177.8 cm; Wt 68.0 kg
[~2019-04-19 13:44] MED LIST changes: -CETI10TA22 PO; +CETI10TA24 PO; +ONDA-84 PO; -ONDA4TAB11 PO
[2019-04-19] MEDS ORDERED: ASPIRIN 81 MG TAB.CHEW PO ONE (14:15)
[2019-04-19 14:28] LABS: BASO # 0.1 x10^3/uL (0.0-0.2); BASO % 1 % (0-3); EOS # 0.4 x10^3/uL (0.0-0.7); EOS % 5 % (0-3); HEMATOCRIT 41.1 % (39.0-53.0); HEMOGLOBIN 13.2 g/dL (13.0-17.5); LYMPH # 1.5 x10^3/uL (1.0-4.8); LYMPH % 21 % (24-48); MEAN CORPUSCULAR HEMOGLOBIN 28 pg (25-35); MEAN CORPUSCULAR HGB CONC 32 g/dL (31-37); MEAN CORPUSCULAR VOLUME 87 fL (79-100); MONO # 0.6 x10^3/uL (0.0-1.1); MONO % 8 % (0-9); NEUT # 4.7 x10^3uL (1.8-7.7); NEUT % 65 % (31-73); PLATELET COUNT 270 x10^3/uL (140-400); RED BLOOD COUNT 4.71 x10^6/uL (4.30-5.70); RED CELL DISTRIBUTION WIDTH 16.6 % (11.5-14.5); WHITE BLOOD COUNT 7.2 x10^3/uL (4.0-11.0)
--- NOTE | 2019-04-19 14:32 | RAD ---
CHEST AP ONLY Clinical indications: Chest pain. COMPARISON: March 06, 2019. Findings: There is a consolidative infiltrate of the lateral aspect of the right upper lobe. No acute infiltrate is seen on the left side. No pleural effusion or pneumothorax is evident. The heart size, pulmonary vasculature, mediastinum and both german are unremarkable. Old healed right rib cage fractures are seen. Impression: Right upper lobe lung infiltrate consistent with pneumonia. Electronically signed by: Cirilo Frazier MD (04/19/2019 2:29 PM) [place] [id number]
[2019-04-19 14:40] LABS: ALBUMIN 3.1 g/dL (3.4-5.0); ALBUMIN/GLOBULIN RATIO 0.7 (1.0-1.7); CREATININE 0.7 mg/dL (0.7-1.3); GFR 111.8; POTASSIUM 3.5 mmol/L (3.5-5.1); TOTAL BILIRUBIN 0.5 mg/dL (0.2-1.0); TOTAL PROTEIN 7.3 g/dL (6.4-8.2)
--- NOTE | 2019-04-19 14:46 | PHYS DOC ---
Past History Past Medical History: GERD, Kidney Stones, Other Additional Past Medical Histor: pancreatic benign tumor Past Surgical History: Other Additional Past Surgical Histo: Whipple surgery 2018 Smoking: Non-smoker Alcohol Use: None Drug Use: None Adult General Chief Complaint Chief Complaint: abdominal pain HPI HPI 68-year-old male presents with nausea, vomiting, chest wall pain, back pain. Pain is an intermittent cramping mild to moderate intensity. The patient had a Whipple surgery in 2018. Since that time, he has had intermittent chest wall and upper abdominal pain. He was told he has 4 hernias under the incision. The patient takes 4 mg Dilaudid once a day at home for pain. His last dose was this morning about 7 hours ago. Patient also states bilateral flank and back pain. He has kidney stones and passes multiple every year. He has had to have manual removal in the past. He is not sure some of his pain is related to kidney stones. He denies fever or chills. Review of Systems Review of Systems Constitutional: Denies fever or chills [] Eyes: Denies change in visual acuity, redness, or eye pain [] HENT: Denies nasal congestion or sore throat [] Respiratory: Denies cough or shortness of breath [] Cardiovascular: No additional information not addressed in HPI [] GI: Upper abdominal and lower chest pain, bilateral flank pain. Vomiting.[] : Denies dysuria or hematuria [] Musculoskeletal: Denies back pain or joint pain [] Integument: Denies rash or skin lesions [] Neurologic: Denies headache, focal weakness or sensory changes [] Endocrine: Denies polyuria or polydipsia [] All other systems were reviewed and found to be within normal limits, except as documented in this note. Current Medications Current Medications Current Medications Medications (Trade) Dose Ordered Sig/Omega Start Time Stop Time Status Last Admin Dose Admin Aspirin (Children'S Aspirin) 324 mg 1X ONCE 04/19/19 14:15 04/19/19 14:16 DC 04/19/19 14:12 324 MG Allergies Allergies Allergies Coded Allergies Type Severity Reaction Last Updated Verified No Known Drug Allergies 10/24/17 No Physical Exam Physical Exam Constitutional: Well developed, well nourished, no acute distress, non-toxic appearance. [] HENT: Normocephalic, atraumatic, bilateral external ears normal, oropharynx moist, no oral exudates, nose normal. [] Eyes: PERRLA, EOMI, conjunctiva normal, no discharge. [] Neck: Normal range of motion, no tenderness, supple, no stridor. [] Cardiovascular:Heart rate regular rhythm, no murmur [] Lungs & Thorax: Bilateral breath sounds clear to auscultation [] Abdomen: Bowel sounds normal, soft, no tenderness, no masses, no pulsatile masses. [] Skin: Warm, dry, no erythema, no rash. Large abdominal incision well-healed. [] Back: No tenderness, no CVA tenderness. [] Extremities: No tenderness, no cyanosis, no clubbing, ROM intact, no edema. [] Neurologic: Alert and oriented X 3, normal motor function, normal sensory function, no focal deficits noted. [] Psychologic: Affect normal, judgement normal, mood normal. [] Current Patient Data Vital Signs Vital Signs Date Time Temp Pulse Resp B/P (MAP) Pulse Ox O2 Delivery O2 Flow Rate FiO2 04/19/19 14:13 85 13 126/88 (101) 99 Room Air 04/19/19 13:51 98.1 Lab Results Laboratory Tests Test 04/19/19 14:05 White Blood Count 7.2 x10^3/uL (4.0-11.0) Red Blood Count 4.71 x10^6/uL (4.30-5.70) Hemoglobin 13.2 g/dL (13.0-17.5) Hematocrit 41.1 % (39.0-53.0) Mean Corpuscular Volume 87 fL (79-100) Mean Corpuscular Hemoglobin 28 pg (25-35) Mean Corpuscular Hemoglobin Concent 32 g/dL (31-37) Red Cell Distribution Width 16.6 % (11.5-14.5) H Platelet Count 270 x10^3/uL (140-400) Neutrophils (%) (Auto) 65 % (31-73) Lymphocytes (%) (Auto) 21 % (24-48) L Monocytes (%) (Auto) 8 % (0-9) Eosinophils (%) (Auto) 5 % (0-3) H Basophils (%) (Auto) 1 % (0-3) Neutrophils # (Auto) 4.7 x10^3uL (1.8-7.7) Lymphocytes # (Auto) 1.5 x10^3/uL (1.0-4.8) Monocytes # (Auto) 0.6 x10^3/uL (0.0-1.1) Eosinophils # (Auto) 0.4 x10^3/uL (0.0-0.7) Basophils # (Auto) 0.1 x10^3/uL (0.0-0.2) Sodium Level 145 mmol/L (136-145) Potassium Level 3.5 mmol/L (3.5-5.1) Chloride Level 108 mmol/L (98-107) H Carbon Dioxide Level 28 mmol/L (21-32) Anion Gap 9 (6-14) Blood Urea Nitrogen 12 mg/dL (8-26) Creatinine 0.7 mg/dL (0.7-1.3) Estimated GFR (Cockcroft-Gault) 111.8 BUN/Creatinine Ratio 17 (6-20) Glucose Level 108 mg/dL (70-99) H Calcium Level 9.0 mg/dL (8.5-10.1) Total Bilirubin 0.5 mg/dL (0.2-1.0) Aspartate Amino Transferase (AST) 23 U/L (15-37) Alanine Aminotransferase (ALT) 33 U/L (16-63) Alkaline Phosphatase 208 U/L (46-116) H Total Protein 7.3 g/dL (6.4-8.2) Albumin 3.1 g/dL (3.4-5.0) L Albumin/Globulin Ratio 0.7 (1.0-1.7) L EKG EKG [] Radiology/Procedures Radiology/Procedures [] Impressions: Examination: CT ABDOMEN PELVIS WO CONTRAST History: Abdominal pain. Comparison/Correlation: 01/04/2090 CT abdomen and pelvis without contrast 02/07/2019 CT abdomen and pelvis with IV and oral contrast Findings: Axial images of the abdomen and pelvis were obtained without contrast. Sagittal and coronal reformatted images were provided. Minimal right lateral basilar patchy infiltrate or atelectasis is present. Spleen, pancreas, and adrenal glands are normal. Fluid is noted within the stomach. Cholecystectomy noted. Intramedullary gas is unremarkable. Fluid is identified to distend the very proximal small bowel in this patient with reported history of hepaticojejunostomy. Surgical clips are present in the left upper quadrant in this region. No significant distention bowel otherwise is seen. Large quantity of stool in the colon is evident. No extraluminal gas. No ascites or pelvic free fluid. Multiple renal calculi are present bilaterally within the calyces. Largest of these the right lower pole measuring up to 0.6 cm diameter. Left renal calculi measuring up to 0.35 cm diameter. Left renal lateral interpolar cyst is present. Postoperative findings of the upper abdominal wall at the epigastric level noted. Left inguinal hernia contains omental fat. Osteopenia noted. Spurring about the acetabular line noted. There are a few calcified dependent aspect of the urinary bladder is measuring up to 0.6 cm diameter. Prostate gland measures up to 5.1 cm transverse by 4.4 anteroposterior with calcifications present. Bony structures are unremarkable. Impression: Multiple bilateral nonobstructive renal calculi. Calculi are present within the urinary bladder. No radiopaque ureteral calculi are identified. Mild very proximal small bowel distention. No significant distention of the stomach. Correlate for possibility of early/partial obstruction. This is similar upon correlation with 12/17/2018 CT abdomen and pelvis without contrast. Mild prostatomegaly. RS Compliance Statement: One or more of the following individualized dose reduction techniques were utilized for this examination: 1. Automated exposure control 2. Adjustment of the mA and/or kV according to patient size 3. Use of iterative reconstruction technique Electronically signed by: Narendra Garza MD (04/19/2019 3:13 PM) [facility] DICTATED AND SIGNED BY: NARENDRA GARZA MD DATE: 04/19/19 1513 CC: JOHANN COMER DO; JOSE R LEWIS MD ~ CHEST AP ONLY Clinical indications: Chest pain. COMPARISON: March 06, 2019. Findings: There is a consolidative infiltrate of the lateral aspect of the right upper lobe. No acute infiltrate is seen on the left side. No pleural effusion or pneumothorax is evident. The heart size, pulmonary vasculature, mediastinum and both german are unremarkable. Old healed right rib cage fractures are seen. Impression: Right upper lobe lung infiltrate consistent with pneumonia. Electronically signed by: Aysha Frazier MD (04/19/2019 2:29 PM) [place] [id number] DICTATED AND SIGNED BY: AYSHA FRAZIER MD DATE: 04/19/19 4239 CC: JOHANN COMER DO; JOSE R LEWIS MD ~ Course & Med Decision Making Course & Med Decision Making Pertinent Labs and Imaging studies reviewed. (See chart for details) The patient's labs are remarkable for an elevated alkaline phosphatase. Review of his chart shows a this is typical for the patient. I have given 1 mg of Dilaudid IV for his discomfort. The patient's CT scan shows multiple stones, but none that are obstructed. There is concern for possible ileus or early small bowel obstruction, however this looks similar to previous scan. This is i ndeterminate. See official read for more details. The patient's chest x-ray significant for right upper lobe pneumonia. I will treat the patient with Zosyn and admit him to the hospital. Spoke with Dr. Lewis and he has agreed to admit the patient. [] Dragon Disclaimer Dragon Disclaimer This electronic medical record was generated, in whole or in part, using a voice recognition dictation system. Departure Departure: Impression: Primary Impression: Pneumonia Disposition: ADMITTED INPATIENT Admitting Physician: Jose R Lewis Condition: STABLE Referrals: JOSE R LEWIS MD (PCP) Problem Qualifiers Primary Impression: Pneumonia Pneumonia type: due to unspecified organism Laterality: right Lung location: upper lobe of lung Qualified Codes: J18.9 - Pneumonia, unspecified organism JOHANN COMER DO Apr 19, 2019 14:46
[2019-04-19] MEDS ORDERED: HYDROmorphone PF 1 MG/ML DISP.SYRIN ONE (15:14)
--- NOTE | 2019-04-19 15:16 | RAD ---
Examination: CT ABDOMEN PELVIS WO CONTRAST History: Abdominal pain. Comparison/Correlation: 01/04/2090 CT abdomen and pelvis without contrast 02/07/2019 CT abdomen and pelvis with IV and oral contrast Findings: Axial images of the abdomen and pelvis were obtained without contrast. Sagittal and coronal reformatted images were provided. Minimal right lateral basilar patchy infiltrate or atelectasis is present. Spleen, pancreas, and adrenal glands are normal. Fluid is noted within the stomach. Cholecystectomy noted. Intramedullary gas is unremarkable. Fluid is identified to distend the very proximal small bowel in this patient with reported history of hepaticojejunostomy. Surgical clips are present in the left upper quadrant in this region. No significant distention bowel otherwise is seen. Large quantity of stool in the colon is evident. No extraluminal gas. No ascites or pelvic free fluid. Multiple renal calculi are present bilaterally within the calyces. Largest of these the right lower pole measuring up to 0.6 cm diameter. Left renal calculi measuring up to 0.35 cm diameter. Left renal lateral interpolar cyst is present. Postoperative findings of the upper abdominal wall at the epigastric level noted. Left inguinal hernia contains omental fat. Osteopenia noted. Spurring about the acetabular line noted. There are a few calcified dependent aspect of the urinary bladder is measuring up to 0.6 cm diameter. Prostate gland measures up to 5.1 cm transverse by 4.4 anteroposterior with calcifications present. Bony structures are unremarkable. Impression: Multiple bilateral nonobstructive renal calculi. Calculi are present within the urinary bladder. No radiopaque ureteral calculi are identified. Mild very proximal small bowel distention. No significant distention of the stomach. Correlate for possibility of early/partial obstruction. This is similar upon correlation with 12/17/2018 CT abdomen and pelvis without contrast. Mild prostatomegaly. PQRS Compliance Statement: One or more of the following individualized dose reduction techniques were utilized for this examination: 1. Automated exposure control 2. Adjustment of the mA and/or kV according to patient size 3. Use of iterative reconstruction technique Electronically signed by: Narendra Berry MD (04/19/2019 3:13 PM) [facility]
[2019-04-19] MEDS ORDERED: HYDROmorphone PF 1 MG/ML DISP.SYRIN IV ONE (15:30)
[2019-04-19] MEDS ORDERED: PIPERACILLIN/TAZOBACTAM 3.375 GM VIAL IV ONE (16:07)
[2019-04-19] MEDS ORDERED: IV NORMAL SALINE 50ML 50 ML ONE (16:07)
[2019-04-19] MEDS ORDERED: PIPERACILLIN/TAZOBACTAM 3.375 GM in IV NORMAL SALINE 50ML 50 ML IV ONE (16:15)
--- NOTE | 2019-04-19 16:21 | EKG ---
[address] [address] Test Date: 2019-04-19 Test Time: 13:53:28 Pat Name: KIRSTEN LEVY Department: Room: Gender: M Farm Assistant: YENNI : 1950 Requested By: JOHANN COMER Order Number: [id number] Reading MD: Jake Hatfield Measurements Intervals [place] Rate: 70 P: 46 NC: 142 QRS: 64 QRSD: 84 T: 59 QT: 390 QTc: 424 Interpretive Statements SINUS RHYTHM ATRIAL PREMATURE COMPLEX(ES) Electronically Signed On 05-30-2019 16:07:38 HEAD STRENGTH AND CONDITIONING COACH by Jake Hatfield
[2019-04-19 17:20] VITALS: BP 143/79
[2019-04-19] MEDS ORDERED: ONDANSETRON PF 4 MG/2 ML VIAL. IV PRN (18:15)
[2019-04-19] MEDS ORDERED: CYCL-331 PO (18:30)
[2019-04-19] MEDS ORDERED: TAMS0.4C97 PO (18:30)
[2019-04-19] MEDS ORDERED: POTA10TA17 PO (18:30)
--- NOTE | 2019-04-19 18:38 | NUR ---
Pt arrived to [address] [place] [address] at approximately 1730 via wheel chair. Pt came from ER with complaints of bilateral chest pain, s/t pneumonia. Salome Signs upon arrival, Temp-97.7, HR-76, BP-143/79, O2-RA. Bed is in lowest position, call light within reach. Peripheral IV in L AC, currently SL. Awaiting Dr. paris, will continue to assess and monitor
[2019-04-19] MEDS ORDERED: ORPHENADRINE ER 100 MG TABLET.ER PO PRN (19:45)
[2019-04-19] MEDS ORDERED: ONDANSETRON ODT 4 MG TAB.RAPDIS PO PRN (19:45)
[2019-04-19] MEDS ORDERED: DOCUSATE SODIUM 100 MG CAPSULE PO PRN (19:45)
[2019-04-19] MEDS: [UNRECOGNIZED DRUG - OTHER] PO SCH (21:00)
[2019-04-19] MEDS: POTASSIUM CITRATE 10 MEQ TABLET.ER PO SCH (21:00)
[2019-04-19] MEDS: CYCLOBENZAPRINE 10 MG TABLET. PO SCH (21:35)
[2019-04-19] MEDS: METOCLOPRAMIDE 10 MG TABLET PO SCH (21:35)
[2019-04-19] MEDS: URSODIOL 300 MG CAPSULE. PO SCH (21:36)
[2019-04-19] MEDS: HYDROmorphone 2 MG TABLET PO PRN (21:36)
[2019-04-19 23:20] VITALS: BP 128/80
[2019-04-20 06:02] VITALS: BP 148/86
[2019-04-20] MEDS: METOCLOPRAMIDE 10 MG TABLET PO SCH ×4 (08:07→20:05)
[2019-04-20] MEDS: HYDROmorphone 2 MG TABLET PO PRN ×3 (08:07→19:40)
[2019-04-20] MEDS: PANTOPRAZOLE 40 MG TABLET. PO SCH (08:07)
--- NOTE | 2019-04-20 08:23 | NUR ---
Pt is alert and oriented. Sitting up on side of bed. Complaining of chest pain and incisional pain from prior whipple. Treated with oral dilaudid. No other complaints. WCTM.
[2019-04-20] MEDS: POTASSIUM CITRATE 10 MEQ TABLET.ER PO SCH ×2 (08:47→20:05)
[2019-04-20] MEDS: URSODIOL 300 MG CAPSULE. PO SCH ×3 (08:48→20:05)
[2019-04-20] MEDS: RIVAROXABAN 10 MG TABLET. PO SCH (08:48)
[2019-04-20] MEDS: TAMSULOSIN 0.4 MG CAP.ER.24H. PO SCH (08:48)
[2019-04-20] MEDS: [UNRECOGNIZED DRUG - OTHER] PO SCH ×3 (09:00→20:07)
[2019-04-20] MEDS ORDERED: PIP/TAZO PER PHARMACY MC PRN ×2 (09:15)
[2019-04-20] MEDS ORDERED: IPRATRPIUM/ALBUTEROL 0.5/2.5MG 3 ML NEBU. NEB SCH (10:00)
[2019-04-20] MEDS: PIPERACILLIN/TAZOBACTAM 4.5 GM in IV NORMAL SALINE 50ML 50 ML IV SCH ×2 (10:28→18:23)
[2019-04-20 10:41] VITALS: BP 110/74
[2019-04-20] MEDS: HYDROmorphone PF 1 MG/ML DISP.SYRIN IV PRN ×2 (14:26→17:10)
[2019-04-20 15:11] VITALS: BP 117/76
[2019-04-20] MEDS: CYCLOBENZAPRINE 10 MG TABLET. PO SCH (20:05)
[2019-04-20 21:13] VITALS: BP 123/67
--- NOTE | 2019-04-20 22:46 | HP ---
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 The patient felt extremely weak and had severe chest wall pain as well as back pain, epigastric pain, cramping to the mid abdominal area. The patient notes he was having some abdominal pain as well as a history of 4 hernias and surgery for pancreatic cancer. In any case, the patient was brought in through the Emergency Room and was noted to have a right upper lobe pneumonia and as a result of this, the patient was admitted to the hospital for further evaluation and treatment with IV antibiotic therapy as indicated. 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 He has had a lithotripsy, arthritis, osteoarthritis, lower back pain, clotting problems. He is on chronic Xarelto. His immunizations for influenza, pneumococcal are up-to-date. He has also had previous histories of MRSA. FAMILY HISTORY: Positive for skin cancer and myocardial infarctions, colon cancer, hypertension, CABG __. ALLERGIES: The patient has no known drug allergies. MEDICATIONS: Reconciled and reviewed. See chart. SOCIAL HISTORY: The patient is retired. Denies smoking, alcohol or drug use. REVIEW OF SYSTEMS: He has had some mild weight loss, notes coughing, fever, chills, nausea, feeling generalized weakness. Denies abdominal pain per se, does have mild, but that is not unusual. He notes he has had good bowel movements. Neurologically intact. PHYSICAL EXAMINATION: GENERAL: This is a very pleasant, congenial male, in no apparent distress. VITAL SIGNS: Blood pressure varies approximately 127/80, respiratory rate 14, pulse 80, temperature 98.1, oxygen saturation also within range. The patient is a full code. HEENT: Atraumatic, normocephalic. Eyes: PERRLA without jaundice. The mouth and throat were normal. NECK: Supple, without JVD, carotid bruits. No thyromegaly. LUNGS: The patient's lungs were diminished throughout, poor movement of air, but basically clear. CARDIOVASCULAR: Regular sinus rhythm, S1, S2, without murmur, rub, thrill, or extra heart sound. ABDOMEN: Soft, nontender, no rebound or guarding. Positive bowel sounds, no hepatosplenomegaly was noted. EXTREMITIES: No clubbing, cyanosis or edema. NEUROLOGIC: The patient was alert and oriented x 3. The patient's abdomen does show a large scar from one side to the other where he has had previous hernia repair and of course, his pancreatotomy where they took a part of his pancreas. IMPRESSION: Therefore, pneumonia, the right upper lobe, history of pancreatic cancer, generalized weakness. The patient is continues on IV antibiotic therapy and make further evaluation on him as indicated. JOSE R LEWIS MD DR: SHOLA/phyllis JOB#: [id number] / [id number]
[2019-04-20 23:49] VITALS: BP 107/62
[2019-04-21] MEDS: PIPERACILLIN/TAZOBACTAM 4.5 GM in IV NORMAL SALINE 50ML 50 ML IV SCH ×3 (01:57→17:44)
--- NOTE | 2019-04-21 04:38 | NUR ---
ASSUMED CARE AT FROM DAY SHIFT PT C/O ABD PAIN PO DILAUDID GIVEN PRESCRIBED ,PO MEDICATION WITHOUT NAUSEA, UP TO BATHRROM GAIT STEADY. DISCUSSED PLAN OF CARE AND AGREEABLE. PT RESTED WELL THROUGHOUT HOURLY ROUNDS, WILL REPORT CHANGES OR ABNORMAL FINDINGS.
[2019-04-21 06:15] VITALS: BP 142/83
[2019-04-21 06:42] LABS: BASO % 1 % (0-3); EOS # 0.4 x10^3/uL (0.0-0.7); EOS % 6 % (0-3); HEMOGLOBIN 11.8 g/dL (13.0-17.5); LYMPH # 0.9 x10^3/uL (1.0-4.8); LYMPH % 14 % (24-48); MEAN CORPUSCULAR HEMOGLOBIN 28 pg (25-35); MEAN CORPUSCULAR HGB CONC 33 g/dL (31-37); MEAN CORPUSCULAR VOLUME 87 fL (79-100); MONO # 0.6 x10^3/uL (0.0-1.1); MONO % 9 % (0-9); NEUT # 4.9 x10^3uL (1.8-7.7); NEUT % 71 % (31-73); PLATELET COUNT 234 x10^3/uL (140-400); RED BLOOD COUNT 4.15 x10^6/uL (4.30-5.70); RED CELL DISTRIBUTION WIDTH 16.3 % (11.5-14.5); WHITE BLOOD COUNT 6.9 x10^3/uL (4.0-11.0)
[2019-04-21 06:46] LABS: CALCIUM 8.8 mg/dL (8.5-10.1); CREATININE 0.7 mg/dL (0.7-1.3); GFR 111.8; POTASSIUM 3.9 mmol/L (3.5-5.1)
[2019-04-21] MEDS: URSODIOL 300 MG CAPSULE. PO SCH ×3 (08:08→19:47)
[2019-04-21] MEDS: TAMSULOSIN 0.4 MG CAP.ER.24H. PO SCH (08:08)
[2019-04-21] MEDS: PANTOPRAZOLE 40 MG TABLET. PO SCH (08:08)
[2019-04-21] MEDS: RIVAROXABAN 10 MG TABLET. PO SCH (08:09)
[2019-04-21] MEDS: METOCLOPRAMIDE 10 MG TABLET PO SCH ×4 (08:09→19:47)
[2019-04-21] MEDS: [UNRECOGNIZED DRUG - OTHER] PO SCH ×3 (09:00→18:51)
[2019-04-21] MEDS: HYDROmorphone 2 MG TABLET PO PRN ×3 (09:09→19:46)
[2019-04-21] MEDS: IPRATRPIUM/ALBUTEROL 0.5/2.5MG 3 ML NEBU. NEB SCH ×4 (10:32→20:00)
[2019-04-21 10:46] VITALS: BP 132/86
--- NOTE | 2019-04-21 11:40 | RAD ---
CHEST PA LATERAL History: Shortness of breath Comparison: 04/19/2019 AP view of the chest . Findings: Frontal and lateral views of the chest were obtained. The cardiomediastinal silhouette is normal. Pulmonary vasculature is normal. Right upper lobe consolidation adjacent to the major fissure and minor fissure is present. Nodular density of the left upper lung field is again seen. No pleural effusion or pneumothorax is seen. There is no acute bone abnormality. Surgical clips are present in the upper abdomen. IMPRESSION: No significant change in the right upper lobe consolidation. Follow-up to resolution recommended. Electronically signed by: Narendra Berry MD (04/21/2019 11:37 AM) [facility]
[2019-04-21] MEDS: POTASSIUM CITRATE 10 MEQ TABLET.ER PO SCH ×2 (11:47→17:44)
--- NOTE | 2019-04-21 14:47 | EKG ---
[address] [address] Test Date: 2019-04-21 Test Time: 13:02:05 Pat Name: KIRSTEN LEVY Department: Room: 117 A Gender: M Heel Seat Pounder: YENNI : 1950 Requested By: JOSE R LEWIS Order Number: [id number] Reading MD: Price Sanchez MD Measurements Intervals [place] Rate: 98 P: 39 CO: 130 QRS: 43 QRSD: 84 T: 50 QT: 356 QTc: 456 Interpretive Statements SINUS RHYTHM Electronically Signed On 06-01-2019 7:59:22 DISTRICT SALES MANAGER by Price Sanchez MD
[2019-04-21 15:44] VITALS: BP 113/80
--- NOTE | 2019-04-21 16:36 | NUR ---
SHAW TO ASSESS PT TO START PICC LINE.
--- NOTE | 2019-04-21 16:45 | NUR ---
Allergies and reactions y INR BUN Cr Platelets y Blood culture done blood culture results y Order Verified y Consent signed y Previous PICC placement y Past Medical/Surgical history and current diagnosis reviewed Patient Medical /Surgical History Related to PICC line placement Cancer Past central line or venous access device placement Special considerations for Midline placement Anticoagulation therapy Midline placement indication Caustic medication class drug usage, FPC antibiotic usage, Multiple/ Frequent blood draws Name of PICC Nurse samanta Laresn RN BSN CMSRN [place]- Consulted for pt to have OP Antibitoics. PT is only on Zosyn currently and a midline is more appropriate at this time. Zosyn PH is 5.1-5.4 to have a midline and at this time order if for antibitoics for only a week. IF pt is added on any Ax outside of PH guidelines, notify vascular cps team lead production finisher and an over the wire transfer can be performed.
--- NOTE | 2019-04-21 18:11 | NUR ---
Procedure: Following complete explanation of the Midline procedure including the indications, risks, and potential complications, informed consent was obtained. The possibility for infection was discussed along with signs, symptoms, and prevention. All the questions were answered. IV Device Protocol was used. Written and verbal patient education was provided. Hand hygiene performed. Standardized central line checklist was utilized. The patient was placed in the supine position, the arm was prepped with chlorhexidine and patient draped with maximum sterile barrier. 3 mL 1% lidocaine was infiltrated into the skin to provide local anesthesia. A thorough assessment of Right upper extremity completed. Using real-time ultrasound guidance and standardized micro puncture set, the bacilic vein was punctured and a peel away sheath was placed using the modified Seldinger technique. A tip location device was used to ensure adequate catheter placement. The catheter was secured using a securement device and an antimicrobial patch was applied directly on the insertion site followed by a transparent dressing. All ports withdraw blood and flush without resistance. Patient tolerated the procedure without apparent complication(s). Single Lumen Power Midline placement successful and uncomplicated. Complications: None Ammy Larsen HEALTH CARE ANALYST CMSRN [facility] 10 cm inside 0- out
[2019-04-21 19:44] VITALS: BP 127/85
[2019-04-21] MEDS: CYCLOBENZAPRINE 10 MG TABLET. PO SCH (19:47)
[2019-04-21 22:51] VITALS: BP 122/81
--- NOTE | 2019-04-22 00:21 | PN ---
DATE: SUBJECTIVE: A 68-year-old gentleman in with pneumonia. Chest x-ray still shows consolidation in the right upper lobe. The patient had a PICC line placed and consider outpatient IV antibiotic therapy. We will continue to monitor on that area. May get a CT scan as she has not shown much improvement despite feeling somewhat better and the fact that he is afebrile. OBJECTIVE: VITAL SIGNS: Blood pressure 127/85, respiratory rate 20, pulse 81, afebrile. GENERAL: The patient is alert and oriented. LUNGS: Diminished throughout, poor movement of air. CARDIOVASCULAR: Regular sinus rhythm, S1, S2. ABDOMEN: Soft, nontender. IMPRESSION: Pneumonia, right upper lobe consolidation. PLAN: Continue with IV antibiotic therapy for now and make further evaluation once a PICC line has been placed. JOSE R LEWIS MD DR: SHOLA/phyllis JOB#: [id number] / [id number]
[2019-04-22] MEDS: PIPERACILLIN/TAZOBACTAM 4.5 GM in IV NORMAL SALINE 50ML 50 ML IV SCH ×3 (01:51→18:00)
[2019-04-22 05:13] VITALS: BP 120/81
[2019-04-22] MEDS: IPRATRPIUM/ALBUTEROL 0.5/2.5MG 3 ML NEBU. NEB SCH (05:33)
[2019-04-22] MEDS ORDERED: IPRATRPIUM/ALBUTEROL 0.5/2.5MG 3 ML NEBU. NEB PRN (05:45)
[2019-04-22] MEDS: RIVAROXABAN 10 MG TABLET. PO SCH (08:15)
[2019-04-22] MEDS: METOCLOPRAMIDE 10 MG TABLET PO SCH ×4 (08:16→20:58)
[2019-04-22] MEDS: PANTOPRAZOLE 40 MG TABLET. PO SCH (08:16)
[2019-04-22] MEDS: TAMSULOSIN 0.4 MG CAP.ER.24H. PO SCH (08:16)
[2019-04-22] MEDS: URSODIOL 300 MG CAPSULE. PO SCH ×3 (08:16→21:00)
[2019-04-22] MEDS: POTASSIUM CITRATE 10 MEQ TABLET.ER PO SCH ×2 (08:17→21:00)
[2019-04-22] MEDS: [UNRECOGNIZED DRUG - OTHER] PO SCH ×3 (08:18→21:00)
[2019-04-22 09:25] VITALS: BP 117/82
[2019-04-22] MEDS ORDERED: ONDANSETRON PF 4 MG/2 ML VIAL. ONE (09:39)
[2019-04-22] MEDS: HYDROmorphone 2 MG TABLET PO PRN ×2 (09:42→20:59)
[2019-04-22] MEDS: SUCRALFATE 1 GM TABLET. PO SCH ×3 (12:29→20:59)
--- NOTE | 2019-04-22 13:46 | RAD ---
Exam performed: CT chest without contrast. HISTORY: Cough, consolidation. DATE OF SERVICE: 04/22/2019. COMPARISON: Chest x-ray from 04/21/2018. TECHNIQUE: Contiguous helical acquisitions are obtained through the chest without IV contrast. Sagittal and coronal reformatted images are obtained and reviewed. FINDINGS: Consolidating infiltrates are seen in the right upper lobe with scattered patchy infiltrates in the right lower lobe. There are also occasional infiltrates in the left lower lobe. There is no pleural effusion or pneumothorax. Structures at the thoracic inlet including both lobes of the thyroid gland appear normal. Unopacified neck and intrathoracic great vessels appear normal in course and caliber. Atheromatous aortic and coronary calcification. No mediastinal or hilar adenopathy seen. Heart size is normal without pericardial effusion. Pneumobilia . Diffuse stool in the colon. IMPRESSION: Consolidating infiltrates right upper lobe with scattered infiltrates right lower as well as left lower lobes. Pneumobilia perhaps related to a previous procedure. Correlate clinically. Constipation. PQRS Compliance Statement: One or more of the following individualized dose reduction techniques were utilized for this examination: 1. Automated exposure control 2. Adjustment of the mA and/or kV according to patient size 3. Use of iterative reconstruction technique Electronically signed by: Zeina Dinh MD (04/22/2019 1:43 PM) [facility]
[2019-04-22 15:18] VITALS: BP 110/74
[2019-04-22] MEDS ORDERED: ACETAMINOPHEN 325 MG TABLET PO PRN (17:15)
[2019-04-22] MEDS ORDERED: ONDANSETRON PF 4 MG/2 ML VIAL. IVP PRN (17:15)
[2019-04-22 19:40] VITALS: BP 114/67
[2019-04-22] MEDS: CYCLOBENZAPRINE 10 MG TABLET. PO SCH (20:58)
[2019-04-22] MEDS: DOCUSATE SODIUM 100 MG CAPSULE PO SCH (20:59)
--- NOTE | 2019-04-22 21:31 | PN ---
DATE: SUBJECTIVE: A 68-year-old male in with problems with is having pneumonia consolidation. The patient's repeat CT showed a consolidation. CT scan shows actually multilobar pneumonia with consolidating infiltrates in the right upper lobe with infiltrates in the right lower and left lower lobes as well. He continues on IV antibiotic therapy. The patient got midline placed and continue with IV antibiotic therapy once discharged. OBJECTIVE: VITAL SIGNS: The patient's blood pressure 110/74, respiratory rate 20, pulse 88, afebrile. GENERAL: The patient is alert and oriented. LUNGS: Diminished throughout. The patient is not feeling well this morning, somewhat nauseated with some discomfort. The patient otherwise seems to be resting fairly comfortably and continued to be monitored carefully. We will continue on IV antibiotic therapy and make further evaluation on him. IMPRESSION: Multilobar pneumonia, generalized weakness. JOSE R LEWIS MD DR: SHOLA/phyllis JOB#: [id number] / [id number]
[2019-04-22 23:09] VITALS: BP 110/72
[2019-04-23] MEDS: PIPERACILLIN/TAZOBACTAM 4.5 GM in IV NORMAL SALINE 50ML 50 ML IV SCH ×3 (01:53→16:01)
[2019-04-23 05:41] VITALS: BP 126/85
[2019-04-23] MEDS: RIVAROXABAN 10 MG TABLET. PO SCH (09:07)
[2019-04-23] MEDS: POTASSIUM CITRATE 10 MEQ TABLET.ER PO SCH (09:07)
[2019-04-23] MEDS: TAMSULOSIN 0.4 MG CAP.ER.24H. PO SCH (09:07)
[2019-04-23] MEDS: URSODIOL 300 MG CAPSULE. PO SCH ×2 (09:07→13:20)
[2019-04-23] MEDS: SUCRALFATE 1 GM TABLET. PO SCH ×2 (09:08→13:20)
[2019-04-23] MEDS: METOCLOPRAMIDE 10 MG TABLET PO SCH ×2 (09:08→11:59)
[2019-04-23] MEDS: DOCUSATE SODIUM 100 MG CAPSULE PO SCH (09:08)
[2019-04-23] MEDS: PANTOPRAZOLE 40 MG TABLET. PO SCH (09:08)
[2019-04-23 11:21] VITALS: BP 114/78
--- NOTE | 2019-04-23 11:47 | NUR ---
Pt is being discharged today. Pt will have outpt antibiotics here set up and nebulizer for duonebs to be delivered to his home. Referral to [facility]
[2019-04-23] MEDS: HYDROmorphone 2 MG TABLET PO PRN (14:23)
[2019-04-23 14:27] VITALS: BP 125/86
--- NOTE | 2019-04-23 17:06 | NUR ---
Discharge: Pt discharged home with . VSS. NAD. Denies pain. Discharge instructions and materials discussed with patient. Questions answered. Pt aware to return 02/22/2019 between 0513-0408 for OP IV ABT. Midline in place, flushes and gives brisk blood return. No falls or injuries reported. All belongings accounted for.
--- NOTE | 2019-04-26 10:40 | DS ---
DATE OF DISCHARGE: 04/23/2019 HOSPITAL COURSE: A 68-year-old male came in with severe nausea, vomiting, chest wall pain, back pain, cramping sensation. The patient had Whipple procedure in 2018. He has been dealing with multiple complications as a result of that including nephrolithiasis. The patient also has abdominal hernias. The patient became increasingly weakened. It was felt the patient was having right upper lobe pneumonia. CAT scans further demonstrated the patient had multiple consolidations in the right upper as well as right lower and left lower lobes. Cultures were obtained, but they were negative for any particular organism. The patient had influenza testing that was negative. Albumin was slightly low. In any case, the patient made good progress during the rest of his hospitalization with IV Zosyn. He really made good progress. He had a midline placed so that he could be do this at home, which he has done in the past. He was discharged on the and the patient was discharged home in good condition. He is to follow up with his doctors down at . IMPRESSION: Multilobar pneumonia, sepsis, history of pancreatic cancer, moderate protein malnutrition, generalized weakness. The patient will be discharged home. He will receive IV Zosyn as an outpatient for an additional week. Repeat chest x-ray and make further evaluation on him as an outpatient. Multilobar pneumonia, generalized weakness, history of pancreatic cancer, will be on a regular diet and activity decreased. JOSE R LEWIS MD DR: SHOLA/phyllis JOB#: [id number] / [id number]
== END 2019-04-23 17:10 | disposition home or self-care (01) | DRG 871 ==
LOC: ER 13:44 → 1 SOUTH 15:55
PROVIDERS: ADMIT Family Medicine; ATTEND Family Medicine
DX: A41.9 Sepsis, unspecified organism (principal); J15.6 Pneumonia due to other Gram-negative bacteria; E44.0 Moderate protein-calorie malnutrition; K21.9 Gastro-esophageal reflux disease without esophagitis; M19.90 Unspecified osteoarthritis, unspecified site; N40.0 Benign prostatic hyperplasia without lower urinary tract symptoms; E78.00 Pure hypercholesterolemia, unspecified; Z87.442 Personal history of urinary calculi; Z85.07 Personal history of malignant neoplasm of pancreas; Z79.01 Long term (current) use of anticoagulants; Z82.49 Family history of ischemic heart disease and other diseases of the circulatory system; Z80.8 Family history of malignant neoplasm of other organs or systems; Z80.0 Family history of malignant neoplasm of digestive organs; Z68.21 Body mass index [BMI] 21.0-21.9, adult
CPT/HCPCS: 36415; 71045; 71046; 71250; 74176; 80048; 80053; 83605; 84484; 85025; 93005; 94640; 96361; 96374; J1170; J2405; J2543; J7620; J8597; Q0162; 99285-25

== ENCOUNTER 2019-04-24 08:55 | Observation (INO) | payer MEDICARE, OTHER ==
[~2019-04-24] VITALS: Ht 177.8 cm; Wt 69.7 kg
[~2019-04-24 08:55] MED LIST changes: +CETI10TA22 PO; -CETI10TA24 PO; +CYCL-331 PO; -ONDA-84 PO; +ONDA4TAB11 PO; +POTA10TA17 PO
[2019-04-24] MEDS ORDERED: PIPERACILLIN/TAZOBACTAM 4.5 GM in IV NORMAL SALINE 50ML 50 ML IV ONE (09:15)
[2019-04-24 09:21] VITALS: BP 108/76
[2019-04-24 09:41] LABS: BASO # 0.1 x10^3/uL (0.0-0.2); BASO % 1 % (0-3); EOS # 0.3 x10^3/uL (0.0-0.7); EOS % 6 % (0-3); HEMATOCRIT 39.4 % (39.0-53.0); HEMOGLOBIN 12.6 g/dL (13.0-17.5); LYMPH # 1.1 x10^3/uL (1.0-4.8); LYMPH % 19 % (24-48); MEAN CORPUSCULAR HEMOGLOBIN 28 pg (25-35); MEAN CORPUSCULAR HGB CONC 32 g/dL (31-37); MEAN CORPUSCULAR VOLUME 87 fL (79-100); MONO # 0.3 x10^3/uL (0.0-1.1); MONO % 5 % (0-9); NEUT # 4.1 x10^3uL (1.8-7.7); NEUT % 69 % (31-73); PLATELET COUNT 310 x10^3/uL (140-400); RED BLOOD COUNT 4.54 x10^6/uL (4.30-5.70); RED CELL DISTRIBUTION WIDTH 16.1 % (11.5-14.5); WHITE BLOOD COUNT 5.9 x10^3/uL (4.0-11.0)
--- NOTE | 2019-04-24 09:55 | NUR ---
NURSING NOTE ADMIT PT WAS HERE TODAY FOR OUTPATIENT INFUSION. UPON ARRIVAL PT STATES HE IS NOT LOOKING GOOD TODAY. VITALS OBTAINED. PT HEART RATE SLIGHTLY ELEVATED. DR LEWIS ASSESSED PT AND ADMIT FOR OBSERVATION TO ROOM 117. LABS ORDERED AND CXR OBTAINED. PT GIVEN ANTIBIOTICS AND SETTLED IN ROOM. ELIZABETH JARRETT.
[2019-04-24 10:07] VITALS: BP 117/78
[2019-04-24] MEDS: IV NORMAL SALINE 1,000ML 1,000 ML IV SCH ×2 (10:15→17:02)
[2019-04-24 11:23] LABS: BILIRUBIN,URINE NEG (NEG); CLARITY,URINE HAZY; COLOR,URINE YELLOW; GLUCOSE,URINE NEG (NEG)
[2019-04-24 11:24] LABS: NITRITE,URINE NEG (NEG); UROBILINOGEN,URINE 1 mg/dL (0.2 mg/dL)
[2019-04-24 11:26] LABS: BACTERIA,URINE 0 /HPF (0-FEW); SQUAMOUS EPITHELIAL CELL,UR FEW /LPF
[2019-04-24 13:17] LABS: ALBUMIN 2.6 g/dL (3.4-5.0); ALBUMIN/GLOBULIN RATIO 0.7 (1.0-1.7); CALCIUM 8.5 mg/dL (8.5-10.1); CREATININE 0.8 mg/dL (0.7-1.3); GFR 95.8; TOTAL BILIRUBIN 0.3 mg/dL (0.2-1.0); TOTAL PROTEIN 6.6 g/dL (6.4-8.2)
[2019-04-24] MEDS ORDERED: ONDANSETRON ODT 4 MG TAB.RAPDIS PO PRN (13:30)
[2019-04-24] MEDS ORDERED: ORPHENADRINE ER 100 MG TABLET.ER PO PRN (13:30)
[2019-04-24] MEDS ORDERED: DOCUSATE SODIUM 100 MG CAPSULE PO PRN (13:30)
[2019-04-24] MEDS ORDERED: VITAMIN A 10,000 UNIT CAPSULE. PO PRN (13:30)
--- NOTE | 2019-04-24 13:34 | RAD ---
EXAM: Chest, single view. HISTORY: Pneumonia. COMPARISON: 04/22/2019 FINDINGS: A frontal view of the chest is obtained. There has been minimal interval decrease in consolidated infiltrate within the lateral right upper lobe. The previously demonstrated bilateral lower lobe interstitial infiltrate is not seen radiographic with. The heart is normal in size. There is no pleural effusion or pneumothorax. IMPRESSION: 1. Minimal interval decrease in consolidated infiltrate within the lateral right upper lobe. 2. Suspected decrease or resolution of previously demonstrated bilateral lower lobe interstitial infiltrate. Electronically signed by: Bianca Kearns MD (04/24/2019 1:30 PM) [place] [id number]
[2019-04-24] MEDS ORDERED: PIPERACILLIN/TAZOBACTAM 4.5 GM in IV NORMAL SALINE 50ML 50 ML IV SCH (14:00)
[2019-04-24] MEDS: [UNRECOGNIZED DRUG - OTHER] PO SCH ×2 (14:00→20:41)
--- NOTE | 2019-04-24 14:23 | NUR ---
NURSING NOTE NAUSEA PT C/O NAUSEA. PRN ZOFRAN 8G GIVEN. WILL CONTINUE TO MONITOR. ELIZABETH JARRETT.
--- NOTE | 2019-04-24 14:34 | EKG ---
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
[2019-04-24] MEDS: URSODIOL 300 MG CAPSULE. PO SCH ×2 (14:42→20:40)
[2019-04-24] MEDS: PIPERACILLIN/TAZOBACTAM 4.5 GM in IV NORMAL SALINE 50ML 50 ML IV SCH ×2 (14:43→22:18)
[2019-04-24 14:45] VITALS: BP 120/83
[2019-04-24] MEDS: METOCLOPRAMIDE 10 MG TABLET PO SCH ×2 (17:01→20:39)
[2019-04-24] MEDS: LIPASE/PROTEAS/AMYLAS 10/32/42 CAPSULE.DR. PO SCH (17:04)
[2019-04-24 17:40] VITALS: BP 146/88
[2019-04-24] MEDS ORDERED: PROCHLORPERAZINE 10 MG/2 ML VIAL. IV PRN (19:30)
[2019-04-24] MEDS ORDERED: HYDROmorphone 2 MG TABLET PO PRN (20:00)
[2019-04-24] MEDS ORDERED: HYDROmorphone PF 2 MG/ML VIAL IV PRN (20:00)
[2019-04-24 20:37] VITALS: BP 122/83
[2019-04-24] MEDS: POTASSIUM CITRATE 10 MEQ TABLET.ER PO SCH (20:40)
--- NOTE | 2019-04-24 22:15 | HP ---
ADMIT DATE: 04/24/2019 HISTORY OF PRESENT ILLNESS: A 68-year-old male came in to receive IV antibiotic therapy for his pneumonia. The patient in turn was feeling extremely lightheaded, dizzy and pulse was up over 100. Lactic acid was drawn and found to have possible elevated lactic acid. He was placed on fluids, continued on his IV antibiotic therapy, which he was on in any way. The patient was admitted for observation and further assessment of his situation there. PAST MEDICAL HISTORY: Includes that of tinnitus, peripheral neuropathy, numbness, DVT, rib fractures, left upper quadrant pain, diverticulitis, history of pancreatic cancer or pancreatitis; colonic polyps, abdominal surgery, had a Whipple procedure, benign testicular tumor removal, enlarged prostate, lithotripsy, arthritis, osteoarthritis, back pain. He has had clotting problems, on chronic Xarelto, immunizations up-to-date on influenza, pneumococcal. He has also had a history of MRSA. FAMILY HISTORY: Father with myocardial infarction as well as cardiovascular disease. Mother with colon cancer and sisters with coronary artery disease and hypertension. ALLERGIES: The patient has no known drug allergies. MEDICATIONS: Flomax, cyclobenzaprine, Xarelto 20, Robaxin, potassium chloride, ursodiol 300 mg daily, Creon 24,000 units daily, ____ ODT, Prilosec 40, Reglan, vitamin A and neurogenics. SOCIAL HISTORY: No smoking, alcohol or drug use. The patient is a full code. REVIEW OF SYSTEMS: The patient denies any recent weight loss, weight gain, change in bowel habits except for his dizziness, lightheadedness, generalized weakness. PHYSICAL EXAMINATION: GENERAL: Pleasant white male, looking fairly ill. VITAL SIGNS: Blood pressure 146/88, pulse 110, afebrile, respiratory rate 20, 95% oxygen saturation. HEENT: The patient's head was atraumatic, normocephalic. Eyes: PERRLA without jaundice. The mouth and throat were normal. NECK: Supple, without JVD or thyromegaly. LUNGS: Diminished throughout, poor movement of air. CARDIOVASCULAR: Regular sinus rhythm, tachycardic. ABDOMEN: Soft, nontender. EXTREMITIES: No clubbing, cyanosis, nor edema. NEUROLOGIC: The patient was alert and oriented x 3. Speech fluent. Cranial nerves 2-12 grossly intact. ASSESSMENT AND PLAN: The patient was admitted for further evaluation and treatment thereof for observation of his pneumonia and lightheadedness, sinus tachycardia. JOSE R LEWIS MD DR: SHOLA/phyllis JOB#: [id number] / [id number]
[2019-04-24 23:19] VITALS: BP 126/74
[2019-04-25] MEDS: IV NORMAL SALINE 1,000ML 1,000 ML IV SCH ×2 (00:07→05:56)
[2019-04-25] MEDS: PIPERACILLIN/TAZOBACTAM 4.5 GM in IV NORMAL SALINE 50ML 50 ML IV SCH ×2 (05:56→12:14)
[2019-04-25 06:00] VITALS: BP 154/74
[2019-04-25 06:13] LABS: CALCIUM 8.9 mg/dL (8.5-10.1); CREATININE 0.8 mg/dL (0.7-1.3); GFR 95.8; POTASSIUM 4.3 mmol/L (3.5-5.1)
[2019-04-25] MEDS: LIPASE/PROTEAS/AMYLAS 10/32/42 CAPSULE.DR. PO SCH ×2 (07:36→12:14)
[2019-04-25] MEDS: POTASSIUM CITRATE 10 MEQ TABLET.ER PO SCH (07:36)
[2019-04-25] MEDS: URSODIOL 300 MG CAPSULE. PO SCH (07:36)
[2019-04-25] MEDS: METOCLOPRAMIDE 10 MG TABLET PO SCH ×2 (07:36→12:14)
[2019-04-25] MEDS ORDERED: TAMSULOSIN 0.4 MG CAP.ER.24H. PO SCH (09:00)
[2019-04-25] MEDS ORDERED: RIVAROXABAN 10 MG TABLET. PO SCH (09:00)
[2019-04-25] MEDS ORDERED: PANTOPRAZOLE 40 MG TABLET. PO SCH (09:00)
[2019-04-25] MEDS ORDERED: PIPE4.5F2 IV (09:56)
[2019-04-25 11:28] VITALS: BP 128/79
--- NOTE | 2019-04-25 13:19 | NUR ---
NURSING NOTES: PATIENT DISCHARGED TO HOME WITH HOME HEALTH SERVICES FOR IV ZOSYN. ALL PATIENT BELONGINGS SENT HOME WITH PATIENT. PATIENT AMBULATED BY SELF ACCOMPANIED BY SPOUSE TO FAMILY VEHICLE.
[2019-04-25] MEDS ORDERED: LACTOBACILLUS RHAMNOSUS GG 1 CAPSULE. PO SCH (21:00)
== END 2019-04-25 13:22 | disposition home or self-care (01) ==
LOC: OPINF 08:55 → 1 SOUTH 09:47 → EDSTATUS 10:00
PROVIDERS: ADMIT Family Medicine; ATTEND Family Medicine
DX: J18.9 Pneumonia, unspecified organism (principal); R42 Dizziness and giddiness; R00.0 Tachycardia, unspecified; G62.9 Polyneuropathy, unspecified; N40.0 Benign prostatic hyperplasia without lower urinary tract symptoms; M19.90 Unspecified osteoarthritis, unspecified site; Z85.9 Personal history of malignant neoplasm, unspecified
CPT/HCPCS: 36415; 71045; 80048; 80053; 81001; 82550; 83605; 85025; 87040; 93005; 96365; 96366; 96375; G0378; G0379; J0780; J2543; J8597; Q0162; J7030

== ENCOUNTER 2019-06-01 16:34 | Inpatient (IN) | payer MEDICARE, OTHER ==
[~2019-06-01] VITALS: Ht 182.9 cm; Wt 70.8 kg
[~2019-06-01 16:34] MED LIST changes: +PIPE4.5F2 IV
[2019-06-01 16:58] VITALS: BP 123/77
[2019-06-01] MEDS ORDERED: PROCHLORPERAZINE 10 MG/2 ML VIAL. IV PRN (17:30)
[2019-06-01] MEDS: ONDANSETRON PF 4 MG/2 ML VIAL. IVP PRN (18:06)
[2019-06-01] MEDS: IV 1/2 NORMAL SALINE 1,000 ML IV PRN (18:07)
[2019-06-01] MEDS: HYDROmorphone PF 2 MG/ML VIAL IV PRN ×2 (18:07→20:59)
[2019-06-01] MEDS ORDERED: ONDANSETRON ODT 4 MG TAB.RAPDIS PO PRN (18:45)
[2019-06-01] MEDS ORDERED: DOCUSATE SODIUM 100 MG CAPSULE PO PRN (18:45)
[2019-06-01] MEDS ORDERED: VITAMIN A 10,000 UNIT CAPSULE. PO PRN (18:45)
[2019-06-01] MEDS ORDERED: ORPHENADRINE ER 100 MG TABLET.ER PO PRN (18:45)
--- NOTE | 2019-06-01 19:03 | RAD ---
EXAM: Frontal view of the chest, AP views of the abdomen in upright and supine positions. CLINICAL INDICATION: Abdominal pain COMPARISON: 02/22/2018 FINDINGS and IMPRESSION: The heart is not enlarged. Mediastinal and hilar contours are stable. Linear opacities right midlung and bilateral lower lungs likely scarring/atelectasis. No lobar consolidation. No pleural effusion or pneumothorax. No abnormal small or large bowel dilatation. Moderate to large volume colonic stool content. No abnormal soft tissue mass effect. No suspicious calcifications are seen. No free intraperitoneal gas. Scattered clips are seen in the upper abdomen. Electronically signed by: Delano Echevarria MD (06/01/2019 7:00 PM) [facility]
[2019-06-01 19:11] VITALS: BP 121/74
[2019-06-01] MEDS: CYCLOBENZAPRINE 10 MG TABLET. PO SCH (20:59)
[2019-06-01] MEDS: URSODIOL 300 MG CAPSULE. PO SCH (21:00)
[2019-06-01] MEDS: METOCLOPRAMIDE 10 MG TABLET PO SCH (21:00)
[2019-06-01] MEDS: POTASSIUM CITRATE 10 MEQ TABLET.ER PO SCH (21:00)
[2019-06-01 21:15] LABS: BASO # 0.1 x10^3/uL (0.0-0.2); BASO % 1 % (0-3); EOS # 0.4 x10^3/uL (0.0-0.7); EOS % 6 % (0-3); HEMATOCRIT 35.4 % (39.0-53.0); HEMOGLOBIN 11.5 g/dL (13.0-17.5); LYMPH # 1.9 x10^3/uL (1.0-4.8); LYMPH % 30 % (24-48); MEAN CORPUSCULAR HEMOGLOBIN 28 pg (25-35); MEAN CORPUSCULAR HGB CONC 33 g/dL (31-37); MEAN CORPUSCULAR VOLUME 85 fL (79-100); MONO # 0.6 x10^3/uL (0.0-1.1); MONO % 10 % (0-9); NEUT # 3.3 x10^3uL (1.8-7.7); NEUT % 54 % (31-73); PLATELET COUNT 201 x10^3/uL (140-400); RED BLOOD COUNT 4.15 x10^6/uL (4.30-5.70); RED CELL DISTRIBUTION WIDTH 16.6 % (11.5-14.5); WHITE BLOOD COUNT 6.2 x10^3/uL (4.0-11.0)
[2019-06-01 21:30] LABS: ALBUMIN/GLOBULIN RATIO 0.9 (1.0-1.7); CALCIUM 8.6 mg/dL (8.5-10.1); CREATININE 0.8 mg/dL (0.7-1.3); GFR 95.8; POTASSIUM 4.2 mmol/L (3.5-5.1); TOTAL BILIRUBIN 0.4 mg/dL (0.2-1.0); TOTAL PROTEIN 6.5 g/dL (6.4-8.2)
[2019-06-01 22:50] VITALS: BP 112/68
[2019-06-01 23:09] LABS: BACTERIA,URINE 0 /HPF (0-FEW); BILIRUBIN,URINE NEG (NEG); CLARITY,URINE CLEAR; COLOR,URINE YELLOW; GLUCOSE,URINE NEG (NEG); NITRITE,URINE NEG (NEG); RBC,URINE 0 /HPF (0-2); SQUAMOUS EPITHELIAL CELL,UR OCC /LPF; UROBILINOGEN,URINE 0.2 mg/dL (0.2 mg/dL)
[2019-06-02] MEDS: IV 1/2 NORMAL SALINE 1,000 ML IV PRN ×3 (00:35→14:40)
[2019-06-02] MEDS: HYDROmorphone PF 2 MG/ML VIAL IV PRN ×4 (00:39→20:03)
[2019-06-02 05:36] VITALS: BP 118/74
[2019-06-02] MEDS: PANTOPRAZOLE 40 MG TABLET. PO SCH (08:08)
[2019-06-02] MEDS: TAMSULOSIN 0.4 MG CAP.ER.24H. PO SCH (08:08)
[2019-06-02] MEDS: LIPASE/PROTEAS/AMYLAS 10/32/42 CAPSULE.DR. PO SCH ×3 (08:08→16:38)
[2019-06-02] MEDS: METOCLOPRAMIDE 10 MG TABLET PO SCH ×4 (08:09→20:57)
[2019-06-02] MEDS: POTASSIUM CITRATE 10 MEQ TABLET.ER PO SCH ×2 (08:09→20:58)
[2019-06-02] MEDS: RIVAROXABAN 10 MG TABLET. PO SCH (08:09)
[2019-06-02] MEDS: URSODIOL 300 MG CAPSULE. PO SCH ×3 (08:09→20:58)
--- NOTE | 2019-06-02 11:01 | HP ---
ADMIT DATE: 06/01/2019 HISTORY OF PRESENT ILLNESS: The patient is a 68-year-old male with a long history of very serious medical problems including that, but ____ pancreatic tumors. He has had a Whipple. He produces numerous kidney stones repeatedly. The patient was having severe pain in his abdominal area. He thought might be passing another stones, as he can pass up to 9 or 10 at a time. The patient was admitted for pain medication as well as IV fluids as he has had severe nausea, vomiting and abdominal pain as well. 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 He has had Whipple procedures. He has had secondary abdominal pain, abdominal hernias from the incisional area, nausea, vomiting, GERD, testicular cancer, testicular surgery, benign testicular tumor removed, kidney stones multiple, enlarged prostate, lithotripsies, multiple arthritis of multiple joints, chronic back pain, cancer, clotting problems. He is on chronic Xarelto, influenza vaccination, pneumococcal vaccination. ALLERGIES: No known drug allergies. FAMILY HISTORY: Includes that of myocardial infarction in the father. Colon cancer in mother, father also and a sister had hypertension, coronary artery disease, bypass and a sister, cancer, also in the mother. Coronary artery disease, father and sister. MEDICATIONS: The patient's medications were reviewed in the chart and reconciliation thereof and they were found to be all reconciled. Presently, he is on a combination of piperacillin and other antibiotics for chronic pseudomonal infections. The patient otherwise has no known drug allergies. SOCIAL HISTORY: He denies smoking, alcohol or drug use. Lives at home with his . The patient is a full code. REVIEW OF SYSTEMS: Alert and oriented. He has severe pain, 9-10/10 over the abdominal area, left and right flanks as well as in the abdominal area with nausea, vomiting, dehydration. The patient otherwise denies any other neurological symptoms of acute loss of function. PHYSICAL EXAMINATION: GENERAL: This is a very pleasant gentleman outside of his pain. VITAL SIGNS: The patient's blood pressure 123/77, pulse 60, afebrile, respiratory rate 18, 97% oxygen saturation. HEENT: The patient's head was atraumatic, normocephalic. Eyes: PERRLA without jaundice. Mouth and throat were normal. NECK: Supple, without JVD, carotid bruits. No thyromegaly. LUNGS: Diminished throughout. CARDIOVASCULAR: Regular sinus rhythm. ABDOMEN: Protuberant, soft. Abdominal hernias noted along the incision line. Otherwise, positive bowel sounds. No hepatosplenomegaly noted, but marked tenderness throughout, slight guarding, but no rebounding. EXTREMITIES: No clubbing, cyanosis, nor edema. NEUROLOGIC: The patient was alert and oriented x 3, baseline, very pleasant gentleman. LABORATORY DATA: Hemoglobin 11 and 35. Electrolytes were all within range. Alkaline phosphatase 167. Albumin 3. Lipase was low. Urine was basically stable. ASSESSMENT AND PLAN: The patient otherwise is making good progress. He has been placed on IV fluids, hydration, pain medication, IV antibiotic therapy and make further evaluation on him as indicated. JOSE R LEWIS MD DR: SHOLA/phyllis JOB#: [id number] / [id number]
[2019-06-02 11:40] VITALS: BP 121/73
[2019-06-02 14:19] VITALS: BP 135/84
[2019-06-02 19:17] VITALS: BP 132/64
[2019-06-02] MEDS: ONDANSETRON PF 4 MG/2 ML VIAL. IVP PRN (20:03)
[2019-06-02] MEDS: ZOLPIDEM 5 MG TABLET. PO PRN (20:57)
[2019-06-02] MEDS: CYCLOBENZAPRINE 10 MG TABLET. PO SCH (20:58)
[2019-06-03] MEDS: IV 1/2 NORMAL SALINE 1,000 ML IV PRN (01:30)
[2019-06-03 06:19] VITALS: BP 146/84
[2019-06-03 07:51] LABS: BASO # 0.1 x10^3/uL (0.0-0.2); BASO % 1 % (0-3); EOS # 0.3 x10^3/uL (0.0-0.7); EOS % 4 % (0-3); HEMATOCRIT 36.6 % (39.0-53.0); HEMOGLOBIN 11.8 g/dL (13.0-17.5); LYMPH # 1.6 x10^3/uL (1.0-4.8); LYMPH % 23 % (24-48); MEAN CORPUSCULAR HEMOGLOBIN 27 pg (25-35); MEAN CORPUSCULAR HGB CONC 32 g/dL (31-37); MEAN CORPUSCULAR VOLUME 84 fL (79-100); MONO # 0.5 x10^3/uL (0.0-1.1); MONO % 8 % (0-9); NEUT # 4.4 x10^3uL (1.8-7.7); NEUT % 64 % (31-73); PLATELET COUNT 180 x10^3/uL (140-400); RED BLOOD COUNT 4.37 x10^6/uL (4.30-5.70); RED CELL DISTRIBUTION WIDTH 16.5 % (11.5-14.5); WHITE BLOOD COUNT 6.9 x10^3/uL (4.0-11.0)
[2019-06-03] MEDS: URSODIOL 300 MG CAPSULE. PO SCH ×3 (08:00→21:04)
[2019-06-03] MEDS: LIPASE/PROTEAS/AMYLAS 10/32/42 CAPSULE.DR. PO SCH ×3 (08:00→17:21)
[2019-06-03] MEDS: METOCLOPRAMIDE 10 MG TABLET PO SCH ×4 (08:00→21:04)
[2019-06-03] MEDS: RIVAROXABAN 10 MG TABLET. PO SCH (08:00)
[2019-06-03] MEDS: TAMSULOSIN 0.4 MG CAP.ER.24H. PO SCH ×2 (08:00→09:17)
[2019-06-03] MEDS: PANTOPRAZOLE 40 MG TABLET. PO SCH (08:00)
[2019-06-03] MEDS: POTASSIUM CITRATE 10 MEQ TABLET.ER PO SCH ×2 (08:01→21:05)
[2019-06-03 08:11] LABS: ALBUMIN/GLOBULIN RATIO 0.9 (1.0-1.7); CALCIUM 8.9 mg/dL (8.5-10.1); CREATININE 0.7 mg/dL (0.7-1.3); GFR 111.8; POTASSIUM 4.6 mmol/L (3.5-5.1); TOTAL BILIRUBIN 0.6 mg/dL (0.2-1.0); TOTAL PROTEIN 6.3 g/dL (6.4-8.2)
[2019-06-03] MEDS: HYDROmorphone PF 2 MG/ML VIAL IV PRN ×4 (08:33→19:56)
[2019-06-03] MEDS ORDERED: KETOROLAC 30 MG/ML VIAL. IVP PRN (09:15)
[2019-06-03] MEDS: KETOROLAC 30 MG/ML VIAL. IVP PRN ×2 (09:17→19:59)
[2019-06-03 10:04] VITALS: BP 115/71
[2019-06-03 11:57] LABS: BACTERIA,URINE 0 /HPF (0-FEW); BILIRUBIN,URINE NEG (NEG); CLARITY,URINE CLEAR; COLOR,URINE YELLOW; GLUCOSE,URINE NEG (NEG); NITRITE,URINE NEG (NEG); SQUAMOUS EPITHELIAL CELL,UR OCC /LPF; UROBILINOGEN,URINE 0.2 mg/dL (0.2 mg/dL)
[2019-06-03 15:10] VITALS: BP 110/72
[2019-06-03] MEDS: ONDANSETRON PF 4 MG/2 ML VIAL. IVP PRN (19:54)
[2019-06-03] MEDS: ZOLPIDEM 5 MG TABLET. PO PRN (21:04)
[2019-06-03] MEDS: CYCLOBENZAPRINE 10 MG TABLET. PO SCH (21:04)
[2019-06-04] MEDS: IV 1/2 NORMAL SALINE 1,000 ML IV PRN (02:11)
--- NOTE | 2019-06-04 04:59 | PN ---
DATE: 06/03/2019 SUBJECTIVE: The patient is a pleasant 68-year-old male with multiple medical problems, walked in the room this morning. He had severe right flank pain 03/16 and I did give him additional shots of Toradol to help him with the pain ____ probably passing more stones. OBJECTIVE: VITAL SIGNS: Otherwise, blood pressure 110/72, respiratory rate 20, pulse 83, afebrile. LUNGS: Otherwise, lungs clear. CARDIOVASCULAR: Stable. The patient holding right side flank pain with his hands, just been given a dose of Dilaudid ____. NEUROLOGIC: Otherwise, neurologically outside of his pain, he is stable. We will go ahead and continue monitoring him. We will strain the urine and hopefully get his pain under control IMPRESSION: Nephrolithiasis, right flank pain, dehydration, nausea, vomiting, hematuria. JOSE R LEWIS MD DR: SHOLA/phyllis JOB#: [id number] / [id number]
[2019-06-04] MEDS: KETOROLAC 30 MG/ML VIAL. IVP PRN (05:52)
[2019-06-04 06:03] VITALS: BP 148/86
[2019-06-04 07:16] LABS: BASO # 0.1 x10^3/uL (0.0-0.2); BASO % 2 % (0-3); EOS # 0.3 x10^3/uL (0.0-0.7); EOS % 4 % (0-3); HEMATOCRIT 36.5 % (39.0-53.0); HEMOGLOBIN 11.7 g/dL (13.0-17.5); LYMPH # 1.3 x10^3/uL (1.0-4.8); LYMPH % 20 % (24-48); MEAN CORPUSCULAR HEMOGLOBIN 27 pg (25-35); MEAN CORPUSCULAR HGB CONC 32 g/dL (31-37); MEAN CORPUSCULAR VOLUME 84 fL (79-100); MONO # 0.5 x10^3/uL (0.0-1.1); MONO % 8 % (0-9); NEUT # 4.3 x10^3uL (1.8-7.7); NEUT % 66 % (31-73); PLATELET COUNT 170 x10^3/uL (140-400); RED BLOOD COUNT 4.35 x10^6/uL (4.30-5.70); RED CELL DISTRIBUTION WIDTH 15.9 % (11.5-14.5); WHITE BLOOD COUNT 6.6 x10^3/uL (4.0-11.0)
[2019-06-04 07:24] LABS: CALCIUM 8.6 mg/dL (8.5-10.1); CREATININE 0.6 mg/dL (0.7-1.3); GFR 133.6; POTASSIUM 4.1 mmol/L (3.5-5.1)
[2019-06-04] MEDS: PANTOPRAZOLE 40 MG TABLET. PO SCH (08:04)
[2019-06-04] MEDS: METOCLOPRAMIDE 10 MG TABLET PO SCH (08:04)
[2019-06-04] MEDS: RIVAROXABAN 10 MG TABLET. PO SCH (08:04)
[2019-06-04] MEDS: LIPASE/PROTEAS/AMYLAS 10/32/42 CAPSULE.DR. PO SCH (08:04)
[2019-06-04] MEDS: TAMSULOSIN 0.4 MG CAP.ER.24H. PO SCH ×2 (08:04→08:31)
[2019-06-04] MEDS: URSODIOL 300 MG CAPSULE. PO SCH (08:05)
[2019-06-04] MEDS: POTASSIUM CITRATE 10 MEQ TABLET.ER PO SCH (08:05)
[2019-06-04] MEDS ORDERED: HYDR2TAB31 PO (09:05)
--- NOTE | 2019-06-04 09:47 | DS ---
DATE OF DISCHARGE: 06/04/2019 HOSPITAL COURSE: This is a very pleasant 68-year-old gentleman who came in with severe right flank pain, had some blood in his urine. He has a long history of kidney stones, passing multiple kidney stones in the past. The patient's pain was 9-10/10. The patient was given IV pain medication. He failed outpatient pain medication. His last blood pressure was 148/86, respiratory rate 18, pulse 72. His labs demonstrated hemoglobin 11.7 and 36, otherwise differential good. Chemistries 145, 4.1, BUN 11 and 0.6, GFR 133, moderate protein malnutrition. Lipase was low at 39. Blood sugar was actually very good in the 80s. In any case, the patient made good progress during the rest of his hospitalization. He did have some hematuria. Impression therefore is nephrolithiasis, hematuria, history of pancreatic tumor, dehydration, severe pain, not relieved with oral medications. DISCHARGE INSTRUCTIONS: The patient will be discharged home, regular diet, decreased activity. He is to follow up with his urologist down there at as well as his rater associate/oncologist. JOSE R LEWIS MD DR: SHOLA/phyllis JOB#: [id number] / [id number]
== END 2019-06-04 09:24 | disposition home or self-care (01) | DRG 694 ==
LOC: 1 SOUTH 16:34
PROVIDERS: ADMIT Family Medicine; ATTEND Family Medicine
DX: N20.0 Calculus of kidney (principal); E44.0 Moderate protein-calorie malnutrition; G89.29 Other chronic pain; K21.9 Gastro-esophageal reflux disease without esophagitis; G62.9 Polyneuropathy, unspecified; M19.90 Unspecified osteoarthritis, unspecified site; E86.0 Dehydration; N40.0 Benign prostatic hyperplasia without lower urinary tract symptoms; Z79.01 Long term (current) use of anticoagulants; Z82.49 Family history of ischemic heart disease and other diseases of the circulatory system; Z85.47 Personal history of malignant neoplasm of testis; Z80.0 Family history of malignant neoplasm of digestive organs; Z87.19 Personal history of other diseases of the digestive system; Z87.442 Personal history of urinary calculi; Z68.21 Body mass index [BMI] 21.0-21.9, adult
CPT/HCPCS: 36415; 74022; 80048; 80053; 81001; 82150; 83690; 85025; J0780; J1170; J1885; J2405; J7030; J8597; 97530

== ENCOUNTER 2019-06-22 17:40 | Emergency (ER) | payer MEDICARE, OTHER ==
[~2019-06-22] VITALS: Ht 177.8 cm; Wt 73.0 kg
[~2019-06-22 17:40] MED LIST changes: -CETI10TA22 PO; +CETI10TA24 PO; +HYDR2TAB31 PO; +ONDA-84 PO; -ONDA4TAB11 PO
[2019-06-22] MEDS ORDERED: HYDROmorphone PF 1 MG/ML DISP.SYRIN IV ONE (18:45)
[2019-06-22] MEDS ORDERED: IV NORMAL SALINE 1,000ML 1,000 ML IV ONE (18:45)
[2019-06-22] MEDS ORDERED: ONDANSETRON PF 4 MG/2 ML VIAL. IV ONE (18:45)
--- NOTE | 2019-06-22 18:49 | PHYS DOC ---
Past History Past Medical History: GERD, Kidney Stones, Other Additional Past Medical Histor: pancreatic benign tumor Past Surgical History: Other Additional Past Surgical Histo: Whipple surgery 2018 Smoking: Non-smoker Alcohol Use: None Drug Use: None Adult General Chief Complaint Chief Complaint: FLANK PAIN HPI HPI Patient is a 68-year-old male who is presenting with chief complaint of flank pain and also some upper abdominal discomfort. He had a Whipple procedure back in 2018 and ever since then he's had pretty constant pain in his abdomen and back takes Dilaudid every day for this. He did he does have known kidney stone disease he passed a kidney stone last week he said it was 4 mm he strained his urine he knew he passed that he was admitted at the end of last month for flank pain. Pain got worse today he took Dilaudid didn't help so he came to the emergency room for evaluation. He said some chest heaviness for the last couple of years ever since his report he also has no fever today symptoms are moderate to severe and worsening with time he does have occasional burning with urination Review of Systems Review of Systems Constitutional: Denies fever or chills [] Eyes: Denies change in visual acuity, redness, or eye pain [] HENT: Neurologic: Denies headache, focal weakness or sensory changes [] Endocrine: Denies polyuria or polydipsia [] All other systems were reviewed and found to be within normal limits, except as documented in this note. Current Medications Current Medications Current Medications Medications (Trade) Dose Ordered Sig/Omega Start Time Stop Time Status Last Admin Dose Admin Hydromorphone HCl (Dilaudid) 1 mg 1X ONCE 06/22/19 18:45 06/22/19 18:46 Ondansetron HCl (Zofran) 4 mg 1X ONCE 06/22/19 18:45 06/22/19 18:46 Sodium Chloride 1,000 ml @ 1,000 mls/hr 1X ONCE 06/22/19 18:45 06/22/19 19:44 Allergies Allergies Allergies Coded Allergies Type Severity Reaction Last Updated Verified No Known Drug Allergies 10/24/17 No Physical Exam Physical Exam Constitutional: Well developed, well nourished, no acute distress, non-toxic appearance. [] HENT: Normocephalic, atraumatic, bilateral external ears normal, oropharynx moist, no oral exudates, nose normal. [] Eyes: PERRLA, EOMI, conjunctiva normal, no discharge. [] Neck: Normal range of motion, no tenderness, supple, no stridor. [] Cardiovascular:Heart rate regular rhythm, no murmur [] Lungs & Thorax: Bilateral breath sounds clear to auscultation [] Abdomen: Bowel sounds normal, soft, no tenderness, no masses, no pulsatile masses. [] Easily reducible ventral hernia at the site of the Whipple really no tenderness noted Skin: Warm, dry, no erythema, no rash. [] Back: Positive CVA tenderness bilateral Extremities: No tenderness, no cyanosis, no clubbing, ROM intact, no edema. [] Neurologic: Alert and oriented X 3, normal motor function, normal sensory function, no focal deficits noted. [] Psychologic: Affect normal, judgement normal, mood normal. [] Current Patient Data Vital Signs * Moderate Temperature (Fahrenheit): * 97.7 degrees F (97.6-99.5) Patient Temperature * 97.7 degrees F (97.5-99.5) Temperature Source * Oral Blood Pressure Systolic * 125 mm Hg (100-140) Blood Pressure Diastolic * 71 mm Hg (60-100) Blood Pressure Mean * 89 mm Hg Blood Pressure Location * Right Arm Blood Pressure Source * Automatic Cuff Pulse Rate * 70 beats per minute (60-90) Pulse Assessment Method * Monitor Respiratory Rate * 20 breaths per minute (12-24) Oxygen Delivery Method * Room Air Bedside Pulse Oximetry * 98 % Treatment Prior to Arrival * Yes - 2MG DILAUDID 1.5 HOURS CONTENT PUBLISHER Complaint of Pain * Yes Pain Scale Type EKG EKG []EKG shows a normal sinus rhythm rate of 71 normal EKG no ischemic changes QTC 422 interpret by me the time of encounter Radiology/Procedures Radiology/Procedures [] Impressions: ons or acute fractures. IMPRESSION: 1. Numerous bilateral renal calculi. No ureteral calculi or evidence for obstructive uropathy. 2. Postsurgical changes of Whipple's similar when compared to the prior exam. Exposure: One or more of the following in the visualized dose reduction techniques were utilized for this examination: 1. Automated exposure control 2. Adjustment of the MA and/or KV according to patient size 3. Use of iterative of reconstructive technique Electronically signed by: Geremias Davis MD (06/22/2019 8:24 PM) [facility] Course & Med Decision Making Course & Med Decision Making Pertinent Labs and Imaging studies reviewed. (See chart for details) []68-year-old male with a history of a prior Whipple procedure who takes Dilaudid he's been taking for the last couple years he does have kidney stones he has multiple reasons for chronic pain. Coming in with increasing back pain and upper abdominal pain CT scanning was negative there is intra-renal stones no ureteral stone patient is comfortable in the emergency room after a single dose of Dilaudid. I noted the chest x-ray final read is pending but it looks markedly improved compared to the most recent I do not think the patient is having pneumonia at this time. Looks like it's getting nearly all the way resolved. Labs are essentially unremarkable patient was reassured and recommended follow- up with her primary care doctor and/or consider possibility of pain management consultation given the prolonged Dilaudid requirements. Dragon Disclaimer Dragon Disclaimer This electronic medical record was generated, in whole or in part, using a voice recognition dictation system. Departure Departure: Impression: Primary Impression: Bilateral nephrolithiasis Disposition: HOME, SELF-CARE Condition: STABLE Referrals: JOSE R LEWIS MD (PCP) MICHAEL AARON MD Jun 22, 2019 18:49
[2019-06-22 19:08] LABS: BASO # 0.1 x10^3/uL (0.0-0.2); BASO % 1 % (0-3); EOS # 0.3 x10^3/uL (0.0-0.7); EOS % 5 % (0-3); HEMATOCRIT 35.6 % (39.0-53.0); HEMOGLOBIN 11.4 g/dL (13.0-17.5); LYMPH # 1.7 x10^3/uL (1.0-4.8); LYMPH % 26 % (24-48); MEAN CORPUSCULAR HEMOGLOBIN 27 pg (25-35); MEAN CORPUSCULAR HGB CONC 32 g/dL (31-37); MEAN CORPUSCULAR VOLUME 85 fL (79-100); MONO # 0.7 x10^3/uL (0.0-1.1); MONO % 10 % (0-9); NEUT # 3.7 x10^3uL (1.8-7.7); NEUT % 58 % (31-73); PLATELET COUNT 201 x10^3/uL (140-400); RED BLOOD COUNT 4.19 x10^6/uL (4.30-5.70); RED CELL DISTRIBUTION WIDTH 16.8 % (11.5-14.5); WHITE BLOOD COUNT 6.4 x10^3/uL (4.0-11.0)
[2019-06-22 19:17] LABS: BACTERIA,URINE 0 /HPF (0-FEW); BILIRUBIN,URINE NEG (NEG); CLARITY,URINE CLEAR; COLOR,URINE YELLOW; GLUCOSE,URINE NEG (NEG); NITRITE,URINE NEG (NEG); RBC,URINE RARE /HPF (0-2); SQUAMOUS EPITHELIAL CELL,UR OCC /LPF; UROBILINOGEN,URINE 0.2 mg/dL (0.2 mg/dL); WBC,URINE 0 /HPF (0-4)
[2019-06-22 19:20] LABS: CALCIUM 8.6 mg/dL (8.5-10.1); CREATININE 0.7 mg/dL (0.7-1.3); GFR 111.8; POTASSIUM 4.3 mmol/L (3.5-5.1)
[2019-06-22 19:34] LABS: ALBUMIN 3.1 g/dL (3.4-5.0); ALBUMIN/GLOBULIN RATIO 1.1 (1.0-1.7); TOTAL BILIRUBIN 0.5 mg/dL (0.2-1.0)
--- NOTE | 2019-06-22 19:50 | EKG ---
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
[2019-06-22 19:51] VITALS: BP 133/83
--- NOTE | 2019-06-22 20:27 | RAD ---
Exam: CT abdomen and pelvis without contrast INDICATION: Abdominal pain. Status post Whipple for benign pancreatic tumor TECHNIQUE: Sequential axial images through the abdomen and pelvis obtained 9029 2018 IV contrast. Sagittal and coronal reformatted images were reconstructed from the axial data and reviewed. Comparisons: CT 04/19/2019 FINDINGS: Heart size is normal. No pericardial effusion. Visualized lung bases are clear. No pleural effusion. Evaluation of the solid organs is limited secondary to noncontrast technique. Moderate to large amount of pneumobilia is noted. Spleen and adrenals are unremarkable. Postsurgical changes of Whipple's with pancreaticojejunostomy and hepatic lobe jejunostomy changes noted. Remainder of the pancreas is unremarkable. Small amount of air within the pancreatic duct. No perinephric inflammation or hydronephrosis. Several nonobstructing renal calculi are noted bilaterally none measuring more than 1 cm in size. No ureteral calculi are identified. Bladder is distended and appears thin-walled. Prostate is not enlarged. Large and small bowel are unremarkable. Appendix is not identified. No free intra-abdominal air or fluid. No obstruction. There is a soft tissue nodule in the anterior peritoneum of the right hemiabdomen series 2 image 72, stable compared to prior studies with adjacent clips noted. Abdominal aorta has a normal course and caliber. No enlarged abdominal lymph nodes are identified. No suspicious osseous lesions or acute fractures. IMPRESSION: 1. Numerous bilateral renal calculi. No ureteral calculi or evidence for obstructive uropathy. 2. Postsurgical changes of Whipple's similar when compared to the prior exam. Exposure: One or more of the following in the visualized dose reduction techniques were utilized for this examination: 1. Automated exposure control 2. Adjustment of the MA and/or KV according to patient size 3. Use of iterative of reconstructive technique Electronically signed by: Geremias Davis MD (06/22/2019 8:24 PM) [facility]
--- NOTE | 2019-06-22 22:57 | RAD ---
Study: CHEST AP ONLY Indication: Chest pain. Comparison: 04/24/2019 Findings: Previously seen right upper lobe opacity has nearly resolved with only a small area of attenuation abutting the fissure along its lateral margin. Background increased lung markings are overall similar to the prior. No newly seen lobar infiltrate. No pneumothorax or pleural effusion. Unchanged cardiomediastinal silhouette and german. Impression: The airspace infiltrate at the right upper lobe on the 04/24/2019 comparison has nearly resolved with only a small persisting area of haziness abutting the minor fissure. No new infiltrate elsewhere. Electronically signed by: JUAN ROSE MD (06/22/2019 10:54 PM) [id number]
== END 2019-06-22 21:03 | disposition home or self-care (01) ==
LOC: ER 17:40
DX: N20.0 Calculus of kidney (principal); K21.9 Gastro-esophageal reflux disease without esophagitis; Z87.442 Personal history of urinary calculi
CPT/HCPCS: 36415; 71045; 74176; 80053; 81001; 83690; 83880; 84484; 85025; 93005; 96374; 96375; 99285; J1170; J2405; J7030

== ENCOUNTER 2019-07-25 14:49 | Emergency (ER) | payer MEDICARE, OTHER ==
[~2019-07-25] VITALS: Ht 177.8 cm; Wt 73.6 kg
[2019-07-25 15:14] LABS: BASO # 0.1 x10^3/uL (0.0-0.2); BASO % 1 % (0-3); EOS # 0.4 x10^3/uL (0.0-0.7); EOS % 5 % (0-3); HEMATOCRIT 41.1 % (39.0-53.0); LYMPH # 1.8 x10^3/uL (1.0-4.8); LYMPH % 24 % (24-48); MEAN CORPUSCULAR HEMOGLOBIN 27 pg (25-35); MEAN CORPUSCULAR HGB CONC 32 g/dL (31-37); MEAN CORPUSCULAR VOLUME 87 fL (79-100); MONO # 0.7 x10^3/uL (0.0-1.1); MONO % 9 % (0-9); NEUT # 4.5 x10^3uL (1.8-7.7); NEUT % 60 % (31-73); PLATELET COUNT 224 x10^3/uL (140-400); RED BLOOD COUNT 4.74 x10^6/uL (4.30-5.70); RED CELL DISTRIBUTION WIDTH 17.8 % (11.5-14.5); WHITE BLOOD COUNT 7.4 x10^3/uL (4.0-11.0)
[2019-07-25 15:22] LABS: CALCIUM 8.7 mg/dL (8.5-10.1); CREATININE 0.8 mg/dL (0.7-1.3); GFR 95.8; POTASSIUM 3.8 mmol/L (3.5-5.1)
--- NOTE | 2019-07-25 15:27 | PHYS DOC ---
Past History Past Medical History: GERD, Kidney Stones, Other Additional Past Medical Histor: pancreatic benign tumor Past Surgical History: Other Additional Past Surgical Histo: Whipple surgery 2018 Smoking: Non-smoker Alcohol Use: None Drug Use: None Adult General Chief Complaint Chief Complaint: ABDOMINAL PAIN HPI HPI Patient is a 68-year-old man who presents to ER today for evaluation of diarrhea since 5 AM this morning. Patient also has nausea and vomiting. Around an hour ago he started having mid abdominal pain, described as cramping in nature. No blood in his stool. He has history of Whipple procedure in his abdomen. He has history of pancreatitis as well. Patient denied any fever. Patient denies any chest pain. No trouble breathing. Review of Systems Review of Systems Constitutional: Denies fever or chills [] Eyes: Denies change in visual acuity, redness, or eye pain [] HENT: Denies nasal congestion or sore throat [] Respiratory: Denies cough or shortness of breath [] Cardiovascular: No additional information not addressed in HPI [] GI: POSITIVE FOR abdominal pain, nausea, vomiting, AND diarrhea [] : Denies dysuria or hematuria [] Musculoskeletal: Denies back pain or joint pain [] Integument: Denies rash or skin lesions [] Neurologic: Denies headache, focal weakness or sensory changes [] Endocrine: Denies polyuria or polydipsia [] All other systems were reviewed and found to be within normal limits, except as documented in this note. Current Medications Current Medications Current Medications Medications (Trade) Dose Ordered Sig/Omega Start Time Stop Time Status Last Admin Dose Admin Morphine Sulfate (Morphine 4mg Syringe) 4 mg 1X ONCE 07/25/19 15:30 07/25/19 15:31 UNV Ondansetron HCl (Zofran) 8 mg 1X ONCE 07/25/19 15:30 07/25/19 15:31 UNV Sodium Chloride 1,000 ml @ 1,000 mls/hr 1X ONCE 07/25/19 15:30 07/25/19 16:29 UNV Allergies Allergies Allergies Coded Allergies Type Severity Reaction Last Updated Verified No Known Drug Allergies 10/24/17 No Physical Exam Physical Exam Constitutional: Well developed, well nourished, no acute distress, non-toxic appearance. [] HENT: Normocephalic, atraumatic, bilateral external ears normal, oropharynx moist, no oral exudates, nose normal. [] Eyes: PERRLA, EOMI, conjunctiva normal, no discharge. [] Neck: Normal range of motion, no tenderness, supple, no stridor. [] Cardiovascular:Heart rate regular rhythm, no murmur [] Lungs & Thorax: Bilateral breath sounds clear to auscultation [] Abdomen: Bowel sounds normal, soft, There is tenderness to palpation in epigastric area, no rebound, no guarding, no masses, no pulsatile masses. [] Skin: Warm, dry, no erythema, no rash. [] Back: No tenderness, no CVA tenderness. [] Extremities: No tenderness, no cyanosis, no clubbing, ROM intact, no edema. [] Neurologic: Alert and oriented X 3, normal motor function, normal sensory function, no focal deficits noted. [] Psychologic: Affect normal, judgement normal, mood normal. [] Current Patient Data Vital Signs Vital Signs Date Time Temp Pulse Resp B/P (MAP) Pulse Ox O2 Delivery O2 Flow Rate FiO2 07/25/19 14:55 97.4 58 16 144/87 (106) 100 Room Air Lab Results Laboratory Tests Test 07/25/19 14:58 White Blood Count 7.4 x10^3/uL (4.0-11.0) Red Blood Count 4.74 x10^6/uL (4.30-5.70) Hemoglobin 13.0 g/dL (13.0-17.5) Hematocrit 41.1 % (39.0-53.0) Mean Corpuscular Volume 87 fL (79-100) Mean Corpuscular Hemoglobin 27 pg (25-35) Mean Corpuscular Hemoglobin Concent 32 g/dL (31-37) Red Cell Distribution Width 17.8 % (11.5-14.5) H Platelet Count 224 x10^3/uL (140-400) Neutrophils (%) (Auto) 60 % (31-73) Lymphocytes (%) (Auto) 24 % (24-48) Monocytes (%) (Auto) 9 % (0-9) Eosinophils (%) (Auto) 5 % (0-3) H Basophils (%) (Auto) 1 % (0-3) Neutrophils # (Auto) 4.5 x10^3uL (1.8-7.7) Lymphocytes # (Auto) 1.8 x10^3/uL (1.0-4.8) Monocytes # (Auto) 0.7 x10^3/uL (0.0-1.1) Eosinophils # (Auto) 0.4 x10^3/uL (0.0-0.7) Basophils # (Auto) 0.1 x10^3/uL (0.0-0.2) EKG EKG [] Radiology/Procedures Radiology/Procedures [][address] [address] IMAGING REPORT Signed PATIENT: KIRSTEN LEVY ACCOUNT: [id number] : 1950 LOCATION: ER AGE: 68 SEX: M EXAM STATUS: REG ER ORD. PHYSICIAN: JOSE R ASCENCIO DO REASON: abdominal pain PROCEDURE: CT ABD PELV W/ IV CONTRST ONLY CT ABD PELV W/ IV CONTRST ONLY History: Abdominal pain Comparison: 06/22/2019 Technique: After administration of intravenous contrast, helical CT of the abdomen and pelvis was performed from the lung bases through the ischial tuberosities. Coronal and sagittal reconstructions were obtained. 75 mL of Omnipaque 300 were used. One or more of the following dose reduction techniques were utilized: Automated exposure control (AEC), Adjustment of mA and/or kV according to patient size, Use of iterative reconstruction technique such as ASiR, CT scan done according to ALARA and image gently/image wisely Abdomen Findings: The visualized lung bases are clear. Postsurgical changes of Whipple procedure. Cholecystectomy and hepaticojejunostomy. Persistent pneumobilia. No intrahepatic lesion. Stable appearance of the distal pancreas. Adrenal glands and spleen are normal. Symmetric renal enhancement. Multiple nonobstructive renal calculi measuring up to 6 mm on the right and 4 mm on the left. There is no hydronephrosis. Multiple conspicuous fluid-filled loops of small bowel, mildly dilated proximally measuring up to 4.0 cm. No transition to decompressed bowel. Moderate colonic stool burden. There is no free fluid. There is no mesenteric or retroperitoneal adenopathy. The abdominal aorta is normal in caliber. Pelvis Findings: Urinary bladder is normal. No pelvic free fluid. There is no pelvic or inguinal adenopathy. Degenerative changes of the spine. Fat-containing left inguinal hernia. IMPRESSION: Multiple conspicuous fluid-filled loops of small bowel bowel, with mild dilatation of proximal small bowel. No transition to decompressed small bowel to suggest obstruction. Findings may relate to adynamic ileus or nonspecific enteritis. Postsurgical changes of Whipple procedure. Electronically signed by: Paradise Seymour MD (07/25/2019 4:39 PM) [id number] DICTATED AND SIGNED BY: PARADISE SEYMOUR MD DATE: 07/25/19 1639 CC: JOSE R LEWIS MD; JOSE R ASCENCIO DO ~ Course & Med Decision Making Course & Med Decision Making Pertinent Labs and Imaging studies reviewed. (See chart for details) Patient is a 68-year-old male who was found to have gastroenteritis, he was given IV fluid and pain medication in the ER, he felt much better. Patient will be discharged home, he will need to follow up with his family doctor for reevaluation in a couple day. Patient is amenable to plan of care. Dragon Disclaimer Dragon Disclaimer This electronic medical record was generated, in whole or in part, using a voice recognition dictation system. Departure Departure: Impression: Primary Impression: Acute gastroenteritis Disposition: 01 HOME, SELF-CARE Condition: STABLE Referrals: JOSE R LEWIS MD (PCP) Please call your doctor for follow-up this week. Patient Instructions: Viral Gastroenteritis Additional Instructions: Thank you for visiting our Emergency Department. We appreciate you trusting us with your care. If any additional problems come up don't hesitate to return to visit us. Please follow up with your primary care provider so they can plan additional care if needed and know about the problem that you had. If symptoms worsen come back to the Emergency Department. Any concerning symptoms that start such as chest pain, shortness of air, weakness or numbness on one side of the body, running high fevers or any other concerning symptoms return to the ER. Scripts Ondansetron Hcl (ZOFRAN) 4 Mg Tablet 1 TAB PO Q6HRS for nausea, #15 TAB Prov: JOSE R ASCENCIO DO 07/25/19 JOSE R ASCENCIO DO Jul 25, 2019 15:27
[2019-07-25 15:28] LABS: ALBUMIN 3.4 g/dL (3.4-5.0); ALBUMIN/GLOBULIN RATIO 0.9 (1.0-1.7); MAGNESIUM 1.9 mg/dL (1.8-2.4); TOTAL BILIRUBIN 0.5 mg/dL (0.2-1.0)
[2019-07-25] MEDS ORDERED: IV NORMAL SALINE 1,000ML 1,000 ML IV ONE (15:30)
[2019-07-25] MEDS ORDERED: ONDANSETRON PF 4 MG/2 ML VIAL. IVP ONE (15:30)
[2019-07-25] MEDS ORDERED: MORPHINE SULFATE 4 MG/ML DISP.SYRIN. IV ONE ×2 (15:30→17:30)
[2019-07-25] MEDS ORDERED: IOHEXOL 300 MG/ML 75 ML VIAL. IV ONE (16:00)
--- NOTE | 2019-07-25 16:42 | RAD ---
CT ABD PELV W/ IV CONTRST ONLY History: Abdominal pain Comparison: 06/22/2019 Technique: After administration of intravenous contrast, helical CT of the abdomen and pelvis was performed from the lung bases through the ischial tuberosities. Coronal and sagittal reconstructions were obtained. 75 mL of Omnipaque 300 were used. One or more of the following dose reduction techniques were utilized: Automated exposure control (AEC), Adjustment of mA and/or kV according to patient size, Use of iterative reconstruction technique such as ASiR, CT scan done according to ALARA and image gently/image wisely Abdomen Findings: The visualized lung bases are clear. Postsurgical changes of Whipple procedure. Cholecystectomy and hepaticojejunostomy. Persistent pneumobilia. No intrahepatic lesion. Stable appearance of the distal pancreas. Adrenal glands and spleen are normal. Symmetric renal enhancement. Multiple nonobstructive renal calculi measuring up to 6 mm on the right and 4 mm on the left. There is no hydronephrosis. Multiple conspicuous fluid-filled loops of small bowel, mildly dilated proximally measuring up to 4.0 cm. No transition to decompressed bowel. Moderate colonic stool burden. There is no free fluid. There is no mesenteric or retroperitoneal adenopathy. The abdominal aorta is normal in caliber. Pelvis Findings: Urinary bladder is normal. No pelvic free fluid. There is no pelvic or inguinal adenopathy. Degenerative changes of the spine. Fat-containing left inguinal hernia. IMPRESSION: Multiple conspicuous fluid-filled loops of small bowel bowel, with mild dilatation of proximal small bowel. No transition to decompressed small bowel to suggest obstruction. Findings may relate to adynamic ileus or nonspecific enteritis. Postsurgical changes of Whipple procedure. Electronically signed by: Paco Seymour MD (07/25/2019 4:39 PM) [id number]
[2019-07-25 17:23] VITALS: BP 138/83
[2019-07-25] MEDS ORDERED: ONDA4TAB7 PO (17:28)
[2019-07-25 17:31] LABS: BILIRUBIN,URINE NEG (NEG); CLARITY,URINE CLEAR; COLOR,URINE AMBER; GLUCOSE,URINE NEG (NEG); NITRITE,URINE NEG (NEG); RBC,URINE OCC /HPF (0-2); UROBILINOGEN,URINE 0.2 mg/dL (0.2 mg/dL)
[2019-07-25 17:32] LABS: BACTERIA,URINE 0 /HPF (0-FEW); SQUAMOUS EPITHELIAL CELL,UR FEW /LPF
--- NOTE | 2019-07-25 17:42 | EKG ---
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
[2019-07-28] MEDS ORDERED: HYDR2TAB31 PO (09:29)
== END 2019-07-25 17:38 | disposition home or self-care (01) ==
LOC: ER 14:49
DX: K52.9 Noninfective gastroenteritis and colitis, unspecified (principal); K21.9 Gastro-esophageal reflux disease without esophagitis
CPT/HCPCS: 36415; 74177; 80053; 81001; 83690; 83735; 84484; 85025; 85610; 85730; 93005; 96361; 96374; 96375; 96376; 99285; J2270; J2405; Q9967; J7030

== ENCOUNTER 2019-07-27 17:56 | Observation (INO) | payer MEDICARE, OTHER ==
[~2019-07-27] VITALS: Ht 177.8 cm; Wt 76.2 kg
[~2019-07-27 17:56] MED LIST changes: +ONDA4TAB7 PO
[2019-07-27 18:26] VITALS: BP 143/90
[2019-07-27] MEDS ORDERED: ONDANSETRON ODT 4 MG TAB.RAPDIS PO PRN (18:30)
[2019-07-27 18:46] LABS: BASO # 0.1 x10^3/uL (0.0-0.2); BASO % 1 % (0-3); EOS # 0.4 x10^3/uL (0.0-0.7); EOS % 6 % (0-3); HEMATOCRIT 37.6 % (39.0-53.0); HEMOGLOBIN 12.1 g/dL (13.0-17.5); LYMPH # 1.7 x10^3/uL (1.0-4.8); LYMPH % 28 % (24-48); MEAN CORPUSCULAR HEMOGLOBIN 28 pg (25-35); MEAN CORPUSCULAR HGB CONC 32 g/dL (31-37); MEAN CORPUSCULAR VOLUME 86 fL (79-100); MONO # 0.5 x10^3/uL (0.0-1.1); MONO % 9 % (0-9); NEUT # 3.4 x10^3uL (1.8-7.7); NEUT % 56 % (31-73); PLATELET COUNT 203 x10^3/uL (140-400); RED CELL DISTRIBUTION WIDTH 17.1 % (11.5-14.5); WHITE BLOOD COUNT 6.1 x10^3/uL (4.0-11.0)
[2019-07-27] MEDS ORDERED: CYCLOBENZAPRINE 10 MG TABLET. PO PRN (19:00)
[2019-07-27] MEDS: IV 1/2 NORMAL SALINE 1,000 ML IV PRN (19:18)
[2019-07-27] MEDS: HYDROmorphone 2 MG TABLET PO PRN (19:18)
[2019-07-27] MEDS ORDERED: METHYLNALTREXONE 12 MG/0.6 ML VIAL. SQ ONE (19:30)
[2019-07-27 19:54] LABS: BACTERIA,URINE 0 /HPF (0-FEW); BILIRUBIN,URINE NEG (NEG); CLARITY,URINE CLEAR; COLOR,URINE YELLOW; GLUCOSE,URINE NEG (NEG); NITRITE,URINE NEG (NEG); SQUAMOUS EPITHELIAL CELL,UR FEW /LPF
[2019-07-27 20:12] LABS: ALBUMIN 3.3 g/dL (3.4-5.0); CALCIUM 8.7 mg/dL (8.5-10.1); CREATININE 0.8 mg/dL (0.7-1.3); GFR 95.8; POTASSIUM 3.6 mmol/L (3.5-5.1); TOTAL BILIRUBIN 0.6 mg/dL (0.2-1.0); TOTAL PROTEIN 6.6 g/dL (6.4-8.2)
[2019-07-27] MEDS: METOCLOPRAMIDE 10 MG TABLET PO SCH (20:25)
[2019-07-27] MEDS: POTASSIUM CITRATE 10 MEQ TABLET.ER PO SCH (20:25)
[2019-07-27] MEDS: URSODIOL 300 MG CAPSULE. PO SCH (20:25)
[2019-07-27] MEDS: DOCUSATE SODIUM 100 MG CAPSULE PO PRN (20:26)
[2019-07-27] MEDS ORDERED: POTASSIUM CITRATE 10 MEQ TABLET.ER PO SCH (21:00)
[2019-07-27] MEDS ORDERED: CYCLOBENZAPRINE 10 MG TABLET. PO SCH (21:00)
--- NOTE | 2019-07-27 21:15 | RAD ---
PROCEDURE: ACUTE ABDOMEN SERIES STUDY DATE: 07/27/2019 CLINICAL INDICATION / HISTORY: Abdominal pain. TECHNIQUE: Upright PA chest, supine and upright films of the abdomen were obtained. COMPARISON: Obstructive series 06/01/2019 FINDINGS: AP view the chest reveals the lungs to be mildly hyperlucent of the apices but otherwise clear. Previously evident right PICC line has since been removed. Cardiac and mediastinal silhouette are unremarkable. No free air is identified below the diaphragms. 2 views of the abdomen show no gas-filled distended small bowel loops suspicious for obstruction. There are multiple surgical clips in the abdomen. No free air.. There is moderate stool in the large bowel, including the rectal vault. No destructive osseous lesions. IMPRESSION: Postsurgical changes in the abdomen with no acute findings otherwise shown. Correlate for any clinical evidence of constipation . Electronically signed by: Reva Sanderson MD (07/27/2019 9:13 PM) [id number]
[2019-07-27 22:05] VITALS: BP 121/79
[2019-07-28] MEDS ORDERED: NON FORMULARY ITEM (Ondansetron Hcl (Zofran) 1 TAB) PO SCH
[2019-07-28] MEDS: HYDROmorphone 2 MG TABLET PO PRN ×2 (00:26→08:19)
[2019-07-28] MEDS: IV 1/2 NORMAL SALINE 1,000 ML IV PRN (00:27)
[2019-07-28 05:00] VITALS: BP 129/76
[2019-07-28 06:41] LABS: BASO # 0.1 x10^3/uL (0.0-0.2); BASO % 1 % (0-3); EOS # 0.4 x10^3/uL (0.0-0.7); EOS % 8 % (0-3); HEMATOCRIT 34.7 % (39.0-53.0); LYMPH # 2.3 x10^3/uL (1.0-4.8); LYMPH % 42 % (24-48); MEAN CORPUSCULAR HEMOGLOBIN 27 pg (25-35); MEAN CORPUSCULAR HGB CONC 32 g/dL (31-37); MEAN CORPUSCULAR VOLUME 86 fL (79-100); MONO # 0.6 x10^3/uL (0.0-1.1); MONO % 10 % (0-9); NEUT # 2.1 x10^3uL (1.8-7.7); NEUT % 39 % (31-73); PLATELET COUNT 160 x10^3/uL (140-400); RED BLOOD COUNT 4.05 x10^6/uL (4.30-5.70); WHITE BLOOD COUNT 5.4 x10^3/uL (4.0-11.0)
[2019-07-28 06:48] LABS: CALCIUM 8.3 mg/dL (8.5-10.1); CREATININE 0.8 mg/dL (0.7-1.3); GFR 95.8; POTASSIUM 3.7 mmol/L (3.5-5.1)
[2019-07-28] MEDS ORDERED: PANTOPRAZOLE 40 MG TABLET. PO SCH (07:30)
[2019-07-28] MEDS ORDERED: LIPASE/PROTEAS/AMYLAS 10/32/42 CAPSULE.DR. PO SCH (08:00)
[2019-07-28] MEDS: METOCLOPRAMIDE 10 MG TABLET PO SCH (08:17)
[2019-07-28] MEDS: DOCUSATE SODIUM 100 MG CAPSULE PO PRN (08:18)
[2019-07-28] MEDS: URSODIOL 300 MG CAPSULE. PO SCH (08:22)
[2019-07-28] MEDS: POTASSIUM CITRATE 10 MEQ TABLET.ER PO SCH (08:22)
[2019-07-28] MEDS ORDERED: METHYLNALTREXONE 12 MG/0.6 ML VIAL. SQ ONE ×2 (09:00→19:30)
[2019-07-28] MEDS ORDERED: RIVAROXABAN 10 MG TABLET. PO SCH (09:00)
[2019-07-28] MEDS ORDERED: TAMSULOSIN 0.4 MG CAP.ER.24H. PO SCH (09:00)
[2019-07-28] MEDS ORDERED: HYDR2TAB31 PO (09:29)
== END 2019-07-28 10:30 | disposition home or self-care (01) ==
LOC: ICU 17:56 → INTOOBSV 17:56
PROVIDERS: ADMIT Family Medicine; ATTEND Family Medicine
DX: K56.0 Paralytic ileus (principal); K56.49 Other impaction of intestine; R11.2 Nausea with vomiting, unspecified; R19.7 Diarrhea, unspecified; E78.5 Hyperlipidemia, unspecified; I10 Essential (primary) hypertension; K21.9 Gastro-esophageal reflux disease without esophagitis; Z85.038 Personal history of other malignant neoplasm of large intestine; Z79.899 Other long term (current) drug therapy
CPT/HCPCS: 36415; 74022; 80048; 80053; 81001; 85025; 87086; 96360; 96361; 96372; G0378; G0379; J2212; J7030; J8597

== ENCOUNTER → 2019-10-12 | Outpatient (CLI) | payer MEDICARE, OTHER ==
--- NOTE | 2019-10-12 11:08 | RAD ---
EXAM: Right lower extremity venous Doppler sonogram. HISTORY: Pain and swelling. TECHNIQUE: Larsen scale and color Doppler sonographic evaluation of the right lower extremity veins with spectral waveform analysis was performed. FINDINGS: There is normal color flow, normal compressibility and there are normal spectral waveforms in the common femoral, superficial femoral, popliteal, posterior tibial and greater saphenous veins. IMPRESSION: No Doppler evidence of lower extremity deep venous thrombosis. Electronically signed by: Bianca Kearns MD (10/12/2019 11:05 AM) [id number]
[2019-10-13 15:10] LABS: FREE T4 0.92 ng/dL (0.76-1.46); THYROID STIM HORMONE (TSH) 2.038 uIU/mL (0.358-3.740)
== END | disposition home or self-care (01) ==
LOC: US 10:31
PROVIDERS: ATTEND Family Medicine
DX: R25.2 Cramp and spasm (principal); N20.0 Calculus of kidney; R07.89 Other chest pain
CPT/HCPCS: 36415; 82550; 83735; 84439; 84443; 84484; 85379; 93971

== ENCOUNTER 2019-10-26 18:51 | Emergency (ER) | payer MEDICARE, OTHER ==
[~2019-10-26] VITALS: Ht 177.8 cm; Wt 76.2 kg
[2019-10-26] MEDS ORDERED: METOCLOPRAMIDE HCL 10 MG/2 ML VIAL. IVP ONE (19:15)
[2019-10-26] MEDS ORDERED: IV NORMAL SALINE 1,000ML 1,000 ML IV ONE (19:15)
[2019-10-26] MEDS ORDERED: HYDROmorphone PF 1 MG/ML DISP.SYRIN IV ONE ×3 (19:15→22:30)
[2019-10-26 19:33] LABS: BASO # 0.1 x10^3/uL (0.0-0.2); BASO % 1 % (0-3); EOS # 0.4 x10^3/uL (0.0-0.7); EOS % 6 % (0-3); HEMATOCRIT 36.7 % (39.0-53.0); HEMOGLOBIN 11.9 g/dL (13.0-17.5); LYMPH % 34 % (24-48); MEAN CORPUSCULAR HEMOGLOBIN 28 pg (25-35); MEAN CORPUSCULAR HGB CONC 32 g/dL (31-37); MEAN CORPUSCULAR VOLUME 87 fL (79-100); MONO # 0.5 x10^3/uL (0.0-1.1); MONO % 9 % (0-9); NEUT # 2.9 x10^3uL (1.8-7.7); NEUT % 50 % (31-73); PLATELET COUNT 208 x10^3/uL (140-400); RED BLOOD COUNT 4.21 x10^6/uL (4.30-5.70); RED CELL DISTRIBUTION WIDTH 16.2 % (11.5-14.5); WHITE BLOOD COUNT 5.9 x10^3/uL (4.0-11.0)
[2019-10-26 19:44] LABS: CALCIUM 8.5 mg/dL (8.5-10.1); CREATININE 0.9 mg/dL (0.7-1.3); GFR 83.4; POTASSIUM 3.4 mmol/L (3.5-5.1)
[2019-10-26 19:49] LABS: CLARITY,URINE CLOUDY; COLOR,URINE AMBER
[2019-10-26 19:50] LABS: ALBUMIN 3.1 g/dL (3.4-5.0); MAGNESIUM 1.9 mg/dL (1.8-2.4); TOTAL BILIRUBIN 0.8 mg/dL (0.2-1.0); TOTAL PROTEIN 6.2 g/dL (6.4-8.2)
[2019-10-26 19:50] LABS: BACTERIA,URINE 0 /HPF (0-FEW); BILIRUBIN,URINE NEG (NEG); GLUCOSE,URINE NEG (NEG); NITRITE,URINE NEG (NEG); RBC,URINE >40 /HPF (0-2); SQUAMOUS EPITHELIAL CELL,UR OCC /LPF; WBC,URINE OCC /HPF (0-4)
--- NOTE | 2019-10-26 20:07 | RAD ---
CT ABDOMEN PELVIS WO CONTRAST History: Right flank pain. Technique: Noncontrast examination of the abdomen and pelvis. Coronal and sagittal reconstructions were performed. Exposure: One or more of the following individualized dose reduction techniques were utilized for this examination: 1. Automated exposure control 2. Adjustment of the mA and/or kV according to patient size 3. Use of iterative reconstruction technique. Comparison: July 25, 2019 Findings: Lower chest: Right lower lobe cluster of 4 to 8 mm pulmonary nodules (series 2 image 18 and 15). 2 mm left lower lobe pulmonary nodule, unchanged. Abdomen and pelvis: Postoperative changes Whipple procedure. Extensive pneumobilia with dilated intrahepatic bile ducts, unchanged. Gas within the dilated pancreatic duct, increased compared to prior. The spleen and adrenal glands are unremarkable. Bilateral nonobstructing renal calculi. Mild right hydronephrosis. Right perinephric and perirenal fat stranding. Dilated upper ureter. 8 x 7 mm right midureteral obstructing calculus. Tiny 2 mm calculi within the urinary bladder layering dependently. Decompressed urinary bladder. No left hydronephrosis. Left renal cyst, unchanged. Colonic diverticulosis. Normal appendix. Several mildly dilated fluid-filled upper abdominal bowel loops in the region of the postoperative changes, similar compared to prior. Multiple small upper abdominal and retroperitoneal lymph nodes, unchanged. No ascites. Small left fat-containing inguinal hernia. Mild atheromatous plaque within the nonaneurysmal abdominal aorta and branch vessels. Bones: No pathologic osseous lesions. Impression: 1. 8 mm right mid ureteral obstructing calculus contributing to mild hydronephrosis and hydroureter as well as perinephric/perineural fat stranding. 2. New right lower lobe clustered nodular opacities, may represent infectious or inflammatory process. Recommend short-term follow-up to ensure resolution. 3. Mildly dilated upper abdominal bowel loops within the region of postoperative changes, similar compared to prior. 4. Bilateral nonobstructing renal calculi. 5. Postoperative changes Whipple procedure with extensive pneumobilia and gas within the dilated pancreatic duct. Electronically signed by: Berlin Negrete DO (10/26/2019 8:04 PM) [facility]
--- NOTE | 2019-10-26 20:10 | PHYS DOC ---
Past History Past Medical History: DVT, GERD, Kidney Stones, Other Additional Past Medical Histor: pancreatic benign tumor, chronic pain Past Surgical History: Other Additional Past Surgical Histo: Whipple surgery 2018, lithotripsy Smoking: Non-smoker Alcohol Use: None Drug Use: None General Adult EDM: Chief Complaint: FLANK PAIN HPI: HPI: 69-year-old male presents with report of right-sided flank pain with associated nausea and hematuria which started earlier this afternoon. Patient reports chronic history of kidney stones. Reports he typically follows with urology at . Patient does report use of Eliquis blood thinner secondary to DVT. Reports his urine became considerably more red today. Denies fever or chills. Patient does report passing several small stones. Reports last lithotripsy was less than a year ago. Denies trauma. Denies rash. Denies fever/chills. Reports history of chronic pain for which he takes 4mg PO Dilaudid for his chronic pain. Reports his pain is currently not well controlled despite taking his chronic pain medications. Review of Systems: Review of Systems: Constitutional: Denies fever or chills; reports malaise Eyes: Denies redness or eye pain HENT: Denies nasal congestion or sore throat Respiratory: Denies cough or shortness of breath Cardiovascular: Denies chest pain or palpitations GI: Reports abdominal pain and nausea; denies vomiting : Denies dysuria; reports hematuria Musculoskeletal: Reports right flank pain; denies joint pain Integument: Denies rash or skin lesions Neurologic: Denies headache, focal weakness or sensory changes Complete systems were reviewed and found to be within normal limits, except as documented in this note. Current Medications: Current Meds: Current Medications Medications (Trade) Dose Ordered Sig/Omega Start Time Stop Time Status Last Admin Dose Admin Hydromorphone HCl (Dilaudid) 1 mg 1X ONCE 10/26/19 19:15 10/26/19 19:16 DC 10/26/19 19:15 1 MG Metoclopramide HCl (Reglan Vial) 10 mg 1X ONCE 10/26/19 19:15 10/26/19 19:16 DC 10/26/19 19:15 10 MG Sodium Chloride 1,000 ml @ 1,000 mls/hr 1X ONCE 10/26/19 19:15 10/26/19 20:14 10/26/19 19:15 1,000 MLS/HR Allergies: Allergies: Allergies Coded Allergies Type Severity Reaction Last Updated Verified No Known Drug Allergies 10/24/17 No Physical Exam: PE: Constitutional: Well developed, well nourished, uncomfortable, non-toxic appearance HENT: Normocephalic, atraumatic, oropharynx moist Eyes: Conjunctiva normal, no discharge Neck: Normal range of motion, no tenderness, supple Lungs & Thorax: No respiratory distress, equal chest rise and fall Abdomen: Soft, no tenderness, no guarding/rebound tenderness/distention, healed anterior abdominal surgical scars noted Skin: Warm, dry, no erythema, no rash Back: No tenderness, right CVA tenderness Extremities: No tenderness, ROM intact, no edema Neurologic: Alert and oriented X 3, no focal deficits noted Psychologic: Affect normal, judgment normal Current Patient Data: Labs: Laboratory Tests Test 10/26/19 19:10 10/26/19 19:14 White Blood Count 5.9 x10^3/uL (4.0-11.0) Red Blood Count 4.21 x10^6/uL (4.30-5.70) L Hemoglobin 11.9 g/dL (13.0-17.5) L Hematocrit 36.7 % (39.0-53.0) L Mean Corpuscular Volume 87 fL (79-100) Mean Corpuscular Hemoglobin 28 pg (25-35) Mean Corpuscular Hemoglobin Concent 32 g/dL (31-37) Red Cell Distribution Width 16.2 % (11.5-14.5) H Platelet Count 208 x10^3/uL (140-400) Neutrophils (%) (Auto) 50 % (31-73) Lymphocytes (%) (Auto) 34 % (24-48) Monocytes (%) (Auto) 9 % (0-9) Eosinophils (%) (Auto) 6 % (0-3) H Basophils (%) (Auto) 1 % (0-3) Neutrophils # (Auto) 2.9 x10^3uL (1.8-7.7) Lymphocytes # (Auto) 2.0 x10^3/uL (1.0-4.8) Monocytes # (Auto) 0.5 x10^3/uL (0.0-1.1) Eosinophils # (Auto) 0.4 x10^3/uL (0.0-0.7) Basophils # (Auto) 0.1 x10^3/uL (0.0-0.2) Prothrombin Time 11.0 SEC (9.4-11.4) Prothrombin Time INR 1.1 (0.9-1.1) Activated Partial Thromboplast Time 27 SEC (23-33) Sodium Level 145 mmol/L (136-145) Potassium Level 3.4 mmol/L (3.5-5.1) L Chloride Level 108 mmol/L (98-107) H Carbon Dioxide Level 26 mmol/L (21-32) Anion Gap 11 (6-14) Blood Urea Nitrogen 14 mg/dL (8-26) Creatinine 0.9 mg/dL (0.7-1.3) Estimated GFR (Cockcroft-Gault) 83.4 BUN/Creatinine Ratio 16 (6-20) Glucose Level 84 mg/dL (70-99) Lactic Acid Level 1.0 mmol/L (0.4-2.0) Calcium Level 8.5 mg/dL (8.5-10.1) Magnesium Level 1.9 mg/dL (1.8-2.4) Total Bilirubin 0.8 mg/dL (0.2-1.0) Aspartate Amino Transferase (AST) 22 U/L (15-37) Alanine Aminotransferase (ALT) 30 U/L (16-63) Alkaline Phosphatase 146 U/L (46-116) H Total Protein 6.2 g/dL (6.4-8.2) L Albumin 3.1 g/dL (3.4-5.0) L Albumin/Globulin Ratio 1.0 (1.0-1.7) Lipase 51 U/L (73-393) L Urine Collection Type Unknown Urine Color Shari Urine Clarity Cloudy Urine pH 6.0 Urine Specific [place] 1.025 Urine Protein 100 mg/dl (NEG-TRACE) Urine Glucose (UA) Neg mg/dL (NEG) Urine Ketones (Stick) Trace mg/dL (NEG) Urine Blood Large (NEG) Urine Nitrite Neg (NEG) Urine Bilirubin Neg (NEG) Urine Urobilinogen Dipstick 2.0 mg/dL (0.2 mg/dL) Urine Leukocyte Esterase Trace (NEG) Urine RBC >40 /HPF (0-2) Urine WBC Occ /HPF (0-4) Urine Squamous Epithelial Cells Occ /LPF Urine Bacteria 0 /HPF (0-FEW) Vital Signs: Vital Signs Date Time Temp Pulse Resp B/P (MAP) Pulse Ox O2 Delivery O2 Flow Rate FiO2 10/26/19 19:15 16 96 Room Air 10/26/19 19:03 97.8 53 129/76 (93) EKG: EKG: [] Radiology/Procedures: Radiology/Procedures: PROCEDURE: CT ABDOMEN PELVIS WO CONTRAST CT ABDOMEN PELVIS WO CONTRAST History: Right flank pain. Technique: Noncontrast examination of the abdomen and pelvis. Coronal and sagittal reconstructions were performed. Exposure: One or more of the following individualized dose reduction techniques were utilized for this examination: 1. Automated exposure control 2. Adjustment of the mA and/or kV according to patient size 3. Use of iterative reconstruction technique. Comparison: July 25, 2019 Findings: Lower chest: Right lower lobe cluster of 4 to 8 mm pulmonary nodules (series 2 image 18 and 15). 2 mm left lower lobe pulmonary nodule, unchanged. Abdomen and pelvis: Postoperative changes Whipple procedure. Extensive pneumobilia with dilated intrahepatic bile ducts, unchanged. Gas within the dilated pancreatic duct, increased compared to prior. The spleen and adrenal glands are unremarkable. Bilateral nonobstructing renal calculi. Mild right hydronephrosis. Right perinephric and perirenal fat stranding. Dilated upper ureter. 8 x 7 mm right midureteral obstructing calculus. Tiny 2 mm calculi within the urinary bladder layering dependently. Decompressed urinary bladder. No left hydronephrosis. Left renal cyst, unchanged. Colonic diverticulosis. Normal appendix. Several mildly dilated fluid-filled upper abdominal bowel loops in the region of the postoperative changes, similar compared to prior. Multiple small upper abdominal and retroperitoneal lymph nodes, unchanged. No ascites. Small left fat-containing inguinal hernia. Mild atheromatous plaque within the nonaneurysmal abdominal aorta and branch vessels. Bones: No pathologic osseous lesions. Impression: 1. 8 mm right mid ureteral obstructing calculus contributing to mild hydronephrosis and hydroureter as well as perinephric/perineural fat stranding. 2. New right lower lobe clustered nodular opacities, may represent infectious or inflammatory process. Recommend short-term follow-up to ensure resolution. 3. Mildly dilated upper abdominal bowel loops within the region of postoperative changes, similar compared to prior. 4. Bilateral nonobstructing renal calculi. 5. Postoperative changes Whipple procedure with extensive pneumobilia and gas within the dilated pancreatic duct. Electronically signed by: Berlin Negrete DO (10/26/2019 8:04 PM) [facility] Course & Med Decision Making: Course & Med Decision Making Pertinent Labs and Imaging studies reviewed. (See chart for details) Patient with prior history of kidney stones presents with HPI and physical exam concerning for current obstructing calculi. Pain/nausea addressed. Labs obtained and posted to chart. BUN/creatinine within normal limits. UA with microscopic hematuria without signs of infection. CT abdomen/pelvis with finding of 8 mm obstructing mid ureteral calculi with associated mild hydronephrosis/hydroureter. Patient reports has previously passed a 6 mm stone but feels that this stone is different. Offered patient outpatient follow-up versus transfer for inpatient evaluation. Patient requesting to present to with transfer for admission. Utilized transfer team. Discussed case with Dr. Breanna Quiñones, who is accepting of transfer. Discussed findings and plan with patient, who acknowledges understanding and agreement. Notified patient's PCP (Dr. Lewis) who is in agreement with plan for transfer to . Dragon Disclaimer: Dragon Disclaimer: This electronic medical record was generated, in whole or in part, using a voice recognition dictation system. Departure Departure: Impression: Primary Impression: Hydronephrosis with obstructing calculus Disposition: TRANSFER OTHER (- Dr. Breanna Quiñones accepting) Condition: STABLE Referrals: JOSE R LEWIS MD (PCP) ABNER GUPTA DO October 26, 2019 20:10
[2019-10-26 20:25] VITALS: BP 121/78
== END 2019-10-26 22:10 | disposition short-term general hospital (02) ==
LOC: ER 18:51
DX: N13.2 Hydronephrosis with renal and ureteral calculous obstruction (principal); K21.9 Gastro-esophageal reflux disease without esophagitis; Z86.718 Personal history of other venous thrombosis and embolism; Z87.442 Personal history of urinary calculi; G89.29 Other chronic pain
CPT/HCPCS: 36415; 74176; 80053; 81001; 83605; 83690; 83735; 85025; 85610; 85730; 87086; 96374; 96375; 96376; 99285; J1170; J2765; J7030

== ENCOUNTER → 2020-01-08 | Outpatient (CLI) | payer MEDICARE, OTHER ==
[~2020-01-08] MED LIST changes: +MULT-445 PO; -MULT1TAB52 PO
--- NOTE | 2020-01-08 09:49 | RAD ---
PROCEDURE: KUB CLINICAL INDICATION / HISTORY: Reason: KIDNEY STONES, BILATERAL FLANK PAIN / Spl. Instructions: / History: . TECHNIQUE: Single AP image of the abdomen was obtained. COMPARISON: Acute abdominal series of 07/27/2019, CT abdomen and pelvis with IV contrast 07/25/2019 FINDINGS: Multiple surgical clips across the upper abdomen are redemonstrated.. A nonobstructive bowel gas pattern is present. Moderate stool throughout the visualized large bowel. This partly obscures the renal shadows. No organomegaly is identified. There is a 7 mm calcific density projecting over the expected location of the right renal shadow that could represent a residual inferior pole right renal stone. Multiple additional punctate radiodensities projecting over the left renal shadow are also seen, likely kidney stones as well. No acute osseous abnormality. IMPRESSION: Residual bilateral kidney stones, partly obscured by artifact of fecal debris. Electronically signed by: Reva Sanderson MD (01/08/2020 9:46 AM) [id number]
== END | disposition home or self-care (01) ==
LOC: RAD 09:04
PROVIDERS: ATTEND Urology
DX: N20.0 Calculus of kidney (principal); N28.89 Other specified disorders of kidney and ureter; R14.3 Flatulence
CPT/HCPCS: 74018

== ENCOUNTER 2020-02-13 10:42 | Emergency (ER) | payer MEDICARE, OTHER ==
[~2020-02-13] VITALS: Ht 177.8 cm; Wt 76.2 kg
[~2020-02-13 10:42] MED LIST changes: -CETI10TA24 PO; +CETI10TA74 PO
--- NOTE | 2020-02-13 11:00 | PHYS DOC ---
Past History Past Medical History: DVT, GERD, Kidney Stones, Other Additional Past Medical Histor: pancreatic benign tumor, chronic pain Past Surgical History: Other Additional Past Surgical Histo: Whipple surgery 2018, lithotripsy Smoking: Non-smoker Alcohol Use: None Drug Use: None General Adult EDM: Chief Complaint: ABDOMINAL PAIN HPI: HPI: The history was obtained from the patient. Patient is a 69-year-old male with PMH Whipple procedure 2 years ago, recent kidney stone with lithotripsy who presents with a chief complaint of right chest pain. Patient states that he has had multiple episodes of nonbloody nonbilious emesis over the past 2 days. He states this is not atypical for him. He notes that he had an episode of vomiting today that was also nonbloody nonbilious. He states immediately following vomiting he developed severe right-sided chest pain. States pain is sharp and worse when he breathes in. Notes he had a Whipple procedure performed 2 years ago that did have complications. Denies any changes to his stool. Patient states that he must have passed out because he is unsure of what brought him to the hospital. Per EMS the patient's blood sugar was 52 on arrival. He did get oral glucose and did become more alert. Patient notes a history of recent lithotripsy 2 weeks ago for right-sided kidney stones. Denies any alcohol or drug abuse. Denies tobacco abuse. Denies any history of peripheral vascular disease. Denies history of NV. No other complaints. Review of Systems: Review of Systems: Constitutional: Denies fever or chills Eyes: Denies change in visual acuity HENT: Denies nasal congestion or sore throat Respiratory: Denies cough or shortness of breath Cardiovascular: Positive for chest pain GI: Positive for nausea and vomiting : Denies dysuria Musculoskeletal: Denies back pain or joint pain Integument: Denies rash Neurologic: Denies headache, focal weakness or sensory changes Endocrine: Denies polyuria or polydipsia Lymphatic: Denies swollen glands Psychiatric: Denies depression or anxiety Heart Score: Risk Factors: Risk Factors: DM, Current or recent (<one month) smoker, HTN, HLP, family history of CAD, obesity. Risk Scores: Score 0 - 3: 2.5% MACE over next 6 weeks - Discharge Home Score 4 - 6: 20.3% MACE over next 6 weeks - Admit for Clinical Observation Score 7 - 10: 72.7% MACE over next 6 weeks - Early Invasive Strategies Current Medications: Current Meds: Current Medications Medications (Trade) Dose Ordered Sig/Omega Start Time Stop Time Status Last Admin Dose Admin Famotidine (Pepcid Vial) 20 mg 1X ONCE 02/13/20 11:00 02/13/20 11:01 UNV Hydromorphone HCl (Dilaudid) 0.5 mg 1X ONCE 02/13/20 11:00 02/13/20 11:01 UNV Ondansetron HCl (Zofran) 4 mg 1X ONCE 02/13/20 11:00 02/13/20 11:01 UNV Pantoprazole Sodium (Protonix Vial) 40 mg 1X ONCE 02/13/20 11:00 02/13/20 11:01 UNV Allergies: Allergies: Allergies Coded Allergies Type Severity Reaction Last Updated Verified No Known Drug Allergies 10/24/17 No Physical Exam: PE: Constitutional: Well developed, well nourished, appears uncomfortable. Nontoxic. HENT: Normocephalic, atraumatic, bilateral external ears normal, oropharynx moist, no oral exudates, nose normal. [] Eyes: PERRLA, EOMI, conjunctiva normal, no discharge. [] Neck: Normal range of motion, no tenderness, supple, no stridor. [] Cardiovascular:Heart rate regular rhythm, no murmur [] Lungs & Thorax: Bilateral breath sounds clear to auscultation [] Abdomen: Midline laparotomy scar noted. Well-healed. Abdomen soft. Nonrigid. No involuntary guarding appreciated. Skin: Diaphoretic Back: No tenderness, no CVA tenderness. [] Extremities: No tenderness, no cyanosis, no clubbing, ROM intact, no edema. [] Neurologic: Alert and oriented X 3, normal motor function, normal sensory fun ction, no focal deficits noted. [] Psychologic: Affect normal, judgement normal, mood normal. [] Current Patient Data: Labs: Laboratory Tests Test 02/13/20 10:54 Glucose (Fingerstick) 84 mg/dL (70-99) Vital Signs: Vital Signs Date Time Temp Pulse Resp B/P (MAP) Pulse Ox O2 Delivery O2 Flow Rate FiO2 02/13/20 13:39 55 18 153/86 (108) 99 02/13/20 12:17 18 99 02/13/20 12:15 55 18 155/90 (111) 99 02/13/20 11:47 16 99 Room Air 02/13/20 11:15 60 18 150/91 (110) 99 02/13/20 11:15 98.1 76 18 146/88 (107) 99 Room Air EKG: EKG: EKG consistent with sinus bradycardia. Ventricular rate of 56 bpm. [place] normal. Intervals normal. No acute ischemic changes appreciated. [] Radiology/Procedures: Radiology/Procedures: [address] [address] IMAGING REPORT Signed PATIENT: KIRSTEN LEVY ACCOUNT: [id number] : 1950 LOCATION: ER AGE: 69 SEX: M EXAM STATUS: REG ER ORD. PHYSICIAN: TELMA DEUTSCH DO REASON: Right sided pleuritic CP. r/o PE PROCEDURE: CT ANGIO CHEST ABD PELVIS EXAM: CT Angiography of the Chest, Abdomen and Pelvis INDICATION: Reason: Right sided pleuritic CP. r/o PE / Spl. Instructions: / History: TECHNIQUE: CT angiography of the chest, abdomen and pelvis was performed with intravenous contrast. Vascular 3D images were generated on a dedicated workstation and reviewed. All CT scans performed at this facility utilize dose optimization techniques as appropriate to the exam, including the following: Automated exposure control and adjustment of the mA and/or KV according to patient size (this includes techniques or standardized protocols for targeted exams where dose is indication/reason for exam). IV CONTRAST: Administered COMPARISON: Noncontrast abdomen and pelvis CT of 10/26/2019 FINDINGS: VASCULAR FINDINGS: Thoracic aorta and branches: Ascending thoracic aorta is borderline ectatic at 4.0 cm. There is a three-vessel aortic arch measuring 3.2 cm diameter. Proximal descending thoracic aorta measures 2.6 cm, mid descending thoracic aorta measures 2.6 cm in the distal descending thoracic aorta at the hiatus measures 2.5 cm. There is no evidence of aortic dissection or flow limiting stenosis. Abdominal Aorta and Branches: Celiac axis: No significant stenosis. SMA: No significant stenosis. HAMIDA: No significant stenosis. Right renal vessels: No significant stenosis. Left renal vessels: No significant stenosis. Infrarenal aorta: No significant stenosis or aneurysm. Pelvic Vessels: R. Common iliac artery: No significant stenosis. R. External iliac artery: No significant stenosis. R. Internal iliac artery: No significant stenosis. L. Common iliac artery: No significant stenosis. L. External iliac artery: No significant stenosis. L. Internal iliac artery: No significant stenosis. Right Lower Extremity: R. Common femoral artery: No significant stenosis. R. Profunda femoris artery: No significant stenosis in the visualized portion. R. SFA: No significant stenosis in the visualized portion. Left Lower Extremity: L. Common femoral artery: No significant stenosis. L. Profunda femoris artery: No significant stenosis in the visualized portion. L. SFA: No significant stenosis in the visualized portion. NON VASCULAR FINDINGS: Chest shows a fine reticulonodular pulmonary parenchymal pattern with no dominant lung nodule or mass. No mediastinal or hilar adenopathy. Normal heart size with no pericardial effusion. Calcifications in the LAD coronary artery are noted. The pulmonary arteries are normal in size but are not sufficiently opacified to assess for pulmonary emboli on this exam. No pneumothorax or pleural effusion. No acute or aggressive appearing osseous lesions Abdomen shows postop changes from previous cholecystectomy and pancreaticoduodenectomy with residual biliary and pancreatic ductal distention with pneumobilia primarily in the left-sided biliary radicles. No fluid collection. No adenopathy. No bowel wall thickening, nonenhancement, pneumatosis, or evidence of portal venous gas. No findings of bowel obstruction or perforation. Solid abdominal organs otherwise unremarkable on this phase of enhancement. Previous right hydronephrosis and obstructing proximal right ureteral stone have since resolved. Pelvis shows an enlarged prostate measuring 5.9 cm in transverse diameter. The urinary bladder is partially distended and shows mild diffuse wall thickening that is nonspecific. There are possible intraluminal versus intramural calcifications along the posterior left wall of the urinary bladder. Rectal fecal distention to transverse diameter of 6.6 cm. No wall thickening or pericolonic soft tissue stranding. IMPRESSION: 1. Upper normal caliber ascending thoracic aorta and coronary artery calcifications. Otherwise unremarkable CT angiography of the chest, abdomen and pelvis with no evidence of aortic dissection and no evidence of bowel ischemia. 2. Stable postop changes from previous Whipple with residual biliary and pancreatic ductal dilation with pneumobilia 3. Prostatomegaly with nonspecific diffuse bladder wall thickening, less conspicuous than before. This could reflect chronic bladder outlet obstruction. Cystitis can also appear similar. Discussed with Dr. Deutsch by telephone at 1:55 PM on 02/13/2020 Electronically signed by: Olga Sanderson MD (02/13/2020 2:06 PM) [id number] DICTATED AND SIGNED BY: OLGA SANDERSON MD DATE: 02/13/20 [id number] CC: JOSE R LEWIS MD; TELMA DEUTSCH DO ~ [] Course & Med Decision Making: Course & Med Decision Making Pertinent Labs and Imaging studies reviewed. (See chart for details) Patient is a ill-appearing 69-year-old male who presents with chief complaint of acute onset vomiting associated with right upper quadrant and right sided chest pain worse with inspiration. Patient does have extensive surgical history including Whipple procedure at [facility]. Basic labs were obtained. No leukocytosis. Patient does have a lactate of 4.6. He was given 2 L normal s margarito bolus. CTA imaging of the chest abdomen pelvis was obtained to evaluate for thorax etiology as well as potential ischemic gut. No signs of ischemic is entirely. Nonspecific dilation of the common bile duct was noted. Slightly larger than previous imaging in October. Bilirubin within normal limits. LFTs within normal limits. Lipase within normal limits. Repeat examination patient symptoms have improved significantly. Given the patient significantly elevated lactate which could be related to dehydration I do feel he require hospitalization. Given his recent surgical history came [facility] and per the patient's request we did contact their facility for potential transfer. Patient has been accepted by Dr. Tong. Patient remains hemodynamically stable and comfortable in exam room. Patient is awaiting bed assignment at this time. Dragon Disclaimer: Dragon Disclaimer: This electronic medical record was generated, in whole or in part, using a voice recognition dictation system. Departure Departure: Impression: Primary Impression: Lactic acidemia Additional Impression: Whipple disease Disposition: HOME/RESIDENCE PRIOR TO ADM Condition: STABLE Referrals: JOSE R LEWIS MD (PCP) Justification of Admission: Justification of Admission: Justification of Admission Dx: Yes Comments: lactic acidosis, abdominal pain. TELMA DEUTSCH DO Feb 13, 2020 11:00
--- NOTE | 2020-02-13 11:31 | EKG ---
[address] [address] Test Date: 2020-02-13 Test Time: 11:06:35 Pat Name: KIRSTEN LEVY Department: Room: Gender: M Rn Appeals: SANGEETHA : 1950 Requested By: TELMA LEONE Order Number: [id number] Reading MD: Price Sanchez MD Measurements Intervals [place] Rate: 56 P: 36 NM: 142 QRS: 60 QRSD: 88 T: 39 QT: 446 QTc: 433 Interpretive Statements SINUS RHYTHM Electronically Signed On 02-13-2020 14:14:27 CDT by Price Sanchez MD
[2020-02-13 11:34] LABS: BASO # 0.1 x10^3/uL (0.0-0.2); BASO % 1 % (0-3); EOS # 0.2 x10^3/uL (0.0-0.7); EOS % 3 % (0-3); HEMATOCRIT 41.3 % (39.0-53.0); HEMOGLOBIN 13.2 g/dL (13.0-17.5); LYMPH # 2.6 x10^3/uL (1.0-4.8); LYMPH % 31 % (24-48); MEAN CORPUSCULAR HEMOGLOBIN 26 pg (25-35); MEAN CORPUSCULAR HGB CONC 32 g/dL (31-37); MEAN CORPUSCULAR VOLUME 81 fL (79-100); MONO # 0.6 x10^3/uL (0.0-1.1); MONO % 7 % (0-9); NEUT # 4.7 x10^3uL (1.8-7.7); NEUT % 57 % (31-73); PLATELET COUNT 246 x10^3/uL (140-400); RED BLOOD COUNT 5.08 x10^6/uL (4.30-5.70); RED CELL DISTRIBUTION WIDTH 17.3 % (11.5-14.5); WHITE BLOOD COUNT 8.2 x10^3/uL (4.0-11.0)
[2020-02-13 11:46] LABS: CALCIUM 9.7 mg/dL (8.5-10.1); CREATININE 0.9 mg/dL (0.7-1.3); GFR 83.4; POTASSIUM 3.4 mmol/L (3.5-5.1)
[2020-02-13] MEDS: ONDANSETRON PF 4 MG/2 ML VIAL. IVP ONE ×2 (11:46→15:04)
[2020-02-13] MEDS: FAMOTIDINE 20 MG/2 ML VIAL IVP ONE (11:46)
[2020-02-13] MEDS: HYDROmorphone PF 1 MG/ML DISP.SYRIN IV ONE (11:47)
[2020-02-13] MEDS: PANTOPRAZOLE IV 40 MG VIAL. IVP ONE (11:47)
[2020-02-13 11:58] LABS: ALBUMIN 3.4 g/dL (3.4-5.0); ALBUMIN/GLOBULIN RATIO 0.9 (1.0-1.7); TOTAL BILIRUBIN 0.6 mg/dL (0.2-1.0); TOTAL PROTEIN 7.1 g/dL (6.4-8.2)
[2020-02-13] MEDS: IOHEXOL 350 MG/ML 100 ML VIAL. IV ONE (12:04)
--- NOTE | 2020-02-13 12:28 | RAD ---
AP chest, supine abdomen HISTORY: Shortness of breath, chest pain, abdominal pain Chest AP view was taken of the chest. Lungs are clear. Heart is normal in size. There is no pleural effusion. ABDOMEN: Supine view was taken of the abdomen. There is moderate stool in the colon and rectum. There are changes from prior abdominal surgery. There is gas in the small bowel but an obstructive pattern is not evident. IMPRESSION: 1. Nonspecific bowel gas without obstruction. 2. Moderate stool in the colon. 3. No other acute finding in the abdomen. 4. No acute chest disease. Electronically signed by: Kameron Vargas MD (02/13/2020 12:25 PM) [id number]
[2020-02-13] MEDS: IV NORMAL SALINE 1,000ML 1,000 ML IV ONE ×2 (13:00→15:04)
--- NOTE | 2020-02-13 14:09 | RAD ---
EXAM: CT Angiography of the Chest, Abdomen and Pelvis INDICATION: Reason: Right sided pleuritic CP. r/o PE / Spl. Instructions: / History: TECHNIQUE: CT angiography of the chest, abdomen and pelvis was performed with intravenous contrast. Vascular 3D images were generated on a dedicated workstation and reviewed. All CT scans performed at this facility utilize dose optimization techniques as appropriate to the exam, including the following: Automated exposure control and adjustment of the mA and/or KV according to patient size (this includes techniques or standardized protocols for targeted exams where dose is indication/reason for exam). IV CONTRAST: Administered COMPARISON: Noncontrast abdomen and pelvis CT of 10/26/2019 FINDINGS: VASCULAR FINDINGS: Thoracic aorta and branches: Ascending thoracic aorta is borderline ectatic at 4.0 cm. There is a three-vessel aortic arch measuring 3.2 cm diameter. Proximal descending thoracic aorta measures 2.6 cm, mid descending thoracic aorta measures 2.6 cm in the distal descending thoracic aorta at the hiatus measures 2.5 cm. There is no evidence of aortic dissection or flow limiting stenosis. Abdominal Aorta and Branches: Celiac axis: No significant stenosis. SMA: No significant stenosis. HAMIDA: No significant stenosis. Right renal vessels: No significant stenosis. Left renal vessels: No significant stenosis. Infrarenal aorta: No significant stenosis or aneurysm. Pelvic Vessels: R. Common iliac artery: No significant stenosis. R. External iliac artery: No significant stenosis. R. Internal iliac artery: No significant stenosis. L. Common iliac artery: No significant stenosis. L. External iliac artery: No significant stenosis. L. Internal iliac artery: No significant stenosis. Right Lower Extremity: R. Common femoral artery: No significant stenosis. R. Profunda femoris artery: No significant stenosis in the visualized portion. R. SFA: No significant stenosis in the visualized portion. Left Lower Extremity: L. Common femoral artery: No significant stenosis. L. Profunda femoris artery: No significant stenosis in the visualized portion. L. SFA: No significant stenosis in the visualized portion. NON VASCULAR FINDINGS: Chest shows a fine reticulonodular pulmonary parenchymal pattern with no dominant lung nodule or mass. No mediastinal or hilar adenopathy. Normal heart size with no pericardial effusion. Calcifications in the LAD coronary artery are noted. The pulmonary arteries are normal in size but are not sufficiently opacified to assess for pulmonary emboli on this exam. No pneumothorax or pleural effusion. No acute or aggressive appearing osseous lesions Abdomen shows postop changes from previous cholecystectomy and pancreaticoduodenectomy with residual biliary and pancreatic ductal distention with pneumobilia primarily in the left-sided biliary radicles. No fluid collection. No adenopathy. No bowel wall thickening, nonenhancement, pneumatosis, or evidence of portal venous gas. No findings of bowel obstruction or perforation. Solid abdominal organs otherwise unremarkable on this phase of enhancement. Previous right hydronephrosis and obstructing proximal right ureteral stone have since resolved. Pelvis shows an enlarged prostate measuring 5.9 cm in transverse diameter. The urinary bladder is partially distended and shows mild diffuse wall thickening that is nonspecific. There are possible intraluminal versus intramural calcifications along the posterior left wall of the urinary bladder. Rectal fecal distention to transverse diameter of 6.6 cm. No wall thickening or pericolonic soft tissue stranding. IMPRESSION: 1. Upper normal caliber ascending thoracic aorta and coronary artery calcifications. Otherwise unremarkable CT angiography of the chest, abdomen and pelvis with no evidence of aortic dissection and no evidence of bowel ischemia. 2. Stable postop changes from previous Whipple with residual biliary and pancreatic ductal dilation with pneumobilia 3. Prostatomegaly with nonspecific diffuse bladder wall thickening, less conspicuous than before. This could reflect chronic bladder outlet obstruction. Cystitis can also appear similar. Discussed with Dr. Deutsch by telephone at 1:55 PM on 02/13/2020 Electronically signed by: Reva Sanderson MD (02/13/2020 2:06 PM) [id number]
[2020-02-13] MEDS ORDERED: MORPHINE SULFATE 4 MG/ML DISP.SYRIN. ONE (14:56)
[2020-02-13] MEDS: MORPHINE SULFATE 4 MG/ML DISP.SYRIN. IV ONE ×2 (15:05→18:57)
[2020-02-13 15:14] LABS: COLOR,URINE STRAW
[2020-02-13 15:15] LABS: BILIRUBIN,URINE NEG (NEG); CLARITY,URINE CLEAR; GLUCOSE,URINE NEG (NEG); NITRITE,URINE NEG (NEG); UROBILINOGEN,URINE 0.2 mg/dL (0.2 mg/dL)
[2020-02-13 15:16] LABS: BACTERIA,URINE 0 /HPF (0-FEW); WBC,URINE OCC /HPF (0-4)
[2020-02-13 19:45] VITALS: BP 128/82
== END 2020-02-13 19:30 | disposition home or self-care (01) ==
LOC: ER 10:42
DX: E87.2 Acidosis (principal); K90.81 Whipple's disease; R11.2 Nausea with vomiting, unspecified; K21.9 Gastro-esophageal reflux disease without esophagitis; G89.29 Other chronic pain; Z86.718 Personal history of other venous thrombosis and embolism; Z87.442 Personal history of urinary calculi
CPT/HCPCS: 36415; 71045; 71275; 74018; 74174; 80053; 81001; 82947; 83605; 83690; 83880; 84484; 85025; 87040; 93005; 96361; 96374; 96375; 96376; 99285; C9113; J1170; J2270; J2405; J3490; J7030; Q9967

== ENCOUNTER 2020-04-05 14:33 | Emergency (ER) | payer MEDICARE, OTHER ==
[~2020-04-05] VITALS: Ht 177.8 cm; Wt 76.2 kg
[2020-04-05 14:47] VITALS: BP 95/76
[2020-04-05] MEDS ORDERED: DIPH,PERTUSS(ACELL),TET VAC/PF 0.5 ML SYRINGE. VAX IM ONE (15:00)
--- NOTE | 2020-04-05 15:04 | RAD ---
Three-view right hand HISTORY: Laceration from table saw to middle finger AP lateral oblique views There is soft tissue laceration seen at the tip of the middle finger. The visualized osseous structures appear normal. There is no radiopaque foreign body. IMPRESSION: No acute bony abnormality identified. Electronically signed by: Sunny Dutta III, MD (04/05/2020 3:01 PM) [facility]
[2020-04-05] MEDS ORDERED: BACITRACIN ZINC TOPICAL OINT PACKET. TP ONE (15:15)
[2020-04-05] MEDS ORDERED: CEPH500T PO (16:08)
--- NOTE | 2020-04-05 16:08 | PHYS DOC ---
Past History Past Medical History: DVT, GERD, Kidney Stones, Other Additional Past Medical Histor: pancreatic benign tumor, chronic pain Past Surgical History: Other Additional Past Surgical Histo: Whipple surgery 2018, lithotripsy Smoking: Non-smoker Alcohol Use: None Drug Use: None Adult General Chief Complaint Chief Complaint: LACERATION/AVULSION HPI HPI Patient is a 69-year-old male patient who presents to the ED today with right middle and index finger lacerations, patient was working with a table saw that accidentally cut him. He is right-handed. Review of Systems Review of Systems Constitutional: Denies fever or chills [] Musculoskeletal: right middle finger and index lacerations Integument: Denies rash or skin lesions [] Neurologic: Denies headache, focal weakness or sensory changes [] All other systems were reviewed and found to be within normal limits, except as documented in this note. Current Medications Current Medications Current Medications Medications (Trade) Dose Ordered Sig/Omega Start Time Stop Time Status Last Admin Dose Admin Bacitracin (Bacitracin Topical Pkt) 1 pkt 1X ONCE 04/05/20 15:15 04/05/20 15:16 DC Diphtheria/ Pertussis/Tetanus Vacc (ADACEL TDap SYRINGE) 0.5 ml ONCE ONCE 04/05/20 15:00 04/05/20 15:01 DC 04/05/20 14:59 0.5 ML Allergies Allergies Allergies Coded Allergies Type Severity Reaction Last Updated Verified No Known Drug Allergies 10/24/17 No Physical Exam Physical Exam Constitutional: Well developed, well nourished, no acute distress, non-toxic appearance. [] Skin: Right index finger keep lateral aspect with multiple lacerations from the table so, they are all superficial, each of them is roughly 0.5 to 1 cm, right lateral midline finger with a skin avulsion on the mid to distal end approx. 6X2 cm, there is no tendon involvement. Full range of motion to the right hand fingers. Adequate radial, medial, ulnar right radial pulse. Cap refill less than 2 seconds to the right fingers. Back: No tenderness, no CVA tenderness. [] Extremities: No tenderness, no cyanosis, no clubbing, ROM intact, no edema. [] Neurologic: Alert and oriented X 3, normal motor function, normal sensory function, no focal deficits noted. [] Psychologic: Affect normal, judgement normal, mood normal. [] Current Patient Data Vital Signs Vital Signs Date Time Temp Pulse Resp B/P (MAP) Pulse Ox O2 Delivery O2 Flow Rate FiO2 04/05/20 14:47 98.1 79 18 95/76 (82) 99 EKG EKG [] Radiology/Procedures Radiology/Procedures []PROCEDURE: HAND RIGHT 3V Three-view right hand HISTORY: Laceration from table saw to middle finger AP lateral oblique views There is soft tissue laceration seen at the tip of the middle finger. The visualized osseous structures appear normal. There is no radiopaque foreign body. IMPRESSION: No acute bony abnormality identified. Electronically signed by: Kirsten Dutta III, MD (04/05/2020 3:01 PM) [facility] DICTATED AND SIGNED BY: KIRSTEN DUTTA III, MD DATE: 04/05/20 5199 CC: JOSE R LEWIS MD; [facility]; YOKASTA AGUAYO APRN ~ Heart Score Risk Factors: Risk Factors: DM, Current or recent (<one month) smoker, HTN, HLP, family history of CAD, obesity. Risk Scores: Risk Factors: DM, Current or recent (<one month) smoker, HTN, HLP, family history of CAD, obesity. Course & Med Decision Making Course & Med Decision Making Pertinent Labs and Imaging studies reviewed. (See chart for details) This is a 69-year-old male patient presenting to the ED today with right middle finger laceration as well as right index finger laceration, patient accidentally cut himself on a table saw. Right hand x-rays were negative for any acute findings. Lacerations are not suturable. Tetanus was updated. Neosporin applied to the area. Wound care instructions or return precautions provided. Dragon Disclaimer Dragon Disclaimer This electronic medical record was generated, in whole or in part, using a voice recognition dictation system. Departure Departure: Impression: Primary Impression: Finger laceration Additional Impression: Laceration of index finger Disposition: 01 DC HOME SELF CARE/HOMELESS Condition: STABLE Referrals: JOSE R LEWIS MD (PCP) follow up with hand surgery. CALL them on Wednesday at [phone] Patient Instructions: Fingertip Laceration Additional Instructions: You have lacerations to your right hand fingers. Keep the areas clean and dry. You can remove the dressing tomorrow and apply Neosporin and cover the areas if bleeding or draining. You can wash your hands starting tomorrow once or twice a day. Do not soak your fingers. Continue using Neosporin to the regions for 7 days. Take the prescribed antibiotics until completed. Monitor the area for any signs of infection including increased redness, warmth, yellow drainage from the areas on return to the ED if they occur. Follow-up with [facility] hand surgery, your contact number is [phone] Scripts Cephalexin (CEPHALEXIN) 500 Mg Tablet 1 TAB PO TID, #30 TAB Prov: YOKASTA AGUAYO APRN 04/05/20 Problem Qualifiers Primary Impression: Finger laceration Encounter type: initial encounter Finger: middle finger Damage to nail status: without damage Foreign body presence: without foreign body Laterality: right Qualified Codes: S61.212A - Laceration without foreign body of right middle finger without damage to nail, initial encounter Additional Impression: Laceration of index finger Encounter type: initial encounter Damage to nail status: without damage Foreign body presence: without foreign body Laterality: right Qualified Codes: S61.210A - Laceration without foreign body of right index finger without damage to nail, initial encounter YOKASTA AGUAYO APRN Apr 05, 2020 16:08
== END 2020-04-05 16:16 | disposition home or self-care (01) ==
LOC: ER 14:33
DX: S61.210A Laceration without foreign body of right index finger without damage to nail, initial encounter (principal); K21.9 Gastro-esophageal reflux disease without esophagitis; G89.29 Other chronic pain; Z87.442 Personal history of urinary calculi; Z86.718 Personal history of other venous thrombosis and embolism; W27.8XXA Contact with other nonpowered hand tool, initial encounter; Y93.89 Activity, other specified; Y92.89 Other specified places as the place of occurrence of the external cause; Y99.8 Other external cause status
CPT/HCPCS: 73130; 90471; 90715; 99283

== ENCOUNTER → 2020-05-01 | Outpatient (CLI) | payer MEDICARE, OTHER ==
[2020-04-05 14:47] VITALS: BP 95/76
[~2020-05-01] MED LIST changes: +CEPH500T PO
[2020-05-01 10:50] LABS: BASO # 0.1 x10^3/uL (0.0-0.2); BASO % 1 % (0-3); EOS # 0.3 x10^3/uL (0.0-0.7); EOS % 5 % (0-3); HEMATOCRIT 41.5 % (39.0-53.0); HEMOGLOBIN 13.4 g/dL (13.0-17.5); LYMPH # 2.1 x10^3/uL (1.0-4.8); LYMPH % 34 % (24-48); MEAN CORPUSCULAR HEMOGLOBIN 28 pg (25-35); MEAN CORPUSCULAR HGB CONC 32 g/dL (31-37); MEAN CORPUSCULAR VOLUME 88 fL (79-100); MONO # 0.5 x10^3/uL (0.0-1.1); MONO % 9 % (0-9); NEUT # 3.1 x10^3uL (1.8-7.7); NEUT % 51 % (31-73); PLATELET COUNT 206 x10^3/uL (140-400); RED BLOOD COUNT 4.73 x10^6/uL (4.30-5.70); RED CELL DISTRIBUTION WIDTH 18.7 % (11.5-14.5); WHITE BLOOD COUNT 6.2 x10^3/uL (4.0-11.0)
[2020-05-01 10:58] LABS: ALBUMIN 3.2 g/dL (3.4-5.0); ALBUMIN/GLOBULIN RATIO 0.9 (1.0-1.7); CALCIUM 9.4 mg/dL (8.5-10.1); CREATININE 0.9 mg/dL (0.7-1.3); GFR 83.4; POTASSIUM 4.2 mmol/L (3.5-5.1); TOTAL BILIRUBIN 0.8 mg/dL (0.2-1.0); TOTAL PROTEIN 6.7 g/dL (6.4-8.2)
[2020-05-01 11:05] LABS: BILIRUBIN,URINE NEG (NEG); CLARITY,URINE HAZY; COLOR,URINE AMBER; GLUCOSE,URINE NEG (NEG); NITRITE,URINE NEG (NEG)
[2020-05-01 11:06] LABS: BACTERIA,URINE FEW /HPF (0-FEW); SQUAMOUS EPITHELIAL CELL,UR OCC /LPF
== END ==
LOC: LAB 09:53
PROVIDERS: ATTEND Family Medicine
DX: R10.13 Epigastric pain (principal)
CPT/HCPCS: 36415; 80053; 81001; 83690; 85025

== ENCOUNTER → 2020-07-22 | Outpatient (CLI) | payer MEDICARE, OTHER ==
[~2020-07-22] MED LIST changes: +IOHEXOL 350 MG/ML 100 ML VIAL. IV ONE
[2020-07-22 14:08] LABS: BASO % 1 % (0-3); EOS # 0.3 x10^3/uL (0.0-0.7); EOS % 5 % (0-3); HEMATOCRIT 44.2 % (39.0-53.0); HEMOGLOBIN 14.4 g/dL (13.0-17.5); LYMPH # 1.8 x10^3/uL (1.0-4.8); LYMPH % 32 % (24-48); MEAN CORPUSCULAR HEMOGLOBIN 30 pg (25-35); MEAN CORPUSCULAR HGB CONC 33 g/dL (31-37); MEAN CORPUSCULAR VOLUME 92 fL (79-100); MONO # 0.5 x10^3/uL (0.0-1.1); MONO % 8 % (0-9); NEUT % 54 % (31-73); PLATELET COUNT 177 x10^3/uL (140-400); RED BLOOD COUNT 4.82 x10^6/uL (4.30-5.70); RED CELL DISTRIBUTION WIDTH 15.7 % (11.5-14.5); WHITE BLOOD COUNT 5.5 x10^3/uL (4.0-11.0)
[2020-07-22 14:19] LABS: ALBUMIN 3.4 g/dL (3.4-5.0); CALCIUM 9.2 mg/dL (8.5-10.1); CREATININE 0.7 mg/dL (0.7-1.3); GFR 111.5; POTASSIUM 4.2 mmol/L (3.5-5.1); TOTAL BILIRUBIN 0.8 mg/dL (0.2-1.0); TOTAL PROTEIN 6.8 g/dL (6.4-8.2)
--- NOTE | 2020-07-22 15:50 | RAD ---
EXAM: CT ANGIOGRAPHY OF THE CHEST WITH AND WITHOUT CONTRAST. HISTORY: Shortness of breath. TECHNIQUE: Computed tomographic angiography of the chest was performed before and after the intraveno us administration of Isovue 370. 3-D maximum intensity projections were also performed. One or more o f the following individualized dose reduction techniques were utilized for this examination: 1. Automated exposure control. 2. Adjustment of the mA and/or kV according to patient size. 3. Use of iterative reconstruction technique. COMPARISON: None. FINDINGS: Images of the upper abdomen reveal changes of hepaticojejunostomy and pancreaticojejunostom y. There is moderate intrahepatic biliary dilatation and extensive pneumobilia. The pancreatic duct i s also dilated to 6 mm. Gas extends into the pancreatic duct. Many dilated pancreatic ductal side bra nches. Bilateral renal calculi measure up to 4 mm on the left. Bone windows reveal no suspicious lesi ons. No pulmonary emboli are identified. There is no aortic dissection or aneurysm. There are no pathologically enlarged mediastinal or axillary lymph nodes. There is no pleural or abdon cardial effusion. The heart is not enlarged. There are atherosclerotic calcifications of the coronary arteries. There is mild subpleural interstitial line thickening in the bases. A few calcified granulomas are no dominic. IMPRESSION: 1. No pulmonary embolism. 2. Mild atelectasis versus mild interstitial lung disease in the bases. 3. Moderate dilatation of the biliary tree and pancreatic ducts, containing pneumobilia. 4. Multiple bilateral renal calculi. Electronically signed by: Silvia Mckay MD (07/22/2020 3:48 PM) [id number]
== END ==
LOC: CT 13:29
PROVIDERS: ATTEND Family Medicine
DX: R07.89 Other chest pain (principal); R06.09 Other forms of dyspnea; R07.1 Chest pain on breathing; N20.0 Calculus of kidney; K86.89 Other specified diseases of pancreas
CPT/HCPCS: 36415; 71275; 80053; 83690; 85025; 85379; Q9967

== ENCOUNTER 2020-08-08 06:16 | Emergency (ER) | payer MEDICARE, OTHER ==
[~2020-08-08] VITALS: Ht 177.8 cm; Wt 81.3 kg
[~2020-08-08 06:16] MED LIST changes: -IOHEXOL 350 MG/ML 100 ML VIAL. IV ONE
--- NOTE | 2020-08-08 06:39 | EKG ---
[address] [address] Test Date: 2020-08-08 Test Time: 06:31:58 Pat Name: KIRSTEN LEVY Department: Room: Gender: M [employer]: KENDALL : 1950 Requested By: MAURO RUSH Order Number: [id number] Reading MD: Measurements Intervals [place] Rate: 113 P: 38 [place]: 132 QRS: 53 QRSD: 80 T: 42 QT: 324 QTc: 444 Interpretive Statements SINUS TACHYCARDIA OTHERWISE NORMAL ECG RI6.02 No previous ECG available for comparison
[2020-08-08] MEDS ORDERED: ONDANSETRON PF 4 MG/2 ML VIAL. IVP ONE (06:45)
[2020-08-08] MEDS ORDERED: IV NORMAL SALINE 1,000ML 1,000 ML IV ONE (06:45)
[2020-08-08] MEDS ORDERED: MORPHINE SULFATE 4 MG/ML DISP.SYRIN. IV ONE ×2 (06:45→08:15)
[2020-08-08 06:46] LABS: CALCIUM 8.8 mg/dL (8.5-10.1); CREATININE 0.9 mg/dL (0.7-1.3); GFR 83.4; POTASSIUM 4.2 mmol/L (3.5-5.1)
[2020-08-08 06:52] LABS: ALBUMIN 3.3 g/dL (3.4-5.0); TOTAL BILIRUBIN 1.1 mg/dL (0.2-1.0); TOTAL PROTEIN 6.7 g/dL (6.4-8.2)
[2020-08-08 06:55] LABS: BASO % 1 % (0-3); EOS % 3 % (0-3); HEMOGLOBIN 14.5 g/dL (13.0-17.5); LYMPH % 18 % (24-48); MEAN CORPUSCULAR HEMOGLOBIN 30 pg (25-35); MEAN CORPUSCULAR HGB CONC 33 g/dL (31-37); MEAN CORPUSCULAR VOLUME 91 fL (79-100); MONO % 2 % (0-9); NEUT % 77 % (31-73); PLATELET COUNT 191 x10^3/uL (140-400); RED BLOOD COUNT 4.82 x10^6/uL (4.30-5.70); RED CELL DISTRIBUTION WIDTH 15.1 % (11.5-14.5); WHITE BLOOD COUNT 8.2 x10^3/uL (4.0-11.0)
[2020-08-08 06:56] LABS: EOS # 0.2 x10^3/uL (0.0-0.7); LYMPH # 1.5 x10^3/uL (1.0-4.8); MONO # 0.1 x10^3/uL (0.0-1.1); NEUT # 6.3 x10^3uL (1.8-7.7)
--- NOTE | 2020-08-08 06:57 | PHYS DOC ---
Past History Past Medical History: DVT, GERD, Kidney Stones, Other Additional Past Medical Histor: pancreatic benign tumor, chronic pain Past Surgical History: Other Additional Past Surgical Histo: Whipple surgery 2018, lithotripsy Smoking: Non-smoker Alcohol Use: None Drug Use: None Adult General Chief Complaint Chief Complaint: BACK PAIN OR INJURY [facility] HPI Patient is a 69-year-old male with a complicated past medical history who presents to the emergency room complaining of bilateral flank pain. He states that started at 5:00 this morning. It is associated with nausea and vomiting. He states it feels similar to when he had kidney stones. The pain is sharp and colicky in nature. He states he has been vomiting basically continuously for the last 30 minutes. He believes that he was told he had a partially collapsed lung 2 weeks ago by his primary care doctor but has not had any problems with this. Denies any kind of chest pain or shortness of breath. He states he is breathing hard due to pain. Review of Systems Review of Systems Complete ROS is negative unless otherwise documented in HPI Current Medications Current Medications Current Medications Medications (Trade) Dose Ordered Sig/Omega Start Time Stop Time Status Last Admin Dose Admin Morphine Sulfate (Morphine 4mg Syringe) 4 mg 1X ONCE 08/08/20 06:45 08/08/20 06:46 UNV Ondansetron HCl (Zofran) 4 mg 1X ONCE 08/08/20 06:45 08/08/20 06:46 UNV Sodium Chloride 1,000 ml @ 1,000 mls/hr 1X ONCE 08/08/20 06:45 08/08/20 07:44 UNV Allergies Allergies Allergies Coded Allergies Type Severity Reaction Last Updated Verified No Known Drug Allergies 08/08/20 No Physical Exam Physical Exam General: Awake, alert, mild distress. Well Nourished, well hydrated. Cooperative HEENT: Atraumatic, EOMI, PERRL, airway patent, moist oral mucosa Neck: Supple, trachea midline Respiratory: CTA bilaterally, normal effort, no wheezing/crackles, tachypnea CV: RRR, no murmur, cap refill <2 GI: Soft, nondistended, nontender, no masses MSK: No obvious deformities Skin: Warm, dry, intact Neuro: A&O x3, speech NL, sensory and motor grossly intact, no focal deficits Psych: Normal affect, normal mood, not suicidal or homicidal Current Patient Data Vital Signs Vital Signs Date Time Temp Pulse Resp B/P (MAP) Pulse Ox O2 Delivery O2 Flow Rate FiO2 08/08/20 06:16 126 20 108/78 (88) 98 Room Air EKG EKG [] Radiology/Procedures Radiology/Procedures [] Heart Score Risk Factors: Risk Factors: DM, Current or recent (<one month) smoker, HTN, HLP, family history of CAD, obesity. Risk Scores: Risk Factors: DM, Current or recent (<one month) smoker, HTN, HLP, family history of CAD, obesity. Course & Med Decision Making Course & Med Decision Making Pertinent Labs and Imaging studies reviewed. (See chart for details) Patient is a 69-year-old male who presents to the emergency room with a long history of kidney stones and pain. He did have injections done on his back yesterday but states he had no problems after this. He believes this is related to a kidney stone as he has had multiple kidney stones in the past. Abdominal labs were ordered along with a chest x-ray and a CT abdomen pelvis without contrast. I did review his CT from 2 weeks ago and patient does not have a pneumothorax on that CT. CT does show a kidney stone at this time. No signs of obstruction. Urine has white blood cells with no nitrites or bacteria. Is does not appear to be an infected stone. Patient is well-appearing and has greatly improved after symptomatic treatment. He will be discharged home. He has m edications at home for pain. Patient's test results and vitals while in the ED were fully reviewed and discussed with the patient. Patient is stable and at this time does not need admission to the hospital. We have discussed strict return precautions and the importance of following up with their Primary Care Physician. Patient stated understanding and was given an opportunity to ask any questions. Patient is in agreement with plan. Dragon Disclaimer Dragon Disclaimer This electronic medical record was generated, in whole or in part, using a voice recognition dictation system. Departure Departure: Impression: Primary Impression: Kidney stone Disposition: 01 DC HOME SELF CARE/HOMELESS Condition: STABLE Referrals: JOSE R LEWIS MD (PCP) Patient Instructions: Kidney Stones MAURO RUSH MD Aug 08, 2020 06:57
--- NOTE | 2020-08-08 07:13 | RAD ---
CT ABDOMEN+PELVIS WO INDICATION: Reason: bilateral flank pain, hx of multiple kidney stones, hx of whipple / Spl. Instruct ions: / History: EXAM: Noncontrast CT of the abdomen and pelvis. Coronal and sagittal reformatted images were perform ed. RS compliance statement: One or more of the following individualized dose reduction techniques were utilized for this examinat ion: 1. Automated exposure control 2. Adjustment of the mA and/or kV according to patient size 3. Use of iterative reconstruction technique COMPARISON: 02/13/2020 FINDINGS: No free air, free fluid, or fluid collection. Lower chest: The visualized lower lungs are aerated. No pleural or pericardial effusion. ABDOMEN: Liver: The noncontrast liver is homogeneous in attenuation. Gallbladder and biliary: Cholecystectomy. Pneumobilia. Spleen: Normal spleen. Pancreas: Postsurgical changes of Whipple procedure. No distal pancreatic mass seen. Adrenal glands: Normal adrenal glands. Kidneys and ureters: 2 mm calculus at the right ureterovesicular junction. No hydronephrosis. Multipl e additional nonobstructive bilateral renal calculi. GI tract: The stomach is decompressed and poorly evaluated. Normal caliber small bowel and colon. Nor mal appendix. Vascular structures: Normal caliber abdominal aorta. Mild aortoiliac atherosclerotic disease Lymph nodes: No lymphadenopathy in the abdomen or pelvis. PELVIS: Genitourinary system: Circumferential bladder wall thickening. SKELETAL STRUCTURES AND SOFT TISSUES: No fracture or destructive lesion in the visualized skeleton. S mall fat-containing left inguinal hernia. IMPRESSION: 1. Calculus at the right ureterovesicular junction measuring 2 mm. No hydronephrosis. Multiple additi onal nonobstructive bilateral renal calculi. 2. Large colonic stool burden, which may reflect constipation. 3. Circumferential bladder wall thickening, which could be due to obstructive uropathy or potentially cystitis. Electronically signed by: Paco Seymour MD (08/08/2020 7:11 AM) [id number]
[2020-08-08] MEDS ORDERED: KETOROLAC 30 MG/ML VIAL. IVP ONE (07:15)
--- NOTE | 2020-08-08 07:16 | RAD ---
XR CHEST 1V INDICATION: sob . COMPARISON: 02/13/2020. FINDINGS: Lungs: Normal lung volume. No focal consolidation. Pleura: No pleural effusion or pneumothorax. Heart and Mediastinum: Normal cardiac size. Atherosclerosis of the thoracic aorta. IMPRESSION: No focal airspace disease. Electronically signed by: Paco Seymour MD (08/08/2020 7:14 AM) [id number]
[2020-08-08 08:19] LABS: BACTERIA,URINE 0 /HPF (0-FEW); BILIRUBIN,URINE NEG (NEG); CLARITY,URINE CLEAR; COLOR,URINE YELLOW; GLUCOSE,URINE NEG (NEG); NITRITE,URINE NEG (NEG); SQUAMOUS EPITHELIAL CELL,UR FEW /LPF
[2020-08-08 08:31] VITALS: BP 109/76
[2020-08-08] MEDS ORDERED: ONDA4TAB12 PO (08:55)
== END 2020-08-08 08:50 | disposition home or self-care (01) ==
LOC: ER 06:16
DX: N20.0 Calculus of kidney (principal); K21.9 Gastro-esophageal reflux disease without esophagitis; G89.29 Other chronic pain; Z86.718 Personal history of other venous thrombosis and embolism
CPT/HCPCS: 36415; 71045; 74176; 80053; 81001; 83690; 85025; 87086; 93005; 96361; 96374; 96375; 96376; 99285; J1885; J2270; J2405; J7030

== ENCOUNTER 2020-11-28 16:20 | Emergency (ER) | payer MEDICARE, OTHER ==
[~2020-11-28] VITALS: Ht 177.8 cm; Wt 81.3 kg
[~2020-11-28 16:20] MED LIST changes: +MIRT-7 PO; -MIRT15TA3 PO; -OMEP40CA45 PO; +OMEP40CA7 PO
--- NOTE | 2020-11-28 16:32 | PHYS DOC ---
Past History Past Medical History: DVT, GERD, Kidney Stones, Other Additional Past Medical Histor: pancreatic benign tumor, chronic pain, back pain Past Surgical History: Other Additional Past Surgical Histo: Whipple surgery 2018, lithotripsy Smoking: Non-smoker Alcohol Use: None Drug Use: None Adult General Chief Complaint Chief Complaint: CHEST PAIN HPI HPI Patient is a 70-year-old male presenting for chest and neck pain. Presents with . Reports symptom onset was yesterday evening without any known inciting e vent, trauma or exposure. Patient takes scheduled for milligram Dilaudid at home but this is not improved his symptoms, certain physical activities and ranges of motion of left upper extremity make worse. Pain is sharp and focal to left neck/shoulder region with radiation into left upper extremity. Timing of symptoms has been waxing and waning since onset. He has no history of any cardiac disease, has had recent provocative cardiac imaging such as stress testing performed in outpatient setting that was grossly unremarkable in past x1 year. Also has history of chronic pain for which he sees a painter spring and has had various shots in addition to extensive pain medication regiment as discussed above. He is here for pain relief. No recent fever, changes in vision, ripping or tearing sensation in chest, shortness of breath, cough, abdominal pain, dysuria, changes in his in motor or sensory or neurologic function Review of Systems Review of Systems Fourteen body systems of review of systems have been reviewed. See HPI for pertinent positives and negative responses, other leiva all other systems are negative, non-pertinent or non-contributory Allergies Allergies Allergies Coded Allergies Type Severity Reaction Last Updated Verified No Known Drug Allergies 08/08/20 No Physical Exam Physical Exam Constitutional: Well developed, well nourished, no acute distress, non-toxic appearance. HENT: Normocephalic, atraumatic, bilateral external ears normal, oropharynx moist, no oral exudates, nose normal. Eyes: PERRLA, EOMI, conjunctiva normal, no discharge. Neck: Normal range of motion, no tenderness, supple, no stridor. Cardiovascular: Heart rate regular, sinus rhythm, no murmurs rubs or gallops Lungs & Thorax: Bilateral breath sounds clear to auscultation Abdomen: Bowel sounds normal, soft, no tenderness, no masses, no pulsatile masses. Nonsurgical abdomen, no peritoneal signs Skin: Warm, dry, no erythema, no rash. Back: No tenderness, no CVA tenderness. Extremities: No tenderness, no cyanosis, no clubbing, ROM intact, no edema. Neurologic: Alert and oriented X 3, grossly normal motor & sensory function, no focal deficits noted. Psychologic: Affect normal, judgement normal, mood normal. Current Patient Data Vital Signs Vital Signs Date Time Temp Pulse Resp B/P (MAP) Pulse Ox O2 Delivery O2 Flow Rate FiO2 11/28/20 16:27 98.2 82 16 129/93 (105) 99 Vital Signs Date Time Temp Pulse Resp B/P (MAP) Pulse Ox O2 Delivery O2 Flow Rate FiO2 11/28/20 16:27 98.2 82 16 129/93 (105) 99 Lab Results Laboratory Tests Test 11/28/20 16:30 White Blood Count 6.1 x10^3/uL Red Blood Count 5.11 x10^6/uL Hemoglobin 15.1 g/dL Hematocrit 46.0 % Mean Corpuscular Volume 90 fL Mean Corpuscular Hemoglobin 30 pg Mean Corpuscular Hemoglobin Concent 33 g/dL Red Cell Distribution Width 15.3 % Platelet Count 205 x10^3/uL Neutrophils (%) (Auto) 54 % Lymphocytes (%) (Auto) 30 % Monocytes (%) (Auto) 9 % Eosinophils (%) (Auto) 6 % Basophils (%) (Auto) 1 % Neutrophils # (Auto) 3.3 x10^3uL Lymphocytes # (Auto) 1.8 x10^3/uL Monocytes # (Auto) 0.5 x10^3/uL Eosinophils # (Auto) 0.4 x10^3/uL Basophils # (Auto) 0.1 x10^3/uL Sodium Level 148 mmol/L Potassium Level 4.0 mmol/L Chloride Level 111 mmol/L Carbon Dioxide Level 31 mmol/L Anion Gap 6 Blood Urea Nitrogen 20 mg/dL Creatinine 0.9 mg/dL Estimated GFR (Cockcroft-Gault) 83.2 BUN/Creatinine Ratio 22 Glucose Level 79 mg/dL Calcium Level 9.1 mg/dL Total Bilirubin 0.9 mg/dL Aspartate Amino Transf (AST/SGOT) 20 U/L Alanine Aminotransferase (ALT/SGPT) 37 U/L Alkaline Phosphatase 241 U/L Troponin I Quantitative < 0.017 ng/mL QM-Cuq-V-Type Natriuretic Peptide 91 pg/mL Total Protein 7.0 g/dL Albumin 3.5 g/dL Albumin/Globulin Ratio 1.0 Current Medications Medications (Trade) Dose Ordered Sig/Omega Route PRN Reason Start Time Stop Time Status Last Admin Dose Admin Aspirin (Lou Aspirin) 325 mg 1X ONCE PO 11/28/20 16:45 11/28/20 16:54 DC 11/28/20 17:21 Orphenadrine Citrate (Norflex) 60 mg 1X ONCE IM 11/28/20 17:45 11/28/20 17:49 DC 11/28/20 18:04 EKG EKG EKG ordered and interpreted by myself at 1628 hrs. as sinus rhythm at 84 bpm, unremarkable intervals, no axis deviation, no acute ischemic findings, no STEMI Radiology/Procedures Radiology/Procedures INDICATION: Reason: CHEST PAIN / Spl. Instructions: / History: COMPARISON: August 08, 2020 FINDINGS: Single view of chest obtained. Cardiac silhouette is similar to prior with calcific atherosclerosis. Old right-sided rib fractures again seen. No definite new region of airspace consolidation or pulmonary edema. IMPRESSION: * Similar exam compared to prior without a definite new region of consolidation Electronically signed by: Reinaldo Packer MD (11/28/2020 5:12 PM) [id number] Heart Score C/O Chest Pain: Yes HEART Score for Chest Pain: HEART Score for Chest Pain Response (Comments) Value History Slighlty/Non-Suspicious 0 ECG Normal 0 Age > 65 2 Risk Factors >3 Risk Factors or Hx CAD 2 Troponin < Normal Limit 0 Total 4 Risk Factors: Risk Factors: DM, Current or recent (<one month) smoker, HTN, HLP, family history of CAD, obesity. Risk Scores: Risk Factors: DM, Current or recent (<one month) smoker, HTN, HLP, family history of CAD, obesity. Course & Med Decision Making Course & Med Decision Making Discussed with the patient all findings and diagnostic testing. I discussed most likely diagnosis of likely self-limiting musculoskeletal type injury such as strain to left trapezius muscle. I did disclose given his comorbid conditions and age she is at high risk for adverse cardiac events and recommended cardiac admission; however, patient and only are here for pain control. I discussed his extensive outpatient pain medication regiment that included numerous doses of 4 mg Dilaudid, I do not feel patient's pain is indicative of further narcotic use. Joint decision among all to administer IM orphenadrine muscle relaxer while in ER setting with instructions to follow-up with primary care physician and outpatient pain management physician. I did disclose this might be an acute presentation more concerning pathology and so, strict return precautions were discussed with good understanding by patient and , I again stressed need for close outpatient follow-up to review today's ER visit. Patient voiced understanding and agreement with the plan. Patient knows to come back for repeat evaluation if concerning signs or symptoms present prior to outpatient follow-up. Hemodynamically stable, ambulatory and well-appearing at time of disposition. Dragon Disclaimer Dragon Disclaimer This electronic medical record was generated, in whole or in part, using a voice recognition dictation system. Departure Departure: Impression: Primary Impression: Trapezius muscle spasm Disposition: HOME / SELF CARE / HOMELESS Condition: STABLE Referrals: JOSE R LEWIS MD (PCP) Additional Instructions: You were seen for chest and left-sided neck and upper extremity pain/sensation changes. Your workup did not show any acute abnormalities today, but does not indicate that you do not have underlying cardiovascular disease. You were given a dose of muscle relaxant medication in attempt to alleviate your likely diagnosis of left trapezius muscle strain/spasm. As discussed, you do need to follow up with your primary doctor and potentially a powder loader for further evaluation and treatment. You should return to the ED if you develop worsening chest pain, shortness of breath, fever, abnormal sweating, leg swelling, or any other new or concerning symptoms. It was a pleasure to take care of you and I wish you the best going forward CASA LOUIS DO Nov 28, 2020 16:32
[2020-11-28] MEDS ORDERED: ASPIRIN 325 MG TABLET PO ONE (16:45)
[2020-11-28 17:05] LABS: BASO # 0.1 x10^3/uL (0.0-0.2); BASO % 1 % (0-3); EOS # 0.4 x10^3/uL (0.0-0.7); EOS % 6 % (0-3); HEMOGLOBIN 15.1 g/dL (13.0-17.5); LYMPH # 1.8 x10^3/uL (1.0-4.8); LYMPH % 30 % (24-48); MEAN CORPUSCULAR HEMOGLOBIN 30 pg (25-35); MEAN CORPUSCULAR HGB CONC 33 g/dL (31-37); MEAN CORPUSCULAR VOLUME 90 fL (79-100); MONO # 0.5 x10^3/uL (0.0-1.1); MONO % 9 % (0-9); NEUT # 3.3 x10^3uL (1.8-7.7); NEUT % 54 % (31-73); PLATELET COUNT 205 x10^3/uL (140-400); RED BLOOD COUNT 5.11 x10^6/uL (4.30-5.70); RED CELL DISTRIBUTION WIDTH 15.3 % (11.5-14.5); WHITE BLOOD COUNT 6.1 x10^3/uL (4.0-11.0)
--- NOTE | 2020-11-28 17:15 | RAD ---
INDICATION: Reason: CHEST PAIN / Spl. Instructions: / History: COMPARISON: August 08, 2020 FINDINGS: Single view of chest obtained. Cardiac silhouette is similar to prior with calcific atherosclerosis. Old right-sided rib fractures again seen. No definite new region of airspace consolidation or pulmonary edema. IMPRESSION: * Similar exam compared to prior without a definite new region of consolidation Electronically signed by: Reinaldo Packer MD (11/28/2020 5:12 PM) [id number]
[2020-11-28 17:22] LABS: ALBUMIN 3.5 g/dL (3.4-5.0); CALCIUM 9.1 mg/dL (8.5-10.1); CREATININE 0.9 mg/dL (0.7-1.3); GFR 83.2; TOTAL BILIRUBIN 0.9 mg/dL (0.2-1.0)
[2020-11-28] MEDS ORDERED: ORPHENADRINE CITRATE 60 MG/2 ML VIAL. IM ONE (17:45)
[2020-11-28 18:04] VITALS: BP 124/83
--- NOTE | 2020-11-29 22:11 | EKG ---
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
== END 2020-11-28 18:09 | disposition home or self-care (01) ==
LOC: ER 16:20
DX: S29.012A Strain of muscle and tendon of back wall of thorax, initial encounter (principal); K21.9 Gastro-esophageal reflux disease without esophagitis; Z87.442 Personal history of urinary calculi; X58.XXXA Exposure to other specified factors, initial encounter; Y93.89 Activity, other specified; Y92.89 Other specified places as the place of occurrence of the external cause; Y99.8 Other external cause status
CPT/HCPCS: 36415; 71045; 80053; 83880; 84484; 85025; 93005; 96372; 99285; J2360

== ENCOUNTER → 2021-02-04 | Outpatient (CLI) | payer MEDICARE, OTHER ==
[~2021-02-04] MED LIST changes: -LIPA1CAP12 PO; +LIPA1CAP31 PO; -VITA10003 PO; +[UNRECOGNIZED DRUG - CODE] PO
[2021-02-04 14:24] LABS: BASO % 1 % (0-3); EOS # 0.2 x10^3/uL (0.0-0.7); EOS % 4 % (0-3); HEMATOCRIT 45.3 % (39.0-53.0); HEMOGLOBIN 14.8 g/dL (13.0-17.5); LYMPH # 1.8 x10^3/uL (1.0-4.8); LYMPH % 31 % (24-48); MEAN CORPUSCULAR HEMOGLOBIN 30 pg (25-35); MEAN CORPUSCULAR HGB CONC 33 g/dL (31-37); MEAN CORPUSCULAR VOLUME 91 fL (79-100); MONO # 0.4 x10^3/uL (0.0-1.1); MONO % 8 % (0-9); NEUT # 3.3 x10^3uL (1.8-7.7); NEUT % 57 % (31-73); PLATELET COUNT 184 x10^3/uL (140-400); RED BLOOD COUNT 4.97 x10^6/uL (4.30-5.70); RED CELL DISTRIBUTION WIDTH 15.7 % (11.5-14.5); WHITE BLOOD COUNT 5.8 x10^3/uL (4.0-11.0)
[2021-02-04 14:34] LABS: ALBUMIN 3.6 g/dL (3.4-5.0); ALBUMIN/GLOBULIN RATIO 1.1 (1.0-1.7); CREATININE 0.8 mg/dL (0.7-1.3); GFR 95.3; POTASSIUM 4.1 mmol/L (3.5-5.1); TOTAL BILIRUBIN 1.1 mg/dL (0.2-1.0); TOTAL PROTEIN 6.8 g/dL (6.4-8.2)
== END ==
LOC: LAB 13:10
PROVIDERS: ATTEND Nurse Practitioner Family
DX: R74.8 Abnormal levels of other serum enzymes (principal); K83.9 Disease of biliary tract, unspecified
CPT/HCPCS: 36415; 80053; 85025; 85610

== ENCOUNTER → 2021-02-20 | Outpatient (CLI) | payer MEDICARE, OTHER ==
[~2021-02-20] MED LIST changes: +IOHEXOL 350 MG/ML 100 ML VIAL. IV ONE
--- NOTE | 2021-02-20 12:42 | RAD ---
EXAM: CT ANGIOGRAPHY OF THE ABDOMEN AND PELVIS WITH AND WITHOUT CONTRAST. HISTORY: Weight loss, Whipple procedure, nausea/vomiting. TECHNIQUE: Computed tomographic angiography of the abdomen and pelvis was performed before and after the intravenous administration of iodinated contrast. 3-D maximum intensity projections were also per formed. One or more of the following individualized dose reduction techniques were utilized for this examination: 1. Automated exposure control. 2. Adjustment of the mA and/or kV according to patient size. 3. Use of iterative reconstruction technique. COMPARISON: 08/08/2020. FINDINGS: There are limitations from motion artifact. There is no abdominal aortic aneurysm. The common and external iliac arteries are 8 without stenosis. There is mild stenosis at the origin of the left internal iliac artery. The right is patent. There a re mild atherosclerotic changes for patient age. The celiac axis, superior mesenteric artery and inferior mesenteric artery are patent. There is sever e stenosis at the origin of the left renal artery. It is moderate at the origin of the right renal ar reese. Images of the lung bases reveal mild atelectasis. Bone windows reveal no suspicious lesions. There are changes of body and tail sparing Whipple procedure. No recurrent mass is appreciated. There is extensive pneumobilia and moderate intrahepatic biliary dilatation, mostly filled with only air. The main pancreatic duct is also dilated and filled with air and 9 mm. A filling defect within the portal vein beginning at the portosplenic confluence may be from mixing r ather than thrombosis but this is unclear. Multiple small calculi are suspected within the renal calyces measuring up to 5 mm. There are no uret eral calculi. The prostate is moderately to severely enlarged at 6.2 cm. The spleen and adrenal glands are unremarkable. There are no pathologically enlarged lymph nodes. The re is diffuse diastases of the rectus muscles. Anterior abdominal wall musculature is very thin witho ut a full-thickness hernia. The colon is redundant with mild evidence of constipation. Sigmoid divert iculosis is mild. IMPRESSION: 1. Status post Whipple procedure. Moderate dilatation of the intrahepatic biliary tree and pancreatic duct is stable, with extensive pneumobilia. Recurrent mass. 2. Renal artery stenosis is severe on the left and moderate on the right. 3. No significant central mesenteric arterial stenosis. 4. A suggested filling defect within the portal vein is most likely artifactual from mixing. Ultrasou nd could further exclude portal vein thrombosis. 5. Multiple bilateral renal calculi measure up to 5 mm. 6. Correlate for mild constipation. Electronically signed by: Silvia Mckay MD (02/20/2021 12:40 PM) [facility]
== END ==
LOC: CT 09:38
PROVIDERS: ATTEND Nurse Practitioner
DX: N20.0 Calculus of kidney (principal); K57.30 Diverticulosis of large intestine without perforation or abscess without bleeding; K21.9 Gastro-esophageal reflux disease without esophagitis; N40.0 Benign prostatic hyperplasia without lower urinary tract symptoms; K59.00 Constipation, unspecified; K31.84 Gastroparesis; R79.89 Other specified abnormal findings of blood chemistry; E55.9 Vitamin D deficiency, unspecified; E56.0 Deficiency of vitamin E; E50.9 Vitamin A deficiency, unspecified; J98.11 Atelectasis; I70.8 Atherosclerosis of other arteries; I70.1 Atherosclerosis of renal artery; Z86.010 Personal history of colon polyps
CPT/HCPCS: 74174; Q9967

== ENCOUNTER → 2021-02-28 | Outpatient (CLI) | payer MEDICARE, OTHER ==
[~2021-02-28] MED LIST changes: -IOHEXOL 350 MG/ML 100 ML VIAL. IV ONE
== END ==
LOC: LAB 08:54
PROVIDERS: ATTEND Nurse Practitioner
DX: R11.2 Nausea with vomiting, unspecified (principal); E55.9 Vitamin D deficiency, unspecified; E50.9 Vitamin A deficiency, unspecified; E56.0 Deficiency of vitamin E
CPT/HCPCS: 82533; 84446; 84590

== ENCOUNTER 2021-08-09 12:58 | Emergency (ER) | payer MEDICARE, OTHER ==
[~2021-08-09] VITALS: Ht 177.8 cm; Wt 75.2 kg
[~2021-08-09 12:58] MED LIST changes: -CYCL-331 PO; +CYCL10TA19 PO; -LEVO500T8 IV; -LEVO500T8 PO; +LEVO500T9 IV; +LEVO500T9 PO
[2021-08-09] MEDS ORDERED: IOHEXOL 300 MG/ML 75 ML VIAL. IV ONE (13:30)
[2021-08-09] MEDS ORDERED: HYDROmorphone PF 1 MG/ML DISP.SYRIN IVP ONE (13:30)
[2021-08-09] MEDS ORDERED: IV NORMAL SALINE 1,000ML 1,000 ML IV ONE (13:30)
[2021-08-09] MEDS ORDERED: ONDANSETRON PF 4 MG/2 ML VIAL. IVP ONE (13:30)
[2021-08-09 13:38] LABS: BASO % 1 % (0-3); EOS # 0.4 x10^3/uL (0.0-0.7); EOS % 6 % (0-3); HEMATOCRIT 46.3 % (39.0-53.0); HEMOGLOBIN 14.9 g/dL (13.0-17.5); LYMPH # 1.7 x10^3/uL (1.0-4.8); LYMPH % 30 % (24-48); MEAN CORPUSCULAR HEMOGLOBIN 30 pg (25-35); MEAN CORPUSCULAR HGB CONC 32 g/dL (31-37); MEAN CORPUSCULAR VOLUME 92 fL (79-100); MONO # 0.3 x10^3/uL (0.0-1.1); MONO % 6 % (0-9); NEUT # 3.3 x10^3uL (1.8-7.7); NEUT % 57 % (31-73); PLATELET COUNT 210 x10^3/uL (140-400); RED BLOOD COUNT 5.02 x10^6/uL (4.30-5.70); RED CELL DISTRIBUTION WIDTH 15.4 % (11.5-14.5); WHITE BLOOD COUNT 5.7 x10^3/uL (4.0-11.0)
[2021-08-09] MEDS ORDERED: CONTRAST GIVEN. MC PRN (13:45)
[2021-08-09 13:46] LABS: CALCIUM 9.2 mg/dL (8.5-10.1); CREATININE 0.8 mg/dL (0.7-1.3); GFR 95.3; POTASSIUM 4.2 mmol/L (3.5-5.1)
[2021-08-09 13:51] LABS: ALBUMIN 3.8 g/dL (3.4-5.0); ALBUMIN/GLOBULIN RATIO 1.2 (1.0-1.7); TOTAL BILIRUBIN 1.2 mg/dL (0.2-1.0); TOTAL PROTEIN 7.1 g/dL (6.4-8.2)
[2021-08-09 14:03] VITALS: BP 126/84
[2021-08-09 14:07] LABS: CLARITY,URINE CLEAR; COLOR,URINE YELLOW; GLUCOSE,URINE NEG (NEG)
[2021-08-09 14:08] LABS: BACTERIA,URINE 0 /HPF (0-FEW); NITRITE,URINE NEG (NEG); RBC,URINE OCC /HPF (0-2)
--- NOTE | 2021-08-09 14:26 | PHYS DOC ---
Past History Past Medical History: DVT, GERD, Kidney Stones, Other Additional Past Medical Histor: pancreatic benign tumor, chronic pain, back pain (PATRICIA OGLESBY APRN) Past Surgical History: Other Additional Past Surgical Histo: Whipple surgery 2018, lithotripsy (PATRICIA OGLESBY APRN) Smoking: Non-smoker Alcohol Use: None Drug Use: None (PATRICIA OGLESBY APRN) General Adult EDM: Chief Complaint: ABDOMINAL PAIN HPI: HPI: Patient is a 70-year-old male that presents today with left-sided abdominal pain. Patient states his pain started yesterday and is progressively gotten worse over the last 24 hours, he says is mostly located on the left side, he states that he has been suffering from renal stones recently and has been taking opioid medication to help him through the pain of passing kidney stones, but it has not been helping his abdominal pain. Patient states that he had 3 bowel movements yesterday and had one prior to arrival to today, he states he also has a past medical history of a Whipple for benign pancreatic tumor and has been having his yearly checkup with his physician for that and had they have not found any concerns. Patient also states he is quite nauseated he has not vomited. (PATRICIA OGLESBY TAKE AWAY WORKER) Review of Systems: Review of Systems: Constitutional: Denies fever or chills Eyes: Denies change in visual acuity HENT: Denies nasal congestion or sore throat Respiratory: Denies cough or shortness of breath Cardiovascular: Denies chest pain or edema GI: abdominal pain, nausea, vomiting, denies bloody stools or diarrhea : Denies dysuria Musculoskeletal: Denies back pain or joint pain Integument: Denies rash Neurologic: Denies headache, focal weakness or sensory changes Endocrine: Denies polyuria or polydipsia Lymphatic: Denies swollen glands Psychiatric: Denies depression or anxiety (PATRICIA OGLESBY APRN) Current Medications: Current Meds: Current Medications Medications (Trade) Dose Ordered Sig/Omega Start Time Stop Time Status Last Admin Dose Admin Hydromorphone HCl (Dilaudid) 1 mg 1X ONCE 08/09/21 13:30 08/09/21 13:31 DC 08/09/21 13:32 1 MG Info (Do NOT chart on this entry -- for MONITORING) 1 each PRN DAILY PRN 08/09/21 13:45 08/11/21 13:44 Iohexol (Omnipaque 300 Mg/ml) 75 ml 1X ONCE 08/09/21 13:30 08/09/21 13:31 DC 08/09/21 13:30 75 ML Ondansetron HCl (Zofran) 4 mg 1X ONCE 08/09/21 13:30 08/09/21 13:31 DC 08/09/21 13:32 4 MG Sodium Chloride 1,000 ml @ 1,000 mls/hr 1X ONCE 08/09/21 13:30 08/09/21 14:29 08/09/21 13:31 1,000 MLS/HR (PATRICIA OGLESBY TAKE AWAY WORKER) Allergies: Allergies: Allergies Coded Allergies Type Severity Reaction Last Updated Verified No Known Drug Allergies 08/08/20 No (PATRICIA OGLESBY APRN) Physical Exam: PE: Constitutional: Well developed, well nourished, mild distress, non-toxic appearance. [] HENT: Normocephalic, atraumatic, bilateral external ears normal, oropharynx moist, no oral exudates, nose normal. [] Eyes: PERRLA, EOMI, conjunctiva normal, no discharge. [] Neck: Normal range of motion, no tenderness, supple, no stridor. [] Cardiovascular:Heart rate regular rhythm, no murmur [] Lungs & Thorax: Bilateral breath sounds clear to auscultation [] Abdomen: Bowel sounds hypoactive, soft, tenderness left lower quadrant, well- healed Whipple scar noted in the upper abdomen, no masses, no pulsatile masses. [] Skin: Warm, dry, no erythema, no rash. [] Back: No tenderness, no CVA tenderness. [] Extremities: No tenderness, no cyanosis, no clubbing, ROM intact, no edema. [] Neurologic: Alert and oriented X 3, normal motor function, normal sensory function, no focal deficits noted. [] Psychologic: Affect normal, judgement normal, mood normal. [] (PATRICIA OGLESBY TAKE AWAY WORKER) Current Patient Data: Labs: Laboratory Tests Test 08/09/21 13:27 08/09/21 13:28 White Blood Count 5.7 x10^3/uL (4.0-11.0) Red Blood Count 5.02 x10^6/uL (4.30-5.70) Hemoglobin 14.9 g/dL (13.0-17.5) Hematocrit 46.3 % (39.0-53.0) Mean Corpuscular Volume 92 fL (79-100) Mean Corpuscular Hemoglobin 30 pg (25-35) Mean Corpuscular Hemoglobin Concent 32 g/dL (31-37) Red Cell Distribution Width 15.4 % (11.5-14.5) H Platelet Count 210 x10^3/uL (140-400) Neutrophils (%) (Auto) 57 % (31-73) Lymphocytes (%) (Auto) 30 % (24-48) Monocytes (%) (Auto) 6 % (0-9) Eosinophils (%) (Auto) 6 % (0-3) H Basophils (%) (Auto) 1 % (0-3) Neutrophils # (Auto) 3.3 x10^3uL (1.8-7.7) Lymphocytes # (Auto) 1.7 x10^3/uL (1.0-4.8) Monocytes # (Auto) 0.3 x10^3/uL (0.0-1.1) Eosinophils # (Auto) 0.4 x10^3/uL (0.0-0.7) Basophils # (Auto) 0.0 x10^3/uL (0.0-0.2) Sodium Level 146 mmol/L (136-145) H Potassium Level 4.2 mmol/L (3.5-5.1) Chloride Level 108 mmol/L (98-107) H Carbon Dioxide Level 28 mmol/L (21-32) Anion Gap 10 (6-14) Blood Urea Nitrogen 21 mg/dL (8-26) Creatinine 0.8 mg/dL (0.7-1.3) Estimated GFR (Cockcroft-Gault) 95.3 BUN/Creatinine Ratio 26 (6-20) H Glucose Level 108 mg/dL (70-99) H Calcium Level 9.2 mg/dL (8.5-10.1) Total Bilirubin 1.2 mg/dL (0.2-1.0) H Aspartate Amino Transferase (AST) 14 U/L (15-37) L Alanine Aminotransferase (ALT) 22 U/L (16-63) Alkaline Phosphatase 157 U/L (46-116) H Total Protein 7.1 g/dL (6.4-8.2) Albumin 3.8 g/dL (3.4-5.0) Albumin/Globulin Ratio 1.2 (1.0-1.7) Urine Collection Type Clean catch Urine Color Yellow Urine Clarity Clear Urine pH 7.0 Urine Specific [place] 1.020 Urine Protein Neg (NEG-TRACE) Urine Glucose (UA) Neg mg/dL (NEG) Urine Ketones (Stick) Trace mg/dL (NEG) Urine Blood Neg (NEG) Urine Nitrite Neg (NEG) Urine Bilirubin Small (NEG) Urine Urobilinogen Dipstick 4.0 mg/dL (0.2 mg/dL) Urine Leukocyte Esterase Trace (NEG) Urine RBC Occ /HPF (0-2) Urine WBC 1-4 /HPF (0-4) Urine Squamous Epithelial Cells None /LPF Urine Bacteria 0 /HPF (0-FEW) Vital Signs: Vital Signs Date Time Temp Pulse Resp B/P (MAP) Pulse Ox O2 Delivery O2 Flow Rate FiO2 08/09/21 12:58 97.7 92 149/97 (114) 96 08/09/21 12:58 16 Room Air (PATRICIA OGLESBY TAKE AWAY WORKER) EKG: EKG: [] (PATRICIA OGLESBY TAKE AWAY WORKER) Radiology/Procedures: Radiology/Procedures: REASON: abdominal pain hx kidney stones and whipple PROCEDURE: CT ABD PELV W/ IV CONTRST ONLY Study: CT abdomen/pelvis with intravenous contrast Indication: Abdominal pain. History of kidney stones and Whipple surgery. Comparison: Most recent CT from 02/20/2021 Technique: Helical CT imaging performed of the abdomen and pelvis after the intravenous administration of 75 cc Omnipaque 300 contrast. Sagittal and coronal reformats were obtained. One or more of the following individualized dose reduction techniques were utilized for this examination: 1. Automated exposure control 2. Adjustment of the mA and/or kV according to patient size 3. Use of iterative reconstruction technique. Findings: No significant new finding at the lower chest. There is again a small nodule within the right middle lobe on image 1 series 2. Minimal atelectasis. Redemonstrated sequela of a Whipple procedure with generalized dilatation of the biliary tree, unchanged degree of main pancreatic duct dilatation and extensive pneumobilia. No findings to indicate pancreatitis. No discrete liver lesion. Unchanged size of the spleen. No adrenal gland mass. Symmetric renal parenchymal enhancement. Small bilateral renal cystic foci. Multiple bilateral intrarenal stones. No hydroureteronephrosis. No stone within either ureter or within the urinary bladder. Similar urinary bladder wall thickness and degree of prostatic enlargement. Colonic diverticulosis without diverticulitis. Mild/moderate constipation. No inflammatory changes at the expected location of the appendix. Fecalization of enteric material suggesting slowed transit. No pathologic dilatation. No abnorm ality at anastomoses. Unremarkable stomach. No mass or pathologically enlarged lymph nodes at the upper abdomen. Retroperitoneal, mesenteric, iliac chain and inguinal lymph nodes are unremarkable. No free fluid or pneumoperitoneum. Sequela of previous surgery at the midline. No complex body wall hernia. Multifocal calcified and noncalcified atheromatous plaque. Stenoses better characterized on the recent CT angiogram. Patent central portal veins and superior mesenteric vein. Osteopenia. Multifocal degenerative and chronic osseous findings. Impression: 1. No acute abnormality is identified throughout the abdomen or pelvis. 2. Sequela of Whipple procedure. No bowel obstruction or anastomotic dehiscence. Similar degree of generalized biliary tree dilatation, dilatation of the main pancreatic duct and pneumobilia. 3. Mild/moderate constipation. 4. Multiple bilateral intrarenal stones none of which cause obstruction. Normal configuration of the collecting system. Unchanged bladder and degree of prostatomegaly. 5. See the body of the report for additional chronic findings. Electronically signed by: JUAN ROSE MD (08/09/2021 2:51 PM) [id number][] (PATRICIA OGLESBY APRN) Heart Score: C/O Chest Pain: N/A Risk Factors: Risk Factors: DM, Current or recent (<one month) smoker, HTN, HLP, family history of CAD, obesity. Risk Scores: Score 0 - 3: 2.5% MACE over next 6 weeks - Discharge Home Score 4 - 6: 20.3% MACE over next 6 weeks - Admit for Clinical Observation Score 7 - 10: 72.7% MACE over next 6 weeks - Early Invasive Strategies (PATRICIA OGLESBY APRN) Course & Med Decision Making: Course & Med Decision Making Pertinent Labs and Imaging studies reviewed. (See chart for details) 1515 reviewed radiological and laboratory results with patient did inform him there was no acute findings except for to moderate mount of stool in his colon on the CT scan. Patient will be treated for constipation, patient is taking Dilaudid for pain related to passage of kidney stones did inform him that having a good bowel regimen is important and to prevent constipation. Patient states he takes Colace on a daily basis I did inform him that will help soften the stool but or not help stimulate the stool he needs a stimulant to stimulate the colon to rid his body of the stool. I did recommend MiraLAX on a daily basis and for tonight he is to do a bottle of magnesium citrate. Patient and lynsey balized understanding of this and are agreeable to the plan of care. (PATRICIA OGLESBY APRN) Dragon Disclaimer: Dragon Disclaimer: This electronic medical record was generated, in whole or in part, using a voice recognition dictation system. (PATRICIA OGLESBY APRN) Attending Co-Sign The patient was seen and interviewed as well as examined at the bedside. The chart was reviewed. The case was discussed. Agree with the plan of care. (JOHANN COMER DO) Departure Departure: Impression: Primary Impression: Constipation due to opioid therapy Disposition: HOME / SELF CARE / HOMELESS Condition: STABLE Referrals: JOSE R LEWIS MD (PCP) Patient Instructions: Constipation, Adult Additional Instructions: Drink one bottle of magnesium citrate tonight Use MiraLAX one capful twice daily for the next 3 days and then just once daily Follow-up with Dr. Rodriguez next week for further management of your constipation related to your opioid use Return to the emergency department if you have increased abdominal pain that is not relieved by having stool, you develop a fever, or you noticed blood in your stool. PATRICIA OGLESBY APRN Aug 09, 2021 14:26 JOHANN COMER DO Aug 11, 2021 10:52
--- NOTE | 2021-08-09 14:53 | RAD ---
Study: CT abdomen/pelvis with intravenous contrast Indication: Abdominal pain. History of kidney stones and Whipple surgery. Comparison: Most recent CT from 02/20/2021 Technique: Helical CT imaging performed of the abdomen and pelvis after the intravenous administratio n of 75 cc Omnipaque 300 contrast. Sagittal and coronal reformats were obtained. One or more of the following individualized dose reduction techniques were utilized for this examinat ion: 1. Automated exposure control 2. Adjustment of the mA and/or kV according to patient size 3. Use of iterative reconstruction technique. Findings: No significant new finding at the lower chest. There is again a small nodule within the right middle lobe on image 1 series 2. Minimal atelectasis. Redemonstrated sequela of a Whipple procedure with generalized dilatation of the biliary tree, unchan ged degree of main pancreatic duct dilatation and extensive pneumobilia. No findings to indicate panc reatitis. No discrete liver lesion. Unchanged size of the spleen. No adrenal gland mass. Symmetric renal parenchymal enhancement. Small bilateral renal cystic foci. Multiple bilateral intrar enal stones. No hydroureteronephrosis. No stone within either ureter or within the urinary bladder. S imilar urinary bladder wall thickness and degree of prostatic enlargement. Colonic diverticulosis without diverticulitis. Mild/moderate constipation. No inflammatory changes at the expected location of the appendix. Fecalization of enteric material suggesting slowed transit. N o pathologic dilatation. No abnormality at anastomoses. Unremarkable stomach. No mass or pathologically enlarged lymph nodes at the upper abdomen. Retroperitoneal, mesenteric, lisa ac chain and inguinal lymph nodes are unremarkable. No free fluid or pneumoperitoneum. Sequela of pre vious surgery at the midline. No complex body wall hernia. Multifocal calcified and noncalcified athe romatous plaque. Stenoses better characterized on the recent CT angiogram. Patent central portal vein s and superior mesenteric vein. Osteopenia. Multifocal degenerative and chronic osseous findings. Impression: 1. No acute abnormality is identified throughout the abdomen or pelvis. 2. Sequela of Whipple procedure. No bowel obstruction or anastomotic dehiscence. Similar degree of g eneralized biliary tree dilatation, dilatation of the main pancreatic duct and pneumobilia. 3. Mild/moderate constipation. 4. Multiple bilateral intrarenal stones none of which cause obstruction. Normal configuration of the collecting system. Unchanged bladder and degree of prostatomegaly. 5. See the body of the report for additional chronic findings. Electronically signed by: JUAN ROSE MD (08/09/2021 2:51 PM) [id number]
== END 2021-08-09 15:39 | disposition home or self-care (01) ==
LOC: ER 12:58
DX: K59.03 Drug induced constipation (principal); T40.2X5A Adverse effect of other opioids, initial encounter; K21.9 Gastro-esophageal reflux disease without esophagitis; G89.29 Other chronic pain; Z87.442 Personal history of urinary calculi; Z86.718 Personal history of other venous thrombosis and embolism; Y92.89 Other specified places as the place of occurrence of the external cause
CPT/HCPCS: 36415; 74177; 80053; 81001; 85025; 87086; 96361; 96374; 96375; 99285; J1170; J2405; J7030; Q9967